=== PATIENT | male | born 1945 | race Hispanic/Latino ===

== ENCOUNTER 2019-12-13 17:24 | Emergency (ER) | payer OTHER ==
--- NOTE | 2019-12-13 18:34 | ER ---
Nurse's Notes [facility] Name: Arturo Saldana Sr Age: 74 yrs Sex: Male : 1945 Arrival Date: 12/13/2019 Time: 17:28 Bed 13 Private MD: Diagnosis: Sprain of other specified parts of right knee;Effusion, right knee Presentation: 12/12 17:41 Chief complaint: Patient states: R knee pain after hearing a pop 2 hours ago. ss Coronavirus screen: The patient has NOT traveled to a country currently being monitored by the [facility] within the last 14 days. Proceed with normal triage procedures. Ebola Screen: Patient denies exposure to infectious person. Patient denies travel to an Ebola-affected area in the 21 days before illness onset. Initial Sepsis Screen: Does the patient meet any 2 criteria? No. Patient's initial sepsis screen is negative. Does the patient have a suspected source of infection? No. Patient's initial sepsis screen is negative. Risk Assessment: Do you want to hurt yourself or someone else? Patient reports no desire to harm self or others. 17:41 Method Of Arrival: Wheelchair ss 17:41 Acuity: MADELYN 4 ss Historical: - Allergies: 17:43 No Known Allergies; ss - PMHx: 17:43 CVA; Diabetes - IDDM; ss - Immunization history:: Adult Immunizations up to date. - Social history:: Smoking status: Patient denies any tobacco usage or history of. - Family history:: not pertinent. - Hospitalizations: : No recent hospitalization is reported. Screenin:56 Abuse screen: Denies threats or abuse. Denies injuries from another. Nutritional ph screening: No deficits noted. Tuberculosis screening: No symptoms or risk factors identified. Fall Risk None identified. Assessment: 18:00 General: Appears in no apparent distress. comfortable, well groomed, Behavior is calm, ph cooperative, appropriate for age. Pain: Complains of pain in right knee. Neuro: No deficits noted. Cardiovascular: Capillary refill < 3 seconds in bilateral fingers Patient's skin is warm and dry. Pulses are palpable in right dorsalis pedis artery and left dorsalis pedis artery. Respiratory: No deficits noted. Derm: Skin is intact, is healthy with good turgor. Vital Signs: 17:41 BP 149 / 65; Pulse 85; Resp 17; Temp 98.9(TE); Pulse Ox 97% on R/A; Weight 80.74 kg; Height 5 ft. 4 in. (162.56 cm); Pain 9/10; 19:21 BP 137 / 86; Pulse 78; Resp 18; Temp 98.0; Pulse Ox 99% on R/A; ph 17:41 Body Mass Index 30.55 (80.74 kg, 162.56 cm) ED Course: 17:28 Patient arrived in ED. mr 17:42 Triage completed. ss 17:43 Arm band placed on right wrist. ss 17:55 Aj Hu MD is Attending Physician. rn 18:00 Doreen Gardiner RN is Primary Nurse. ph 18:13 XRAY Knee RIGHT 3 view In Process Unspecified. EDMS 18:30 Richard Barber MD is Referral Physician. rn 18:57 Patient has correct armband on for positive identification. Placed in gown. Bed in low ph position. Call light in reach. Side rails up X 1. Pulse ox on. NIBP on. Door closed. 18:57 No provider procedures requiring assistance completed. Patient did not have IV access ph during this emergency room visit. 18:58 Knee immobilizer applied on right knee. ph Administered Medications: 18:57 Drug: Mineral 5 mg-325 mg 1 tabs Route: PO; ph 19:22 Follow up: Response: No adverse reaction ph 18:57 Drug: Motrin 600 mg Route: PO; ph 19:22 Follow up: Response: No adverse reaction ph Outcome: 18:31 Discharge ordered by MD. rn 19:20 Discharged to home via wheelchair, with significant other. ph 19:20 Condition: good 19:20 Discharge instructions given to patient, Instructed on discharge instructions, follow up and referral plans. medication usage, Demonstrated understanding of instructions, follow-up care, medications, Prescriptions given X 2. 19:23 Patient left the ED. ph Signatures: Dispatcher [employer] [facility] LeeSaray mr Aj Hu MD MD rn Smirch, Shelby, RN RN Doreen Gardiner RN RN ph
--- NOTE | 2019-12-13 18:34 | EDPHYS ---
Physician Documentation [facility] Name: Arturo Saldana Sr Age: 74 yrs Sex: Male : 1945 Arrival Date: 12/13/2019 Time: 17:28 Bed 13 Private MD: ED Physician Aj Hu HPI: 12/12 18:26 This 74 yrs old Male presents to ER via Wheelchair with complaints of Knee rn Pain. 18:26 The patient presents with decreased range of motion, pain. The complaints affect the rn right knee. Onset: The symptoms/episode began/occurred just prior to arrival. Modifying factors: The symptoms are alleviated by remaining still, the symptoms are aggravated by movement, weight bearing, bending knee. Severity of symptoms: At their worst the symptoms were moderate, in the emergency department the symptoms are unchanged. The patient has not experienced similar symptoms in the past. Reports stepping off deck/porch, heard a pop, knee gave out, no direct trauma or hit, and now hurts to walk or bend knee. No bony pain. + mild swelling.. Historical: - Allergies: 17:43 No Known Allergies; ss - PMHx: 17:43 CVA; Diabetes - IDDM; ss - Immunization history:: Adult Immunizations up to date. - Social history:: Smoking status: Patient denies any tobacco usage or history of. - Family history:: not pertinent. - Hospitalizations: : No recent hospitalization is reported. ROS: 18:26 Constitutional: Negative for fever, chills, and weight loss, MS/Extremity: + right knee rn pain and swelling Skin: Negative for injury, rash, and discoloration, Neuro: Negative for headache, weakness, numbness, tingling, and seizure. Exam: 18:26 Constitutional: This is a well developed, well nourished patient who is awake, alert, rn and in no acute distress. MS/ Extremity: Pulses equal, no cyanosis. Able to actively flex knee approx 60 degrees, mild suprapatellar effusion, no bony tenderness or crepitus. No patellar tenderness or dislocation. Vital Signs: 17:41 BP 149 / 65; Pulse 85; Resp 17; Temp 98.9(TE); Pulse Ox 97% on R/A; Weight 80.74 kg; ss Height 5 ft. 4 in. (162.56 cm); Pain 9/10; 19:21 BP 137 / 86; Pulse 78; Resp 18; Temp 98.0; Pulse Ox 99% on R/A; ph 17:41 Body Mass Index 30.55 (80.74 kg, 162.56 cm) ss MDM: 17:55 Patient medically screened. rn 18:26 Differential diagnosis: closed fracture, contusion, meniscus injury, ligamentous rn injury, internal derangement of knee. Data reviewed: vital signs, nurses notes, radiologic studies, plain films, and as a result, I will discharge patient. Counseling: I had a detailed discussion with the patient and/or guardian regarding: the historical points, exam findings, and any diagnostic results supporting the discharge/admit diagnosis, radiology results, the need for outpatient follow up, to return to the emergency department if symptoms worsen or persist or if there are any questions or concerns that arise at home. Special discussion: I discussed with the patient/guardian in detail that at this point there is no indication for admission to the hospital. It is understood, however, that if the symptoms persist or worsen the patient needs to return immediately for re-evaluation. Further emergent ED testing is not indicated at this point in time. I discussed with the patient/guardian in detail the need to arrange with the PCP or specialist further outpatient testing, MRI, Based on the history and exam findings, there is no indication for further emergent testing or inpatient evaluation. I discussed with the patient/guardian the need to see the orthopedic surgeon for further evaluation of the symptoms. 03 17:55 Order name: XRAY Knee RIGHT 3 view rn 12/12 18:09 Order name: Knee Immobilizer; Complete Time: 18:58 rn Administered Medications: 18:57 Drug: [employer] 5 mg-325 mg 1 tabs Route: PO; ph 19:22 Follow up: Response: No adverse reaction ph 18:57 Drug: Motrin 600 mg Route: PO; ph 19:22 Follow up: Response: No adverse reaction ph Disposition: 12/13/19 18:31 Discharged to Home. Impression: Sprain of other specified parts of right knee, Effusion, right knee. - Condition is Stable. - Discharge Instructions: Knee Effusion, Knee Immobilizer, Knee Sprain. - Prescriptions for Cyclobenzaprine 10 mg Oral Tablet - take 1 tablet by ORAL route every 8 hours As needed; 20 tablet. Tramadol 50 mg Oral Tablet - take 1 tablet by ORAL route every 8 hours as needed; 20 tablet. - Medication Reconciliation Form, Thank You Letter, Antibiotic Education, Prescription Opioid Use form. - Follow up: Richard Barber MD; When: 2 - 3 days; Reason: Recheck today's complaints, Re-evaluation by your physician. - Problem is new. - Symptoms have improved. Signatures: Dispatcher [employer] EDMS Aj Hu MD MD rn Smirch, Shelby, RN RN Doreen Gardiner RN RN ph Corrections: (The following items were deleted from the chart) 19:23 18:31 12/13/2019 18:31 Discharged to Home. Impression: Sprain of other specified parts ph of right knee; Effusion, right knee. Condition is Stable. Forms are Medication Reconciliation Form, Thank You Letter, Antibiotic Education, Prescription Opioid Use. Follow up: Dr. Richard Barber; When: 2 - 3 days; Reason: Recheck today's complaints, Re-evaluation by your physician. Problem is new. Symptoms have improved. rn
[2019-12-13] MEDS ORDERED: HYDROCODONE/APAP 5/325 MG TAB ONE (18:38)
[2019-12-13] MEDS ORDERED: IBUPROFEN 400 MG TAB ONE (18:39)
[2019-12-13] MEDS ORDERED: IBUPROFEN 200 MG TAB PO ONE (18:39)
[2019-12-13 19:52] VITALS: BP 137/86; TEMP 98; O2SAT 99
--- NOTE | 2019-12-14 09:46 | RAD REPORT ---
EXAM DESCRIPTION: RAD Right Knee 3-View 12/13/2019 CLINICAL HISTORY: Knee Pain. COMPARISON: None. TECHNIQUE: X-ray 3 view knee FINDINGS: No fracture or dislocation. Mild osteoarthritis involves the medial compartment consisting of mild joint space narrowing and small osteophytes. :
== END 2019-12-13 19:23 | disposition home or self-care (01) ==
LOC: ER 17:24
DX: S83.8X1A Sprain of other specified parts of right knee, initial encounter (principal); M25.461 Effusion, right knee; W10.8XXA Fall (on) (from) other stairs and steps, initial encounter; Y93.9 Activity, unspecified; Y92.9 Unspecified place or not applicable
CPT/HCPCS: 99284

== ENCOUNTER 2021-07-18 16:57 | Emergency (ER) | payer OTHER ==
[2021-07-18 17:51] LABS: Protime INR 0.91
--- NOTE | 2021-07-18 17:53 | RAD REPORT ---
EXAM DESCRIPTION: RAD - Chest Single View - 07/18/2021 5:48 pm CLINICAL HISTORY: numbness Chest pain. COMPARISON: Chest Single View dated 12/25/2017; Chest Pa And Lat (2 Views) dated 11/09/2017; Chest Sing le View dated 08/01/2017; CHEST SINGLE VIEW dated 05/28/2014 FINDINGS: Portable technique limits examination quality. Mild interstitial pulmonary edema is present. The heart is mildly enlarged in size. No displaced frac tures. IMPRESSION: Mild CHF.
[2021-07-18 18:01] LABS: Absolute Lymphocytes (CBC) 1.8 K/uL (0.7-4.9); Basophils % 0.7 % (0-1.3); Hematocrit 34.1 % (39.6-49.0); Lymphocytes % 21.1 % (15.3-44.8); MPV 8.1 fL (7.6-11.3); RBC Red Blood Cell Count 3.63 M/uL (4.33-5.43)
[2021-07-18 18:09] LABS: Magnesium 1.8 mg/dL (1.8-2.4); Potassium 3.9 mmol/L (3.5-5.1)
--- NOTE | 2021-07-18 18:25 | RAD REPORT ---
EXAM DESCRIPTION: CT - Head Brain Wo Cont - 07/18/2021 6:12 pm CLINICAL HISTORY: NUMBNESS Headache, drowsiness COMPARISON: HEAD BRAIN W CONTRAST dated 07/22/2013; HEAD BRAIN W O CONTRAST dated 03/16/2012 TECHNIQUE: All CT scans are performed using dose optimization technique as appropriate and may inclu de automated exposure control or mA/KV adjustment according to patient size. FINDINGS: No intracranial hemorrhage, hydrocephalus or extra-axial fluid collection.Moderate brain a trophy is seen with [id number] chronic microvascular ischemic changes.No areas of brain edema o r evidence of midline shift. Bilateral vertebral atherosclerosis is present. The paranasal sinuses and mastoids are clear. The calvarium is intact. IMPRESSION: No acute intracranial abnormality.
--- NOTE | 2021-07-18 18:30 | ER ---
Nurse's Notes [facility] Name: Arturo Saldana Sr Age: 76 yrs Sex: Male : 1945 Arrival Date: 07/18/2021 Time: 17:11 Bed 28 Private MD: Diagnosis: Paresthesia of skin Presentation: 07/18 17:12 Chief complaint: EMS states: right side numbness since noon, hx of CVA. low blood oh sugar, 1/2 tube oral glucose given by EMS. FS now 72, ask pt to finish oral glucose. Coronavirus screen: Vaccine status: Patient reports receiving the 2nd dose of the covid vaccine. Ebola Screen: No symptoms or risks identified at this time. Initial Sepsis Screen: Does the patient meet any 2 criteria? No. Patient's initial sepsis screen is negative. Does the patient have a suspected source of infection? No. Patient's initial sepsis screen is negative. Risk Assessment: Do you want to hurt yourself or someone else? Patient reports no desire to harm self or others. Onset of symptoms was July 18, 2021 at 12:00. 17:12 Method Of Arrival: EMS: [facility] oh 17:12 Acuity: MADELYN 2 oh Triage Assessment: 17:22 Neuro: Level of Consciousness is awake, alert, obeys commands, Oriented to person, oh place, time, Agronomy Research Manager are equal bilaterally Moves all extremities. Gait is steady, Speech is normal, Facial symmetry appears normal, Pupils are PERRLA. 19:13 General: Appears in no apparent distress. Behavior is calm, cooperative, appropriate oh for age. 19:14 Pain: Denies pain. oh Historical: - PMHx: 17:22 CVA; Diabetes - IDDM; oh - Immunization history:: Adult Immunizations up to date, . - Social history:: Smoking status: Patient denies any tobacco usage or history of. Screenin:24 Abuse screen: Denies threats or abuse. Nutritional screening: No deficits noted. oh Tuberculosis screening: No symptoms or risk factors identified. Fall Risk None identified. Assessment: 17:24 Neuro: Level of Consciousness is awake, alert, obeys commands, Oriented to person, oh place, time, Agronomy Research Manager are equal bilaterally Moves all extremities. Speech is normal, Facial symmetry appears normal. Vital Signs: 17:12 BP 175 / 72; Pulse 72; Resp 20; Temp 98.2(O); Pulse Ox 97% on R/A; Weight 81.19 kg; oh Height 5 ft. 3 in. (160.02 cm); 17:23 BP 156 / 77; Pulse 68; oh 19:12 BP 146 / 82; Pulse 66; Resp 19; Pulse Ox 98% on R/A; oh 17:12 Body Mass Index 31.71 (81.19 kg, 160.02 cm) oh NIH Stroke Scale Scores: 17:59 NIHSS Score: 0 [facility] ED Course: 17:11 Patient arrived in ED. oh 17:11 Da Hicks, MICHAEL is Primary Nurse. oh 17:18 Anderson Austin PA is PHCP. jr8 17:18 Elton Monsivais MD is Attending Physician. jr8 17:19 Placed in gown. Bed in low position. Call light in reach. Side rails up X2. oh 17:22 Triage completed. oh 17:24 Arm band placed on left wrist. oh 17:25 Maintain EMS IV. Dressing intact. Good blood return noted. Site clean \T\ dry. oh 17:49 Stroke CXR 1 View In Process Unspecified. EDMS 18:12 CT Head Brain wo Cont In Process Unspecified. EDMS 19:12 IV discontinued, bleeding controlled, Pressure dressing applied. oh 19:14 No provider procedures requiring assistance completed. oh Administered Medications: No medications were administered Outcome: 18:29 Discharge ordered by . jr8 19:12 Discharged to home ambulatory, with family. oh 19:12 Condition: stable 19:12 Discharge instructions given to patient. 19:14 Patient left the ED. oh NIH Stroke Scale - NIH Stroke Score Date: 07/18/2021 Time: 17:59 Total Score = 0 1a. Level of Consciousness (LOC) - 0(Alert) 1b. Level of Consciousness (LOC) (Month \T\ Age) - 0(Both) 1c. LOC Commands (Open \T\ Closes Eyes/Can Line Operator) - 0(Both) 2. Best Gaze (Lateral Gaze Paresis) - 0(Normal) 3. Visual Field Loss - 0(No visual loss) 4. Facial Palsy - 0(Normal) 5a. Left Arm: Motor (10-second hold) - 0(No drift) 5b. Right Arm: Motor (10-second hold) - 0(No drift) 6a. Left Leg: Motor (5-second hold - always test supine) - 0(No drift) 6b. Right Leg: Motor (5-second hold - always test supine) - 0(No drift) 7. Limb Ataxia (finger/nose \T\ heel/blount - test with eyes open) - 0(Absent) 8. Sensory Loss (pinprick arms/legs/face) - 0(Normal) 9. Best Language: Aphasia (description/naming/reading) - 0(No aphasia) 10. Dysarthria (speech clarity - read or repeat words) - 0(Normal) 11. Extinction and Inattention (visual/tactile/auditory/spatial/personal) - 0(No abnormality) Initials: hannah Signatures: Dispatcher [employer] Anderson Goins PA PA jr8 Da Hicks, RN RN oh
--- NOTE | 2021-07-18 18:30 | EDPHYS ---
Physician Documentation [facility] Name: Arturo Saldana Sr Age: 76 yrs Sex: Male : 1945 Arrival Date: 07/18/2021 Time: 17:11 Bed 28 Private MD: ED Physician Elton Monsivais HPI: 07/18 17:59 This 76 yrs old Male presents to ER via EMS with complaints of Numbness, Low jr8 Blood Sugar. 17:59 Onset: The symptoms/episode began/occurred acutely, today. The patient has not jr8 experienced similar symptoms in the past. The patient has not recently seen a physician. This is a 76-year-old male patient that was brought in for numbness and low blood sugar. Patient stated that his blood sugar normally runs in the 100s. Today he had gotten as low as 72. Patient was given oral glucose in route to hospital with improvement. Patient finished the glucose here and overall all symptoms have subsided at this time.. Historical: - PMHx: 17:22 CVA; Diabetes - IDDM; oh - Immunization history:: Adult Immunizations up to date, . - Social history:: Smoking status: Patient denies any tobacco usage or history of. ROS: 17:59 Eyes: Negative for injury, pain, redness, and discharge, ENT: Negative for injury, jr8 pain, and discharge, Neck: Negative for injury, pain, and swelling, Cardiovascular: Negative for chest pain, palpitations, and edema, Respiratory: Negative for shortness of breath, cough, wheezing, and pleuritic chest pain, Abdomen/GI: Negative for abdominal pain, nausea, vomiting, diarrhea, and constipation, Back: Negative for injury and pain, MS/Extremity: Negative for injury and deformity, Skin: Negative for injury, rash, and discoloration. 17:59 Neuro: Positive for numbness. Exam: 17:59 Constitutional: This is a well developed, well nourished patient who is awake, alert, jr8 and in no acute distress. Head/Face: Normocephalic, atraumatic. Eyes: Pupils equal round and reactive to light, extra-ocular motions intact. Lids and lashes normal. Conjunctiva and sclera are non-icteric and not injected. Cornea within normal limits. Periorbital areas with no swelling, redness, or edema. ENT: Nares patent. No nasal discharge, no septal abnormalities noted. Tympanic membranes are normal and external auditory canals are clear. Oropharynx with no redness, swelling, or masses, exudates, or evidence of obstruction, uvula midline. Mucous membranes moist. Neck: Trachea midline, no thyromegaly or masses palpated, and no cervical lymphadenopathy. Supple, full range of motion without nuchal rigidity, or vertebral point tenderness. No Meningismus. Cardiovascular: Regular rate and rhythm with a normal S1 and S2. No gallops, murmurs, or rubs. Normal PMI, no JVD. No pulse deficits. Respiratory: Lungs have equal breath sounds bilaterally, clear to auscultation and percussion. No rales, rhonchi or wheezes noted. No increased work of breathing, no retractions or nasal flaring. Abdomen/GI: Soft, non-tender, with normal bowel sounds. No distension or tympany. No guarding or rebound. No evidence of tenderness throughout. Back: No spinal tenderness. No costovertebral tenderness. Full range of motion. Skin: Warm, dry with normal turgor. Normal color with no rashes, no lesions, and no evidence of cellulitis. MS/ Extremity: Pulses equal, no cyanosis. Neurovascular intact. Full, normal range of motion. Neuro: Awake and alert, GCS 15, oriented to person, place, time, and situation. Cranial nerves II-XII grossly intact. Motor strength 5/5 in all extremities. Sensory grossly intact. Cerebellar exam normal. Normal gait. Vital Signs: 17:12 BP 175 / 72; Pulse 72; Resp 20; Temp 98.2(O); Pulse Ox 97% on R/A; Weight 81.19 kg; oh Height 5 ft. 3 in. (160.02 cm); 17:23 BP 156 / 77; Pulse 68; oh 19:12 BP 146 / 82; Pulse 66; Resp 19; Pulse Ox 98% on R/A; oh 17:12 Body Mass Index 31.71 (81.19 kg, 160.02 cm) oh NIH Stroke Scale Scores: 17:59 NIHSS Score: 0 jr8 MDM: 17:20 Patient medically screened. jr8 18:28 Data reviewed: vital signs, nurses notes, lab test result(s), EKG, radiologic studies, jr8 CT scan, plain films. Data interpreted: Pulse oximetry: on room air is 97 %. Interpretation: normal. Counseling: I had a detailed discussion with the patient and/or guardian regarding: the historical points, exam findings, and any diagnostic results supporting the discharge/admit diagnosis, lab results, radiology results, the need for outpatient follow up, a family practitioner, to return to the emergency department if symptoms worsen or persist or if there are any questions or concerns that arise at home. Response to treatment: the patient's symptoms have resolved after treatment. ED course: Patient remains hemodynamically stable and afebrile. Patient currently without focal deficits and feels complete resolution of all symptoms. Labs unremarkable at this time. No other acute findings noted on imaging or EKG. Will discharge home with close follow-up and return precautions. Patient good with plan at this time.. 07/18 17:19 Order name: Glucose, Ancillary Testing; Complete Time: 17:20 EDMS 07/18 17:26 Order name: Basic Metabolic Panel; Complete Time: 18:23 8 07/18 17:26 Order name: CBC with Diff; Complete Time: 18:23 8 07/18 17:26 Order name: Magnesium; Complete Time: 18:23 8 07/18 17:26 Order name: Protime (+inr); Complete Time: 17:58 8 07/18 17:26 Order name: Ptt, Activated; Complete Time: 17:58 07/18 17:26 Order name: Stroke CXR 1 View; Complete Time: 17:58 07/18 17:26 Order name: EKG; Complete Time: 17:27 07/18 17:26 Order name: Accucheck; Complete Time: 17:28 8 07/18 17:26 Order name: Cardiac monitoring; Complete Time: 17:29 8 07/18 17:26 Order name: EKG - Nurse/Tech; Complete Time: 17:54 8 07/18 17:26 Order name: IV Saline Lock; Complete Time: 17:54 07/18 17:26 Order name: Labs collected and sent; Complete Time: 17:54 07/18 17:26 Order name: CT Head Brain wo Cont; Complete Time: 18:28 07/18 17:26 Order name: NPO; Complete Time: 17:27 jr8 07/18 17:26 Order name: O2 Per Protocol; Complete Time: 17: jr8 07/18 17:26 Order name: O2 Sat Monitoring; Complete Time: jr8 07/18 17: Order name: Stroke Swallow Screen; Complete Time: 17: jr8 Administered Medications: No medications were administered Disposition: 23:47 Co-signature as Attending Physician, Elton Monsivais MD I agree with the assessment and kdr plan of care. Disposition Summary: 07/18/21 18:29 Discharge Ordered Location: Home jr8 Problem: new jr8 Symptoms: are resolved jr8 Condition: Stable jr8 Diagnosis - Paresthesia of skin jr8 Followup: jr8 - With: Private Physician - When: 1 - 2 days - Reason: Recheck today's complaints, Continuance of care, Re-evaluation by your physician Discharge Instructions: - Discharge Summary Sheet jr8 - Hypoglycemia jr8 - Paresthesia jr8 Forms: - Medication Reconciliation Form jr8 - Thank You Letter jr8 - Antibiotic Education jr8 - Prescription Opioid Use jr8 NIH Stroke Scale - NIH Stroke Score Date: 07/18/2021 Time: 17:59 Total Score = 0 1a. Level of Consciousness (LOC) - 0(Alert) 1b. Level of Consciousness (LOC) (Month \T\ Age) - 0(Both) 1c. LOC Commands (Open \T\ Closes Eyes/Paver Installer) - 0(Both) 2. Best Gaze (Lateral Gaze Paresis) - 0(Normal) 3. Visual Field Loss - 0(No visual loss) 4. Facial Palsy - 0(Normal) 5a. Left Arm: Motor (10-second hold) - 0(No drift) 5b. Right Arm: Motor (10-second hold) - 0(No drift) 6a. Left Leg: Motor (5-second hold - always test supine) - 0(No drift) 6b. Right Leg: Motor (5-second hold - always test supine) - 0(No drift) 7. Limb Ataxia (finger/nose \T\ heel/blount - test with eyes open) - 0(Absent) 8. Sensory Loss (pinprick arms/legs/face) - 0(Normal) 9. Best Language: Aphasia (description/naming/reading) - 0(No aphasia) 10. Dysarthria (speech clarity - read or repeat words) - 0(Normal) 11. Extinction and Inattention (visual/tactile/auditory/spatial/personal) - 0(No abnormality) Initials: jr8 Signatures: Dispatcher [employer] Elton Guevara MD MD kdr Roszak, Josh, PA PA jr8 Da Hicks, RN RN oh
[2021-07-18 19:19] VITALS: TEMP 98.2
[2021-07-18 19:22] VITALS: BP 146/82; O2SAT 98
== END 2021-07-18 19:14 | disposition home or self-care (01) ==
LOC: ER 16:57
DX: R20.2 Paresthesia of skin (principal); E11.9 Type 2 diabetes mellitus without complications; Z86.73 Personal history of transient ischemic attack (TIA), and cerebral infarction without residual deficits
CPT/HCPCS: 36415; 70450; 71045; 80048; 82947; 83735; 85025; 85610; 85730; 93005; 99283

== ENCOUNTER 2022-04-19 16:21 | Emergency (ER) | payer OTHER ==
--- NOTE | 2022-04-19 17:21 | RAD REPORT ---
EXAM DESCRIPTION: Rima Morgan And Yeni (2 Views)04/19/2022 5:11 pm CLINICAL HISTORY: Cough COMPARISON: 2020 FINDINGS: The lungs appear clear of acute infiltrate. The heart is mildly enlarged IMPRESSION: No acute abnormalities displayed
--- NOTE | 2022-04-19 18:58 | ER ---
Nurse's Notes [facility] Name: Arturo Saldana Sr Age: 77 yrs Sex: Male : 1945 Arrival Date: 04/19/2022 Time: 16:24 Bed 14 Private MD: Diagnosis: Coronavirus infection, unspecified Presentation: 04/19 16:30 Chief complaint: EMS states: Toned out for pulse ox of 93% on room air, covid + x 4 jl7 days, diarrhea yesterday, pt reports his and daughter made him come because he was 93% oxygen and someone said he shouldn't go below 90%. Coronavirus screen: Vaccine status: Patient reports receiving the 2nd dose of the covid vaccine. cough unrelated to allergies, diarrhea, Client presents with at least one sign or symptom that may indicate coronavirus-19. Standard/surgical mask placed on the client. Provider contacted for isolation considerations. Client reports previous positive COVID test result. Ebola Screen: No symptoms or risks identified at this time. Initial Sepsis Screen: Does the patient meet any 2 criteria? No. Patient's initial sepsis screen is negative. Does the patient have a suspected source of infection? No. Patient's initial sepsis screen is negative. Risk Assessment: Do you want to hurt yourself or someone else? Patient reports no desire to harm self or others. Onset of symptoms was April 15, 2022. Care prior to arrival: Glucose check: 291. 16:30 Method Of Arrival: EMS: [facility] jl7 16:30 Acuity: MADELYN 3 jl7 Triage Assessment: 16:35 General: Appears in no apparent distress. uncomfortable, Behavior is calm, cooperative, jl7 appropriate for age. Pain: Denies pain. Neuro: Boyce Agitation-Sedation Scale (RASS): 0 - Alert and Calm Level of Consciousness is awake, alert, obeys commands, Oriented to person, place, time, situation. Cardiovascular: Patient's skin is warm and dry. Respiratory: Airway is patent Respiratory effort is even, unlabored, Respiratory pattern is regular, symmetrical. Derm: Skin is pink, warm \T\ dry. Historical: - Allergies: 16:35 No Known Allergies; jl7 - Home Meds: 16:35 Toujeo Max U-300 SoloStar 300 unit/mL (3 mL) subcutaneous inpn 60 unit daily [Active]; jl7 metformin 500 mg Oral TG24 1 tab TID [Active]; potassium chloride 10 mEq Oral cpER 1 cap once daily [Active]; losartan 100 mg oral tab 1 tab once daily [Active]; tamsulosin 0.4 mg oral cap 1 cap once daily [Active]; atorvastatin 40 mg oral tab [Active]; carvedilol 6.25 mg oral tab 1 tab every 12 hours [Active]; citalopram 20 mg tab 1 tab once daily [Active]; clonidine HCl 0.1 mg Oral tab 1 tab once daily [Active]; furosemide 20 mg Oral tab 2 tabs 2 times per day [Active]; aspirin 81 mg Oral TbEC 1 tab once daily [Active]; - PMHx: 16:35 CVA; Diabetes - IDDM; Hypertensive disorder; Hypercholesterolemia; Congestive heart jl7 failure; Depressive disorder; - Immunization history:: Client reports receiving the 2nd dose of the Covid vaccine. - Social history:: Smoking status: Patient denies any tobacco usage or history of. Screenin:11 Abuse screen: Denies threats or abuse. Denies injuries from another. Nutritional jl7 screening: No deficits noted. Tuberculosis screening: No symptoms or risk factors identified. Fall Risk IV access (20 points). Assessment: 17:11 General: See triage assessment. jl7 18:00 Reassessment: Patient appears in no apparent distress at this time. No changes from jl7 previously documented assessment. Patient and/or family updated on plan of care and expected duration. Pain level reassessed. Patient is alert, oriented x 3, equal unlabored respirations, skin warm/dry/pink. Vital Signs: 16:30 BP 149 / 68; Pulse 67; Resp 17; Temp 98.1; Pulse Ox 97% ; Weight 81.65 kg; Height 5 ft. jl7 4 in. (162.56 cm); Pain 0/10; 16:45 BP 154 / 88; Pulse 68; Resp 15; Pulse Ox 94% ; jl7 18:55 BP 177 / 77; Pulse 65; Resp 15; Pulse Ox 95% ; jl7 16:30 Body Mass Index 30.90 (81.65 kg, 162.56 cm) jl7 ED Course: 16:24 Patient arrived in ED. eb 16:29 Debby Wooten RN is Primary Nurse. jl7 16:35 Triage completed. jl7 16:35 Tyrese Huizar NP is PHCP. pm1 16:35 Calderon South MD is Attending Physician. pm1 16:35 Arm band placed on right wrist. jl7 17:11 Patient has correct armband on for positive identification. Bed in low position. Call jl7 light in reach. Side rails up X2. Client placed on continuous cardiac and pulse oximetry monitoring. NIBP monitoring applied. 17:11 COVID swab sent to lab. Flu and/or RSV swab sent to lab. Strep swab sent to lab. jl7 17:12 Chest Pa And Lat (2 Views) XRAY In Process Unspecified. EDMS 18:53 No provider procedures requiring assistance completed. jl7 18:53 Patient did not have IV access during this emergency room visit. jl7 Administered Medications: No medications were administered Medication: 17:11 VIS not applicable for this client. jl7 Outcome: 18:57 Discharge ordered by . pm1 19:27 Patient left the ED. kd3 Signatures: Dispatcher [employer] EDNJ Tyrese Huizar NP [employer]OEMAKER pm1 Debby Wooten, RN RN jl7 Nuha Rojas Kyli RN RN kd3
--- NOTE | 2022-04-19 18:58 | EDPHYS ---
Physician Documentation [facility] Name: Arturo Saldana Sr Age: 77 yrs Sex: Male : 1945 Arrival Date: 04/19/2022 Time: 16:24 Bed 14 Private MD: ED Physician Calderon South HPI: 04/19 16:53 This 77 yrs old Male presents to ER via EMS with complaints of COVID+. pm1 16:53 Low O2 saturation at home. Onset: The symptoms/episode began/occurred today, Patient pm1 with onset of cough 6 days ago and tested positive for COVID 6 days ago. Patient does not believe he has COVID. Severity of symptoms: in the emergency department the symptoms are unchanged. The patient has not experienced similar symptoms in the past. The patient has not recently seen a physician. 77-year-old male presents to the ER with complaints of low O2 saturation per family members home O2 pulse ox. They had a reading of 93% at home and were concerned, therefore sent the patient to the ER for evaluation. Patient without any complaints shortness of breath. Patient with cough and diarrhea. Diarrhea started today. Patient reports 3 episodes. Historical: - Allergies: 16:35 No Known Allergies; jl7 - Home Meds: 16:35 Toujeo Max U-300 SoloStar 300 unit/mL (3 mL) subcutaneous inpn 60 unit daily [Active]; jl7 metformin 500 mg Oral TG24 1 tab TID [Active]; potassium chloride 10 mEq Oral cpER 1 cap once daily [Active]; losartan 100 mg oral tab 1 tab once daily [Active]; tamsulosin 0.4 mg oral cap 1 cap once daily [Active]; atorvastatin 40 mg oral tab [Active]; carvedilol 6.25 mg oral tab 1 tab every 12 hours [Active]; citalopram 20 mg tab 1 tab once daily [Active]; clonidine HCl 0.1 mg Oral tab 1 tab once daily [Active]; furosemide 20 mg Oral tab 2 tabs 2 times per day [Active]; aspirin 81 mg Oral TbEC 1 tab once daily [Active]; - PMHx: 16:35 CVA; Diabetes - IDDM; Hypertensive disorder; Hypercholesterolemia; Congestive heart jl7 failure; Depressive disorder; - Immunization history:: Client reports receiving the 2nd dose of the Covid vaccine. - Social history:: Smoking status: Patient denies any tobacco usage or history of. ROS: 16:53 Constitutional: Negative for fever, chills, and weight loss. pm1 16:53 Cardiovascular: Negative for chest pain, palpitations, and edema. 16:53 Back: Negative for injury and pain, MS/Extremity: Negative for injury and deformity, Skin: Negative for injury, rash, and discoloration, Neuro: Negative for headache, weakness, numbness, tingling, and seizure. 16:53 ENT: Positive for sore throat, Negative for ear pain. 16:53 Respiratory: Positive for cough, Negative for shortness of breath. 16:53 Abdomen/GI: Positive for diarrhea, Negative for abdominal pain, nausea and vomiting. 16:53 All other systems are negative. Exam: 16:53 Constitutional: This is a well developed, well nourished patient who is awake, alert, pm1 and in no acute distress. Head/Face: Normocephalic, atraumatic. 16:53 Back: No spinal tenderness. No costovertebral tenderness. Full range of motion. Skin: Warm, dry with normal turgor. Normal color with no rashes, no lesions, and no evidence of cellulitis. MS/ Extremity: Pulses equal, no cyanosis. Neurovascular intact. Full, normal range of motion. 16:53 Eyes: Exam is negative for acute changes, Periorbital structures: appear normal, Pupils: no acute changes, Extraocular movements: no acute changes, Conjunctiva: no acute changes, no injection. 16:53 ENT: Exam is negative for acute changes, Mouth: no acute changes, Lips: normal, moist, Oral mucosa: normal, pink and intact, moist. 16:53 Cardiovascular: Exam negative for acute changes, Rate: normal, Rhythm: regular, Pulses: no pulse deficits are appreciated, Heart sounds: normal, normal S1and S2. 16:53 Respiratory: Exam negative for acute changes, respiratory distress, shortness of breath, Breath sounds: are clear throughout. 16:53 Abdomen/GI: Exam negative for acute changes, Inspection: abdomen appears normal, Palpation: abdomen is soft and non-tender, in all quadrants. 16:53 Neuro: Exam negative for acute changes, Orientation: is normal, Mentation: is normal, Motor: is normal, moves all fours. Vital Signs: 16:30 BP 149 / 68; Pulse 67; Resp 17; Temp 98.1; Pulse Ox 97% ; Weight 81.65 kg; Height 5 ft. jl7 4 in. (162.56 cm); Pain 0/10; 16:45 BP 154 / 88; Pulse 68; Resp 15; Pulse Ox 94% ; jl7 18:55 BP 177 / 77; Pulse 65; Resp 15; Pulse Ox 95% ; jl7 16:30 Body Mass Index 30.90 (81.65 kg, 162.56 cm) jl7 MDM: 16:36 Patient medically screened. pm1 16:41 Data reviewed: vital signs. Data interpreted: Pulse oximetry: on room air is 97 %. pm1 Interpretation: normal. 16:42 ED course: 77-year-old patient presents to the ER with complaints of cough and pm1 diarrhea. Cough for 4 days and diarrhea today. Patient without any complaints of shortness of breath, chest pain, abdominal pain, nausea, or vomiting, or fever. Positive for sore throat. Family recorded a home O2 saturation of 93% and called the EMS for evaluation. 18:57 Counseling: I had a detailed discussion with the patient and/or guardian regarding: the pm1 historical points, exam findings, and any diagnostic results supporting the discharge/admit diagnosis, lab results, radiology results, the need for outpatient follow up, to return to the emergency department if symptoms worsen or persist or if there are any questions or concerns that arise at home. 04/19 16:53 Order name: COVID-19 SARS RT PCR (Document "Date of Onset" if Symptomatic); Complete pm1 Time: 18:56 04/19 16:53 Order name: Flu; Complete Time: 17:29 pm1 04/19 16:53 Order name: Chest Pa And Lat (2 Views) XRAY; Complete Time: 17:29 pm1 04/19 16:53 Order name: Strep; Complete Time: 17:29 pm1 04/19 17:26 Order name: Throat Culture EDMS Administered Medications: No medications were administered Disposition Summary: 04/19/22 18:57 Discharge Ordered Location: Home pm1 Problem: new pm1 Symptoms: have improved pm1 Condition: Stable pm1 Diagnosis - Coronavirus infection, unspecified pm1 Followup: pm1 - With: Emergency Department - When: As needed - Reason: Worsening of condition Followup: pm1 - With: Private Physician - When: 2 - 3 days - Reason: Recheck today's complaints, Continuance of care, Re-evaluation by your physician Discharge Instructions: - Discharge Summary Sheet pm1 - COVID-19 pm1 - COVID-19 Frequently Asked Questions pm1 - 10 Things You Can Do to Manage Your COVID-19 Symptoms at Home - [facility] pm1 - COVID-19: Quarantine vs. Isolation - [facility] pm1 Forms: - Medication Reconciliation Form pm1 - Thank You Letter pm1 - Antibiotic Education pm1 - Prescription Opioid Use pm1 Addendum: 04/21/2022 13:52 Co-signature as Attending Physician, Calderon South MD I agree with the assessment and c acevedo plan of care. Signatures: Dispatcher [employer] EDCalderon Collazo MD MD cha Marinas, Patrick, TELEGRAPH AND TELETYPE OPERATOR TELEGRAPH AND TELETYPE OPERATOR pm1 Debby Wooten, RN RN jl7
[2022-04-19 19:49] VITALS: TEMP 98.1
[2022-04-19 19:52] VITALS: BP 177/77; O2SAT 95
== END 2022-04-19 19:27 | disposition home or self-care (01) ==
LOC: ER 16:21
DX: U07.1 COVID-19 (principal); I10 Essential (primary) hypertension; E11.9 Type 2 diabetes mellitus without complications; Z79.4 Long term (current) use of insulin; I50.9 Heart failure, unspecified
CPT/HCPCS: 87070; 87081; 87804 ×2; 71046; 99283; U0003

== ENCOUNTER 2023-05-30 19:16 | Emergency (ER) | payer OTHER ==
--- OUTSIDE RECORDS SUMMARY | 2023-05-30 19:23 | XMS REPORT | Continuity of Care Document ---
:1945 Author Organization [facility] t Address [address] [place] [address] [place] [id number] Care Team Providers Name Role Phone PRIMO HORTON Primary Care Physician Unavailable KATELIN FOUNTAIN Attending Clinician Unavailable Brandon Spears Attending Clinician TAYLOR GOMEZ Attending Clinician Unavailable TAYLOR GOMEZ Attending Clinician Unavailable Katelin Fountain MD Attending Clinician Lab, [facility] Attending Clinician Unavailable Doctor Unassigned, [place] Attending Clinician Unavailable [facility] Attending Clinician Unavailable KATELIN FOUNTAIN Admitting Clinician Unavailable Payers Payer Name Policy Type Policy Number Effective Date Expiration Date Claudia parker BOB/DAWN [id number] 2020 MEDICARE ADVANTAGE 00:00:00 Problems Condition Condition Condition Status Onset Resolution Last Treating Co mments Source Name Details Category Date Date Treatment Clinician Date Type 2 Type 2 Disease Active [facility]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 diabetes 06-09 ity of mellitus mellitus 00:00: [place] without without 00 Medical complicati complicati Br anch on, on, without without long-term long-term current current use of use of insulin insulin MORGAN MORGAN Diagnosis Active 2012-102013-07-21 Mem oria CAROTID CAROTID 0-04 06:27:00 l STENOSIS STENOSIS 00:00: Kane zuniga ICD-9# ICD-9# 00 733.11 733.11 Active 07/09/2013 [facility] PATHOLOGIC PATHOLOGI Diagnosis Active 2013-07-21 Memoria AL FX BLANCA FX 06:27:00 l HUMEROUS HUMEROUS Kane zuniga Active [facility] Hyperchole Hyperchol Problem Resolve 2013-07-27 Memoria sterolemia esterolemi d 23:19:47 l (disorder) lee Kane n (disorder) Resolved Problem 07/27/2013 [facility] Diabetes Diabetes Problem Resolve 2013-07-27 Memoria mellitus mellitus d 23:19:47 l type 1 type 1 Ferris (disorder) (disorder) Resolved Problem 07/27/2013 [facility] 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 23:19:47 l (disorder) (disorder) He rmann Resolved Problem 07/27/2013 <sup>1</s up>carotid [facility] Amnesia Amnesia Problem Active 2023-05-19 M emoria (finding) (finding) 11:56:05 l Active Isael Problem 05/19/2023 [facility] [place] Diabetes Diabetes Problem Active 2023-05-19 Memoria mellitus mellitus 11:56:05 l (disorder) (disorder) He rmann Active Problem 05/19/2023 [facility] [place] Hyperlipid Hyperlipi Problem Active 2023-05-19 Memoria emia demia 11:56:05 l (disorder) (disorder) He rmann Active Problem 05/19/2023 [facility] [place] Hypertensi Hypertens Problem Active 2023-05-19 Memoria ve david 11:56:05 l disorder, disorder, Herm keri systemic systemic arterial arterial (disorder) (disorder) Active Problem 05/19/2023 [facility] [place] Impaired Impaired Problem Active 2023-05-19 Memoria cognition cognition 11:56:05 l (finding) (finding) Herm keri Active Problem 05/19/2023 [facility] [place] Renal Renal Problem Active 2023-05-19 Memor ia impairment impairment 11:56:05 l (disorder) (disorder) He rmann Active Problem 05/19/2023 [facility] [place] Dementia Dementia Problem Active 2023-05-19 Memoria (disorder) (disorder) 11:56:05 l Active Isael Problem 05/19/2023 [facility] [place] 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 13:50:18 13:50:18 Sex [birth year] [facility] 00:00:00 00:00:00 Medical Branch Smoking Status Start Date Stop Date Source Tobacco smoking consumption [facility] Tobacco smoking status [facility] Medications Ordered Filled Start Stop Current Ordering Indication Dosage Frequency Signature Comments Components Source Medication Medication Date Date Medication? Clinician (SIG) Name Name Aricept 10 Yes 10 mg = 1 Me moria mg oral 8-11 tab, PO, l tablet 21:09: Bedtime, # Aura nn 00 30 tab, 3 Refill(s), Pharmacy: [facility] [id number], 157.48, cm, 05/16/23 15:43:00 CDT, Height, 86.364, kg, 05/16/23 15:43:00 CDT, Weight citalopram Yes 10 mg = 1 Me moria 10 mg oral 8-11 tab, PO, l tablet 21:08: Daily, # Ferris 00 30 tab, 3 Refill(s), Pharmacy: [facility] [id number], 157.48, cm, 05/16/23 15:43:00 CDT, Height, 86.364, kg, 05/16/23 15:43:00 CDT, Weight divalproex Yes = 1 tab, Mem oria sodium 250 8-11 PO, BID, # l mg oral 21:07: 60 tab, 3 Aura nn tablet, 00 Refill(s), extended Pharmacy: release [facility] ([facility]) [id number], 157.48, cm, 05/16/23 15:43:00 CDT, Height, 86.364, kg, 05/16/23 15:43:00 CDT, Weight Aricept 10 Yes 10 mg = 1 Me moria mg oral 4-06 tab, PO, l tablet 20:49: Bedtime, # Aura nn 00 30 tab, 3 Refill(s), Pharmacy: [facility] [id number], 154.94, cm, 01/09/23 15:23:00 CDT, Height, 85.909, kg, 01/09/23 15:23:00 CDT, Weight divalproex Yes = 1 tab, Mem oria sodium 250 4-03 PO, Daily, l mg oral 16:17: # 30 tab, Aura nn tablet, 00 3 extended Refill(s), release Pharmacy: ([facility] [id number], 154.94, cm, 09/11/22 11:47:00 [employer], Height, 86.364, kg, 09/11/22 11:47:00 [employer], Weight Depakote ER 2021-10 Yes 250 mg = 1 Memoria 250 mg oral 2-07 tab, PO, l tablet, 18:03: Daily, # Kane n extended 00 30 tab, 3 release Refill(s), Pharmacy: [facility] [id number], 154.94, cm, 09/11/22 11:47:00 [employer], Height, 86.364, kg, 09/11/22 11:47:00 [employer], Weight semaglutide 2021-10 Yes [id number] 6mg Take 6 mg Univers (RYBELSUS) 1-01 by mouth ity o f 3 mg Tab 00:00: daily. [address] semaglutide 2021-10 Yes [id number] 6mg Take 6 mg Univers (RYBELSUS) 1-01 by mouth ity o f 3 mg Tab 00:00: daily. [address] semaglutide 2021-10 Yes [id number] 3mg Take 3 mg Univers (RYBELSUS) 1-01 by mouth ity o f 3 mg Tab 00:00: daily. [address] semaglutide 2021-10 Yes [id number] 6mg Take 6 mg Univers (RYBELSUS) 1-01 by mouth ity o f 3 mg Tab 00:00: daily. Medical Branch semaglutide 2021-10 Yes [id number] 3mg Take 3 mg Univers (RYBELSUS) 1- by mouth ity o f 3 mg Tab 00:00: daily. Medical Branch semaglutide 2021-10 Yes [id number] 6mg Take 6 mg Univers (RYBELSUS) 10-06 by mouth ity o f 3 mg Tab 00:00: daily. Medical Branch semaglutide 2021-10 Yes [id number] 3mg Take 3 mg Univers (RYBELSUS) 10-06 by mouth ity o f 3 mg Tab 00:00: daily. Medical Branch magnesium 2021-0 Yes 400mg Take 400 Uni vers oxide 400 9-12 mg by ity of mg 00:00: mouth [place] magnesium 00 daily. Medical Tab Branch magnesium 2021-0 Yes 400mg Take 400 Uni vers oxide 400 9-12 mg by ity of mg 00:00: mouth [place] magnesium 00 daily. Medical Tab Branch magnesium 2021-0 Yes 400mg Take 400 Uni vers oxide 400 9-12 mg by ity of mg 00:00: mouth [place] magnesium 00 daily. Medical Tab Branch magnesium 2021-0 Yes 400mg Take 400 Uni vers oxide 400 9-12 mg by ity of mg 00:00: mouth [place] magnesium 00 daily. Medical Tab Branch magnesium 2021-0 Yes 400mg Take 400 Uni vers oxide 400 9-12 mg by ity of mg 00:00: mouth [place] magnesium 00 daily. Medical Tab Branch magnesium 2021-0 Yes 400mg Take 400 Uni vers oxide 400 9-12 mg by ity of mg 00:00: mouth [place] magnesium 00 daily. Medical Tab Branch magnesium 2021-0 Yes 400mg Take 400 Uni vers oxide 400 9-12 mg by ity of mg 00:00: mouth [place] magnesium 00 daily. Medical Tab Branch magnesium 2021-0 Yes 400mg Take 400 Uni vers oxide 400 9-12 mg by ity of mg 00:00: mouth [place] magnesium 00 daily. Medical Tab Branch magnesium 2021-0 Yes 400mg Take 400 Uni vers oxide 400 9-12 mg by ity of mg 00:00: mouth [place] magnesium 00 daily. Medical Tab Branch magnesium 2021-0 Yes 400mg Take 400 Uni vers oxide 400 9-12 mg by ity of mg 00:00: mouth [place] magnesium 00 daily. Medical Tab Branch magnesium 2021-0 Yes 400mg Take 400 Uni vers oxide 400 9-12 mg by ity of mg 00:00: mouth [place] magnesium 00 daily. Medical Tab Branch magnesium 2021-0 Yes 400mg Take 400 Uni vers oxide 400 9-12 mg by ity of mg 00:00: mouth [place] magnesium 00 daily. Medical Tab Branch magnesium 2021-0 Yes 400mg Take 400 Uni vers oxide 400 9-12 mg by ity of mg 00:00: mouth [place] magnesium 00 daily. Medical Tab Branch magnesium 2021-0 Yes 400mg Take 400 Uni vers oxide 400 9-12 mg by ity of mg 00:00: mouth [place] magnesium 00 daily. Medical Tab Branch magnesium 2021-0 Yes 400mg Take 400 Uni vers oxide 400 9-12 mg by ity of mg 00:00: mouth [place] magnesium 00 daily. Medical Tab Branch magnesium 2021-0 Yes 400mg Take 400 Uni vers oxide 400 9-12 mg by ity of mg 00:00: mouth [place] magnesium 00 daily. Medical Tab Branch Aricept 10 0 Yes 10 mg = 1 Me moria mg oral 9-07 tab, PO, l tablet 16:52: Bedtime, # Aura nn 00 30 tab, 3 Refill(s), Pharmacy: [facility] [id number], 157.48, cm, 06/12/22 11:44:00 CDT, Height, 88.239, kg, 06/12/22 11:44:00 CDT, Weight Aricept 10 0 Yes 10 mg = 1 Me moria mg oral 9-07 tab, PO, l tablet 16:52: Bedtime, # Aura nn 00 30 tab, 3 Refill(s), Pharmacy: [facility] [id number], 157.48, cm, 06/12/22 11:44:00 CDT, Height, 88.239, kg, 06/12/22 11:44:00 CDT, Weight Rybelsus 3 2021-0 Yes 3 mg, PO, Me moria mg oral 9-07 Daily, l tablet 16:46: Take on an Aura nn 00 empty stomach with up to 4oz plain water. Wait at least 30 minutes before the first food, beverage, or other oral medication s of the day. Swallow whole. Do not cut, crush, or chew., 0 Refill(s) Rybelsus 3 2021-0 Yes 3 mg, PO, Me moria mg oral 9-07 Daily, l tablet 16:46: Take on an Aura 00 empty stomach with up to 4oz plain water. Wait at least 30 minutes before the first food, beverage, or other oral medication s of the day. Swallow whole. Do not cut, crush, or chew., 0 Refill(s) metFORMIN 2021-0 2022- No 500mg Take 500 Un rashida 500 mg 8-29 08-29 mg by ity of tablet 15:29: 00:00 mouth 3 [place] 04 :00 (three) Medical times [place] daily. semaglutide 2021-0 Yes [id number] 3mg Take 3 mg Univers (RYBELSUS) 8-29 by mouth ity o f 3 mg Tab 00:00: daily. [address] glipiZIDE 2021-0 Yes [id number] 10mg Take 1 U nivers 10 mg 8-29 tablet by ity of tablet 00:00: mouth 2 [place] [address] [facility] and dinner. metFORMIN 2021-0 Yes [id number] 1000mg Take 1 Univers 1,000 mg 8-29 tablet by ity of tablet 00:00: mouth in [address] and 1 tablet in the evening. Take with meals. semaglutide 2021-0 Yes [id number] 3mg Take 3 mg Univers (RYBELSUS) 8-29 by mouth ity o f 3 mg Tab 00:00: daily. [address] glipiZIDE 2021-0 Yes [id number] 10mg Take 1 U nivers 10 mg 8-29 tablet by ity of tablet 00:00: mouth 2 [place] [address] [facility] before breakfast and dinner. metFORMIN 2021-0 Yes [id number] 1000mg Take 1 Univers 1,000 mg 8-29 tablet by ity of tablet 00:00: mouth in [address] morning [place] and 1 tablet in the evening. Take with meals. semaglutide 2021-0 Yes [id number] 3mg Take 3 mg Univers (RYBELSUS) 8-29 by mouth ity o f 3 mg Tab 00:00: daily. [address] glipiZIDE 2022-0 Yes [id number] 10mg Take 1 U nivers 10 mg 8-29 tablet by ity of tablet 00:00: mouth [address] daily before breakfast and dinner. metFORMIN 2022-0 Yes [id number] 1000mg Take 1 Univers 1,000 mg 8-29 tablet by ity of tablet 00:00: mouth in [address] morning [place] and 1 tablet in the evening. Take with meals. semaglutide 2022-0 Yes [id number] 3mg Take 3 mg Univers (RYBELSUS) 8-29 by mouth ity o f 3 mg Tab 00:00: daily. [address] glipiZIDE 2022-0 Yes [id number] 10mg Take 1 U nivers 10 mg 8-29 tablet by ity of tablet 00:00: mouth [address] daily before breakfast and dinner. metFORMIN 2022-0 Yes [id number] 1000mg Take 1 Univers 1,000 mg 8-29 tablet by ity of tablet 00:00: mouth in [address] morning [place] and 1 tablet in the evening. Take with meals. semaglutide 2022-0 Yes [id number] 3mg Take 3 mg Univers (RYBELSUS) 8-29 by mouth ity o f 3 mg Tab 00:00: daily. [address] glipiZIDE 2022-0 Yes [id number] 10mg Take 1 U nivers 10 mg 8-29 tablet by ity of tablet 00:00: mouth [address] daily before breakfast and dinner. metFORMIN 2022-0 Yes [id number] 1000mg Take 1 Univers 1,000 mg 8-29 tablet by ity of tablet 00:00: mouth in [address] morning [place] and 1 tablet in the evening. Take with meals. semaglutide 2022-0 Yes [id number] 3mg Take 3 mg Univers (RYBELSUS) 8-29 by mouth ity o f 3 mg Tab 00:00: daily. [address] glipiZIDE 2022-0 Yes [id number] 10mg Take 1 U nivers 10 mg 8-29 tablet by ity of tablet 00:00: mouth [address] daily before breakfast and dinner. metFORMIN 2022-0 Yes [id number] 1000mg Take 1 Univers 1,000 mg 8-29 tablet by ity of tablet 00:00: mouth in [place] [address] the [facility] morning [place] and 1 tablet in the evening. Take with meals. semaglutide 2022-0 Yes [id number] 3mg Take 3 mg Univers (RYBELSUS) 8-29 by mouth ity o f 3 mg Tab 00:00: daily. [address] glipiZIDE 2022-0 Yes [id number] 10mg Take 1 U nivers 10 mg 8-29 tablet by ity of tablet 00:00: mouth 2 [place] [address] ([facility] daily before breakfast and dinner. metFORMIN 2022-0 Yes [id number] 1000mg Take 1 Univers 1,000 mg 8-29 tablet by ity of tablet 00:00: mouth in [address] morning [place] and 1 tablet in the evening. Take with meals. semaglutide 2-0 Yes [id number] 3mg Take 3 mg Univers (RYBELSUS) 8-29 by mouth ity o f 3 mg Tab 00:00: daily. [address] glipiZIDE 2022-0 Yes [id number] 10mg Take 1 U nivers 10 mg 8-29 tablet by ity of tablet 00:00: mouth 2 [place] [address] ([facility] daily before breakfast and dinner. metFORMIN 2-0 Yes [id number] 1000mg Take 1 Univers 1,000 mg 8-29 tablet by ity of tablet 00:00: mouth in [address] morning [place] and 1 tablet in the evening. Take with meals. semaglutide 2022-0 Yes [id number] 3mg Take 3 mg Univers (RYBELSUS) 8-29 by mouth ity o f 3 mg Tab 00:00: daily. [address] glipiZIDE 2022-0 Yes [id number] 10mg Take 1 U nivers 10 mg 8-29 tablet by ity of tablet 00:00: mouth 2 [place] [address] ([facility] daily before breakfast and dinner. metFORMIN 2022-0 Yes [id number] 1000mg Take 1 Univers 1,000 mg 8-29 tablet by ity of tablet 00:00: mouth in [address] morning [place] and 1 tablet in the evening. Take with meals. semaglutide 2021-0 Yes [id number] 3mg Take 3 mg Univers (RYBELSUS) 8-29 by mouth ity o f 3 mg Tab 00:00: daily. [address] glipiZIDE 2021-0 Yes [id number] 10mg Take 1 U nivers 10 mg 8-29 tablet by ity of tablet 00:00: mouth 2 [place] [address] ([facility] daily before breakfast and dinner. metFORMIN 2021-0 Yes [id number] 1000mg Take 1 Univers 1,000 mg 8-29 tablet by ity of tablet 00:00: mouth in [address] morning [place] and 1 tablet in the evening. Take with meals. semaglutide 2021-0 Yes [id number] 3mg Take 3 mg Univers (RYBELSUS) 8-29 by mouth ity o f 3 mg Tab 00:00: daily. [address] glipiZIDE 2021-0 Yes [id number] 10mg Take 1 U nivers 10 mg 8-29 tablet by ity of tablet 00:00: mouth [address] daily before breakfast and dinner. metFORMIN 2021-0 Yes [id number] 1000mg Take 1 Univers 1,000 mg 8-29 tablet by ity of tablet 00:00: mouth in [address] morning [place] and 1 tablet in the evening. Take with meals. semaglutide 2021-0 Yes [id number] 3mg Take 3 mg Univers (RYBELSUS) 8-29 by mouth ity o f 3 mg Tab 00:00: daily. [address] glipiZIDE 2022-0 Yes [id number] 10mg Take 1 U nivers 10 mg 8-29 tablet by ity of tablet 00:00: mouth [address] daily before breakfast and dinner. metFORMIN 2-0 Yes [id number] 1000mg Take 1 Univers 1,000 mg 8-29 tablet by ity of tablet 00:00: mouth in [address] morning [place] and 1 tablet in the evening. Take with meals. glipiZIDE 2022-0 Yes [id number] 10mg Take 1 U nivers 10 mg 8-29 tablet by ity of tablet 00:00: mouth [address] daily before breakfast and dinner. metFORMIN 2022-0 Yes [id number] 1000mg Take 1 Univers 1,000 mg 8-29 tablet by ity of tablet 00:00: mouth in [place] the [facility] morning [place] and 1 tablet in the evening. Take with meals. glipiZIDE 2022-0 Yes [id number] 10mg Take 1 U nivers 10 mg 8-29 tablet by ity of tablet 00:00: mouth [place] [address] ([facility] daily before breakfast and dinner. metFORMIN 2022-0 Yes [id number] 1000mg Take 1 Univers 1,000 mg 8-29 tablet by ity of tablet 00:00: mouth in [place] [address] the [facility] morning [place] and 1 tablet in the evening. Take with meals. glipiZIDE 2022-0 Yes [id number] 10mg Take 1 U nivers 10 mg 8-29 tablet by ity of tablet 00:00: mouth [place] [address] ([facility] daily before breakfast and dinner. metFORMIN 2022-0 Yes [id number] 1000mg Take 1 Univers 1,000 mg 8-29 tablet by ity of tablet 00:00: mouth in [address] morning [place] and 1 tablet in the evening. Take with meals. glipiZIDE 2022-0 Yes [id number] 10mg Take 1 U nivers 10 mg 8-29 tablet by ity of tablet 00:00: mouth [place] [address] ([facility] daily before breakfast and dinner. metFORMIN 2022-0 Yes [id number] 1000mg Take 1 Univers 1,000 mg 8-29 tablet by ity of tablet 00:00: mouth in [place] [address] the [facility] morning [place] and 1 tablet in the evening. Take with meals. glipiZIDE 2022-0 Yes [id number] 10mg Take 1 U nivers 10 mg 8-29 tablet by ity of tablet 00:00: mouth [place] [address] ([facility] daily before breakfast and dinner. metFORMIN 2022-0 Yes [id number] 1000mg Take 1 Univers 1,000 mg 8-29 tablet by ity of tablet 00:00: mouth in [address] morning [place] and 1 tablet in the evening. Take with meals. glipiZIDE 2022-0 Yes [id number] 10mg Take 1 U nivers 10 mg 8-29 tablet by ity of tablet 00:00: mouth [place] [address] ([facility] daily before breakfast and dinner. metFORMIN 2022-0 Yes [id number] 1000mg Take 1 Univers 1,000 mg 8-29 tablet by ity of tablet 00:00: mouth in [place] [address] the [facility] morning [place] and 1 tablet in the evening. Take with meals. glipiZIDE 2022-0 Yes [id number] 10mg Take 1 U nivers 10 mg 8-29 tablet by ity of tablet 00:00: mouth 2 [place] [address] ([facility] daily before breakfast and dinner. metFORMIN 2022-0 Yes [id number] 1000mg Take 1 Univers 1,000 mg 8-29 tablet by ity of tablet 00:00: mouth in [address] morning [place] and 1 tablet in the evening. Take with meals. glipiZIDE 2022-0 Yes [id number] 10mg Take 1 U nivers 10 mg 8-29 tablet by ity of tablet 00:00: mouth [address] daily before breakfast and dinner. metFORMIN 2022-0 Yes [id number] 1000mg Take 1 Univers 1,000 mg 8-29 tablet by ity of tablet 00:00: mouth in [address] morning [place] and 1 tablet in the evening. Take with meals. glipiZIDE 2022-0 Yes [id number] 10mg Take 1 U nivers 10 mg 8-29 tablet by ity of tablet 00:00: mouth [address] daily before breakfast and dinner. metFORMIN 2022-0 Yes [id number] 1000mg Take 1 Univers 1,000 mg 8-29 tablet by ity of tablet 00:00: mouth in [address] morning [place] and 1 tablet in the evening. Take with meals. semaglutide 202-0 2- No [id number] 3mg Take 3 mg Univers (RYBELSUS) -08-06 by mouth ity of 3 mg Tab 00:00: 00:00 daily. [place] 00 :00 [facility] semaglutide 2021-0 2022- No [id number] 3mg Take 3 mg Univers (RYBELSUS) -08-06 by mouth ity of 3 mg Tab 00:00: 00:00 daily. [place] 00 :00 [facility] Branch semaglutide 202-0 2021- No [id number] 3mg Take 3 mg Univers (RYBELSUS) 06-03 by mouth ity of 3 mg Tab 00:00: 00:00 daily. [place] 00 :00 Medical Branch semaglutide 2021- No [id number] 3mg Take 3 mg Univers (RYBELSUS) 06-03 by mouth ity of 3 mg Tab 00:00: 00:00 daily. [place] 00 :00 [facility] semaglutide 2021- No [id number] 3mg Take 3 mg Univers (RYBELSUS) 06-03 by mouth ity of 3 mg Tab 00:00: 00:00 daily. [place] 00 :00 [facility] semaglutide 2021- No [id number] 3mg Take 3 mg Univers (RYBELSUS) 06-03 by mouth ity of 3 mg Tab 00:00: 00:00 daily. [place] 00 :00 [facility] semaglutide 2021- No [id number] 3mg Take 3 mg Univers (RYBELSUS) 06-03 by mouth ity of 3 mg Tab 00:00: 00:00 daily. [place] 00 :00 [facility] Aricept 5 Yes 5 mg = 1 Karan katy mg oral 7-26 tab, PO, l tablet 16:57: Bedtime, # Aura nn 00 30 tab, 3 Refill(s), Pharmacy: [facility] [id number], 154.94, cm, 04/30/22 11:41:00 CDT, Height, 86.42, kg, 04/30/22 11:41:00 CDT, Weight Aricept 5 Yes 5 mg = 1 Karan katy mg oral 7-26 tab, PO, l tablet 16:57: Bedtime, # Aura nn 00 30 tab, 3 Refill(s), Pharmacy: [facility] [id number], 154.94, cm, 04/30/22 11:41:00 CDT, Height, 86.42, kg, 04/30/22 11:41:00 CDT, Weight Toujeo Max Yes SUB-Q, Memor ia SoloStar 6-21 Daily, 0 l 300 14:10: Refill(s) Ferris units/mL 00 subcutaneou s solution Toujeo Max 0 Yes SUB-Q, Memor ia SoloStar 6-21 Daily, 0 l 300 14:10: Refill(s) Ferris units/mL 00 subcutaneou s solution Tylenol 2021-0 Yes PO, 0 Memoria 6-21 Refill(s) l 14:08: Ferris 00 Benadryl 2021-0 Yes 0 Memoria 6-21 Refill(s) l 14:08: [place] 00 Benadryl 2021-0 Yes 0 Memoria 6-21 Refill(s) l 14:08: Isael 00 Tylenol 2021-0 Yes PO, 0 Memoria 6-21 Refill(s) l 14:08: Isael 00 cloNIDine 0 Yes 0.1 mg = 1 Me moria 0.1 mg oral 6-21 tab, PO, l tablet 14:07: BID, # 180 Aura nn 00 tab, 1 Refill(s) furosemide 2021-0 Yes 20 mg = 1 Me moria 20 mg oral 6-21 tab, PO, l tablet 14:07: Daily, # Isael 00 30 tab, 0 Refill(s) aspirin 81 2021-0 Yes 81 mg = 1 Me moria mg oral 6-21 cap, PO, l capsule 14:07: Daily, 0 Kane n 00 Refill(s) cloNIDine 2021-0 Yes 0.1 mg = 1 Me moria 0.1 mg oral 6-21 tab, PO, l tablet 14:07: BID, # 180 Aura nn 00 tab, 1 Refill(s) furosemide 2021-0 Yes 20 mg = 1 Me moria 20 mg oral 6-21 tab, PO, l tablet 14:07: Daily, # Isael 00 30 tab, 0 Refill(s) aspirin 81 2021-0 Yes 81 mg = 1 Me moria mg oral 6-21 cap, PO, l capsule 14:07: Daily, 0 Kane n 00 Refill(s) carvedilol 0 Yes 6.25 mg = Me moria 6.25 mg 6-21 1 tab, PO, l oral tablet 14:06: BID, # 180 Isael 00 tab, 3 Refill(s) citalopram 2022-0 Yes 20 mg = 1 Me moria 20 mg oral 6-21 tab, PO, l tablet 14:06: Daily, # Ferris 00 90 tab, 0 Refill(s) carvedilol 0 Yes 6.25 mg = Me moria 6.25 mg 6-21 1 tab, PO, l oral tablet 14:06: BID, # 180 Isael 00 tab, 3 Refill(s) citalopram Yes 20 mg = 1 Me moria 20 mg oral 6-21 tab, PO, l tablet 14:06: Daily, # Isael 00 90 tab, 0 Refill(s) losartan 0 Yes 100 mg = 1 Mem oria 100 mg oral 6-21 tab, PO, l tablet 14:04: Daily, 0 Ferris 00 Refill(s) tamsulosin Yes 0.4 mg = 1 M emoria 0.4 mg oral 6-21 cap, PO, l capsule 14:04: Daily, # Kane n 00 30 cap, 0 Refill(s) atorvastati 0 Yes 40 mg = 1 M emoria n 40 mg 6-21 tab, PO, l oral tablet 14:04: Bedtime, # Isael 00 90 tab, 3 Refill(s) losartan 0 Yes 100 mg = 1 Mem oria 100 mg oral 6-21 tab, PO, l tablet 14:04: Daily, 0 [place] 00 Refill(s) tamsulosin 0 Yes 0.4 mg = 1 M emoria 0.4 mg oral 6-21 cap, PO, l capsule 14:04: Daily, # [place] n 00 30 cap, 0 Refill(s) atorvastati 0 Yes 40 mg = 1 M [place] n 40 mg 6-21 tab, PO, l oral tablet 14:04: Bedtime, # [place] 00 90 tab, 3 Refill(s) potassium 0 Yes 10 mEq = 1 Me moria chloride 10 6-21 tab, PO, l mEq oral 14:02: Daily, # [place] nn tablet, 00 90 tab, 3 extended Refill(s) release (KCL) potassium 0 Yes 10 mEq = 1 Me [place] chloride 10 6-21 tab, PO, l mEq oral 14:02: Daily, # [place] nn tablet, 00 90 tab, 3 extended Refill(s) release (KCL) metFORMIN Yes 500 mg = 1 Me [place] 500 mg oral 6-21 tab, PO, l tablet 14:01: TID, 0 [place] 00 Refill(s) metFORMIN 0 Yes 500 mg = 1 Me [place] 500 mg oral 6-21 tab, PO, l tablet 14:01: TID, 0 [place] 00 Refill(s) cloNIDine Yes Take by Unive rs HCL 0.1 mg 5-19 mouth at ity o f XR tablet 15:08: bedtime. [facility] s 29 Medical Branch acetaminoph Yes Take by Uni vers en (TYLENOL 5-19 mouth 2 ity o f EXTRA 15:08: (two) [place] STRENGTH) 29 times Medical 500 mg PwPk daily. Branch triamcinolo Yes Apply to Un [place] ne 5-19 area(s) 2 ity of acetonide 15:08: (two) [place] 0.1 % cream 29 times Medical daily. Branch insulin Yes 60U/mL inject 60 Uni vers glargine 5-19 Units/mL ity of U-300 conc 15:08: under the [place] (TOUJEO MAX 29 skin. Medical U-300 Branch SOLOSTAR) 300 unit/mL (3 mL) InPn cloNIDine Yes Take by Unive rs HCL 0.1 mg 5-19 mouth at ity o f XR tablet 15:08: bedtime. [facility] s 29 [facility] Branch acetaminoph Yes Take by Uni vers en (TYLENOL 5-19 mouth 2 ity o f EXTRA 15:08: (two) [place] STRENGTH) 29 times Medical 500 mg PwPk daily. Branch triamcinolo Yes Apply to Un [place] ne 5-19 area(s) 2 ity of acetonide 15:08: (two) [place] 0.1 % cream 29 times Medical daily. Branch insulin Yes 60U/mL inject 60 Uni vers glargine 5-19 Units/mL ity of U-300 conc 15:08: under the [place] (TOUJEO MAX 29 skin. Medical U-300 Branch SOLOSTAR) 300 unit/mL (3 mL) InPn cloNIDine Yes Take by Unive rs HCL 0.1 mg 5-19 mouth at ity o f XR tablet 15:08: bedtime. [facility] s 29 Medical Branch acetaminoph Yes Take by Uni vers en (TYLENOL 5-19 mouth 2 ity o f EXTRA 15:08: (two) [place] STRENGTH) 29 times Medical 500 mg PwPk daily. Branch triamcinolo Yes Apply to Un [place] ne 5-19 area(s) 2 ity of acetonide 15:08: (two) [place] 0.1 % cream 29 times Medical daily. Branch insulin Yes 60U/mL inject 60 Uni vers glargine 5-19 Units/mL ity of U-300 conc 15:08: under the [place] (TOUJEO MAX 29 skin. Medical U-300 Branch SOLOSTAR) 300 unit/mL (3 mL) InPn cloNIDine Yes Take by Unive rs HCL 0.1 mg 5-19 mouth at ity o f XR tablet 15:08: bedtime. [facility] s 29 Medical Branch acetaminoph Yes Take by Uni vers en (TYLENOL 5-19 mouth 2 ity o f EXTRA 15:08: (two) [place] STRENGTH) 29 times Medical 500 mg PwPk daily. Branch triamcinolo Yes Apply to Un [place] ne 5-19 area(s) 2 ity of acetonide 15:08: (two) [place] 0.1 % cream 29 times Medical daily. Branch insulin Yes 60U/mL inject 60 Uni vers glargine 5-19 Units/mL ity of U-300 conc 15:08: under the [place] (TOUJEO MAX 29 skin. Medical U-300 Branch SOLOSTAR) 300 unit/mL (3 mL) InPn cloNIDine Yes Take by Unive rs HCL 0.1 mg 5-19 mouth at ity o f XR tablet 15:08: bedtime. [facility] [place] [facility] s 29 Medical Branch acetaminoph Yes Take by Uni vers en (TYLENOL 5-19 mouth 2 ity o f EXTRA 15:08: (two) [place] STRENGTH) 29 times Medical 500 mg PwPk daily. Branch triamcinolo Yes Apply to Un [place] ne 5-19 area(s) 2 ity of acetonide 15:08: (two) [place] 0.1 % cream 29 times Medical daily. Branch insulin Yes 60U/mL inject 60 Uni vers glargine 5-19 Units/mL ity of U-300 conc 15:08: under the [place] (TOUJEO MAX 29 skin. Medical U-300 Branch SOLOSTAR) 300 unit/mL (3 mL) InPn cloNIDine 0 Yes Take by Unive rs HCL 0.1 mg 5-19 mouth at ity o f XR tablet 15:08: bedtime. [facility] [place] [facility] s 29 Medical Branch acetaminoph Yes Take by Uni vers en (TYLENOL 5-19 mouth 2 ity o f EXTRA 15:08: (two) [place] STRENGTH) 29 times Medical 500 mg PwPk daily. Branch triamcinolo Yes Apply to Un [place] ne 5-19 area(s) 2 ity of acetonide 15:08: (two) [place] 0.1 % cream 29 times Medical daily. Branch insulin Yes 60U/mL inject 60 Uni vers glargine 5-19 Units/mL ity of U-300 conc 15:08: under the [place] (TOUJEO MAX 29 skin. Medical U-300 Branch SOLOSTAR) 300 unit/mL (3 mL) InPn cloNIDine 0 Yes Take by Unive rs HCL 0.1 mg 5-19 mouth at ity o f XR tablet 15:08: bedtime. [place] [facility] acetaminoph Yes Take by Uni vers en (TYLENOL 5-19 mouth 2 ity o f EXTRA 15:08: (two) [place] STRENGTH) 29 times Medical 500 mg PwPk daily. Branch triamcinolo Yes Apply to Un [place] ne 5-19 area(s) 2 ity of acetonide 15:08: (two) [place] 0.1 % cream 29 times Medical daily. Branch insulin Yes 60U/mL inject 60 Uni vers glargine 5-19 Units/mL ity of U-300 conc 15:08: under the [place] (TOUJEO MAX 29 skin. Medical U-300 Branch SOLOSTAR) 300 unit/mL (3 mL) InPn cloNIDine Yes Take by Unive rs HCL 0.1 mg 5-19 mouth at ity o f XR tablet 15:08: bedtime. [place] s 29 Medical Branch acetaminoph Yes Take by Uni vers en (TYLENOL 5-19 mouth 2 ity o f EXTRA 15:08: (two) [place] STRENGTH) 29 times Medical 500 mg PwPk daily. Branch triamcinolo Yes Apply to Un [place] ne 5-19 area(s) 2 ity of acetonide 15:08: (two) [place] 0.1 % cream 29 times Medical daily. Branch insulin Yes 60U/mL inject 60 Uni vers glargine 5-19 Units/mL ity of U-300 conc 15:08: under the [place] (TOUJEO MAX 29 skin. Medical U-300 Branch SOLOSTAR) 300 unit/mL (3 mL) InPn cloNIDine Yes Take by Unive rs HCL 0.1 mg 5-19 mouth at ity o f XR tablet 15:08: bedtime. [place] s 29 Medical Branch acetaminoph Yes Take by Uni vers en (TYLENOL 5-19 mouth 2 ity o f EXTRA 15:08: (two) [place] STRENGTH) 29 times Medical 500 mg PwPk daily. Branch triamcinolo Yes Apply to Un [place] ne 5-19 area(s) 2 ity of acetonide 15:08: (two) [place] 0.1 % cream 29 times Medical daily. Branch insulin Yes 60U/mL inject 60 Uni vers glargine 5-19 Units/mL ity of U-300 conc 15:08: under the [place] (TOUJEO MAX 29 skin. Medical U-300 Branch SOLOSTAR) 300 unit/mL (3 mL) InPn cloNIDine 0 Yes Take by Unive rs HCL 0.1 mg 5-19 mouth at ity o f XR tablet 15:08: bedtime. [place] s 29 Medical Branch acetaminoph Yes Take by Uni vers en (TYLENOL 5-19 mouth 2 ity o f EXTRA 15:08: (two) [place] STRENGTH) 29 times Medical 500 mg PwPk daily. Branch triamcinolo Yes Apply to Un [place] ne 5-19 area(s) 2 ity of acetonide 15:08: (two) [place] 0.1 % cream 29 times Medical daily. Branch insulin Yes 60U/mL inject 60 Uni vers glargine 5-19 Units/mL ity of U-300 conc 15:08: under the [place] (TOUJEO MAX 29 skin. Medical U-300 Branch SOLOSTAR) 300 unit/mL (3 mL) InPn cloNIDine 0 Yes Take by Unive rs HCL 0.1 mg 5-19 mouth at ity o f XR tablet 15:08: bedtime. [place] 29 [facility] Branch acetaminoph Yes Take by Uni vers en (TYLENOL 5-19 mouth 2 ity o f EXTRA 15:08: (two) [place] STRENGTH) 29 times Medical 500 mg PwPk daily. Branch triamcinolo Yes Apply to Un [place] ne 5-19 area(s) 2 ity of acetonide 15:08: (two) [place] 0.1 % cream 29 times Medical daily. Branch insulin Yes 60U/mL inject 60 Uni vers glargine 5-19 Units/mL ity of U-300 conc 15:08: under the [place] (TOUJEO MAX 29 skin. Medical U-300 Branch SOLOSTAR) 300 unit/mL (3 mL) InPn cloNIDine 0 Yes Take by Unive rs HCL 0.1 mg 5-19 mouth at ity o f XR tablet 15:08: bedtime. [place] 29 [facility] Branch acetaminoph Yes Take by Uni vers en (TYLENOL 5-19 mouth 2 ity o f EXTRA 15:08: (two) [place] STRENGTH) 29 times Medical 500 mg PwPk daily. Branch triamcinolo Yes Apply to Un [place] ne 5-19 area(s) 2 ity of acetonide 15:08: (two) [place] 0.1 % cream 29 times Medical daily. Branch insulin Yes 60U/mL inject 60 Uni vers glargine 5-19 Units/mL ity of U-300 conc 15:08: under the [place] (TOUJEO MAX 29 skin. Medical U-300 Branch SOLOSTAR) 300 unit/mL (3 mL) InPn cloNIDine Yes Take by Unive rs HCL 0.1 mg 5-19 mouth at ity o f XR tablet 15:08: bedtime. [place] s 29 Medical Branch acetaminoph Yes Take by Uni vers en (TYLENOL 5-19 mouth 2 ity o f EXTRA 15:08: (two) [place] STRENGTH) 29 times Medical 500 mg PwPk daily. Branch triamcinolo Yes Apply to Un [place] ne 5-19 area(s) 2 ity of acetonide 15:08: (two) [place] 0.1 % cream 29 times Medical daily. Branch insulin Yes 60U/mL inject 60 Uni vers glargine 5-19 Units/mL ity of U-300 conc 15:08: under the [place] (TOUJEO MAX 29 skin. Medical U-300 Branch SOLOSTAR) 300 unit/mL (3 mL) InPn cloNIDine Yes Take by Unive rs HCL 0.1 mg 5-19 mouth at ity o f XR tablet 15:08: bedtime. [place] s 29 Medical Branch acetaminoph Yes Take by Uni vers en (TYLENOL 5-19 mouth 2 ity o f EXTRA 15:08: (two) [place] STRENGTH) 29 times Medical 500 mg PwPk daily. Branch triamcinolo Yes Apply to Un [place] ne 5-19 area(s) 2 ity of acetonide 15:08: (two) [place] 0.1 % cream 29 times Medical daily. Branch insulin Yes 60U/mL inject 60 Uni vers glargine 5-19 Units/mL ity of U-300 conc 15:08: under the [place] (TOUJEO MAX 29 skin. Medical U-300 Branch SOLOSTAR) 300 unit/mL (3 mL) InPn cloNIDine Yes Take by Unive rs HCL 0.1 mg 5-19 mouth at ity o f XR tablet 15:08: bedtime. [place] s 29 Medical Branch acetaminoph Yes Take by Uni vers en (TYLENOL 5-19 mouth 2 ity o f EXTRA 15:08: (two) [place] STRENGTH) 29 times Medical 500 mg PwPk daily. Branch triamcinolo Yes Apply to Un [place] ne 5-19 area(s) 2 ity of acetonide 15:08: (two) [place] 0.1 % cream 29 times Medical daily. Branch insulin Yes 60U/mL inject 60 Uni vers glargine 5-19 Units/mL ity of U-300 conc 15:08: under the [place] (TOUJEO MAX 29 skin. Medical U-300 Branch SOLOSTAR) 300 unit/mL (3 mL) InPn cloNIDine Yes Take by Unive rs HCL 0.1 mg 5-19 mouth at ity o f XR tablet 15:08: bedtime. [facility] s 29 Medical Branch acetaminoph Yes Take by Uni vers en (TYLENOL 5-19 mouth 2 ity o f EXTRA 15:08: (two) [place] STRENGTH) 29 times Medical 500 mg PwPk daily. Branch triamcinolo Yes Apply to Un [place] ne 5-19 area(s) 2 ity of acetonide 15:08: (two) [place] 0.1 % cream 29 times Medical daily. Branch insulin Yes 60U/mL inject 60 Uni vers glargine 5-19 Units/mL ity of U-300 conc 15:08: under the [place] (TOUJEO MAX 29 skin. Medical U-300 Branch SOLOSTAR) 300 unit/mL (3 mL) InPn cloNIDine 0 Yes Take by Unive rs HCL 0.1 mg 5-19 mouth at ity o f XR tablet 15:08: bedtime. [facility] s 29 Medical Branch acetaminoph Yes Take by Uni vers en (TYLENOL 5-19 mouth 2 ity o f EXTRA 15:08: (two) [place] STRENGTH) 29 times Medical 500 mg PwPk daily. Branch triamcinolo Yes Apply to Un [place] ne 5-19 area(s) 2 ity of acetonide 15:08: (two) [place] 0.1 % cream 29 times Medical daily. Branch insulin Yes 60U/mL inject 60 Uni vers glargine 5-19 Units/mL ity of U-300 conc 15:08: under the [place] (TOUJEO MAX 29 skin. Medical U-300 Branch SOLOSTAR) 300 unit/mL (3 mL) InPn cloNIDine Yes Take by Unive rs HCL 0.1 mg 5-19 mouth at ity o f XR tablet 15:08: bedtime. [place] s 29 Medical Branch acetaminoph Yes Take by Uni vers en (TYLENOL 5-19 mouth 2 ity o f EXTRA 15:08: (two) [place] STRENGTH) 29 times Medical 500 mg PwPk daily. Branch triamcinolo Yes Apply to Un [place] ne 5-19 area(s) 2 ity of acetonide 15:08: (two) [place] 0.1 % cream 29 times Medical daily. Branch insulin Yes 60U/mL inject 60 Uni vers glargine 5-19 Units/mL ity of U-300 conc 15:08: under the [place] (TOUJEO MAX 29 skin. Medical U-300 Branch SOLOSTAR) 300 unit/mL (3 mL) InPn cloNIDine 0 Yes Take by Unive rs HCL 0.1 mg 5-19 mouth at ity o f XR tablet 15:08: bedtime. [place] s 29 Medical Branch acetaminoph Yes Take by Uni vers en (TYLENOL 5-19 mouth 2 ity o f EXTRA 15:08: (two) [place] STRENGTH) 29 times Medical 500 mg PwPk daily. Branch triamcinolo Yes Apply to Un [place] ne 5-19 area(s) 2 ity of acetonide 15:08: (two) [place] 0.1 % cream 29 times Medical daily. Branch insulin Yes 60U/mL inject 60 Uni vers glargine 5-19 Units/mL ity of U-300 conc 15:08: under the [place] (TOUJEO MAX 29 skin. Medical U-300 Branch SOLOSTAR) 300 unit/mL (3 mL) InPn cloNIDine Yes Take by Unive rs HCL 0.1 mg 5-19 mouth at ity o f XR tablet 15:08: bedtime. [place] s 29 Medical Branch acetaminoph Yes Take by Uni vers en (TYLENOL 5-19 mouth 2 ity o f EXTRA 15:08: (two) [place] STRENGTH) 29 times Medical 500 mg PwPk daily. Branch triamcinolo Yes Apply to Un [place] ne 5-19 area(s) 2 ity of acetonide 15:08: (two) [place] 0.1 % cream 29 times Medical daily. Branch insulin Yes 60U/mL inject 60 Uni vers glargine 5-19 Units/mL ity of U-300 conc 15:08: under the [place] (TOUJEO MAX 29 skin. Medical U-300 Branch SOLOSTAR) 300 unit/mL (3 mL) InPn cloNIDine Yes Take by Unive rs HCL 0.1 mg 5-19 mouth at ity o f XR tablet 15:08: bedtime. [place] 29 [facility] Branch acetaminoph Yes Take by Uni vers en (TYLENOL 5-19 mouth 2 ity o f EXTRA 15:08: (two) [place] STRENGTH) 29 times Medical 500 mg PwPk daily. Branch triamcinolo Yes Apply to Un [place] ne 5-19 area(s) 2 ity of acetonide 15:08: (two) [place] 0.1 % cream 29 times Medical daily. Branch insulin Yes 60U/mL inject 60 Uni vers glargine 5-19 Units/mL ity of U-300 conc 15:08: under the [place] (TOUJEO MAX 29 skin. Medical U-300 Branch SOLOSTAR) 300 unit/mL (3 mL) InPn losartan 50 Yes 50mg Take 50 mg Univers mg tablet 5-19 by mouth ity of 15:04: daily. [address] losartan 50 Yes 50mg Take 50 mg Univers mg tablet 5-19 by mouth ity of 15:04: daily. [address] losartan 50 Yes 50mg Take 50 mg Univers mg tablet 5-19 by mouth ity of 15:04: daily. [address] losartan 50 Yes 50mg Take 50 mg Univers mg tablet 5-19 by mouth ity of 15:04: daily. [address] losartan 50 Yes 50mg Take 50 mg Univers mg tablet 5-19 by mouth ity of 15:04: daily. [address] losartan 50 Yes 50mg Take 50 mg Univers mg tablet 5-19 by mouth ity of 15:04: daily. [address] losartan 50 0 Yes 50mg Take 50 mg Univers mg tablet 5-19 by mouth ity of 15:04: daily. [address] losartan 50 0 Yes 50mg Take 50 mg Univers mg tablet 5-19 by mouth ity of 15:04: daily. [address] losartan 50 0 Yes 50mg Take 50 mg Univers mg tablet 5-19 by mouth ity of 15:04: daily. [address] losartan 50 0 Yes 50mg Take 50 mg Univers mg tablet 5-19 by mouth ity of 15:04: daily. [address] losartan 50 0 Yes 50mg Take 50 mg Univers mg tablet 5-19 by mouth ity of 15:04: daily. [address] losartan 50 Yes 50mg Take 50 mg Univers mg tablet 5-19 by mouth ity of 15:04: daily. [address] losartan 50 0 Yes 50mg Take 50 mg Univers mg tablet 5-19 by mouth ity of 15:04: daily. [address] losartan 50 0 Yes 50mg Take 50 mg Univers mg tablet 5-19 by mouth ity of 15:04: daily. [address] losartan 50 0 Yes 50mg Take 50 mg Univers mg tablet 5-19 by mouth ity of 15:04: daily. [address] losartan 50 0 Yes 50mg Take 50 mg Univers mg tablet 5-19 by mouth ity of 15:04: daily. [address] losartan 50 0 Yes 50mg Take 50 mg Univers mg tablet 5-19 by mouth ity of 15:04: daily. [address] losartan 50 0 Yes 50mg Take 50 mg Univers mg tablet 5-19 by mouth ity of 15:04: daily. [address] losartan 50 0 Yes 50mg Take 50 mg Univers mg tablet 5-19 by mouth ity of 15:04: daily. [address] losartan 50 0 Yes 50mg Take 50 mg Univers mg tablet 5-19 by mouth ity of 15:04: daily. [place] 10 Medical Branch losartan 50 2021-0 Yes 50mg Take 50 mg Univers mg tablet 5-19 by mouth ity of 15:04: daily. [place] 10 Medical Branch KCL 10 mEq 2021-0 Yes 10meq Take 10 Uni vers tablet 5-19 mEq by ity of 15:01: mouth [place] 21 daily. Medical Branch KCL 10 mEq 2021-0 Yes 10meq Take 10 Uni vers tablet 5-19 mEq by ity of 15:01: mouth [place] 21 daily. Medical Branch KCL 10 mEq 2021-0 Yes 10meq Take 10 Uni vers tablet 5-19 mEq by ity of 15:01: mouth [place] 21 daily. Medical Branch KCL 10 mEq 2021-0 Yes 10meq Take 10 Uni vers tablet 5-19 mEq by ity of 15:01: mouth [place] 21 daily. Medical Branch KCL 10 mEq 2021-0 Yes 10meq Take 10 Uni vers tablet 5-19 mEq by ity of 15:01: mouth [place] 21 daily. Medical Branch KCL 10 mEq 2021-0 Yes 10meq Take 10 Uni vers tablet 5-19 mEq by ity of 15:01: mouth [place] 21 daily. Medical Branch KCL 10 mEq 2021-0 Yes 10meq Take 10 Uni vers tablet 5-19 mEq by ity of 15:01: mouth [place] 21 daily. Medical Branch KCL 10 mEq 2021-0 Yes 10meq Take 10 Uni vers tablet 5-19 mEq by ity of 15:01: mouth [place] 21 daily. Medical Branch KCL 10 mEq 2021-0 Yes 10meq Take 10 Uni vers tablet 5-19 mEq by ity of 15:01: mouth [place] 21 daily. Medical Branch KCL 10 mEq 2021-0 Yes 10meq Take 10 Uni vers tablet 5-19 mEq by ity of 15:01: mouth [place] 21 daily. Medical Branch KCL 10 mEq 2021-0 Yes 10meq Take 10 Uni vers tablet 5-19 mEq by ity of 15:01: mouth [place] 21 daily. Medical Branch KCL 10 mEq 2021-0 Yes 10meq Take 10 Uni vers tablet 5-19 mEq by ity of 15:01: mouth [place] 21 daily. Medical Branch KCL 10 mEq 2021-0 Yes 10meq Take 10 Uni vers tablet 5-19 mEq by ity of 15:01: mouth [place] 21 daily. Medical Branch KCL 10 mEq 0 Yes 10meq Take 10 Uni vers tablet 5-19 mEq by ity of 15:01: mouth [place] 21 daily. Medical Branch KCL 10 mEq 0 Yes 10meq Take 10 Uni vers tablet 5-19 mEq by ity of 15:01: mouth [place] 21 daily. Medical Branch KCL 10 mEq 0 Yes 10meq Take 10 Uni vers tablet 5-19 mEq by ity of 15:01: mouth [place] 21 daily. Medical Branch KCL 10 mEq 0 Yes 10meq Take 10 Uni vers tablet 5-19 mEq by ity of 15:01: mouth [place] 21 daily. Medical Branch KCL 10 mEq 0 Yes 10meq Take 10 Uni vers tablet 5-19 mEq by ity of 15:01: mouth [place] 21 daily. Medical Branch KCL 10 mEq Yes 10meq Take 10 Uni vers tablet 5-19 mEq by ity of 15:01: mouth [place] 21 daily. Medical Branch KCL 10 mEq 0 Yes 10meq Take 10 Uni vers tablet 5-19 mEq by ity of 15:01: mouth [place] 21 daily. Medical Branch KCL 10 mEq 0 Yes 10meq Take 10 Uni vers tablet 5-19 mEq by ity of 15:01: mouth [place] 21 daily. Medical Branch carvediloL Yes 6.25mg Take 6.25 Univers 6.25 mg 5-19 mg by ity of tablet 11:06: mouth 2 [place] [address] (two) Medical times Branch daily with meals. citalopram Yes 20mg Take 20 mg U nivers 20 mg 5-19 by mouth ity of tablet 11:06: daily. [place] [address] Medical Branch atorvastati Yes 40mg Take 40 mg Univers n 40 mg 5-19 by mouth ity of tablet 11:06: at [place] [address] bedtime. Medical Branch tamsulosin Yes Take by Univ ers 0.4 mg 24 5-19 mouth ity of hr capsule 11:06: daily. [place] [address] Medical Branch aspirin 325 0 Yes 325mg Take 325 U nivers mg Cap 5-19 mg by ity of 11:06: mouth [place] 28 daily. Medical Branch carvediloL Yes 6.25mg Take 6.25 Univers 6.25 mg 5-19 mg by ity of tablet 11:06: mouth 2 [place] [address] (two) Medical times Branch daily with meals. citalopram 2021-0 Yes 20mg Take 20 mg U nivers 20 mg 5-19 by mouth ity of tablet 11:06: daily. [place] [address] Medical Branch atorvastati 2021-0 Yes 40mg Take 40 mg Univers n 40 mg 5-19 by mouth ity of tablet 11:06: at [place] [address] bedtime. Medical Branch tamsulosin 0 Yes Take by Univ ers 0.4 mg 24 5-19 mouth ity of hr capsule 11:06: daily. [place] [address] Medical Branch aspirin 325 2021-0 Yes 325mg Take 325 U nivers mg Cap 5-19 mg by ity of 11:06: mouth [place] [address] daily. Medical Branch carvediloL 2021-0 Yes 6.25mg Take 6.25 Univers 6.25 mg 5-19 mg by ity of tablet 11:06: mouth 2 [place] [address] (two) Medical times [place] daily with meals. citalopram 2021-0 Yes 20mg Take 20 mg U nivers 20 mg 5-19 by mouth ity of tablet 11:06: daily. [place] [address] Medical Branch atorvastati 2021-0 Yes 40mg Take 40 mg Univers n 40 mg 5-19 by mouth ity of tablet 11:06: at [place] [address] bedtime. Medical Branch tamsulosin 0 Yes Take by Univ ers 0.4 mg 24 5-19 mouth ity of hr capsule 11:06: daily. [place] [address] Medical Branch aspirin 325 2021-0 Yes 325mg Take 325 U nivers mg Cap 5-19 mg by ity of 11:06: mouth [place] [address] daily. Medical Branch carvediloL 2021-0 Yes 6.25mg Take 6.25 Univers 6.25 mg 5-19 mg by ity of tablet 11:06: mouth 2 [place] [address] (two) Medical times Branch daily with meals. citalopram 2021-0 Yes 20mg Take 20 mg U nivers 20 mg 5-19 by mouth ity of tablet 11:06: daily. [place] [address] Medical Branch atorvastati 2021-0 Yes 40mg Take 40 mg Univers n 40 mg 5-19 by mouth ity of tablet 11:06: at [place] [address] bedtime. Medical Branch tamsulosin 2022-0 Yes Take by Univ ers 0.4 mg 24 5-19 mouth ity of hr capsule 11:06: daily. [place] [address] Medical Branch aspirin 325 0 Yes 325mg Take 325 U nivers mg Cap 5-19 mg by ity of 11:06: mouth [place] [address] daily. Medical Branch carvediloL 0 Yes 6.25mg Take 6.25 Univers 6.25 mg 5-19 mg by ity of tablet 11:06: mouth 2 [place] [address] (two) Medical times Branch daily with meals. citalopram 0 Yes 20mg Take 20 mg U nivers 20 mg 5-19 by mouth ity of tablet 11:06: daily. [place] [address] Medical Branch atorvastati 0 Yes 40mg Take 40 mg Univers n 40 mg 5-19 by mouth ity of tablet 11:06: at [place] [address] bedtime. Medical Branch tamsulosin 0 Yes Take by Univ ers 0.4 mg 24 5-19 mouth ity of hr capsule 11:06: daily. [place] [address] Medical Branch aspirin 325 0 Yes 325mg Take 325 U nivers mg Cap 5-19 mg by ity of 11:06: mouth [place] [address] daily. Medical Branch carvediloL 0 Yes 6.25mg Take 6.25 Univers 6.25 mg 5-19 mg by ity of tablet 11:06: mouth 2 [place] [address] (two) Medical times Branch daily with meals. citalopram 0 Yes 20mg Take 20 mg U nivers 20 mg 5-19 by mouth ity of tablet 11:06: daily. [place] [address] Medical Branch atorvastati 0 Yes 40mg Take 40 mg Univers n 40 mg 5-19 by mouth ity of tablet 11:06: at [place] [address] bedtime. Medical Branch tamsulosin 0 Yes Take by Univ ers 0.4 mg 24 5-19 mouth ity of hr capsule 11:06: daily. [place] [address] Medical Branch aspirin 325 2021-0 Yes 325mg Take 325 U nivers mg Cap 5-19 mg by ity of 11:06: mouth [place] [address] daily. Medical Branch carvediloL 0 Yes 6.25mg Take 6.25 Univers 6.25 mg 5-19 mg by ity of tablet 11:06: mouth 2 [place] [address] (two) Medical times Branch daily with meals. citalopram 2021-0 Yes 20mg Take 20 mg U nivers 20 mg 5-19 by mouth ity of tablet 11:06: daily. [place] [address] Medical Branch atorvastati 2021-0 Yes 40mg Take 40 mg Univers n 40 mg 5-19 by mouth ity of tablet 11:06: at [place] [address] bedtime. Medical Branch tamsulosin 0 Yes Take by Univ ers 0.4 mg 24 5-19 mouth ity of hr capsule 11:06: daily. [place] [address] Medical Branch aspirin 325 2021-0 Yes 325mg Take 325 U nivers mg Cap 5-19 mg by ity of 11:06: mouth [place] [address] daily. Medical Branch carvediloL 2021-0 Yes 6.25mg Take 6.25 Univers 6.25 mg 5-19 mg by ity of tablet 11:06: mouth 2 [place] [address] (two) Medical times [place] daily with meals. citalopram 2021-0 Yes 20mg Take 20 mg U nivers 20 mg 5-19 by mouth ity of tablet 11:06: daily. [place] [address] Medical Branch atorvastati 2021-0 Yes 40mg Take 40 mg Univers n 40 mg 5-19 by mouth ity of tablet 11:06: at [place] [address] bedtime. Medical Branch tamsulosin 2021-0 Yes Take by Univ ers 0.4 mg 24 5-19 mouth ity of hr capsule 11:06: daily. [place] [address] Medical Branch aspirin 325 2021-0 Yes 325mg Take 325 U nivers mg Cap 5-19 mg by ity of 11:06: mouth [place] [address] daily. Medical Branch carvediloL 2021-0 Yes 6.25mg Take 6.25 Univers 6.25 mg 5-19 mg by ity of tablet 11:06: mouth 2 [place] [address] (two) Medical times [place] daily with meals. citalopram 2021-0 Yes 20mg Take 20 mg U nivers 20 mg 5-19 by mouth ity of tablet 11:06: daily. [place] [address] Medical Branch atorvastati 2021-0 Yes 40mg Take 40 mg Univers n 40 mg 5-19 by mouth ity of tablet 11:06: at [place] [address] bedtime. Medical Branch tamsulosin 2021-0 Yes Take by Univ ers 0.4 mg 24 5-19 mouth ity of hr capsule 11:06: daily. [place] [address] Medical Branch aspirin 325 2021-0 Yes 325mg Take 325 U nivers mg Cap 5-19 mg by ity of 11:06: mouth [place] [address] daily. Medical Branch carvediloL 2021-0 Yes 6.25mg Take 6.25 Univers 6.25 mg 5-19 mg by ity of tablet 11:06: mouth 2 [place] [address] (two) Medical times [place] daily with meals. citalopram 2021-0 Yes 20mg Take 20 mg U nivers 20 mg 5-19 by mouth ity of tablet 11:06: daily. [place] [address] Medical Branch atorvastati 0 Yes 40mg Take 40 mg [facility] n 40 mg 5-19 by mouth ity of tablet 11:06: at [place] [address] bedtime. Medical Branch tamsulosin 0 Yes Take by Univ ers 0.4 mg 24 5-19 mouth ity of hr capsule 11:06: daily. [place] [address] Medical Branch aspirin 325 2021-0 Yes 325mg Take 325 U nivers mg Cap 5-19 mg by ity of 11:06: mouth [place] [address] daily. Medical Branch carvediloL 0 Yes 6.25mg Take 6.25 Univers 6.25 mg 5-19 mg by ity of tablet 11:06: mouth 2 [place] [address] (two) Medical times [place] daily with meals. citalopram 2021-0 Yes 20mg Take 20 mg U nivers 20 mg 5-19 by mouth ity of tablet 11:06: daily. [place] [address] [facility] Branch atorvastati 2021-0 Yes 40mg Take 40 mg [facility] n 40 mg 5-19 by mouth ity of tablet 11:06: at [place] [address] bedtime. [facility] Branch tamsulosin 0 Yes Take by Univ ers 0.4 mg 24 5-19 mouth ity of hr capsule 11:06: daily. [place] [address] Medical Branch aspirin 325 2021-0 Yes 325mg Take 325 U nivers mg Cap 5-19 mg by ity of 11:06: mouth [place] [address] daily. Medical Branch carvediloL 0 Yes 6.25mg Take 6.25 Univers 6.25 mg 5-19 mg by ity of tablet 11:06: mouth 2 [place] [address] (two) Medical times Branch daily with meals. citalopram 2022-0 Yes 20mg Take 20 mg U nivers 20 mg 5-19 by mouth ity of tablet 11:06: daily. [place] [address] Medical Branch atorvastati 0 Yes 40mg Take 40 mg [facility] n 40 mg 5-19 by mouth ity of tablet 11:06: at [place] [address] bedtime. Medical Branch tamsulosin 0 Yes Take by [facility] ers 0.4 mg 24 5-19 mouth ity of hr capsule 11:06: daily. [place] [address] Medical Branch aspirin 325 0 Yes 325mg Take 325 U nivers mg Cap 5-19 mg by ity of 11:06: mouth [place] [address] daily. Medical Branch carvediloL 0 Yes 6.25mg Take 6.25 [facility] 6.25 mg 5-19 mg by ity of tablet 11:06: mouth 2 [place] [address] (two) Medical times Branch daily with meals. citalopram 0 Yes 20mg Take 20 mg U nivers 20 mg 5-19 by mouth ity of tablet 11:06: daily. [place] [address] [facility] Branch atorvastati 0 Yes 40mg Take 40 mg [facility] n 40 mg 5-19 by mouth ity of tablet 11:06: at [place] [address] bedtime. [facility] Branch tamsulosin 0 Yes Take by [facility] ers 0.4 mg 24 5-19 mouth ity of hr capsule 11:06: daily. [place] [address] Medical Branch aspirin 325 0 Yes 325mg Take 325 U nivers mg Cap 5-19 mg by ity of 11:06: mouth [place] [address] daily. Medical Branch carvediloL 0 Yes 6.25mg Take 6.25 [facility] 6.25 mg 5-19 mg by ity of tablet 11:06: mouth 2 [place] [address] (two) Medical times Branch daily with meals. citalopram 0 Yes 20mg Take 20 mg U nivers 20 mg 5-19 by mouth ity of tablet 11:06: daily. [place] [address] [facility] Branch atorvastati 0 Yes 40mg Take 40 mg [facility] n 40 mg 5-19 by mouth ity of tablet 11:06: at [place] [address] bedtime. [facility] tamsulosin 0 Yes Take by [facility] ers 0.4 mg 24 5-19 mouth ity of hr capsule 11:06: daily. [place] [address] Medical Branch aspirin 325 2021-0 Yes 325mg Take 325 U nivers mg Cap 5-19 mg by ity of 11:06: mouth [place] [address] daily. Medical Branch carvediloL 0 Yes 6.25mg Take 6.25 [facility] 6.25 mg 5-19 mg by ity of tablet 11:06: mouth 2 [place] [address] (two) Medical times Branch daily with meals. citalopram 2021-0 Yes 20mg Take 20 mg U nivers 20 mg 5-19 by mouth ity of tablet 11:06: daily. [place] [address] [facility] Branch atorvastati 0 Yes 40mg Take 40 mg [facility] n 40 mg 5-19 by mouth ity of tablet 11:06: at [place] [address] bedtime. [facility] Branch tamsulosin 0 Yes Take by [facility] ers 0.4 mg 24 5-19 mouth ity of hr capsule 11:06: daily. [place] [address] Medical Branch aspirin 325 2021-0 Yes 325mg Take 325 U nivers mg Cap 5-19 mg by ity of 11:06: mouth [place] [address] daily. Medical Branch carvediloL 0 Yes 6.25mg Take 6.25 [facility] 6.25 mg 5-19 mg by ity of tablet 11:06: mouth 2 [place] [address] (two) Medical times [place] daily with meals. citalopram 2021-0 Yes 20mg Take 20 mg U nivers 20 mg 5-19 by mouth ity of tablet 11:06: daily. [place] [address] [facility] Branch atorvastati 2021-0 Yes 40mg Take 40 mg [facility] n 40 mg 5-19 by mouth ity of tablet 11:06: at [place] [address] bedtime. Medical Branch tamsulosin 2021-0 Yes Take by [facility] ers 0.4 mg 24 5-19 mouth ity of hr capsule 11:06: daily. [place] [address] Medical Branch aspirin 325 2021-0 Yes 325mg Take 325 U nivers mg Cap 5-19 mg by ity of 11:06: mouth [place] [address] daily. Medical Branch carvediloL 2021-0 Yes 6.25mg Take 6.25 [facility] 6.25 mg 5-19 mg by ity of tablet 11:06: mouth 2 [place] [address] (two) Medical times Branch daily with meals. citalopram 2021-0 Yes 20mg Take 20 mg U nivers 20 mg 5-19 by mouth ity of tablet 11:06: daily. [place] [address] [facility] Branch atorvastati 0 Yes 40mg Take 40 mg [facility] n 40 mg 5-19 by mouth ity of tablet 11:06: at [place] [address] bedtime. [facility] Branch tamsulosin 0 Yes Take by [facility] ers 0.4 mg 24 5-19 mouth ity of hr capsule 11:06: daily. [place] [address] Medical Branch aspirin 325 0 Yes 325mg Take 325 U nivers mg Cap 5-19 mg by ity of 11:06: mouth [place] [address] daily. Medical Branch carvediloL 0 Yes 6.25mg Take 6.25 [facility] 6.25 mg 5-19 mg by ity of tablet 11:06: mouth 2 [place] [address] (two) Medical times [place] daily with meals. citalopram 0 Yes 20mg Take 20 mg U nivers 20 mg 5-19 by mouth ity of tablet 11:06: daily. [place] [address] Medical Branch atorvastati Yes 40mg Take 40 mg [facility] n 40 mg 5-19 by mouth ity of tablet 11:06: at [place] [address] bedtime. Medical Branch tamsulosin Yes Take by [facility] ers 0.4 mg 24 5-19 mouth ity of hr capsule 11:06: daily. [place] [address] Medical Branch aspirin 325 0 Yes 325mg Take 325 U nivers mg Cap 5-19 mg by ity of 11:06: mouth [place] [address] daily. Medical Branch carvediloL Yes 6.25mg Take 6.25 [facility] 6.25 mg 5-19 mg by ity of tablet 11:06: mouth 2 [place] [address] (two) Medical times [place] daily with meals. citalopram 0 Yes 20mg Take 20 mg U nivers 20 mg 5-19 by mouth ity of tablet 11:06: daily. [place] [address] [facility] Branch atorvastati 0 Yes 40mg Take 40 mg [facility] n 40 mg 5-19 by mouth ity of tablet 11:06: at [place] [address] bedtime. [facility] Branch tamsulosin 0 Yes Take by [facility] ers 0.4 mg 24 5-19 mouth ity of hr capsule 11:06: daily. [place] [address] Medical Branch aspirin 325 0 Yes 325mg Take 325 U nivers mg Cap 5-19 mg by ity of 11:06: mouth [place] [address] daily. Medical Branch carvediloL 0 Yes 6.25mg Take 6.25 [facility] 6.25 mg 5-19 mg by ity of tablet 11:06: mouth 2 [place] [address] (two) Medical times Branch daily with meals. citalopram 2021-0 Yes 20mg Take 20 mg [facility] nivers 20 mg 5-19 by mouth ity of tablet 11:06: daily. [place] [address] [facility] Branch atorvastati 2021-0 Yes 40mg Take 40 mg [facility] n 40 mg 5-19 by mouth ity of tablet 11:06: at [place] [address] bedtime. [facility] Branch tamsulosin 0 Yes Take by [facility] ers 0.4 mg 24 5-19 mouth ity of hr capsule 11:06: daily. [place] [address] Medical Branch aspirin 325 2021-0 Yes 325mg Take 325 U nivers mg Cap 5-19 mg by ity of 11:06: mouth [place] [address] daily. Medical Branch carvediloL 0 Yes 6.25mg Take 6.25 [facility] 6.25 mg 5-19 mg by ity of tablet 11:06: mouth 2 [place] [address] (two) Medical times Branch daily with meals. citalopram 0 Yes 20mg Take 20 mg [facility] nivers 20 mg 5-19 by mouth ity of tablet 11:06: daily. [place] [address] [facility] Branch atorvastati 0 Yes 40mg Take 40 mg [facility] n 40 mg 5-19 by mouth ity of tablet 11:06: at [place] [address] bedtime. Medical Branch tamsulosin 2021-0 Yes Take by [facility] ers 0.4 mg 24 5-19 mouth ity of hr capsule 11:06: daily. [place] [address] Medical Branch aspirin 325 2021-0 Yes 325mg Take 325 U nivers mg Cap 5-19 mg by ity of 11:06: mouth [place] [address] daily. Medical Branch chlorthalid 2021-0 Yes [id number] 15mg Take 1 [facility] one 15 mg 5-19 tablet by ity o f tablet 00:00: mouth [place] 00 daily. [facility] furosemide 2021-0 Yes [id number] 40mg Take 2 U nivers 20 mg 5-19 tablets by ity of tablet 00:00: mouth [place] 00 daily. [facility] chlorthalid 2022-0 Yes [id number] 15mg Take 1 [facility] one 15 mg 5-19 tablet by ity o f tablet 00:00: mouth [place] 00 daily. [facility] furosemide 2-0 Yes [id number] 40mg Take 2 U nivers 20 mg 5-19 tablets by ity of tablet 00:00: mouth [place] 00 daily. [facility] chlorthalid 2-0 Yes [id number] 15mg Take 1 [facility] one 15 mg 5-19 tablet by ity o f tablet 00:00: mouth [place] 00 daily. [facility] furosemide 2-0 Yes [id number] 40mg Take 2 U nivers 20 mg 5-19 tablets by ity of tablet 00:00: mouth [place] 00 daily. [facility] chlorthalid 2021-0 Yes [id number] 15mg Take 1 [facility] one 15 mg 5-19 tablet by ity o f tablet 00:00: mouth [place] 00 daily. [facility] furosemide 2-0 Yes [id number] 40mg Take 2 U nivers 20 mg 5-19 tablets by ity of tablet 00:00: mouth [place] 00 daily. [facility] chlorthalid 2021-0 Yes [id number] 15mg Take 1 [facility] one 15 mg 5-19 tablet by ity o f tablet 00:00: mouth [place] 00 daily. [facility] furosemide 2-0 Yes [id number] 40mg Take 2 [facility] nivers 20 mg 5-19 tablets by ity of tablet 00:00: mouth [place] 00 daily. [facility] chlorthalid 2-0 Yes [id number] 15mg Take 1 [facility] one 15 mg 5-19 tablet by ity o f tablet 00:00: mouth [place] 00 daily. [facility] furosemide 2-0 Yes [id number] 40mg Take 2 [facility] nivers 20 mg 5-19 tablets by ity of tablet 00:00: mouth [place] 00 daily. [facility] chlorthalid 2-0 Yes [id number] 15mg Take 1 [facility] one 15 mg 5-19 tablet by ity o f tablet 00:00: mouth [place] 00 daily. [facility] furosemide 2022-0 Yes [id number] 40mg Take 2 [facility] nivers 20 mg 5-19 tablets by ity of tablet 00:00: mouth [place] 00 daily. [facility] chlorthalid 2-0 Yes [id number] 15mg Take 1 [facility] one 15 mg 5-19 tablet by ity o f tablet 00:00: mouth [place] 00 daily. [facility] furosemide 2022-0 Yes [id number] 40mg Take 2 [facility] nivers 20 mg 5-19 tablets by ity of tablet 00:00: mouth [place] 00 daily. [facility] chlorthalid 2022-0 Yes [id number] 15mg Take 1 [facility] one 15 mg 5-19 tablet by ity o f tablet 00:00: mouth [place] 00 daily. [facility] furosemide 2022-0 Yes [id number] 40mg Take 2 [facility] nivers 20 mg 5-19 tablets by ity of tablet 00:00: mouth [place] 00 daily. [facility] chlorthalid 2022-0 Yes [id number] 15mg Take 1 [facility] one 15 mg 5-19 tablet by ity o f tablet 00:00: mouth [place] 00 daily. [facility] furosemide 2-0 Yes [id number] 40mg Take 2 U nivers 20 mg 5-19 tablets by ity of tablet 00:00: mouth [place] 00 daily. [facility] chlorthalid 2-0 Yes [id number] 15mg Take 1 [facility] one 15 mg 5-19 tablet by ity o f tablet 00:00: mouth [place] 00 daily. [facility] furosemide 2-0 Yes [id number] 40mg Take 2 U nivers 20 mg 5-19 tablets by ity of tablet 00:00: mouth [place] 00 daily. [facility] chlorthalid 2-0 Yes [id number] 15mg Take 1 [facility] one 15 mg 5-19 tablet by ity o f tablet 00:00: mouth [place] 00 daily. [facility] furosemide 2-0 Yes [id number] 40mg Take 2 U nivers 20 mg 5-19 tablets by ity of tablet 00:00: mouth [place] 00 daily. [facility] chlorthalid 2022-0 Yes [id number] 15mg Take 1 [facility] one 15 mg 5-19 tablet by ity o f tablet 00:00: mouth [place] 00 daily. [facility] furosemide 2022-0 Yes [id number] 40mg Take 2 U nivers 20 mg 5-19 tablets by ity of tablet 00:00: mouth [place] 00 daily. [facility] chlorthalid 2022-0 Yes [id number] 15mg Take 1 [facility] one 15 mg 5-19 tablet by ity o f tablet 00:00: mouth [place] 00 daily. [facility] furosemide 2022-0 Yes [id number] 40mg Take 2 U nivers 20 mg 5-19 tablets by ity of tablet 00:00: mouth [place] 00 daily. [facility] chlorthalid 2-0 Yes [id number] 15mg Take 1 [facility] one 15 mg 5-19 tablet by ity o f tablet 00:00: mouth [place] 00 daily. [facility] furosemide 2-0 Yes [id number] 40mg Take 2 U nivers 20 mg 5-19 tablets by ity of tablet 00:00: mouth [place] 00 daily. [facility] chlorthalid 2021-0 Yes [id number] 15mg Take 1 [facility] one 15 mg 5-19 tablet by ity o f tablet 00:00: mouth [place] 00 daily. [facility] furosemide 2-0 Yes [id number] 40mg Take 2 U nivers 20 mg 5-19 tablets by ity of tablet 00:00: mouth [place] 00 daily. [facility] chlorthalid 2021-0 Yes [id number] 15mg Take 1 [facility] one 15 mg 5-19 tablet by ity o f tablet 00:00: mouth [place] 00 daily. [facility] furosemide 2-0 Yes [id number] 40mg Take 2 U nivers 20 mg 5-19 tablets by ity of tablet 00:00: mouth [place] 00 daily. [facility] chlorthalid 2021-0 Yes [id number] 15mg Take 1 [facility] one 15 mg 5-19 tablet by ity o f tablet 00:00: mouth [place] 00 daily. [facility] furosemide 2-0 Yes [id number] 40mg Take 2 U nivers 20 mg 5-19 tablets by ity of tablet 00:00: mouth [place] 00 daily. [facility] chlorthalid 2-0 Yes [id number] 15mg Take 1 [facility] one 15 mg 5-19 tablet by ity o f tablet 00:00: mouth [place] 00 daily. [facility] furosemide 2-0 Yes [id number] 40mg Take 2 U nivers 20 mg 5-19 tablets by ity of tablet 00:00: mouth [place] 00 daily. [facility] chlorthalid 2-0 Yes [id number] 15mg Take 1 [facility] one 15 mg 5-19 tablet by ity o f tablet 00:00: mouth [place] 00 daily. [facility] furosemide 2-0 Yes [id number] 40mg Take 2 U nivers 20 mg 5-19 tablets by ity of tablet 00:00: mouth [place] 00 daily. [facility] chlorthalid 2-0 Yes [id number] 15mg Take 1 [facility] one 15 mg 5-19 tablet by ity o f tablet 00:00: mouth [place] 00 daily. [facility] furosemide 2021-0 Yes [id number] 40mg Take 2 U nivers 20 mg 5-19 tablets by ity of tablet 00:00: mouth [place] 00 daily. Medical Branch midazolam 2012-[address] 1 mg, 1 M [place]oria 0-16 [place] mL, Route: l 13:59: IV, Drug [place] 00 form: INJ, ONCE, Dosing Weight 83.636, kg, Start date: 07/21/13 8:59:00, Stop date: 07/21/13 8:59:00([facility] as: Versed) midazolam 2012-[address] 1 mg, 1 M emoria 0-16 [place] mL, Route: l 13:59: IV, Drug [place] 00 form: INJ, ONCE, Dosing Weight 83.636, kg, Start date: 07/21/13 8:59:00, Stop date: 07/21/13 8:59:00([facility] as: Versed) lidocaine 2012-[address] 10 mL, Me moria 1% 0-16 [place] Route: IV, l 13:58: Drug Form: [place] 00 INJ, Dosing Weight 83.636, kg, ONCE, Start date: 07/21/13 8:58:00, Stop date: 07/21/13 8:58:00([facility] as: Xylocaine) fentanyl 2012-[address] 100 Memor ia 0-16 [place] microgram, l 13:58: 2 mL, [place] 00 Route: IV, Drug form: INJ, ONCE, Dosing Weight 83.636, kg, Start date: 07/21/13 8:58:00, Stop date: 07/21/13 8:58:00([facility] as: Sublimaze) Preservati ve free. Omnipaque 2012-[address] 140 mL, M emoria 300 0-16 [place] Route: l 13:58: INTRAARTER [place] 00 IAL, Drug Form: SOLN, Dosing Weight 83.636, kg, ONCE, Start date: 07/21/13 8:58:00, Stop date: 07/21/13 8:58:00(Sa tx as:Omnipaq ue 350). lidocaine 2012-[address] 10 mL, Me moria 1% 0-16 Jessi Route: IV, l 13:58: Drug Form: [place] 00 INJ, Dosing Weight 83.636, kg, ONCE, Start date: 07/21/13 8:58:00, Stop date: 07/21/13 8:58:00([facility] as: Xylocaine) fentanyl 2012-[address] 100 Memor ia 0-16 [place] microgram, l 13:58: 2 mL, [place] 00 Route: IV, Drug form: INJ, ONCE, Dosing Weight 83.636, kg, Start date: 07/21/13 8:58:00, Stop date: 07/21/13 8:58:00([facility] as: Sublimaze) Preservati ve free. Omnipaque 2012-[address] 140 mL, M emoria 300 0-16 [place] Route: l 13:58: INTRAARTER [place] 00 IAL, Drug Form: SOLN, Dosing Weight 83.636, kg, ONCE, Start date: 07/21/13 8:58:00, Stop date: 07/21/13 8:58:00([facility] as:Omnipaq ue 350). normal 2012-[address] 1,000 mL, Me moria saline 0.9% 0-16 Jessi Rate: 125 l IV 1,000 mL 11:54: ml/hr, Herm keri 00 Infuse over: 8 hr, Route: IV, Dosing Weight 83.636 kg, Total Volume: 1,000, Priority: STAT, Start date: 07/21/13 6:54:00, Duration: 30 day, Stop date: 08/20/13 6:53:00 normal 2012-[address] 1,000 mL, Me moria saline 0.9% 0-16 Jessi Rate: 125 l IV 1,000 mL 11:54: ml/hr, Herm keri 00 Infuse over: 8 hr, Route: IV, Dosing Weight 83.636 kg, Total Volume: 1,000, Priority: STAT, Start date: 07/21/13 6:54:00, Duration: 30 day, Stop date: 08/20/13 6:53:00 Zofran 2012-[address] 4 mg, 2 Karan katy 0-16 [place] mL, Route: l 11:53: IVP, Drug [place] 00 form: INJ, ONCE, Dosing Weight 83.636, kg, Priority: Routine, Start date: 07/21/13 6:53:00, Stop date: 07/21/13 6:53:00([facility] as: Zofran) Tylenol 2012-[address] 975 mg, 3 M emoria 0-16 [place] tab, l 11:53: Route: PO, Drug form: TAB, Q6H, Dosing Weight 83.636, kg, PRN Fever, Priority: Routine, Start date: 07/21/13 6:53:00, Duration: 30 day, Stop date: 08/20/13 6:52:00Do not exceed 4 gm/day. (Same as: Tylenol) Zofran 2012-[address] 4 mg, 2 Karan katy 0-16 [place] mL, Route: l 11:53: IVP, Drug form: INJ, ONCE, Dosing Weight 83.636, kg, Priority: Routine, Start date: 07/21/13 6:53:00, Stop date: 07/21/13 6:53:00([facility] as: Zofran) Tylenol 2012-[address] 975 mg, 3 M emoria 0-16 [place] tab, l 11:53: Route: PO, Drug form: TAB, Q6H, Dosing Weight 83.636, kg, PRN Fever, Priority: Routine, Start date: 07/21/13 6:53:00, Duration: 30 day, Stop date: 08/20/13 6:52:00Do not exceed 4 gm/day. (Same as: Tylenol) Aspirin Low 2012-10 Yes 81 mg, 1 Me moria Dose 81 mg 0-16 tab, l oral tablet 11:49: Substituti on Allowed Aspirin Low 2012-10 Yes 81 mg, 1 Me moria Dose 81 mg 0-16 tab, l oral tablet 11:49: Substituti on Allowed pneumococca No SYSTEM 0.5 ml, M emoria l 23-valent 6-12 SYSTEM Route: IM, l vaccine 14:00: Drug Form: Herm INJ, Start date: 03/17/12 9:00:00, Stop date: 03/17/12 9:00:00 pneumococca 2012-0 No SYSTEM 0.5 ml, M emoria l 23-valent 6-12 SYSTEM Route: IM, l vaccine 14:00: Drug Form: Herm keri 00 INJ, Start date: 03/17/12 9:00:00, Stop date: 03/17/12 9:00:00 Immunizations Ordered Filled Immunization Date Status Comments [facility] e Immunization Name Name SARS-COV-2 COVID-19 2021-01-11 Completed Unive rsity of PFIZER VACCINE 00:00:00 [facility] SARS-COV-2 COVID-19 2021-01-11 Completed Unive rsity of PFIZER VACCINE 00:00:00 [facility] SARS-COV-2 COVID-19 2021-01-11 Completed Unive rsity of PFIZER VACCINE 00:00:00 [facility] SARS-COV-2 COVID-19 2021-01-11 Completed Unive rsity of PFIZER VACCINE 00:00:00 [facility] SARS-COV-2 COVID-19 2021-01-11 Completed Unive rsity of PFIZER VACCINE 00:00:00 [facility] SARS-COV-2 COVID-19 2021-01-11 Completed Unive rsity of PFIZER VACCINE 00:00:00 [facility] SARS-COV-2 COVID-19 2021-01-11 Completed Unive rsity of PFIZER VACCINE 00:00:00 [facility] SARS-COV-2 COVID-19 2021-01-11 Completed Unive rsity of PFIZER VACCINE 00:00:00 [facility] SARS-COV-2 COVID-19 2021-01-11 Completed Unive rsity of PFIZER VACCINE 00:00:00 [facility] SARS-COV-2 COVID-19 2021-01-11 Completed Unive rsity of PFIZER VACCINE 00:00:00 [facility] SARS-COV-2 COVID-19 2021-01-11 Completed Unive rsity of PFIZER VACCINE 00:00:00 [facility] SARS-COV-2 COVID-19 2021-01-11 Completed Unive rsity of PFIZER VACCINE 00:00:00 [facility] SARS-COV-2 COVID-19 2021-01-11 Completed Unive rsity of PFIZER VACCINE 00:00:00 [facility] SARS-COV-2 COVID-19 2021-01-11 Completed Unive rsity of PFIZER VACCINE 00:00:00 [facility] SARS-COV-2 COVID-19 2021-01-11 Completed Unive rsity of PFIZER VACCINE 00:00:00 [facility] SARS-COV-2 COVID-19 2021-01-11 Completed Unive rsity of PFIZER VACCINE 00:00:00 [facility] SARS-COV-2 COVID-19 2021-01-11 Completed Unive rsity of PFIZER VACCINE 00:00:00 [facility] SARS-COV-2 COVID-19 2021-01-11 Completed Unive rsity of PFIZER VACCINE 00:00:00 [facility] SARS-COV-2 COVID-19 2021-01-11 Completed Unive rsity of PFIZER VACCINE 00:00:00 [facility] SARS-COV-2 COVID-19 2021-01-11 Completed Unive rsity of PFIZER VACCINE 00:00:00 [facility] SARS-COV-2 COVID-19 2021-01-11 Completed Unive rsity of PFIZER VACCINE 00:00:00 [facility] SARS-COV-2 COVID-19 2020-12-20 Completed Unive rsity of PFIZER VACCINE 00:00:00 [facility] SARS-COV-2 COVID-19 2020-12-20 Completed Unive rsity of PFIZER VACCINE 00:00:00 [facility] SARS-COV-2 COVID-19 2020-12-20 Completed Unive rsity of PFIZER VACCINE 00:00:00 [facility] SARS-COV-2 COVID-19 2020-12-20 Completed Unive rsity of PFIZER VACCINE 00:00:00 [facility] SARS-COV-2 COVID-19 2020-12-20 Completed Unive rsity of PFIZER VACCINE 00:00:00 [facility] SARS-COV-2 COVID-19 2020-12-20 Completed Unive rsity of PFIZER VACCINE 00:00:00 [facility] SARS-COV-2 COVID-19 2020-12-20 Completed Unive rsity of PFIZER VACCINE 00:00:00 [facility] SARS-COV-2 COVID-19 2020-12-20 Completed Unive rsity of PFIZER VACCINE 00:00:00 [facility] SARS-COV-2 COVID-19 2020-12-20 Completed Unive rsity of PFIZER VACCINE 00:00:00 [facility] SARS-COV-2 COVID-19 2020-12-20 Completed Unive rsity of PFIZER VACCINE 00:00:00 [facility] SARS-COV-2 COVID-19 2020-12-20 Completed [facility]ive rsity of PFIZER VACCINE 00:00:00 [facility] SARS-COV-2 COVID-19 2020-12-20 Completed Unive rsity of PFIZER VACCINE 00:00:00 [facility] SARS-COV-2 COVID-19 2020-12-20 Completed Unive rsity of PFIZER VACCINE 00:00:00 [facility] SARS-COV-2 COVID-19 2020-12-20 Completed Unive rsity of PFIZER VACCINE 00:00:00 [facility] SARS-COV-2 COVID-19 2020-12-20 Completed Unive rsity of PFIZER VACCINE 00:00:00 [facility] SARS-COV-2 COVID-19 2020-12-20 Completed Unive rsity of PFIZER VACCINE 00:00:00 [facility] SARS-COV-2 COVID-19 2020-12-20 Completed Unive rsity of PFIZER VACCINE 00:00:00 [facility] SARS-COV-2 COVID-19 2020-12-20 Completed Unive rsity of PFIZER VACCINE 00:00:00 [facility] SARS-COV-2 COVID-19 2020-12-20 Completed Unive rsity of PFIZER VACCINE 00:00:00 [facility] SARS-COV-2 COVID-19 2020-12-20 Completed [facility]ive rsity of PFIZER VACCINE 00:00:00 [facility] SARS-COV-2 COVID-19 2020-12-20 Completed Unive rs[facility] of PFIZER VACCINE 00:00:00 [facility] pneumococcal 2012-03-18 Completed [facility] davila 23-valent vaccine 16:04:00 pneumococcal 2012-03-18 Completed [facility] davila 23-valent vaccine 16:04:00 Vital Signs Vital Name Observation Time Observation Value Comments Source Systolic blood 2022-07-15 21:00:00 164 mm[Hg] [facility] Diastolic blood 2022-07-15 21:00:00 65 mm[Hg] [facility] Heart rate 2022-07-15 21:00:00 68 /min [facility] [place] [facility] Body height 2022-07-15 21:00:00 161.3 cm [facility] [place] [facility] Body weight 2022-07-15 21:00:00 83.915 kg [facility] [place] [facility] BMI 2022-07-15 21:00:00 32.26 kg/m2 [facility] Oxygen saturation in 2022-07-15 21:00:00 95 /min [facility] Arterial blood by [place] [facility] [employer] Pulse oximetry Branch Systolic blood 2022-06-17 18:06:00 160 mm[Hg] [facility] Diastolic blood 2022-06-17 18:06:00 72 mm[Hg] [facility] Heart rate 2022-06-17 18:06:00 58 /min [facility] [place] [facility] Body temperature 2022-06-17 18:04:00 36.44 [facility] [facility] [place] [facility] Body height 2022-06-17 18:04:00 161.3 cm [facility] Body weight 2022-06-17 18:04:00 85.458 kg [facility] [facility] BMI 2022-06-17 18:04:00 32.85 kg/m2 [facility] Oxygen saturation in 2022-06-17 18:04:00 96 /min [facility] of Arterial blood by [place] [employer] blanca Pulse oximetry Branch Systolic blood 2022-06-03 19:24:00 160 mm[Hg] Univer sity of pressure [facility] Diastolic blood 2022-06-03 19:24:00 63 mm[Hg] Unive rsity of pressure [facility] Heart rate 2022-06-03 19:24:00 78 /min [facility] Body height 2022-06-03 19:24:00 161.3 cm [facility] Body weight 2022-06-03 19:24:00 86.183 kg [facility] BMI 2022-06-03 19:24:00 33.13 kg/m2 [facility] Oxygen saturation in 2022-06-03 19:24:00 94 /min University Arterial blood by [facility] Pulse oximetry Branch Systolic (mm Hg) 2023-05-16 20:33:00 Karan rial [facility] Diastolic (mm Hg) 2023-05-16 20:33:00 Mem orial [facility]ael Heart Rate 2023-05-16 20:33:00 [facility] Height 2023-05-16 20:33:00 5 [ft_i] [facility] Weight 2023-05-16 20:33:00 [facility] BMI Calculated 2023-05-16 20:33:00 Memori al [facility] Systolic (mm Hg) 2023-01-09 19:59:00 Karan rial Isael Diastolic (mm Hg) 2023-01-09 19:59:00 Mem orial [place] Heart Rate 2023-01-09 19:59:00 [facility] Height 2023-01-09 19:59:00 5 [ft_i] [facility] Weight 2023-01-09 19:59:00 [facility] BMI Calculated 2023-01-09 19:59:00 Memori al [facility] Systolic (mm Hg) 2022-09-11 17:29:00 Karan rial Isael Diastolic (mm Hg) 2022-09-11 17:29:00 Mem orial [place] Heart Rate 2022-09-11 17:29:00 [facility] Height 2022-09-11 17:29:00 5 [ft_i] [facility] Weight 2022-09-11 17:29:00 [facility] BMI Calculated 2022-09-11 17:29:00 Memori al [place] Systolic (mm Hg) 2022-06-12 16:38:00 Karan rial Isael Diastolic (mm Hg) 2022-06-12 16:38:00 Mem orial [facility] Heart Rate 2022-06-12 16:38:00 [facility] Respitory Rate 2022-06-12 16:38:00 Memori al [facility] Height 2022-06-12 16:38:00 157.48 cm [facility] Weight 2022-06-12 16:38:00 [facility] BMI Calculated 2022-06-12 16:38:00 Memori al [facility] BMI Calculated 2022-04-30 16:30:00 Memori al [place] Systolic (mm Hg) 2022-04-30 16:30:00 Karan rial Isael Diastolic (mm Hg) 2022-04-30 16:30:00 Mem orial [facility] Heart Rate 2022-04-30 16:30:00 [facility] Respitory Rate 2022-04-30 16:30:00 Memori al [facility] Height 2022-04-30 16:30:00 154.94 cm [facility] Weight 2022-04-30 16:30:00 [facility] Systolic (mm Hg) 2022-03-26 13:48:00 Karan rial Isael Diastolic (mm Hg) 2022-03-26 13:48:00 Mem o[facility] Heart Rate 2022-03-26 13:48:00 [facility] Respitory Rate 2022-03-26 13:48:00 Memori al [place] Height 2022-03-26 13:48:00 157.48 cm [facility] Weight 2022-03-26 13:48:00 [facility] BMI Calculated 2022-03-26 13:48:00 Memori al [place] Heart Rate 2013-07-21 13:50:00 [facility] Respitory Rate 2013-07-21 13:50:00 Memori al [place] Diastolic (mm Hg) 2013-07-21 13:50:00 Mem orial Isael Systolic (mm Hg) 2013-07-21 13:50:00 Karan rial [place] Diastolic (mm Hg) 2013-07-21 13:45:00 Mem orial Isael Heart Rate 2013-07-21 13:45:00 [facility] Respitory Rate 2013-07-21 13:45:00 Memori al [facility]ael Systolic (mm Hg) 2013-07-21 13:45:00 Karan rial Isael Systolic (mm Hg) 2013-07-21 13:40:00 Karan rial [place] Respitory Rate 2013-07-21 13:40:00 Memori al Isael Diastolic (mm Hg) 2013-07-21 13:40:00 Mem orial Isael Heart Rate 2013-07-21 13:40:00 [facility] Height 2013-07-21 11:28:00 162.56 cm Jimi Kirkland Weight 2013-07-21 11:28:00 Jimi Kirkland Procedures Procedure Date / Time Performing Clinician Source Performed FREE T4 2022-07-15 21:38:00 Taylor Gomez [facility] TRIIODOTHYRONINE 2022-07-15 21:38:00 Taylor Gomez [facility] THYROID STIMULATING 2022-07-15 21:38:[address] [facility] HORMONE Medical Branch GLYCOSYLATED HEMOGLOBIN 2022-07-15 21:38:00 Taylor Gomez [facility] (A1C) Medical Branch AUTHORIZATION FOR RELEASE 2022-07-15 05:01:00 Doctor Unassigned, [facility] [place] [facility] PATIENT CORRESPONDENCE 2022-06-19 05:01:00 Doctor Unassigned, [facility] (LETTERS, USPS [place] [facility] DOCUMENTATION) POCT HEMOGLOBIN A1C TEST 2022-06-03 19:29:00 Taylor Gomez [facility] Encounters Start End Encounter Admission Attending Care Care Encounter Source Date/Time Date/Time Type Type Clinicians Facility Department ID 2023-07-17 2023-07-17 Outpatient MHIE MHIE [id number] Memoria 15:30:00 15:30:00 06 cody Kirkland 2023-07-14 2023-07-14 Outpatient Luis FOUNTAIN [facility] [id number] Univers 08:00:00 08:00:00 , KATELIN de la cruz [facility] 2023-05-16 2023-05-17 Outpatient MHIE MNA [id number] Memoria 20:45:00 04:59:59 Neurology 05 cody Kirkland 2023-05-16 2023-05-16 Outpatient JANETT SpearsMISCHER MHMISCHER [id number] 15:45:00 23:59:59 Brandon Spencer 2023-05-16 2023-05-16 Outpatient MHIE MHIE [id number] Memoria 15:45:00 15:45:00 05 cody Kirkland 2023-05-02 2023-05-02 Outpatient SFA SHAHEEN [id number] Jb 08:18:30 08:18:30 [id number] Wm 2023-04-18 2023-04-18 Outpatient SFA [facility] [id number] Jb 10:05:41 10:05:41 [id number] Wm 2023-02-24 2023-02-24 Outpatient R АЛЕКСАНДР [facility] [id number] Univers 16:30:00 16:30:00 , KATELIN [facility] 2023-01-09 2023-01-10 Outpatient MHIE MNA [id number] Memoria 20:15:00 04:59:59 Neurology 04 l Jerad Kirkland 2023-01-09 2023-01-09 Outpatient ALCIDES SpearsMISCHJUAN [id number] 15:15:00 23:59:59 Brandon 04 Tj 2023-01-09 2023-01-09 Outpatient MHIE MHIE [id number] Memoria 15:15:00 15:15:00 04 cody Kirkland 2022-10-14 2022-10-14 Outpatient R АЛЕКСАНДР [facility] [id number] Univers 15:00:00 15:00:00 , [facility] 2022-10-11 2022-10-11 [facility] 1.2.840.114 [id number] Univers 00:00:00 00:00:00 , Katelin [facility]13.10 [facility] 4.2.7.2.686 [facility] [phone] [address] DIABETES CLINIC 2022-10-09 2022-10-09 Outpatient R TAYLOR GOMEZ [facility] [id number] Univers 16:30:00 16:30:00 TAYLOR GOMEZ [facility] 2022-10-08 2022-10-08 Outpatient R АЛЕКСАНДР [facility] [id number] Univers 13:30:00 13:30:00 , KATELIN [facility] 2022-09-11 2022-09-12 Outpatient MHIE MNA [id number] Memoria 17:30:00 05:59:59 Neurology 03 l Jerad Kirkland 2022-09-11 2022-09-11 Outpatient ETHEL SpearsSCHJUAN MHMISCHER [id number] 11:30:00 23:59:59 Brandon Kia Spencer 2022-09-11 2022-09-11 Outpatient MHIE MHIE [id number] Memoria 11:30:00 11:30:00 03 cody Kirkland 2022-09-11 2022-09-11 Outpatient MHIE MHIE [id number] Memoria 11:30:00 11:30:00 03 cody Kirkland 2022-08-07 2022-08-07 Telephone Taylor Gomez [facility] [id number] [id number] Univers 00:00:00 00:00:00 HEALTH 350.1.13.10 it y of [place] 4.2.7.2.686 Pierre as JUNE?BLEA [id number] Ma kalin EATON [address] [facility] OFFICE [facility] 2022-08-06 2022-08-06 Refill Taylor Gomez [facility] 1.2.840.114 [id number] Univers 00:00:00 00:00:00 HEALTH 350.1.13.10 it y of [place] 4.2.7.2.686 Pierre as JUNE?BLEA [id number] Ma kalin HERNANDEZ [address] [place] MEDICAL OFFICE [facility] 2022-07-21 2022-07-21 Patient Rachel Vazquez [facility] 1.2.840.114 [id number] Univers 00:00:00 00:00:00 Secure [facility] HEALTH 350.1.13.10 ity of [place] 4.2.7.2.686 Pierre as JUNE?BLEA [id number] Ma kalin HERNANDEZ [address] [facility] OFFICE [facility] 2022-07-15 2022-07-15 Corporate Financial Analyst Lab, [facility] 1.2.840.1 [id number] Univers 16:30:00 16:45:00 Visit Rachel Vazquez [facility] 350.1.13.10 it y of [place] 4.2.7.2.686 Pierre as JUNE?BLEA [id number] Ma kalin HERNANDEZ [address] [facility] OFFICE [facility] 2022-07-15 2022-07-15 Outpatient R TAYLOR GOMEZ [facility] [id number] Univers 16:00:00 16:27:53 TAYLOR GOMEZ ity [facility] 2022-07-15 2022-07-15 Office Rachel, Vazquez [facility] 1.2.840.114 [id number] Univers 16:00:00 16:27:53 Visit HEALTH 350.1.13.10 it y of [place] 4.2.7.2.686 Pierre as JUNE?BLEA [id number] [address] MEDICAL OFFICE [facility] 2022-07-15 2022-07-15 Orders Doctor KATELIN 1.2.840.114 [id number] Univers 00:00:00 00:00:00 Only Unassigned, LILLY 350.1.13.10 ity of [place] [facility] 4.2.7.2.686 Pierre as [id number] [facility] [address] [place] 2022-07-12 2022-07-12 Telephone Taylor Gomez [facility] 1.2.951.353 [id number] Univers 00:00:00 00:00:00 HEALTH 350.1.13.10 it y of [place] 4.2.7.2.686 Pierre as JUNE?BLEA [id number] [address] MEDICAL OFFICE [facility] 2022-06-24 2022-06-24 Outpatient R АЛЕКСАНДР [facility] [id number] Univers 08:00:00 08:00:00 , KATELIN de la cruz [facility] 2022-06-24 2022-06-24 Outpatient R АЛЕКСАНДР [facility] [id number] Univers 08:00:00 08:00:00 , KATELIN de la cruz [facility] 2022-06-19 2022-06-19 Orders Doctor KATELIN 1.2.840.114 [id number] Univers 00:00:00 00:00:00 Only Unassigned, LILLY 350.1.13.10 ity of [place] [facility] 4.2.7.2.686 Pierre as [id number] [facility] [address] [place] 2022-06-17 2022-06-17 Corporate Financial Analyst Vtc-Lab [facility] 1.2.840.114 [id number] Univers 14:15:00 14:30:00 Visit Katelin Fountain MULTISPEC 350.1.13.1 0 [place] [id number] [facility] AND [address] DIABETES CLINIC 2022-06-17 2022-06-17 Out[facility] [id number] Univers 13:00:00 13:49:14 , KATELIN de la cruz of [facility] 2022-06-17 2022-06-17 Office [facility] 1.2.840.114 [id number] Univers 13:00:00 13:49:14 Visit , Katelin MARIO 350.1.13.10 ity of [place] 4.2.7.2.686 [facility] [place] [id number] [facility] AND [address] DI[facility]ETES [facility]IC 2022-06-17 2022-06-17 Patient [facility] 1.2.840.114 [id number] Univers 00:00:00 00:00:00 Secure Katelin Neumann 350.1.13.10 [place]y of [place] 4.2.7.2.686 [facility] [place] [phone] [facility] AND [address] DIABETES [facility]INIC 2022-06-12 2022-06-13 Outpatient nullFlavo MNA [id number] Memoria 16:45:00 04:59:59 r Neurology 02 l [place] 2022-06-12 2022-06-13 Outpatient nullFlavo MNA [id number] Memoria 16:45:00 04:59:59 r Neurology 02 l [place] Ferris 2022-06-13 2022-06-13 Telephone [facility] 1.2.840.114 [id number] Univers 00:00:00 00:00:00 , Katelin MARIO 350.1.13.10 ity of [place] 4.2.7.2.686 [facility] [place] [id number] [facility] AND [address] DIABETES [facility]INIC 2022-06-12 2022-06-12 Outpatient ALCIDES Spears [id number] 11:45:00 23:59:59 Brandon 02 Tj 2022-06-12 2022-06-12 Outpatient RAYRAY SEO [id number] Memoria 11:45:00 11:45:00 02 cody Kirkland 2022-06-03 2022-06-03 Outpatient R TAYLOR GOMEZ [facility] [id number] Univers 14:30:00 15:41:29 TAYLOR GOMEZ ity of [facility] 2022-06-03 2022-06-03 Office Taylor Gomez [facility] 1.2.840.114 [id number] Univers 14:30:00 15:41:29 Visit HEALTH 350.1.13.10 it [facility] 4.2.7.2.686 Pierre as JUNE?BLEA [id number] Ma diccolleen [address] MEDICAL OFFICE BUILDING 2022-05-13 2022-05-13 Outpatient R АЛЕКСАНДР [facility] [id number] Univers 11:30:00 11:30:00 , KATELIN de la cruz [facility] 2022-05-13 2022-05-13 Orders Doctor KATELIN 1.2.840.114 [id number] Univers 00:00:00 00:00:00 Only Unassigned, LILLY 350.1.13.10 ity of [place] [facility] 4.2.7.2.686 Pierre as [phone] [place] [address] Branch 2022-05-10 2022-05-10 Telephone Александр [facility] 1.2.840.114 [id number] Univers 00:00:00 00:00:00 , Katelin HASKINSPEC 350.1.13.10 ity of [facility] 4.2.7.2.686 [place] [facility] [id number] [facility] AND [place] [address] Branch DI[facility]ETES [facility]INIC 2022-04-30 2022-05-01 Outpatient nullFlavo MNA [id number] Memoria 16:45:00 04:59:59 r Neurology 01 cody Kirkland 2022-04-30 2022-05-01 Outpatient nullFlavo MNA [id number] Memoria 16:45:00 04:59:59 r Neurology 01 l Jerad Kirkland 2022-04-30 2022-04-30 Outpatient ALCIDES SpearsSCHJUAN [id number] 11:45:00 23:59:59 Brandon Shahab Spencer 2022-04-30 2022-04-30 Outpatient MHCATRACHO SEO [id number] Memoria 11:45:00 11:45:00 01 cody Kirkland 2022-04-25 2022-04-25 Orders Doctor KATELIN 1.2.840.114 [id number] Univers 00:00:00 00:00:00 Only Unassigned, LILLY 350.1.13.10 ity of [place] [facility] 4.2.7.2.686 Pierre as [id number] [address] 2022-03-26 2022-03-27 Outpatient nullFlavo MNA [id number] Memoria 14:00:00 04:59:59 r Neurology 00 l Jerad Kirkland 2022-03-26 2022-03-27 Outpatient nullFlavo MNA [id number] Memoria 14:00:00 04:59:59 r Neurology 00 l Jerad Kirkland 2022-03-26 2022-03-26 Outpatient ALCIDES SpearsMISCHJUAN [id number] 09:00:00 23:59:59 Brandon 00 Tj 2022-03-26 2022-03-26 Outpatient RAYRAY SEO [id number] Memoria 09:00:00 09:00:00 00 cody Kirkland 2022-03-13 2022-03-13 Telephone [facility] 1.2.840.114 [id number] Univers 00:00:00 00:00:00 , Katelin MARIO 350.1.13.10 [place]2.[place] [id number] [address] DIABETES CLINIC 2022-03-01 2022-03-01 [facility]phone [facility] 1.2.840.114 [id number] Univers 00:00:00 00:00:00 , Katelin MARIO 350.1.13.10 [place]2.[place] [id number] [address] DIABETES CLINIC 2022-03-01 2022-03-01 Orders Doctor KATELIN 1.2.840.114 [id number] Univers 00:00:00 00:00:00 Only Unassigned, LILLY 350.1.13.10 ity of [place] [facility] 4.2.7.2.686 Pierre as [id number] [address] 2022-02-28 2022-02-28 Outpatient R [facility] [id number] Univers 09:56:32 23:59:00 , KATELIN de la cruz [facility] 2022-02-28 2022-02-28 [facility] 1.2.840.114 [id number] Univers 09:45:00 23:59:00 Encounter , Katelin MILLER 350.1.13.10 ity of [place] 4.2.7.2.686 [facility] [id number] [facility] [address] 2022-02-28 2022-02-28 Emergency X [facility] ERT [id number] Univers 09:29:00 10:13:00 , KATELIN de la cruz [facility] 2022-02-28 2022-02-28 Emergency [facility] 1.2.652.757 [id number] Univers 09:29:00 10:13:00 PAUL 350.1.13.10 i ty of [place] 4.2.7.2.686 [facility] [id number] [facility] [address] 2022-02-21 2022-02-21 Corporate Financial Analyst Vtc-Lab [facility] 1.2.840.114 [id number] Univers 13:15:00 13:30:00 Visit Katelin Fountain 350.1.13.1 0 ity of [place] 4.2.7.2.686 [facility] [phone] [facility] [address] [place] DIAB[facility]ES [facility]INIC 2022-02-21 2022-02-21 Outpatient R [facility] [id number] Univers 13:15:00 13:15:00 , KATELIN de la cruz [facility] 2022-02-21 2022-02-21 Office [facility] 1.2.840.114 [id number] Univers 11:00:00 12:22:13 Visit , Katelin MARIO 350.1.13.10 ity of [place] 4.2.7.2.686 [facility] [id number] [facility] [address] [place] DIAB[facility]ES CLINIC 2022-02-21 2022-02-21 Outpatient R [facility] [id number] Univers 11:00:00 12:22:13 , KATELIN de la cruz [facility] 2022-02-18 2022-02-18 Outpatient R АЛЕКСАНДР [facility] [id number] Univers 08:00:00 08:00:00 , KATELIN de la cruz [facility] 2022-01-31 2022-01-31 Orders Doctor KATELIN 1.2.840.114 [id number] Univers 00:00:00 00:00:00 Only Unassigned, LILLY 350.1.13.10 ity of [place] [facility] 4.2.7.2.686 Pierre as [phone] [address] 2013-07-21 2013-07-21 Outpatient 2.16.840. 2.16.840.1. 3 [id number] Memoria 06:17:00 12:30:00 1.260243. [id number] 01 l 3.615.0.1 5.0.101 [facility] n 01 [facility] 2013-07-21 2013-07-21 Outpatient 2.16.840. 2.16.840.1. 3 [id number] Memoria 06:17:00 12:30:00 1.584169. [id number] 01 l 3.615.0.1 5.0.101 Kane n 01 Hospita 2013-07-21 2013-07-21 Outpatient 2.16.840. 2.16.840.1. 3 [id number] Memoria 06:17:00 12:30:00 1.913998. [id number] 01 l 3.615.0.1 5.0.101 Kane n 01 Hospita 2013-07-21 2013-07-21 Outpatient 2.16.840. 2.16.840.1. 3 [id number] Memoria 06:17:00 12:30:00 1.301082. [id number] 01 l 3.615.0.1 5.0.101 [facility] n 01 Hospita 2013-07-21 2013-07-21 Outpatient 2.16.840. 2.16.840.1. 3 [id number] Memoria 06:17:00 12:30:00 1.683239. [id number] 01 3.615.0.1 5.0.101 Kane n 01 Hospita l 2013-07-21 2013-07-21 MARCIAL nullFlavo [facility] [id number] Memoria 06:17:00 12:30:[address] 2013-07-21 2013-07-21 MARCIAL nullFlavo [facility] [id number] Memoria 06:17:00 12:30:[address] Results Test Description Test Time Test Comments Results Result Comments Source TRIIODOTHYRONINE 2022-07-16 07:02:50 Test Item Value Reference Range Interpretation Comme nts T3 (test code = 9506391735) 112.0 ng/dL 97-170 Lab Interpretation (test code = 97156-3) [facility] [id number] 05:11:00 Test Item Value Reference Range Interpretation Comments TSH (test code = See_Comment [Automated message] [id number]) The system [facility] generated this result transmitted ref erence range: 0.45 - 4 .70 mIU/L. The refe rence range was not u sed to interpret this result as normal/abnor mal. Lab Interpretation (test Normal code = 49571-1) [facility] [id number] 04:57:19 Test Item Value Reference Range Interpretation Comments FREE T4 (test code = See_Comment [Autom ated message] [id number]) The system [facility] generated this result transmitted ref erence range: 0.78 - 2 .20 ng/dL:. The ref erence range was not u sed to interpret this result as normal/abnor mal. Lab Interpretation (test Normal code = 84571-4) [facility] (A1C)2022-07-16 03:33:21 Test Item Value Reference Range Interpretation Comments HGB A1C (test code = 9.2 % 4-5.7 H 4548-4) TRAV (test code = TRAV) Reference RangesNormal: <5.7%Prediabetes: 5.7 - 6.4%Diabetes: > 6.5% Lab Interpretation (test Abnormal code = 12608-7) [facility] [id number] 19:29:00 Test Item Value Reference Range Interpretation Comments POCT HBA1C (test code = 4548-4) 9.0 % 4-6 A Lab Interpretation (test code = Abnormal 43119-3) [facility]2022-06-22 12:54:00 Test Item Value Reference Range Interpretation Comments Glucose Lvl (test code = Glucose Lvl) 70 65-99 [place] 756212-06-22 12:54:00 Test Item Value Reference Range Interpretation Comments BUN (test code = BUN) 34 7-25 [place] 756212-06-22 12:54:00 Test Item Value Reference Range Interpretation Comments Creatinine Lvl (test code = Creatinine 1.50 0.70-1.18 Lvl) [place] 756212-06-22 12:54:00 Test Item Value Reference Range Interpretation Comments eGFR NON-AFR. MALTESE (test code = 44 eGFR NON-AFR. MALTESE) [place] 756212-06-22 12:54:00 Test Item Value Reference Range Interpretation Comments eGFR (test code = eGFR 51 ) [place] 756212-06-22 12:54:00 Test Item Value Reference Range Interpretation Comments B/C Ratio (test code = B/C Ratio) 23 6-22 [place] 756212-06-22 12:54:00 Test Item Value Reference Range Interpretation Comments Sodium Lvl (test code = Sodium Lvl) 140 135-146 [place] 756212-06-22 12:54:00 Test Item Value Reference Range Interpretation Comments Potassium Lvl (test code = Potassium 4.4 3.5-5.3 Lvl) [place] 756212-06-22 12:54:00 Test Item Value Reference Range Interpretation Comments Chloride Lvl (test code = Chloride Lvl) 104 98-110 [place] 756212-06-22 12:54:00 Test Item Value Reference Range Interpretation Comments CO2 (test code = CO2) 29 20-32 [place] 756212-06-22 12:54:00 Test Item Value Reference Range Interpretation Comments Calcium Lvl (test code = Calcium Lvl) 8.8 8.6-10.3 [place] 756212-06-22 12:54:00 Test Item Value Reference Range Interpretation Comments Total Protein (test code = Total 6.4 6.1-8.1 Protein) [place] 756212-06-22 12:54:00 Test Item Value Reference Range Interpretation Comments Albumin Lvl (test code = Albumin Lvl) 4.0 3.6-5.1 [place] 756212-06-22 12:54:00 Test Item Value Reference Range Interpretation Comments Globulin (test code = Globulin) 2.4 1.9-3.7 [place] 756212-06-22 12:54:00 Test Item Value Reference Range Interpretation Comments A/G Ratio (test code = A/G Ratio) 1.7 1.0-2.5 [place] 756212-06-22 12:54:00 Test Item Value Reference Range Interpretation Comments Bili Total (test code = Bili Total) 0.4 0.2-1.2 [place] 756212-06-22 12:54:00 Test Item Value Reference Range Interpretation Comments Alk Phos (test code = Alk Phos) 63 35-144 [place] 756212-06-22 12:54:00 Test Item Value Reference Range Interpretation Comments ASPARTATE TRANSAMINASE (test code = 10 10-35 ASPARTATE TRANSAMINASE) [place] 756212-06-22 12:54:00 Test Item Value Reference Range Interpretation Comments ALANINE AMINOTRANSFERASE (test code = 12 9-46 ALANINE AMINOTRANSFERASE) [place] 305512-06-22 12:54:00 Test Item Value Reference Range Interpretation Comments WBC X 10x3 (test code = WBC X 10x3) 7.2 3.8-10.8 [place] [address]-06-22 12:54:00 Test Item Value Reference Range Interpretation Comments RBC X 10x6 (test code = RBC X 10x6) 3.68 4.20-5.80 [place] 44890-06-22 12:54:00 Test Item Value Reference Range Interpretation Comments Hgb (test code = Hgb) 11.3 13.2-17.1 [place] 44890-06-22 12:54:00 Test Item Value Reference Range Interpretation Comments Hct (test code = Hct) 34.9 38.5-50.0 [place] 305512-06-22 12:54:00 Test Item Value Reference Range Interpretation Comments MCV (test code = MCV) 94.8 80.0-100.0 [place] 305512-06-22 12:54:00 Test Item Value Reference Range Interpretation Comments MCH (test code = MCH) 30.7 pg 27.0-33.0 [id number] 12:54:00 Test Item Value Reference Range Interpretation Comments MCHC (test code = MCHC) 32.4 32.0-36.0 [place] 305512-06-22 12:54:00 Test Item Value Reference Range Interpretation Comments RDW (test code = RDW) 12.5 11.0-15.0 [place] 305512-06-22 12:54:00 Test Item Value Reference Range Interpretation Comments Platelet (test code = Platelet) 242 140-400 [place] 305512-06-22 12:54:00 Test Item Value Reference Range Interpretation Comments MPV (test code = MPV) 10.5 7.5-12.5 [place] 305512-06-22 12:54:00 Test Item Value Reference Range Interpretation Comments Neutrophils # (test code = Neutrophils 4615 0506-2008 #) [facility]X1607-[facility]-15 12:54:00 Test Item Value Reference Range Interpretation Comments Lymphocytes # (test code = Lymphocytes 2650 697-1511 #) [place] 305512-06-22 12:54:00 Test Item Value Reference Range Interpretation Comments Monocytes # (test code = Monocytes #) 799 200-950 [place] 305512-06-22 12:54:00 Test Item Value Reference Range Interpretation Comments Eosinophils # (test code = Eosinophils 180 15-500 #) [place] 305512-06-22 12:54:00 Test Item Value Reference Range Interpretation Comments Basophils # (test code 50 See_Comment [Aut omated message] The = Basophils #) system which generated this result tra nsmitted reference range : <=200. The reference r lakshmi was not used to int erpret this result as normal/abnormal . [place] 305512-06-22 12:54:00 Test Item Value Reference Range Interpretation Comments Segs (test code = Segs) 64.1 [place] 305512-06-22 12:54:00 Test Item Value Reference Range Interpretation Comments Lymphocytes (test code = Lymphocytes) 21.6 [facility]EkzfuksWZAYKELONI4814-48-56 12:54:00 Test Item Value Reference Range Interpretation Comments Monocytes (test code = Monocytes) 11.1 [facility]AqlkmbvYOHNXQMRHS8984-15-62 12:54:00 Test Item Value Reference Range Interpretation Comments Eosinophils (test code = Eosinophils) 2.5 [facility] ArlingtonTetmbnxWLTDRLXVCG5217-94-75 12:54:00 Test Item Value Reference Range Interpretation Comments Basophils (test code = Basophils) 0.7 [place] 305512-06-22 12:54:00 Test Item Value Reference Range Interpretation Comments Sed Rate (test code = Sed Rate) 9 [facility]XuwyzjqRLADOMYKPW6296-77-20 12:54:00 Test Item Value Reference Range Interpretation Comments Eosinophils (test code = Eosinophils) 2.5 [facility] ArlingtonKyxfzbaGARIEHQIQK3881-14-66 12:54:00 Test Item Value Reference Range Interpretation Comments Basophils (test code = Basophils) 0.7 [place] 305512-06-22 12:54:00 Test Item Value Reference Range Interpretation Comments Sed Rate (test code = Sed Rate) 9 [facility]2022-06-22 12:54:00 Test Item Value Reference Range Interpretation Comments Vitamin B12 Lvl (test code = Vitamin 733 942-4061 B12 Lvl) [facility]2022-06-22 12:54:00 Test Item Value Reference Range Interpretation Comments Glucose Lvl (test code = Glucose Lvl) 70 65-[address] [facility]2022-06-22 12:54:00 Test Item Value Reference Range Interpretation Comments BUN (test code = BUN) 34 7-[address] [facility]2022-06-22 12:54:00 Test Item Value Reference Range Interpretation Comments Creatinine Lvl (test code = Creatinine 1.50 0.70-1.18 Lvl) [facility]2022-06-22 12:54:00 Test Item Value Reference Range Interpretation Comments eGFR NON-AFR. MALTESE (test code = 44 eGFR NON-AFR. MALTESE) [facility]2022-06-22 12:54:00 Test Item Value Reference Range Interpretation Comments eGFR (test code = eGFR 51 ) [facility]2022-06-22 12:54:00 Test Item Value Reference Range Interpretation Comments B/C Ratio (test code = B/C Ratio) 23 6-[address] [facility]2022-06-22 12:54:00 Test Item Value Reference Range Interpretation Comments Sodium Lvl (test code = Sodium Lvl) 140 135-[address] [facility]2022-06-22 12:54:00 Test Item Value Reference Range Interpretation Comments Potassium Lvl (test code = Potassium 4.4 3.5-5.3 Lvl) [facility]2022-06-22 12:54:00 Test Item Value Reference Range Interpretation Comments Chloride Lvl (test code = Chloride Lvl) 104 98-[address] [facility]2022-06-22 12:54:00 Test Item Value Reference Range Interpretation Comments CO2 (test code = CO2) 29 20-[address] [facility]2022-06-22 12:54:00 Test Item Value Reference Range Interpretation Comments Calcium Lvl (test code = Calcium Lvl) 8.8 8.6-10.[address] [facility]2022-06-22 12:54:00 Test Item Value Reference Range Interpretation Comments Total Protein (test code = Total 6.4 6.1-8.1 Protein) [facility]2022-06-22 12:54:00 Test Item Value Reference Range Interpretation Comments Albumin Lvl (test code = Albumin Lvl) 4.0 3.6-5.[address] [facility]2022-06-22 12:54:00 Test Item Value Reference Range Interpretation Comments Globulin (test code = Globulin) 2.4 1.9-3.7 [place] 756212-06-22 12:54:00 Test Item Value Reference Range Interpretation Comments A/G Ratio (test code = A/G Ratio) 1.7 1.0-2.5 [place] 756212-06-22 12:54:00 Test Item Value Reference Range Interpretation Comments Bili Total (test code = Bili Total) 0.4 0.2-1.2 [place] 756212-06-22 12:54:00 Test Item Value Reference Range Interpretation Comments Alk Phos (test code = Alk Phos) 63 35-144 [place] 756212-06-22 12:54:00 Test Item Value Reference Range Interpretation Comments ASPARTATE TRANSAMINASE (test code = 10 10-35 ASPARTATE TRANSAMINASE) [facility]2022-06-22 12:54:00 Test Item Value Reference Range Interpretation Comments ALANINE AMINOTRANSFERASE (test code = 12 9-46 ALANINE AMINOTRANSFERASE) [facility] ArlingtonNdjxtgnZCECGGJWAN8572-85-03 12:54:00 Test Item Value Reference Range Interpretation Comments WBC X 10x3 (test code = WBC X 10x3) 7.2 3.8-10.8 [place] 305512-06-22 12:54:00 Test Item Value Reference Range Interpretation Comments RBC X 10x6 (test code = RBC X 10x6) 3.68 4.20-5.80 [place] 305512-06-22 12:54:00 Test Item Value Reference Range Interpretation Comments Hgb (test code = Hgb) 11.3 13.2-17.1 [facility] ArlingtonTippeacLDJTJIOMOO8446-98-58 12:54:00 Test Item Value Reference Range Interpretation Comments Hct (test code = Hct) 34.9 38.5-50.0 [place] 305512-06-22 12:54:00 Test Item Value Reference Range Interpretation Comments MCV (test code = MCV) 94.8 80.0-100.0 [facility] ArlingtonTmgzjniVLNIACDLIR6577-26-59 12:54:00 Test Item Value Reference Range Interpretation Comments MCH (test code = MCH) 30.7 pg 27.0-33.0 [facility] ArlingtonRoooeekLDPUYYEGKA0290-41-14 12:54:00 Test Item Value Reference Range Interpretation Comments MCHC (test code = MCHC) 32.4 32.0-36.0 [facility] ArlingtonKsypqfiBHPOOZFFMU0053-79-25 12:54:00 Test Item Value Reference Range Interpretation Comments RDW (test code = RDW) 12.5 11.0-15.0 [place] 305512-06-22 12:54:00 Test Item Value Reference Range Interpretation Comments Platelet (test code = Platelet) 242 140-400 [facility] ArlingtonZpfpenzWTTHQBZIME6483-19-63 12:54:00 Test Item Value Reference Range Interpretation Comments MPV (test code = MPV) 10.5 7.5-12.5 [place] 305512-06-22 12:54:00 Test Item Value Reference Range Interpretation Comments Neutrophils # (test code = Neutrophils 4615 9388-3380 #) [facility] ArlingtonXpxhlzuNRYKTCPOFN6734-49-09 12:54:00 Test Item Value Reference Range Interpretation Comments Lymphocytes # (test code = Lymphocytes 4269 007-7835 #) [facility] ArlingtonZknsbhwIPALZJCBDW3303-24-33 12:54:00 Test Item Value Reference Range Interpretation Comments Monocytes # (test code = Monocytes #) 799 200-950 [facility] ArlingtonTnrrheoANSHALZTRR8323-48-53 12:54:00 Test Item Value Reference Range Interpretation Comments Eosinophils # (test code = Eosinophils 180 15-500 #) [facility] ArlingtonKdkapgvBEVXAAUOMM3779-43-21 12:54:00 Test Item Value Reference Range Interpretation Comments Basophils # (test code 50 See_Comment [Aut omated message] The = Basophils #) system which generated this result tra nsmitted reference range : <=200. The reference r lakshmi was not used to int erpret this result as normal/abnormal . [facility] ArlingtonWfrfiqqHOFTSKWWTD9876-27-82 12:54:00 Test Item Value Reference Range Interpretation Comments Segs (test code = Segs) 64.1 [facility] ArlingtonKeowtyrISMKERTBGL1558-30-30 12:54:00 Test Item Value Reference Range Interpretation Comments Lymphocytes (test code = Lymphocytes) 21.6 [facility] ArlingtonAucwqlcHWZUWUNDTF5417-12-30 12:54:00 Test Item Value Reference Range Interpretation Comments Monocytes (test code = Monocytes) 11.1 [facility]2022-06-22 12:54:00 Test Item Value Reference Range Interpretation Comments Vitamin B12 Lvl (test code = Vitamin 100 703-9333 B12 Lvl) [facility] GLUCOSE [id number] 11:43:00 Test Item Value Reference Range Interpretation Comments Gluc POC Comment 1 (test code = Notify RN/MD Gluc POC Comment 1) [facility] GLUCOSE [id number] 11:43:00 Test Item Value Reference Range Interpretation Comments Glucose POC (test code = Glucose POC) 139 70-99 H [facility] GLUCOSE [id number] 11:43:00 Test Item Value Reference Range Interpretation Comments Gluc POC Comment 1 (test code = Notify RN/MD Gluc POC Comment 1) [facility] GLUCOSE [id number] 11:43:00 Test Item Value Reference Range Interpretation Comments Glucose POC (test code = Glucose POC) 139 70-[address] [facility] Notes Date/Time Note Provider Source 2013-07-21 DIAGNOSTIC CEREBRAL ANGIOGRAM [facility] 07:49:00-00:00 Center DOCUMENT IMPROVEMENT SPECIALIST: Seng Bowen MD BULB PLANTER: Adolfo Lynch MD HISTORY: The patient is a 60 -year-old gentleman who presents for evaluation of carotid stenosis CLINICAL INDICATION: Carotid stenosis PROCEDURE: 4 vessel cerebral angiogram. CONSENT: The indication, ris ks and benefits of the procedure were discussed with the patient and their family. Risks include but are not limited to bleeding, infection, femoral artery injury, femoral ar yojana occlusion, vessel injury, kidney damage, st roke, coma, . ANESTHESIA: Local in the rig ht groin with bupivacaine. Conscious sedation with Versed and Fentanyl was given by the nurse under the supervision of the attending interventional neuroradiologist. Pre-, in tra-, and post-conscious sed ation monitoring records are available in the chart. MEDICATIONS: 0.5% Bupivacaine SQ 10 cc Versed 1 mg IV Fentanyl 100 mcg IV Procedure in detail: The pat ient was brought to the neuro-interventional suite and placed on the angio table in the supine position. Conscious sedation medications were administered by the nurse. The [facility] femoral artery was acces sed using a single wall micropuncture technique and a 5 Namibian sheath was placed and secured. A 5 [place]ian Vert catheter was advanced with a 0.035 Terumo Glidewire into the aor tic arch to select the follo wing arteries by roadmap technique: Right internal carotid artery, right external carotid artery, right vertebral artery, left internal carotid artery, left external carotid artery, left vertebral arter y. 2D cerebral angiogram runs were performed respectively. After review of the angiographic images, the catheter was withdrawn. A right femoral artery angiogram was performed . The sheath was removed and hemostasis was obtained with an Angio-Seal 6 Namibian closure device. The patient was transferred to the recovery room in stable condition. Contrast: Omnipaque 300, total 130cc. Radiation Dose: 583 mGy AP 390 mg Lat Fluoro time: 7.8 min Tasks: 1. Right femoral artery catheterization. 2. Right internal carotid ar yojana selective catheterization with cervical and cerebral 2D angiogram runs. 3D ROTATIONAL ANGIOGRAPHY OF THE RIGHT INTERNAL CAROTID ARTERY: Rotational angiography was performed from the guiding catheter. Images were processed on an independent workstation, and volume-rendered three-dimensional images were produced. 3. Right vertebral artery se lective catheterization with cervical and cerebral 2D angiogram runs. 3D ROTATIONAL ANGIOGRAPHY OF THE LEFT INTERNAL CAROTID ARTERY: Rotational angiography was performed from the guiding catheter. Images were processed on an independent workstation, and volume-rendered three-dimensional images were produced. 4. Left internal carotid art alfredo selective catheterization with cervical and cerebral 2D angiogram runs. 5. Left vertebral artery suzi ective catheterization with cervical and cerebral 2D angiogram runs. FINDINGS: RIGHT COMMON CAROTID ARTERY: The injection demonstrates stenosis at the carotid bifurcation at the proximal internal carotid artery takeoff. The stenosis measures 35% by NASCET criteria. The flow stenosis is nonflow limiting. RIGHT INTERNAL CAROTID ARTER Y, CEREBRAL: The injection demonstrates brisk opacification of the right internal carotid artery, right MCA. There is hypoplastic right A1 segment There is no evidence of ane urysm, focal stenosis, AVM, fistula, dissection, or other abnormality. RIGHT VERTEBRAL ARTERY: The injection demonstrates brisk opacification of the right vertebral artery, PICA, basilar artery, and bilateral SCA and SORT WORKER branches. There is no evidence of aneurysm, focal st enosis, AVM, fistula, dissection, or other abnor mality. LEFT COMMON CAROTID ARTERY, CEREBRAL: The injection demonstrates no evidence of carotid artery bifurcation stenosis or dissection. LEFT INTERNAL CAROTID ARTERY , CEREBRAL: The injection demonstrates brisk opacification of the left internal carotid artery, left MCA, and left EITAN with strong cross-filling of the contralateral EITAN. The re is no evidence of aneurys m, focal stenosis, AVM, fistula, dissection, or other abnormality. LEFT VERTEBRAL ARTERY: The i njection demonstrates brisk opacification of the left vertebral artery, PICA basilar artery, and bilateral SCA and SORT WORKER branches. There is no evidence of aneurysm, focal steno sis, AVM, fistula, dissection, or other abnormal ity. COMPLICATIONS: None. IMPRESSION: 1. There is nonflow limiting stenosis of the right internal carotid artery and the cervical bifurcation. Stenosis measures 35% by NASCET criteria. 2. There is hypoplastic righ t A1 segment. Bilateral ACAs fill from the left internal carotid injection.
[2023-05-30] MEDS ORDERED: KETOROLAC 30 MG/ML INJ ONE (20:46)
[2023-05-30] MEDS ORDERED: HYDROCODONE/APAP 10/325 TAB ONE (20:46)
--- NOTE | 2023-05-30 21:18 | EDPHYS ---
Physician Documentation [facility] Name: Arturo Saldana Sr Age: 78 yrs Sex: Male : 1945 Arrival Date: 05/30/2023 Time: 19:16 Bed 16 Private MD: ED Physician Aj Hu HPI: 05/30 23:08 This 78 yrs old Male presents to ER via Wheelchair with complaints of Hip kb Pain, Leg Pain, General Weakness, High Blood Pressure, High Blood Sugar. 23:08 The patient has not experienced similar symptoms in the past. The patient has not kb recently seen a physician. 23:08 The patient presents with pain that is acute, and tenderness. The symptoms are located kb in the left lower back and left gluteus riya. The pain radiates to the left leg. The problem was sustained when lifting. Onset: The symptoms/episode began/occurred today. Modifying factors: The patient symptoms are alleviated by nothing, the patient symptoms are aggravated by any movement. Associated signs and symptoms: The patient has no apparent associated signs or symptoms. Severity of symptoms: At their worst the symptoms were moderate, in the emergency department the symptoms are unchanged. Pt reports pain to left lower back/upper buttock that started today. states he was lifting and moving some tree branches a couple of days ago. Denies injury or trauma. . Historical: - Allergies: 19:26 No Known Allergies; kl - PMHx: 19:26 Congestive heart failure; CVA; depressive disorder; Diabetes - IDDM; kl Hypercholesterolemia; Hypertensive disorder; - PSHx: 19:26 None; kl - Immunization history:: Adult Immunizations not up to date. - Social history:: Smoking status: Patient denies any tobacco usage or history of. ROS: 23:06 Constitutional: Negative for fever, chills, and weight loss. kb 23:06 MS/extremity: Positive for pain, of the left lower back and left gluteus riya. 23:06 All other systems are negative. Exam: 23:06 Constitutional: This is a well developed, well nourished patient who is awake, alert, kb and in no acute distress. Head/Face: Normocephalic, atraumatic. ENT: Moist Mucous membranes Cardiovascular: Regular rate and rhythm with a normal S1 and S2. No gallops, murmurs, or rubs. No pulse deficits. Respiratory: Respirations even and unlabored. No increased work of breathing. Talking in full sentences Back: No spinal tenderness. No costovertebral tenderness. Full range of motion. Skin: Warm, dry with normal turgor. Normal color. Neuro: Awake and alert, GCS 15, oriented to person, place, time, and situation. Moves all extremities. Normal gait. 23:06 Musculoskeletal/extremity: Extremities: grossly normal except: noted in the left lower back and left gluteus riya: pain, tenderness, ROM: limited active range of motion due to pain, Circulation is intact in all extremities. Sensation intact. Weight bearing: can bear weight with assistance only. Vital Signs: 19:22 BP 134 / 60; Pulse 84; Resp 20; Temp 98.4(TE); Pulse Ox 98% on R/A; Weight 80.29 kg kl (R); Height 5 ft. 3 in. ; Pain 0/10; 21:37 BP 135 / 89; Pulse 83; Resp 18 S; Pulse Ox 98% on R/A; ha1 19:22 Body Mass Index 31.35 (80.29 kg, 160.02 cm) kl 19:22 Pain Scale: Adult kl MDM: 19:29 Patient medically screened. kb 23:06 Data reviewed: vital signs, nurses notes. kb 23:07 Differential diagnosis: arthritis, strain, fracture, sciatica, contusion, Herniated kb disc. Test considered but Not performed: X-ray: x-ray considered, but pt has no known injury and tenderness is to center of upper buttock. Historians other than the Patient: Family Member: children. Counseling: I had a detailed discussion with the patient and/or guardian regarding the historical points, exam findings, and any diagnostic results supporting the discharge/admit diagnosis, the need for outpatient follow up, a family practitioner, to return to the emergency department if symptoms worsen or persist or if there are any questions or concerns that arise at home. 05/30 20: Order name: EKG; Complete Time: 20:25 kb 05/30 20:25 Order name: EKG - Nurse/Tech; Complete Time: 20:49 kb Administered Medications: 20:49 Drug: Ketorolac IM 30 mg Route: IM; Site: left deltoid; kl 21:41 Follow up: Response: No adverse reaction; Pain is decreased ha1 20:49 Drug: [place] PO 10 mg-325 mg 1 tabs Route: PO; kl 21:41 Follow up: Response: No adverse reaction; Pain is decreased; RASS: Alert and Calm (0) ha1 Disposition Summary: 05/30/23 21:18 Discharge Ordered Location: Home Condition: Stable kb Diagnosis - Sciatica, left side kb Followup: kb - With: Emergency Department - When: As needed - Reason: Worsening of condition Followup: kb - With: Private Physician - When: 2 - 3 days - Reason: Recheck today's complaints, Continuance of care, Re-evaluation by your physician Discharge Instructions: - Discharge Summary Sheet kb - Sciatica, Oguv-ye-Eagi kb Forms: - Medication Reconciliation Form kb - Thank You Letter kb - Antibiotic Education kb - Prescription Opioid Use kb - Patient Portal Instructions kb - Leadership Thank You Letter kb Prescriptions: - Tramadol 50 mg Oral Tablet - take 1 tablet by ORAL route every 8 hours as needed; 12 tablet; Refills: 0, kb Product Selection Permitted - orphenadrine citrate 100 mg Oral Tablet Sustained Release - take 1 tablet by ORAL route 2 times per day As needed; 20 tablet; Refills: 0, kb Product Selection Permitted Signatures: Latonya Lucas FNP-C FNP-Alicia Frazier RN RN Iram Dominguez RN ha1
--- NOTE | 2023-05-30 21:18 | ER ---
Nurse's Notes [facility] Name: Arturo Saldana Sr Age: 78 yrs Sex: Male : 1945 Arrival Date: 05/30/2023 Time: 19:16 Bed 16 Private MD: Diagnosis: Sciatica, left side Presentation: 05/30 19:22 Chief complaint: Patient states: left hip pain radiating to back of left leg reports kl diff lifting leg. Coronavirus screen: Vaccine status: Patient reports receiving the 2nd dose of the covid vaccine. Ebola Screen: Patient negative for fever greater than or equal to 101.5 degrees Fahrenheit, and additional compatible Ebola Virus Disease symptoms. Initial Sepsis Screen: Does the patient meet any 2 criteria? No. Patient's initial sepsis screen is negative. Does the patient have a suspected source of infection? No. Patient's initial sepsis screen is negative. Risk Assessment: Do you want to hurt yourself or someone else? Patient reports no desire to harm self or others. 19:22 Method Of Arrival: Wheelchair kl 19:22 Acuity: MADELYN 3 kl 21:40 Onset of symptoms was May 30, 2023. ha1 Triage Assessment: 19:26 General: Appears in no apparent distress. comfortable, Behavior is calm, cooperative. kl Pain: Complains of pain in left lower back Pain radiates to back of left leg Pain currently is 0 out of 10 on a pain scale. at worst was 6 out of 10 on a pain scale. Historical: - Allergies: 19:26 No Known Allergies; kl - PMHx: 19:26 Congestive heart failure; CVA; depressive disorder; Diabetes - IDDM; kl Hypercholesterolemia; Hypertensive disorder; - PSHx: 19:26 None; kl - Immunization history:: Adult Immunizations not up to date. - Social history:: Smoking status: Patient denies any tobacco usage or history of. Screenin:38 [facility] ED Fall Risk Assessment (Adult) History of falling in the last 3 months, ha1 including since admission No falls in past 3 months (0 pts) Confusion or Disorientation No (0 pts) Intoxicated or Sedated No (0 pts) Impaired Gait No (0 pts) Mobility Assist Device Used No (0 pt) Altered Elimination No (0 pt). Abuse screen: Denies threats or abuse. Denies injuries from another. Abuse screen: Denies threats or abuse. Nutritional screening: No deficits noted. Tuberculosis screening: No symptoms or risk factors identified. Assessment: 20:30 General: Appears comfortable, Behavior is calm, cooperative. Pain: Complains of pain in ha1 back of left leg and left lower back Pain currently is 8 out of 10 on a pain scale. Quality of pain is described as heavy, pressure, throbbing, Aggravated by increased activity. Neuro: Level of Consciousness is awake, alert, obeys commands, Oriented to person, place, time, situation. Cardiovascular: Patient's skin is warm and dry. Respiratory: Airway is patent Respiratory effort is even, unlabored, Respiratory pattern is regular, symmetrical. Musculoskeletal: Circulation, motion, and sensation intact. 21:37 Reassessment: Patient and/or family updated on plan of care and expected duration. Pain ha1 level reassessed. Patient is alert, oriented x 3, equal unlabored respirations, skin warm/dry/pink. Patient states symptoms have improved. Vital Signs: 19:22 BP 134 / 60; Pulse 84; Resp 20; Temp 98.4(TE); Pulse Ox 98% on R/A; Weight 80.29 kg kl (R); Height 5 ft. 3 in. ; Pain 0/10; 21:37 BP 135 / 89; Pulse 83; Resp 18 S; Pulse Ox 98% on R/A; ha1 19:22 Body Mass Index 31.35 (80.29 kg, 160.02 cm) kl 19:22 Pain Scale: Adult kl ED Course: 19:19 Patient arrived in ED. [email or web address] 19:25 Triage completed. kl 19:27 Arm band placed on right wrist. ha1 19:27 Patient has correct armband on for positive identification. Bed in low position. Call ha1 light in reach. Side rails up X 1. 19:29 [facility]ony[facility]-C [facility]. kb 19:29 Aj Hu MD is Attending Physician. kb 20:45 Iram Padron, MICHAEL is Primary Nurse. ha1 21:39 Provided Education on: follow ups. ha1 21:39 No provider procedures requiring assistance completed. Patient did not have IV access ha1 during this emergency room visit. Administered Medications: 20:49 Drug: Ketorolac IM 30 mg Route: IM; Site: left deltoid; kl 21:41 Follow up: Response: No adverse reaction; Pain is decreased ha1 20:49 Drug: Rocky PO 10 mg-325 mg 1 tabs Route: PO; 21:41 Follow up: Response: No adverse reaction; Pain is decreased; RASS: Alert and Calm (0) ha1 Medication: 21:39 VIS not applicable for this client. ha1 Outcome: 21:18 Discharge ordered by . mynor 21:39 Discharged to home via wheelchair. ha1 21:39 Condition: stable 21:39 Discharge instructions given to patient, Instructed on discharge instructions, follow up and referral plans. medication usage, Demonstrated understanding of instructions, follow-up care, medications, Prescriptions given X 2. 21:42 Patient left the ED. ha1 Signatures: Latonya Lucas, INFECTION CONTROL SPECIALIST-C ALEX-Alicia Frazier, RN Alexa Cabrera [email or web address] Iram Padron RN RN ha1
[2023-05-30 23:14] VITALS: TEMP 98.4; O2SAT 98
[2023-05-30 23:15] VITALS: BP 135/89
--- NOTE | 2023-06-02 12:17 | EKG ---
Test Date: 2023-05-30 Test Time: 20:46:22 Assignment Manager: MATEO MEASUREMENT RESULTS: Intervals: Rate: 80 ID: [id number] QRSD: 94 QT: 372 QTc: 429 Culver: P: 59 ID: [id number] QRS: 8 T: 48 INTERPRETIVE STATEMENTS: Normal sinus rhythm Normal ECG Compared to ECG 07/18/2021 17:47:30 Atrial premature complex(es) no longer present Electronically Signed On 06-02-23 12:13:38 CDT by Rashid Jane
== END 2023-05-30 21:42 | disposition home or self-care (01) ==
LOC: ER 19:16
DX: M54.32 Sciatica, left side (principal)
CPT/HCPCS: 93005; 96372; 99284

== ENCOUNTER 2023-08-04 08:29 | Emergency (ER) | payer OTHER ==
--- OUTSIDE RECORDS SUMMARY | 2023-08-04 08:36 | XMS REPORT | Continuity of Care Document ---
:1945 [facility] t Address [address] [place] [id number] Care Team Providers Name Role Phone PRIMO HORTON Primary Care Physician Unavailable KATELIN FOUNTAIN Attending Clinician Unavailable Brandon Spears Attending Clinician Katelin Fountain MD Attending Clinician TAYLOR GOMEZ Attending Clinician Unavailable TAYLOR GOMEZ Attending Clinician Unavailable Lab, Ang - Db Attending Clinician Unavailable Doctor Unassigned, [place] Attending Clinician Unavailable Vtc-Lab Attending Clinician Unavailable KATELIN FOUNTAIN Admitting Clinician Unavailable Payers Payer Name Policy Type Policy Number Effective Date Expiration Date Claudia parker BOB/DAWN [id number] 2020 MEDICARE ADVANTAGE 00:00:00 Problems Condition Condition Condition Status Onset Resolution Last Treating Co mments Source Name Details Category Date Date Treatment Clinician Date Type 2 Type 2 Disease Active [facility] diabetes diabetes 06-09 ity of mellitus mellitus 00:00: [place] without without 00 Medical complicati complicati Br anch on, on, without without long-term long-term current current use of use of insulin insulin MORGAN MORGAN Diagnosis Active 2012-102013-07-21 Mem oria CAROTID CAROTID 0-04 06:27:00 l STENOSIS STENOSIS 00:00: Kane zuniga ICD-9# ICD-9# 00 733.11 733.11 Active 07/09/2013 [facility] [place] Hyperchole Hyperchol Problem Resolve 2013-07-27 Memoria sterolemia esterolemi d 23:19:47 l (disorder) a Kane zuniga (disorder) Resolved Problem 07/27/2013 [facility] [place] Diabetes Diabetes Problem Resolve 2013-07-27 Memoria mellitus mellitus d 23:19:47 l type 1 type 1 Isael (disorder) (disorder) Resolved Problem 07/27/2013 [facility] [place] 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 23:19:47 l (disorder) (disorder) He rmann Resolved Problem 07/27/2013 <sup>1</rivera p>carotid [facility] [place] Amnesia Amnesia Problem Active 2023-07-20 Me moria (finding) (finding) 02:43:37 l Active Isael Problem 07/20/2023 [facility] Neuro,[facility] Neurology [place] Diabetes Diabetes Problem Active 2023-07-20 Memoria mellitus mellitus 02:43:37 l (disorder) (disorder) He rmann Active Problem 07/20/2023 [facility] Neuro,[facility] [place],[facility] [place] Hyperlipid Problem Active 2023-07-20 M trayrilee emia Hyperlipid 02:43:37 l (disorder) ted Kane n (disorder) Active Problem 07/20/2023 [facility] Neuro,[facility] [place] Hypertensi Hypertens Problem Active 2023-07-20 Memoria ve david 02:43:37 l disorder, disorder, Herm keri systemic systemic arterial arterial (disorder) (disorder) Active Problem 07/20/2023 [facility] Neurology [place] Impaired Impaired Problem Active 2023-07-20 Memoria cognition cognition 02:43:37 l (finding) (finding) Herm keri Active Problem 07/20/2023 [facility] [place] Renal Renal Problem Active 2023-07-20 Memor ia impairment impairment 02:43:37 l (disorder) (disorder) He rmann Active Problem 07/20/2023 [facility] Neuro,[facility] Neu[facility] [place] Dementia Dementia Problem Active 2023-07-20 Memoria (disorder) (disorder) 02:43:37 [address] [place] Problem 07/20/2023 [facility]rology [place] 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-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 02:43:37 l (disorder) (disorder) He rmann Active Problem 07/20/2023 [facility] [place] PATHOLOGIC PATHOLOGI Diagnosis Active 2013-07-21 Memoria AL FX BLANCA FX 06:27:00 l HUMEROUS HUMEROUS Kane n Active [facility] [place] Allergies, Adverse Reactions, Alerts Allergy Allergy Status Severity Reaction(s) Onset Inactive Treating Comm ents Source Name Type Date Date Clinician NO KNOWN Drug Active [facility] Social [facility] Social Habit Start Date Stop Date Quantity Comments Source Sexual orientation [facility] Exposure to 2022-07-05 2022-07-15 Not sure [facility] SARS-CoV-2 (event) 00:00:00 15:49:00 Medica l Branch History of Social 2022-02-21 2022-02-21 [facility] function 00:00:00 00:00:00 Medical Branch Sex [birth year] [facility] 00:00:00 00:00:00 Medical Branch Smoking Status Start Date Stop Date Source Tobacco smoking consumption [facility] Tobacco smoking status [facility] Medications Ordered Filled Start Stop Current Ordering Indication Dosage Frequency Signature Comments Components Source Medication Medication Date Date Medication? Clinician (SIG) Name Name Aricept 10 Yes 10 mg = 1 Me moria mg oral 8-11 tab, PO, l tablet 21:09: Bedtime, # Aura nn 00 30 tab, 3 Refill(s), Pharmacy: [facility] [id number], 157.48, cm, 05/16/23 15:43:00 CDT, Height, 86.364, kg, 05/16/23 15:43:00 CDT, Weight citalopram Yes 10 mg = 1 Me moria 10 mg oral 8-11 tab, PO, l tablet 21:08: Daily, # [place] 00 30 tab, 3 Refill(s), Pharmacy: [facility] [id number], 157.48, cm, 05/16/23 15:43:00 CDT, Height, 86.364, kg, 05/16/23 15:43:00 CDT, Weight divalproex Yes = 1 tab, Mem oria sodium 250 8-11 PO, BID, # l mg oral 21:07: 60 tab, 3 Aura nn tablet, 00 Refill(s), extended Pharmacy: release HUGO ([facility]) [id number], 157.48, cm, 05/16/23 15:43:00 CDT, Height, 86.364, kg, 05/16/23 15:43:00 CDT, Weight Aricept 10 Yes 10 mg = 1 Me moria mg oral 4-06 tab, PO, l tablet 20:49: Bedtime, # Aura nn 00 30 tab, 3 Refill(s), Pharmacy: [facility] [id number], 154.94, cm, 01/09/23 15:23:00 CDT, Height, 85.909, kg, 01/09/23 15:23:00 CDT, Weight divalproex Yes = 1 tab, Mem oria sodium 250 4-03 PO, Daily, l mg oral 16:17: # 30 tab, Aura nn tablet, 00 3 extended Refill(s), release Pharmacy: ([facility] [id number], 154.94, cm, 09/11/22 11:47:00 [employer], Height, 86.364, kg, 09/11/22 11:47:00 [employer], Weight Depakote ER 2021-10 Yes 250 mg = 1 Memoria 250 mg oral 2-07 tab, PO, l tablet, 18:03: Daily, # Kane n extended 00 30 tab, 3 release Refill(s), Pharmacy: [facility] [id number], 154.94, cm, 09/11/22 11:47:00 [employer], Height, 86.364, kg, 09/11/22 11:47:00 [employer], Weight semaglutide 2021-10 Yes [id number] 6mg Take 6 mg Univers (RYBELSUS) -01 by mouth ity o f 3 mg Tab 00:00: daily. [address] Branch semaglutide 2021-10 Yes [id number] 6mg Take 6 mg Univers (RYBELSUS) 1-01 by mouth ity o f 3 mg Tab 00:00: daily. [address] semaglutide 2021-10 Yes [id number] 3mg Take 3 mg Univers (RYBEL[facility]US) 1-01 by mouth ity o f 3 mg Tab 00:00: daily. [address] semaglutide 2021-10 Yes [id number] 6mg Take 6 mg Univers (RYBELSUS) 1-01 by mouth ity o f 3 mg Tab 00:00: daily. Medical Branch semaglutide 2021-10 Yes [id number] 3mg Take 3 mg Univers (RYBELSUS) 1-01 by mouth ity o f 3 mg Tab 00:00: daily. Medical Branch semaglutide 2021-10 Yes [id number] 6mg Take 6 mg Univers (RYBELSUS) - by mouth ity o f 3 mg Tab 00:00: daily. Medical Branch semaglutide 2021-10 Yes [id number] 3mg Take 3 mg Univers (RYBELSUS) -01 by mouth ity o f 3 mg Tab 00:00: daily. Medical Branch semaglutide 2021-10 Yes [id number] 6mg Take 6 mg Univers (RYBELSUS) - by mouth ity o f 3 mg Tab 00:00: daily. Medical Branch semaglutide 2021-10 Yes [id number] 3mg Take 3 mg Univers (RYBELSUS) 10-06 by mouth ity o f 3 mg Tab 00:00: daily. Medical Branch magnesium 0 Yes 400mg Take 400 Uni vers oxide 400 9-12 mg by ity of mg 00:00: mouth [place] magnesium 00 daily. Medical Tab Branch magnesium 0 Yes 400mg Take 400 Uni vers oxide 400 9-12 mg by ity of mg 00:00: mouth [place] magnesium 00 daily. Medical Tab Branch magnesium 2021-0 Yes 400mg Take 400 Uni vers oxide 400 9-12 mg by ity of mg 00:00: mouth [place] magnesium 00 daily. Medical Tab Branch magnesium 0 Yes 400mg Take 400 Uni vers oxide [...] 00 daily. Medical Tab Branch Aricept 10 2021-0 Yes 10 mg = 1 Me moria mg oral 06-12 tab, PO, l tablet 16:52: Bedtime, # Aura nn 00 30 tab, 3 Refill(s), Pharmacy: [facility] [id number], 157.48, cm, 06/12/22 11:44:00 CDT, Height, 88.239, kg, 06/12/22 11:44:00 CDT, Weight Rybelsus 3 2021-0 Yes 3 mg, PO, Me moria mg oral 9-07 Daily, l tablet 16:46: Take on an Aura empty stomach with up to 4oz plain water. Wait at least 30 minutes before the first food, beverage, or other oral medication s of the day. Swallow whole. Do not cut, crush, or chew., 0 Refill(s) metFORMIN 2021-0 2022- No 500mg Take 500 Un [place]ida 500 mg 8-29 08-29 mg by ity of tablet 15:29: 00:00 mouth 3 [place] 04 :00 (three) Medical times Jet daily. semaglutide 2021-0 Yes [id number] 3mg Take 3 mg Univers (RYBELSUS) 8-29 by mouth ity o f 3 mg Tab 00:00: daily. [address] glipiZIDE 2021-0 Yes [id number] 10mg Take 1 U nivers 10 mg 8-29 tablet by ity of tablet 00:00: mouth 2 [place] [address] (two) Medical times Jet daily before breakfast and dinner. metFORMIN 2021-0 Yes [id number] 1000mg Take 1 Univers 1,000 mg 8-29 tablet by ity of tablet 00:00: mouth in [address] morning Jet and 1 tablet in the evening. Take with meals. semaglutide 2021-0 Yes [id number] 3mg Take 3 mg Univers (RYBELSUS) 8-29 by mouth ity o f 3 mg Tab 00:00: daily. [address] glipiZIDE 2021-0 Yes [id number] 10mg Take 1 U nivers 10 mg 8-29 tablet by ity of tablet 00:00: mouth 2 [place] [address] (two) [facility] times Jet daily before breakfast and dinner. metFORMIN 2021-0 Yes [id number] 1000mg Take 1 Univers 1,000 mg 8-29 tablet by ity of tablet 00:00: mouth in [place] [address] the [facility] morning Jet and 1 tablet in the evening. Take with meals. semaglutide 2021-0 Yes [id number] 3mg Take 3 mg Univers (RYBELSUS) 8-29 by mouth ity o f 3 mg Tab 00:00: daily. [address] glipiZIDE 2022-0 Yes [id number] 10mg Take 1 U nivers 10 mg 8-29 tablet by ity of tablet 00:00: mouth [address] daily before breakfast and dinner. metFORMIN 2-0 Yes [id number] 1000mg Take 1 Univers 1,000 mg 8-29 tablet by ity of tablet 00:00: mouth in [address] morning Jet and 1 tablet in the evening. Take with meals. semaglutide 2021-0 Yes [id number] 3mg Take 3 mg Univers (RYBELSUS) 8-29 by mouth ity o f 3 mg Tab 00:00: daily. [address] glipiZIDE 2021-0 Yes [id number] 10mg Take 1 U nivers 10 mg 8-29 tablet by ity of tablet 00:00: mouth [address] daily before breakfast and dinner. metFORMIN 2021-0 Yes [id number] 1000mg Take 1 Univers 1,000 mg 8-29 tablet by ity of tablet 00:00: mouth in [address] and 1 tablet in the evening. Take with meals. semaglutide 2021-0 Yes [id number] 3mg Take 3 mg Univers (RYBELSUS) 8-29 by mouth ity o f 3 mg Tab 00:00: daily. [address] glipiZIDE 2021-0 Yes [id number] 10mg Take 1 U nivers 10 mg 8-29 tablet by ity of tablet 00:00: mouth [address] daily before breakfast and dinner. metFORMIN 2-0 Yes [id number] 1000mg Take 1 Univers 1,000 mg 8-29 tablet by ity of tablet 00:00: mouth in [address] morning Jet and 1 tablet in the evening. Take with meals. semaglutide 2-0 Yes [id number] 3mg Take 3 mg Univers (RYBELSUS) 8-29 by mouth ity o f 3 mg Tab 00:00: daily. [address] glipiZIDE 2-0 Yes [id number] 10mg Take 1 U nivers 10 mg 8-29 tablet by ity of tablet 00:00: mouth [address] daily before breakfast and dinner. metFORMIN 2022-0 Yes [id number] 1000mg Take 1 Univers 1,000 mg 8-29 tablet by ity of tablet 00:00: mouth in [address] morning Jet and 1 tablet in the evening. Take with meals. semaglutide 2022-0 Yes [id number] 3mg Take 3 mg Univers (RYBELSUS) 8-29 by mouth ity o f 3 mg Tab 00:00: daily. [address] glipiZIDE 2022-0 Yes [id number] 10mg Take 1 U nivers 10 mg 8-29 tablet by ity of tablet 00:00: mouth [address] daily before breakfast and dinner. metFORMIN 2022-0 Yes [id number] 1000mg Take 1 Univers 1,000 mg 8-29 tablet by ity of tablet 00:00: mouth in [address] morning Jet and 1 tablet in the evening. Take with meals. semaglutide 2021-0 Yes [id number] 3mg Take 3 mg Univers (RYBELSUS) 8-29 by mouth ity o f 3 mg Tab 00:00: daily. [address] glipiZIDE 2022-0 Yes [id number] 10mg Take 1 U nivers 10 mg 8-29 tablet by ity of tablet 00:00: mouth [address] daily before breakfast and dinner. metFORMIN 2-0 Yes [id number] 1000mg Take 1 Univers 1,000 mg 8-29 tablet by ity of tablet 00:00: mouth in [address] morning Jet and 1 tablet in the evening. Take with meals. semaglutide 2-0 Yes [id number] 3mg Take 3 mg Univers (RYBELSUS) 8-29 by mouth ity o f 3 mg Tab 00:00: daily. [address] glipiZIDE 2022-0 Yes [id number] 10mg Take 1 U nivers 10 mg 8-29 tablet by ity of tablet 00:00: mouth [address] daily before breakfast and dinner. metFORMIN 2022-0 Yes [id number] 1000mg Take 1 Univers 1,000 mg 8-29 tablet by ity of tablet 00:00: mouth in [address] morning Jet and 1 tablet in the evening. Take with meals. semaglutide 2022-0 Yes [id number] 3mg Take 3 mg Univers (RYBELSUS) 8-29 by mouth ity o f 3 mg Tab 00:00: daily. [place] [facility] Branch glipiZIDE 2021-0 Yes [id number] 10mg Take 1 U nivers 10 mg 8-29 tablet by ity of tablet 00:00: mouth 2 [place] [address] ([facility] daily before breakfast and dinner. metFORMIN 2021-0 Yes [id number] 1000mg Take 1 Univers 1,000 mg 8-29 tablet by ity of tablet 00:00: mouth in [address] morning Jet and 1 tablet in the evening. Take with meals. semaglutide 2021-0 Yes [id number] 3mg Take 3 mg Univers (RYBELSUS) 8-29 by mouth ity o f 3 mg Tab 00:00: daily. [address] glipiZIDE 2021-0 Yes [id number] 10mg Take 1 U nivers 10 mg 8-29 tablet by ity of tablet 00:00: mouth [address] daily before breakfast and dinner. metFORMIN 2021-0 Yes [id number] 1000mg Take 1 Univers 1,000 mg 8-29 tablet by ity of tablet 00:00: mouth in [address] morning Jet and 1 tablet in the evening. Take with meals. semaglutide 2021-0 Yes [id number] 3mg Take 3 mg Univers (RYBELSUS) 8-29 by mouth ity o f 3 mg Tab 00:00: daily. [address] glipiZIDE 2021-0 Yes [id number] 10mg Take 1 U nivers 10 mg 8-29 tablet by ity of tablet 00:00: mouth 2 [place] [address] ([facility] daily before breakfast and dinner. metFORMIN 2-0 Yes [id number] 1000mg Take 1 Univers 1,000 mg 8-29 tablet by ity of tablet 00:00: mouth in [address] morning Jet and 1 tablet in the evening. Take with meals. glipiZIDE 2-0 Yes [id number] 10mg Take 1 U nivers 10 mg 8-29 tablet by ity of tablet 00:00: mouth 2 [place] [address] ([facility] daily before breakfast and dinner. metFORMIN 2-0 Yes [id number] 1000mg Take 1 Univers 1,000 mg 8-29 tablet by ity of tablet 00:00: mouth in [place] [address] the [facility] morning Branch and 1 tablet in the evening. Take with meals. glipiZIDE 2022-0 Yes [id number] 10mg Take 1 U nivers 10 mg 8-29 tablet by ity of tablet 00:00: mouth 2 [place] [address] ([facility] daily before breakfast and dinner. metFORMIN 2022-0 Yes [id number] 1000mg Take 1 Univers 1,000 mg 8-29 tablet by ity of tablet 00:00: mouth in [place] [address] the [facility] morning Jet and 1 tablet in the evening. Take with meals. glipiZIDE 2022-0 Yes [id number] 10mg Take 1 U nivers 10 mg 8-29 tablet by ity of tablet 00:00: mouth [place] [address] ([facility] daily before breakfast and dinner. metFORMIN 2022-0 Yes [id number] 1000mg Take 1 Univers 1,000 mg 8-29 tablet by ity of tablet 00:00: mouth in [address] morning Jet and 1 tablet in the evening. Take with meals. glipiZIDE 2022-0 Yes [id number] 10mg Take 1 U nivers 10 mg 8-29 tablet by ity of tablet 00:00: mouth [address] daily before breakfast and dinner. metFORMIN 2022-0 Yes [id number] 1000mg Take 1 Univers 1,000 mg 8-29 tablet by ity of tablet 00:00: mouth in [place] [address] the [facility] morning Jet and 1 tablet in the evening. Take with meals. glipiZIDE 2022-0 Yes [id number] 10mg Take 1 U nivers 10 mg 8-29 tablet by ity of tablet 00:00: mouth [place] [address] ([facility] daily before breakfast and dinner. metFORMIN 2022-0 Yes [id number] 1000mg Take 1 Univers 1,000 mg 8-29 tablet by ity of tablet 00:00: mouth in [place] [address] the [facility] morning Jet and 1 tablet in the evening. Take with meals. glipiZIDE 2022-0 Yes [id number] 10mg Take 1 U nivers 10 mg 8-29 tablet by ity of tablet 00:00: mouth 2 [place] [address] ([facility] daily before breakfast and dinner. metFORMIN 2022-0 Yes [id number] 1000mg Take 1 Univers 1,000 mg 8-29 tablet by ity of tablet 00:00: mouth in [place] [address] the [facility] morning Jet and 1 tablet in the evening. Take with meals. glipiZIDE 2022-0 Yes [id number] 10mg Take 1 U nivers 10 mg 8-29 tablet by ity of tablet 00:00: mouth 2 [place] [address] ([facility] daily before breakfast and dinner. metFORMIN 2022-0 Yes [id number] 1000mg Take 1 Univers 1,000 mg 8-29 tablet by ity of tablet 00:00: mouth in [place] [address] the [facility] morning Jet and 1 tablet in the evening. Take with meals. glipiZIDE 2022-0 Yes [id number] 10mg Take 1 U nivers 10 mg 8-29 tablet by ity of tablet 00:00: mouth 2 [place] [address] ([facility] daily before breakfast and dinner. metFORMIN 2022-0 Yes [id number] 1000mg Take 1 Univers 1,000 mg 8-29 tablet by ity of tablet 00:00: mouth in [address] morning Jet and 1 tablet in the evening. Take with meals. glipiZIDE 2022-0 Yes [id number] 10mg Take 1 U nivers 10 mg 8-29 tablet by ity of tablet 00:00: mouth 2 [place] [address] ([facility] daily before breakfast and dinner. metFORMIN 2022-0 Yes [id number] 1000mg Take 1 Univers 1,000 mg 8-29 tablet by ity of tablet 00:00: mouth in [place] [address] the [facility] morning Jet and 1 tablet in the evening. Take with meals. glipiZIDE 2022-0 Yes [id number] 10mg Take 1 U nivers 10 mg 8-29 tablet by ity of tablet 00:00: mouth [place] [address] ([facility] daily before breakfast and dinner. metFORMIN 2022-0 Yes [id number] 1000mg Take 1 Univers 1,000 mg 8-29 tablet by ity of tablet 00:00: mouth in [place] [address] the [facility] morning Jet and 1 tablet in the evening. Take with meals. glipiZIDE 2022-0 Yes [id number] 10mg Take 1 U nivers 10 mg 8-29 tablet by ity of tablet 00:00: mouth 2 [place] [address] (two) Medical times Branch daily before breakfast and dinner. metFORMIN Yes [id number] 1000mg Take 1 Univers 1,000 mg 06-03 tablet by ity of tablet 00:00: mouth in [place] [address] the Medical morning Branch and 1 tablet in the evening. Take with meals. semaglutide 2- No [id number] 3mg Take 3 mg Univers (RYBELSUS) 06-03 by mouth ity of 3 mg Tab 00:00: 00:00 daily. [place] 00 :00 [facility] Branch semaglutide 2021- No [id number] 3mg Take 3 mg Univers (RYBELSUS) 06-03 by mouth ity of 3 mg Tab 00:00: 00:00 daily. [place] 00 :00 [facility] semaglutide 2021- No [id number] 3mg Take 3 mg Univers (RYBELSUS) 06-03 by mouth ity of 3 mg Tab 00:00: 00:00 daily. [place] 00 :00 [facility] semaglutide 2021- No [id number] 3mg Take 3 mg Univers (RYBELSUS) 06-03 by mouth ity of 3 mg Tab 00:00: 00:00 daily. [place] 00 :00 [facility] semaglutide 2- No [id number] 3mg Take 3 mg Univers (RYBELSUS) 06-03 by mouth ity of 3 mg Tab 00:00: 00:00 daily. [place] 00 :00 [facility] semaglutide 2021- No [id number] 3mg Take 3 mg Univers (RYBELSUS) 06-03 by mouth ity of 3 mg Tab 00:00: 00:00 daily. [place] 00 :00 [facility] semaglutide 2021- No [id number] 3mg Take 3 mg Univers (RYBELSUS) 06-03 by mouth ity of 3 mg Tab 00:00: 00:00 daily. [place] 00 :00 [facility] Aricept 5 Yes 5 mg = 1 Karan katy mg oral 7-26 tab, PO, l tablet 16:57: Bedtime, # Aura nn 00 30 tab, 3 Refill(s), Pharmacy: [facility] [id number], 154.94, cm, 04/30/22 11:41:00 CDT, Height, 86.42, kg, 04/30/22 11:41:00 CDT, Weight Mitchuwolf Max Yes SUB-Q, Memor ia SoloStar 6-21 Daily, 0 l 300 14:10: Refill(s) [place] units/mL 00 subcutaneou s solution Benadryl Yes 0 Memoria 6-21 Refill(s) l 14:08: [place] 00 Tylenol Yes PO, 0 Memoria 6-21 Refill(s) l 14:08: Isael 00 cloNIDine Yes 0.1 mg = 1 Me moria 0.1 mg oral 6-21 tab, PO, l tablet 14:07: BID, # 180 Aura nn 00 tab, 1 Refill(s) furosemide Yes 20 mg = 1 Me moria 20 mg oral 6-21 tab, PO, l tablet 14:07: Daily, # [place] 00 30 tab, 0 Refill(s) aspirin 81 0 Yes 81 mg = 1 Me moria mg oral 6-21 cap, PO, l capsule 14:07: Daily, 0 Kane n 00 Refill(s) carvedilol Yes 6.25 mg = Me moria 6.25 mg 6-21 1 tab, PO, l oral tablet 14:06: BID, # 180 Isael 00 tab, 3 Refill(s) citalopram Yes 20 mg = 1 Me moria 20 mg oral 6-21 tab, PO, l tablet 14:06: Daily, # [place] 00 90 tab, 0 Refill(s) losartan Yes 100 mg = 1 Mem oria 100 mg oral 6-21 tab, PO, l tablet 14:04: Daily, 0 Isael 00 Refill(s) tamsulosin Yes 0.4 mg = 1 M emoria 0.4 mg oral 6-21 cap, PO, l capsule 14:04: Daily, # [place] n 00 30 cap, 0 Refill(s) atorvastati Yes 40 mg = 1 M emoria n 40 mg 6-21 tab, PO, l oral tablet 14:04: Bedtime, # [place] 00 90 tab, 3 Refill(s) potassium Yes 10 mEq = 1 Me moria [...] ity o f XR tablet 15:08: bedtime. [facility] 29 Medical Branch acetaminoph Yes Take by [...] ity o f XR tablet 15:08: bedtime. [facility] 29 Medical Branch acetaminoph Yes Take by [...] ity o f XR tablet 15:08: bedtime. [facility] Medical Branch acetaminoph Yes Take [...] ity o f XR tablet 15:08: bedtime. [facility] 29 Medical Branch acetaminoph Yes Take [...] ity o f XR tablet 15:08: bedtime. [facility] 29 Medical Branch acetaminoph Yes Take [...] ity o f XR tablet 15:08: bedtime. [facility] 29 Medical Branch acetaminoph Yes Take [...] ity o f XR tablet 15:08: bedtime. [facility] 29 Medical Branch acetaminoph Yes Take [...] ity o f XR tablet 15:08: bedtime. [facility] 29 Medical Branch acetaminoph Yes Take by Uni vers en (TYLENOL 5-19 mouth 2 ity o f EXTRA 15:08: (two) [place] STRENGTH) 29 times Medical 500 mg PwPk daily. Branch triamcinolo Yes Apply to Un rashida ne 5-19 area(s) 2 ity of acetonide 15:08: (two) [place] 0.1 % cream 29 times Medical daily. Branch insulin 2022-0 Yes 60U/mL inject 60 Uni vers glargine 5-19 Units/mL ity of U-300 conc 15:08: under the [place] (TOUJEO MAX 29 skin. Medical U-300 Branch SOLOSTAR) 300 unit/mL (3 mL) InPn cloNIDine Yes Take by Unive rs HCL 0.1 mg 5-19 mouth at ity o f XR tablet 15:08: bedtime. [facility] 29 Medical Branch acetaminoph Yes Take [...] ity o f XR tablet 15:08: bedtime. [facility] 29 Medical Branch acetaminoph Yes Take [...] ity o f XR tablet 15:08: bedtime. [facility] [place] [facility] acetaminoph Yes Take [...] ity o f XR tablet 15:08: bedtime. [facility] [place] [facility] acetaminoph Yes Take [...] ity o f XR tablet 15:08: bedtime. [facility] [place] [facility] acetaminoph Yes Take [...] ity o f XR tablet 15:08: bedtime. [facility] [place] [facility] acetaminoph Yes Take [...] ity o f XR tablet 15:08: bedtime. [facility] [place] [facility] acetaminoph Yes Take [...] XR tablet 15:08: bedtime. [place] [facility] acetaminoph Yes Take by [facility] vers [...] 5-19 by mouth ity of 15:04: daily. [address] losartan 50 Yes 50mg Take 50 mg [facility] mg tablet 5-19 by mouth ity of 15:04: daily. [address] losartan 50 Yes 50mg Take 50 mg [facility] mg tablet 5-19 by mouth ity of 15:04: daily. [address] losartan 50 0 Yes 50mg Take 50 mg [facility] mg tablet 5-19 by mouth ity of 15:04: daily. [address] losartan 50 0 Yes 50mg Take 50 mg [facility] mg tablet 5-19 by mouth ity of 15:04: daily. [address] losartan 50 0 Yes 50mg Take 50 mg [facility] mg tablet 5-19 by mouth ity of 15:04: daily. [address] losartan 50 0 Yes 50mg Take 50 mg [facility] mg tablet 5-19 by mouth ity of 15:04: daily. [address] losartan 50 0 Yes 50mg Take 50 mg [facility] mg tablet 5-19 by mouth ity of 15:04: daily. [address] losartan 50 0 Yes 50mg Take 50 mg [facility] mg tablet 5-19 by mouth ity of 15:04: daily. [address] losartan 50 0 Yes 50mg Take 50 mg [facility] mg tablet 5-19 by mouth ity of 15:04: daily. [address] losartan 50 0 Yes 50mg Take 50 mg [facility] mg tablet 5-19 by mouth ity of 15:04: daily. [address] losartan 50 0 Yes 50mg Take 50 mg [facility] mg tablet 5-19 by mouth ity of 15:04: daily. [address] losartan 50 0 Yes 50mg Take 50 mg [facility] mg tablet 5-19 by mouth ity of 15:04: daily. [address] losartan 50 0 Yes 50mg Take 50 mg [facility] mg tablet 5-19 by mouth ity of 15:04: daily. [address] losartan 50 0 Yes 50mg Take 50 mg [facility] mg tablet 5-19 by mouth ity of 15:04: daily. [address] losartan 50 0 Yes 50mg Take 50 mg [facility] mg tablet 5-19 by mouth ity of 15:04: daily. [address] losartan 50 0 Yes 50mg Take 50 mg [facility] mg tablet 5-19 by mouth ity of 15:04: daily. [address] losartan 50 0 Yes 50mg Take 50 mg [facility] mg tablet 5-19 by mouth ity of 15:04: daily. [address] losartan 50 0 Yes 50mg Take 50 mg [facility] mg tablet 5-19 by mouth ity of 15:04: daily. [address] losartan 50 0 Yes 50mg Take 50 mg [facility] mg tablet 5-19 by mouth ity of 15:04: daily. [address] losartan 50 0 Yes 50mg Take 50 mg [facility] mg tablet 5-19 by mouth ity of 15:04: daily. [address] losartan 50 0 Yes 50mg Take 50 mg [facility] mg tablet 5-19 by mouth ity of 15:04: daily. [place] [address] Medical Branch losartan 50 2-0 Yes 50mg Take 50 mg [facility] mg [...] 21 daily. Medical Branch KCL 10 mEq 2022-0 Yes 10meq Take 10 Uni vers tablet [...] by ity of tablet 11:06: mouth 2 [place] [address] (two) Medical times Branch daily with meals. citalopram 0 Yes 20mg Take 20 mg U nivers 20 mg 5-19 by mouth ity of tablet 11:06: daily. Medical Branch atorvastati 0 Yes 40mg Take 40 mg [facility] n 40 mg 5-19 by mouth ity of tablet 11:06: at [place] [address] bedtime. Medical Branch tamsulosin 0 Yes Take by Univ ers 0.4 mg 24 5-19 mouth ity of hr capsule 11:06: daily. [place] [address] Medical Branch aspirin 325 2021-0 Yes 325mg Take 325 U nivers mg Cap 5-19 mg by ity of 11:06: mouth [place] [address] daily. Medical Branch carvediloL 0 Yes 6.25mg Take 6.25 [facility] 6.25 mg 5-19 mg by ity of tablet 11:06: mouth 2 [place] [address] (two) Medical times Branch daily with meals. citalopram 0 Yes 20mg Take 20 mg U nivers 20 mg 5-19 by mouth ity of tablet 11:06: daily. [place] [address] Medical Branch atorvastati 0 Yes 40mg Take 40 mg [facility] n 40 mg 5-19 by mouth ity of tablet 11:06: at [place] [address] bedtime. Medical Branch tamsulosin Yes Take by [facility] ers 0.4 mg 24 5-19 mouth ity of hr capsule 11:06: daily. [place] [address] Medical Branch aspirin 325 0 Yes 325mg Take 325 U nivers mg Cap 5-19 mg by ity of 11:06: mouth [place] [address] daily. Medical Branch carvediloL 0 Yes 6.25mg Take 6.25 [facility] 6.25 mg 5-19 mg by ity of tablet 11:06: mouth 2 [place] [address] (two) Medical times [facility] daily with meals. citalopram 0 Yes 20mg Take 20 mg U nivers 20 mg 5-19 by mouth ity of tablet 11:06: daily. [place] [address] Medical Branch atorvastati 0 Yes 40mg Take 40 mg [facility] n 40 mg 5-19 by mouth ity of tablet 11:06: at [place] [address] bedtime. Medical Branch tamsulosin 0 Yes Take by Univ ers 0.4 mg 24 5-19 mouth ity of hr capsule 11:06: daily. [place] [address] Medical Branch aspirin 325 2021-0 Yes 325mg Take 325 U nivers mg Cap 5-19 mg by ity of 11:06: mouth [place] [address] daily. Medical Branch carvediloL 0 Yes 6.25mg Take 6.25 [facility] 6.25 mg 5-19 mg by ity of tablet 11:06: mouth 2 [place] [address] (two) Medical times Branch daily with meals. citalopram 2021-0 Yes 20mg Take 20 mg U nivers 20 mg 5-19 by mouth ity of tablet 11:06: daily. [place] [address] Medical Branch atorvastati 0 Yes 40mg Take 40 mg [facility] n 40 mg 5-19 by mouth ity of tablet 11:06: at [place] [address] bedtime. Medical Branch tamsulosin 0 Yes Take by Uni vers 0.4 mg 24 5-19 mouth ity of hr capsule 11:06: daily. [place] [address] Medical Branch aspirin 325 0 Yes 325mg Take 325 U nivers mg Cap 5-19 mg by ity of 11:06: mouth [place] [address] daily. Medical Branch carvediloL 0 Yes 6.25mg Take 6.25 [facility] 6.25 mg 5-19 mg by ity of tablet 11:06: mouth 2 [place] [address] (two) Medical times [place] daily with meals. citalopram 0 Yes 20mg Take 20 mg U nivers 20 mg 5-19 by mouth ity of tablet 11:06: daily. [place] [address] Medical Branch atorvastati Yes 40mg Take 40 mg [facility] n 40 mg 5-19 by mouth ity of tablet 11:06: at [place] [address] bedtime. Medical Branch tamsulosin Yes Take by [facility] ers 0.4 mg 24 5-19 mouth ity of hr capsule 11:06: daily. [place] [address] Medical Branch aspirin 325 0 Yes 325mg Take 325 U nivers mg Cap 5-19 mg by ity of 11:06: mouth [place] [address] daily. Medical Branch carvediloL 0 Yes 6.25mg Take 6.25 [facility] 6.25 mg 5-19 mg by ity of tablet 11:06: mouth 2 [place] [address] (two) Medical times Branch daily with meals. citalopram 0 Yes 20mg Take 20 mg U nivers 20 mg 5-19 by mouth ity of tablet 11:06: daily. [place] [address] Medical Branch atorvastati 0 Yes 40mg Take 40 mg [facility] n 40 mg 5-19 by mouth ity of tablet 11:06: at [place] [address] bedtime. Medical Branch tamsulosin Yes Take by Univ ers 0.4 mg 24 5-19 mouth ity of hr capsule 11:06: daily. [place] [address] Medical Branch aspirin 325 2022-0 Yes 325mg Take 325 U nivers mg Cap 5-19 mg by ity of 11:06: mouth [place] [address] daily. Medical Branch carvediloL 2021-0 Yes 6.25mg Take 6.25 [facility] 6.25 mg 5-19 mg by ity of tablet 11:06: mouth 2 [place] [address] (two) Medical times Branch daily with meals. citalopram 2021-0 Yes 20mg Take 20 mg U nivers 20 mg 5-19 by mouth ity of tablet 11:06: daily. [place] [address] Medical Branch atorvastati 2021-0 Yes 40mg Take 40 mg [facility] n 40 mg 5-19 by mouth ity of tablet 11:06: at [place] [address] bedtime. Medical Branch tamsulosin 0 Yes Take by Univ ers 0.4 mg 24 5-19 mouth ity of hr capsule 11:06: daily. [place] [address] Medical Branch aspirin 325 2021-0 Yes 325mg Take 325 U nivers mg Cap 5-19 mg by ity of 11:06: mouth [place] [address] daily. Medical Branch carvediloL 2021-0 Yes 6.25mg Take 6.25 [facility] 6.25 mg 5-19 mg by ity of tablet 11:06: mouth 2 [place] [address] (two) Medical times [facility] daily with meals. citalopram 2021-0 Yes 20mg Take 20 mg U nivers 20 mg 5-19 by mouth ity of tablet 11:06: daily. [place] [address] Medical Branch atorvastati 0 Yes 40mg Take 40 mg [facility] n 40 mg 5-19 by mouth ity of tablet 11:06: at [place] [address] bedtime. Medical Branch tamsulosin 2021-0 Yes Take by Univ ers 0.4 mg 24 5-19 mouth ity of hr capsule 11:06: daily. [place] [address] Medical Branch aspirin 325 2021-0 Yes 325mg Take 325 U nivers mg Cap 5-19 mg by ity of 11:06: mouth [place] [address] daily. Medical Branch carvediloL 2021-0 Yes 6.25mg Take 6.25 [facility] 6.25 mg 5-19 mg by ity of tablet 11:06: mouth 2 [place] [address] (two) Medical times [place] daily with meals. citalopram 2021-0 Yes 20mg Take 20 mg U nivers 20 mg 5-19 by mouth ity of tablet 11:06: daily. [place] [address] Medical Branch atorvastati 2021-0 Yes 40mg Take 40 mg [facility] n 40 mg 5-19 by mouth ity of tablet 11:06: at [place] [address] bedtime. Medical Branch tamsulosin 0 Yes Take by Univ ers 0.4 mg 24 5-19 mouth ity of hr capsule 11:06: daily. [place] [address] Medical Branch aspirin 325 2021-0 Yes 325mg Take 325 U nivers mg Cap 5-19 mg by ity of 11:06: mouth [place] [address] daily. Medical Branch carvediloL 0 Yes 6.25mg Take 6.25 [facility] 6.25 mg 5-19 mg by ity of tablet 11:06: mouth 2 [place] [address] (two) Medical times [place] daily with meals. citalopram 2021-0 Yes 20mg Take 20 mg U nivers 20 mg 5-19 by mouth ity of tablet 11:06: daily. [place] [address] Medical Branch atorvastati 0 Yes 40mg Take 40 mg [facility] n 40 mg 5-19 by mouth ity of tablet 11:06: at [place] [address] bedtime. Medical Branch tamsulosin 0 Yes Take by Univ ers 0.4 mg 24 5-19 mouth ity of hr capsule 11:06: daily. [place] [address] Medical Branch aspirin 325 2021-0 Yes 325mg Take 325 U nivers mg Cap 5-19 mg by ity of 11:06: mouth [place] [address] daily. Medical Branch carvediloL 2021-0 Yes 6.25mg Take 6.25 [facility] 6.25 mg 5-19 mg by ity of tablet 11:06: mouth 2 [place] [address] (two) Medical times [place] daily with meals. citalopram 2021-0 Yes 20mg Take 20 mg U nivers 20 mg 5-19 by mouth ity of tablet 11:06: daily. [place] [address] Medical Branch atorvastati 2021-0 Yes 40mg Take 40 mg [facility] n 40 mg 5-19 by mouth ity of tablet 11:06: at [place] [address] bedtime. Medical Branch tamsulosin 2021-0 Yes Take by Univ ers 0.4 mg 24 5-19 mouth ity of hr capsule 11:06: daily. [place] [address] Medical Branch aspirin 325 2021-0 Yes 325mg Take 325 U nivers mg Cap 5-19 mg by ity of 11:06: mouth [place] [address] daily. Medical Branch carvediloL 2021-0 Yes 6.25mg Take 6.25 [facility] 6.25 mg 5-19 mg by ity of tablet 11:06: mouth 2 [place] [address] (two) Medical times [place] daily with meals. citalopram 2021-0 Yes 20mg Take 20 mg U nivers 20 mg 5-19 by mouth ity of tablet 11:06: daily. [place] [address] Medical Branch atorvastati 2021-0 Yes 40mg Take 40 mg [facility] n 40 mg 5-19 by mouth ity of tablet 11:06: at [place] [address] bedtime. Medical Branch tamsulosin 0 Yes Take by Univ ers 0.4 mg 24 5-19 mouth ity of hr capsule 11:06: daily. [place] [address] Medical Branch aspirin 325 2021-0 Yes 325mg Take 325 U nivers mg Cap 5-19 mg by ity of 11:06: mouth [place] [address] daily. Medical Branch carvediloL 2021-0 Yes 6.25mg Take 6.25 [facility] 6.25 mg 5-19 mg by ity of tablet 11:06: mouth 2 [place] [address] (two) Medical times [facility] daily with meals. citalopram 2021-0 Yes 20mg Take 20 mg U nivers 20 mg 5-19 by mouth ity of tablet 11:06: daily. [place] [address] Medical Branch atorvastati 2021-0 Yes 40mg Take 40 mg [facility] n 40 mg 5-19 by mouth ity of tablet 11:06: at [place] [address] bedtime. Medical Branch tamsulosin 2021-0 Yes Take by Univ ers 0.4 mg 24 5-19 mouth ity of hr capsule 11:06: daily. [place] [address] Medical Branch aspirin 325 2021-0 Yes 325mg Take 325 U nivers mg Cap 5-19 mg by ity of 11:06: mouth [place] [address] daily. Medical Branch carvediloL 2021-0 Yes 6.25mg Take 6.25 Univers 6.25 mg 5-19 mg by ity of tablet 11:06: mouth 2 [place] [address] (two) Medical times Branch daily with meals. citalopram 2021-0 Yes 20mg Take 20 mg U nivers 20 mg 5-19 by mouth ity of tablet 11:06: daily. [place] [address] Medical Branch atorvastati 2022-0 Yes 40mg Take 40 mg [facility] n 40 mg 5-19 by mouth ity of tablet 11:06: at [place] [address] bedtime. Medical Branch tamsulosin 0 Yes Take by Uni vers 0.4 mg 24 5-19 mouth ity of hr capsule 11:06: daily. [place] [address] Medical Branch aspirin 325 0 Yes 325mg Take 325 U nivers mg Cap 5-19 mg by ity of 11:06: mouth [place] [address] daily. Medical Branch carvediloL Yes 6.25mg Take 6.25 Univers 6.25 mg 5-19 mg by ity of tablet 11:06: mouth 2 [place] [address] (two) Medical times Branch daily with meals. citalopram 0 Yes 20mg Take 20 mg U nivers 20 mg 5-19 by mouth ity of tablet 11:06: daily. [place] [address] Medical Branch atorvastati Yes 40mg Take 40 mg [facility] n 40 mg 5-19 by mouth ity of tablet 11:06: at [place] [address] bedtime. Medical Branch tamsulosin Yes Take by Univ ers 0.4 mg 24 5-19 mouth ity of hr capsule 11:06: daily. [place] [address] Medical Branch aspirin 325 0 Yes 325mg Take 325 U nivers mg Cap 5-19 mg by ity of 11:06: mouth [place] [address] daily. Medical Branch carvediloL Yes 6.25mg Take 6.25 [facility] 6.25 mg 5-19 mg by ity of tablet 11:06: mouth 2 [place] [address] (two) Medical times [facility] daily with meals. citalopram 0 Yes 20mg Take 20 mg U nivers 20 mg 5-19 by mouth ity of tablet 11:06: daily. [place] [address] Medical Branch atorvastati 0 Yes 40mg Take 40 mg [facility] n 40 mg 5-19 by mouth ity of tablet 11:06: at [place] [address] bedtime. Medical Branch tamsulosin 0 Yes Take by Univ ers 0.4 mg 24 5-19 mouth ity of hr capsule 11:06: daily. [place] [address] Medical Branch aspirin 325 0 Yes 325mg Take 325 U nivers mg Cap 5-19 mg by ity of 11:06: mouth [place] [address] daily. Medical Branch carvediloL 2022-0 Yes 6.25mg Take 6.25 [facility] 6.25 mg 5-19 mg by ity of tablet 11:06: mouth 2 [place] [address] (two) Medical times Branch daily with meals. citalopram 0 Yes 20mg Take 20 mg U nivers 20 mg 5-19 by mouth ity of tablet 11:06: daily. [place] [address] Medical Branch atorvastati 0 Yes 40mg Take 40 mg [facility] n 40 mg 5-19 by mouth ity of tablet 11:06: at [place] [address] bedtime. Medical Branch tamsulosin 0 Yes Take by [facility] ers 0.4 mg 24 5-19 mouth ity of hr capsule 11:06: daily. [place] [address] Medical Branch aspirin 325 0 Yes 325mg Take 325 U nivers mg Cap 5-19 mg by ity of 11:06: mouth [place] [address] daily. Medical Branch carvediloL Yes 6.25mg Take 6.25 [facility] 6.25 mg 5-19 mg by ity of tablet 11:06: mouth 2 [place] [address] (two) Medical times [facility] daily with meals. citalopram 0 Yes 20mg Take 20 mg U nivers 20 mg 5-19 by mouth ity of tablet 11:06: daily. [place] [address] Medical Branch atorvastati 0 Yes 40mg Take 40 mg [facility] n 40 mg 5-19 by mouth ity of tablet 11:06: at [place] [address] bedtime. Medical Branch tamsulosin 0 Yes Take by [facility] ers 0.4 mg 24 5-19 mouth ity of hr capsule 11:06: daily. [place] [address] Medical Branch aspirin 325 2021-0 Yes 325mg Take 325 U nivers mg Cap 5-19 mg by ity of 11:06: mouth [place] [address] daily. Medical Branch carvediloL 0 Yes 6.25mg Take 6.25 [facility] 6.25 mg 5-19 mg by ity of tablet 11:06: mouth 2 [place] [address] (two) Medical times Branch daily with meals. citalopram 0 Yes 20mg Take 20 mg U nivers 20 mg 5-19 by mouth ity of tablet 11:06: daily. [place] [address] [facility] Branch atorvastati 2021-0 Yes 40mg Take 40 mg [facility] n 40 mg 5-19 by mouth ity of tablet 11:06: at [place] [address] bedtime. Medical Branch tamsulosin 0 Yes Take by [facility] ers 0.4 mg 24 5-19 mouth ity of hr capsule 11:06: daily. [place] [address] Medical Branch aspirin 325 2021-0 Yes 325mg Take 325 U nivers mg Cap 5-19 mg by ity of 11:06: mouth [place] [address] daily. Medical Branch carvediloL 0 Yes 6.25mg Take 6.25 [facility] 6.25 mg 5-19 mg by ity of tablet 11:06: mouth 2 [place] [address] (two) Medical times Branch daily with meals. citalopram 0 Yes 20mg Take 20 mg U nivers 20 mg 5-19 by mouth ity of tablet 11:06: daily. [place] [address] [facility] Branch atorvastati 0 Yes 40mg Take 40 mg [facility] n 40 mg 5-19 by mouth ity of tablet 11:06: at [place] [address] bedtime. Medical Branch tamsulosin Yes Take by [facility] ers 0.4 mg 24 5-19 mouth ity of hr capsule 11:06: daily. [place] [address] Medical Branch aspirin 325 2021-0 Yes 325mg Take 325 U nivers mg Cap 5-19 mg by ity of 11:06: mouth [place] [address] daily. Medical Branch carvediloL 0 Yes 6.25mg Take 6.25 [facility] 6.25 mg 5-19 mg by ity of tablet 11:06: mouth 2 [place] [address] (two) Medical times Jet daily with meals. citalopram 0 Yes 20mg Take 20 mg U nivers 20 mg 5-19 by mouth ity of tablet 11:06: daily. [place] [address] [facility] Branch atorvastati 0 Yes 40mg Take 40 mg [facility] n 40 mg 5-19 by mouth ity of tablet 11:06: at [place] [address] bedtime. Medical Branch tamsulosin 0 Yes Take by [facility] ers 0.4 mg 24 5-19 mouth ity of hr capsule 11:06: daily. [place] [address] Medical Branch aspirin 325 2021-0 Yes 325mg Take 325 U nivers mg Cap 5-19 mg by ity of 11:06: mouth [place] [address] daily. Medical Branch carvediloL 2021-0 Yes 6.25mg Take 6.25 [facility] 6.25 mg 5-19 mg by ity of tablet 11:06: mouth 2 [place] [address] (two) Medical times Branch daily with meals. citalopram 0 Yes 20mg Take 20 mg U nivers 20 mg 5-19 by mouth ity of tablet 11:06: daily. [place] [address] [facility] Branch atorvastati 0 Yes 40mg Take 40 mg [facility] n 40 mg 5-19 by mouth ity of tablet 11:06: at [place] [address] bedtime. Medical Branch tamsulosin Yes Take by [facility] ers 0.4 mg 24 5-19 mouth ity of hr capsule 11:06: daily. [place] [address] Medical Branch aspirin 325 0 Yes 325mg Take 325 U nivers mg Cap 5-19 mg by ity of 11:06: mouth [place] [address] daily. Medical Branch carvediloL Yes 6.25mg Take 6.25 [facility] 6.25 mg 5-19 mg by ity of tablet 11:06: mouth 2 [place] [address] (two) Medical times Branch daily with meals. citalopram Yes 20mg Take 20 mg U nivers 20 mg 5-19 by mouth ity of tablet 11:06: daily. [place] [address] [facility] Branch atorvastati 0 Yes 40mg Take 40 mg [facility] n 40 mg 5-19 by mouth ity of tablet 11:06: at [place] [address] bedtime. Medical Branch tamsulosin Yes Take by [facility] ers 0.4 mg 24 5-19 mouth ity of hr capsule 11:06: daily. [place] [address] [facility] Branch aspirin 325 2021-0 Yes 325mg Take 325 U nivers mg Cap 5-19 mg by ity of 11:06: mouth [place] daily. Medical Branch chlorthalid 2021-0 Yes [id number] 15mg Take 1 [facility] one 15 mg 5-19 tablet by ity o f tablet 00:00: mouth [place] 00 daily. [facility] Branch furosemide 2021-0 Yes [id number] 40mg Take 2 U nivers 20 mg 5-19 tablets by ity of tablet 00:00: mouth [place] 00 daily. [facility] Branch chlorthalid 2021-0 Yes [id number] 15mg Take 1 [facility] one 15 mg 5-19 tablet by ity o f tablet 00:00: mouth [place] 00 daily. [facility] Branch furosemide 2021-0 Yes [id number] 40mg Take 2 U nivers 20 mg 5-19 tablets by ity of tablet 00:00: mouth [place] 00 daily. [facility] Branch chlorthalid 2021-0 Yes [id number] 15mg Take 1 [facility] one 15 mg 5-19 tablet by ity o f tablet 00:00: mouth [place] 00 daily. [facility] Branch furosemide 2021-0 Yes [id number] 40mg Take 2 U nivers 20 mg 5-19 tablets by ity of tablet 00:00: mouth [place] 00 daily. [facility] Branch chlorthalid 2021-0 Yes [id number] 15mg Take 1 [facility] one 15 mg 5-19 tablet by ity o f tablet 00:00: mouth [place] 00 daily. [facility] Branch furosemide 2021-0 Yes [id number] 40mg Take 2 U nivers 20 mg 5-19 tablets by ity of tablet 00:00: mouth [place] 00 daily. [facility] Branch chlorthalid 2021-0 Yes [id number] 15mg Take 1 [facility] one 15 mg 5-19 tablet by ity o f tablet 00:00: mouth [place] 00 daily. [facility] Branch furosemide 2021-0 Yes [id number] 40mg Take 2 U nivers 20 mg 5-19 tablets by ity of tablet 00:00: mouth [place] 00 daily. [facility] Branch chlorthalid 2021-0 Yes [id number] 15mg Take 1 [facility] one 15 mg 5-19 tablet by ity o f tablet 00:00: mouth [place] 00 daily. [facility] Branch furosemide 2021-0 Yes [id number] 40mg Take 2 U nivers 20 mg 5-19 tablets by ity of tablet 00:00: mouth [place] 00 daily. [facility] Branch chlorthalid 2021-0 Yes [id number] 15mg Take 1 [facility] one 15 mg 5-19 tablet by ity o f tablet 00:00: mouth [place] 00 daily. [facility] Branch furosemide 2021-0 Yes [id number] 40mg Take 2 U nivers 20 mg 5-19 tablets by ity of tablet 00:00: mouth [place] 00 daily. [facility] Branch chlorthalid 2021-0 Yes [id number] 15mg Take 1 [facility] one 15 mg 5-19 tablet by ity o f tablet 00:00: mouth [place] 00 daily. [facility] Branch furosemide 2-0 Yes [id number] 40mg Take 2 U nivers 20 mg 5-19 tablets by ity of tablet 00:00: mouth [place] 00 daily. [facility] Branch chlorthalid 2022-0 Yes [id number] 15mg Take 1 [facility] one 15 mg 5-19 tablet by ity o f tablet 00:00: mouth [place] 00 daily. [facility] Branch furosemide 2021-0 Yes [id number] 40mg Take 2 U nivers 20 mg 5-19 tablets by ity of tablet 00:00: mouth [place] 00 daily. [facility] Branch chlorthalid 2021-0 Yes [id number] 15mg Take 1 [facility] one 15 mg 5-19 tablet by ity o f tablet 00:00: mouth [place] 00 daily. [facility] Branch furosemide 2021-0 Yes [id number] 40mg Take 2 U nivers 20 mg 5-19 tablets by ity of tablet 00:00: mouth [place] 00 daily. [facility] Branch chlorthalid 2021-0 Yes [id number] 15mg Take 1 [facility] one 15 mg 5-19 tablet by ity o f tablet 00:00: mouth [place] 00 daily. [facility] furosemide 2021-0 Yes [id number] 40mg Take 2 U nivers 20 mg 5-19 tablets by ity of tablet 00:00: mouth [place] 00 daily. [facility] chlorthalid 2021-0 Yes [id number] 15mg Take 1 [facility] one 15 mg 5-19 tablet by ity o f tablet 00:00: mouth [place] 00 daily. [facility] Branch furosemide 2021-0 Yes [id number] 40mg Take 2 U nivers 20 mg 5-19 tablets by ity of tablet 00:00: mouth [place] 00 daily. [facility] Branch chlorthalid 2021-0 Yes [id number] 15mg Take 1 [facility] one 15 mg 5-19 tablet by ity o f tablet 00:00: mouth [place] 00 daily. [facility] Branch furosemide 2-0 Yes [id number] 40mg Take 2 [facility] nivers 20 mg 5-19 tablets by ity of tablet 00:00: mouth [place] 00 daily. [facility] chlorthalid 2-0 Yes [id number] 15mg Take 1 [facility] one 15 mg 5-19 tablet by ity o f tablet 00:00: mouth [place] 00 daily. [facility] Branch furosemide 2-0 Yes [id number] 40mg Take 2 [facility] nivers 20 mg 5-19 tablets by ity of tablet 00:00: mouth [place] 00 daily. [facility] chlorthalid 2021-0 Yes [id number] 15mg Take 1 [facility] one 15 mg 5-19 tablet by ity o f tablet 00:00: mouth [place] 00 daily. [facility] Branch furosemide 2-0 Yes [id number] 40mg Take 2 U nivers 20 mg 5-19 tablets by ity of tablet 00:00: mouth [place] 00 daily. [facility] Branch chlorthalid 2-0 Yes [id number] 15mg Take 1 [facility] one 15 mg 5-19 tablet by ity o f tablet 00:00: mouth [place] 00 daily. [facility] Branch furosemide 2-0 Yes [id number] 40mg Take 2 U nivers 20 mg 5-19 tablets by ity of tablet 00:00: mouth [place] 00 daily. [facility] chlorthalid 2-0 Yes [id number] 15mg Take 1 [facility] one 15 mg 5-19 tablet by ity o f tablet 00:00: mouth [place] 00 daily. [facility] Branch furosemide 2-0 Yes [id number] 40mg Take 2 [facility] nivers 20 mg 5-19 tablets by ity of tablet 00:00: mouth [place] 00 daily. [facility] Branch chlorthalid 2-0 Yes [id number] 15mg Take 1 [facility] one 15 mg 5-19 tablet by ity o f tablet 00:00: mouth [place] 00 daily. [facility] Branch furosemide 2-0 Yes [id number] 40mg Take 2 [facility] nivers 20 mg 5-19 tablets by ity of tablet 00:00: mouth [place] 00 daily. [facility] chlorthalid 2-0 Yes [id number] 15mg Take 1 [facility] one 15 mg 5-19 tablet by ity o f tablet 00:00: mouth [place] 00 daily. [facility] Branch furosemide 2-0 Yes [id number] 40mg Take 2 [facility] nivers 20 mg 5-19 tablets by ity of tablet 00:00: mouth [place] 00 daily. [facility] Branch chlorthalid 2-0 Yes [id number] 15mg Take 1 [facility] one 15 mg 5-19 tablet by ity o f tablet 00:00: mouth [place] 00 daily. [facility] Branch furosemide 2022-0 Yes [id number] 40mg Take 2 [facility] nivers 20 mg 5-19 tablets by ity of tablet 00:00: mouth [place] 00 daily. [facility] Branch chlorthalid 2-0 Yes [id number] 15mg Take 1 [facility] one 15 mg 5-19 tablet by ity o f tablet 00:00: mouth [place] 00 daily. [facility] Branch furosemide 2-0 Yes [id number] 40mg Take 2 [facility] nivers 20 mg 5-19 tablets by ity of tablet 00:00: mouth [place] 00 daily. [facility] Branch chlorthalid 0 Yes [id number] 15mg Take 1 [facility] one 15 mg 5-19 tablet by ity o f tablet 00:00: mouth [place] 00 daily. [facility] furosemide 0 Yes [id number] 40mg Take 2 U nivers 20 mg 5-19 tablets by ity of tablet 00:00: mouth [place] 00 daily. [facility] chlorthalid 0 Yes [id number] 15mg Take 1 Univers one 15 mg 5-19 tablet by ity o f tablet 00:00: mouth [place] 00 daily. [facility] furosemide 0 Yes [id number] 40mg Take 2 U nivers 20 mg 5-19 tablets by ity of tablet 00:00: mouth [place] 00 daily. Medical Branch midazolam 2012-[address] 1 mg, 1 M emoria 0-16 Jessi mL, Route: l 13:59: IV, Drug form: INJ, ONCE, Dosing Weight 83.636, kg, Start date: 07/21/13 8:59:00, Stop date: 07/21/13 8:59:00([facility] as: Versed) lidocaine 2012-[address] 10 mL, Me moria 1% 0-16 Jessi Route: IV, l 13:58: Drug Form: Isael 00 INJ, Dosing Weight 83.636, kg, ONCE, Start date: 07/21/13 8:58:00, Stop date: 07/21/13 8:58:00([facility] as: Xylocaine) fentanyl 2012-[address] 100 Memor ia 0-16 Jessi microgram, l 13:58: 2 mL, Isael 00 Route: IV, Drug form: INJ, ONCE, Dosing Weight 83.636, kg, Start date: 07/21/13 8:58:00, Stop date: 07/21/13 8:58:00([facility] as: Sublimaze) Preservati ve free. Omnipaque 2012-[address] 140 mL, M emoria 300 0-16 Jessi Route: l 13:58: INTRAARTER Isael 00 IAL, Drug Form: SOLN, Dosing Weight 83.636, kg, ONCE, Start date: 07/21/13 8:58:00, Stop date: 07/21/13 8:58:00([facility] as:Omnipaq ue 350). normal 2012-[address] 1,000 mL, Me moria saline 0.9% 0-16 Bowen Rate: 125 l IV 1,000 mL 11:54: ml/hr, Infuse over: 8 hr, Route: IV, Dosing Weight 83.636 kg, Total Volume: 1,000, Priority: STAT, Start date: 07/21/13 6:54:00, Duration: 30 day, Stop date: 08/20/13 6:53:00 Zofran 2012-[address] 4 mg, 2 Karan katy 0-16 Bowen mL, Route: l 11:53: IVP, Drug form: INJ, ONCE, Dosing Weight 83.636, kg, Priority: Routine, Start date: 07/21/13 6:53:00, Stop date: 07/21/13 6:53:00([facility] as: Zofran) Tylenol 2012-[address] [...] Route: IM, l vaccine 14:00: Drug Form: INJ, Start date: 03/17/12 9:00:00, Stop date: 03/17/12 9:00:00 Immunizations Ordered Filled Date Status Comments Source Immunization Name Immunization Name SARS-COV-2 COVID-19 2021-01-11 Completed Unive rsity of PFIZER VACCINE 00:00:00 [facility] SARS-COV-2 COVID-19 2021-01-11 Completed Unive rsity of PFIZER VACCINE 00:00:00 [facility] SARS-COV-2 COVID-19 2021-01-11 Completed Unive rsity of PFIZER VACCINE 00:00:00 [facility] [place] [facility] SARS-COV-2 COVID-19 2021-01-11 Completed Unive rsity of PFIZER VACCINE 00:00:00 [facility] SARS-COV-2 COVID-19 2021-01-11 Completed Unive rsity of PFIZER VACCINE 00:00:00 [facility] [place] [facility] SARS-COV-2 COVID-19 2021-01-11 Completed Unive rsity of PFIZER VACCINE 00:00:00 [facility] SARS-COV-2 COVID-19 2021-01-11 Completed Unive rsity of PFIZER VACCINE 00:00:00 [facility] [place] [facility] SARS-COV-2 COVID-19 2021-01-11 Completed Unive rsity of PFIZER VACCINE 00:00:00 [facility] SARS-COV-2 COVID-19 2021-01-11 Completed Unive rsity of PFIZER VACCINE 00:00:00 [facility] SARS-COV-2 COVID-19 2021-01-11 Completed Unive rsity of PFIZER VACCINE 00:00:00 [facility] SARS-COV-2 COVID-19 2021-01-11 Completed Unive rsity of PFIZER VACCINE 00:00:00 [facility] SARS-COV-2 COVID-19 2021-01-11 Completed Unive rsity of PFIZER VACCINE 00:00:00 [facility] SARS-COV-2 COVID-19 2021-01-11 Completed Unive rsity of PFIZER VACCINE 00:00:00 [facility] [place] [facility] SARS-COV-2 COVID-19 2021-01-11 Completed Unive rsity of PFIZER VACCINE 00:00:00 [facility] [place] [facility] SARS-COV-2 COVID-19 2021-01-11 Completed Unive rsity of PFIZER VACCINE 00:00:00 [facility] SARS-COV-2 COVID-19 2021-01-11 Completed Unive rsity of PFIZER VACCINE 00:00:00 [facility] SARS-COV-2 COVID-19 2021-01-11 Completed Unive rsity of PFIZER VACCINE 00:00:00 [facility] SARS-COV-2 COVID-19 2021-01-11 Completed Unive rsity of PFIZER VACCINE 00:00:00 [facility] [place] [facility] SARS-COV-2 COVID-19 2021-01-11 Completed Unive rsity of PFIZER VACCINE 00:00:00 [facility] [place] [facility] SARS-COV-2 COVID-19 2021-01-11 Completed Unive rsity of PFIZER VACCINE 00:00:00 [facility] [place] [facility] SARS-COV-2 COVID-19 2021-01-11 Completed Unive rsity of PFIZER VACCINE 00:00:00 [facility] [place] [facility] SARS-COV-2 COVID-19 2020-12-20 Completed Unive rsity of PFIZER VACCINE 00:00:00 [facility] [place] [facility] SARS-COV-2 COVID-19 2020-12-20 Completed Unive rsity of PFIZER VACCINE 00:00:00 [facility] [place] [facility] SARS-COV-2 COVID-19 2020-12-20 Completed Unive rsity of PFIZER VACCINE 00:00:00 [facility] [place] [facility] SARS-COV-2 COVID-19 2020-12-20 Completed Unive rsity of PFIZER VACCINE 00:00:00 [facility] [place] [facility] SARS-COV-2 COVID-19 2020-12-20 Completed Unive rsity of PFIZER VACCINE 00:00:00 [facility] [place] [facility] SARS-COV-2 COVID-19 2020-12-20 Completed Unive rsity of PFIZER VACCINE 00:00:00 [facility] [place] [facility] SARS-COV-2 COVID-19 2020-12-20 Completed Unive rsity of PFIZER VACCINE 00:00:00 [facility] [place] [facility] SARS-COV-2 COVID-19 2020-12-20 Completed Unive rsity of PFIZER VACCINE 00:00:00 [facility] [place] [facility] SARS-COV-2 COVID-19 2020-12-20 Completed Unive rsity of PFIZER VACCINE 00:00:00 [facility] [place] [facility] SARS-COV-2 COVID-19 2020-12-20 Completed Unive rsity of PFIZER VACCINE 00:00:00 [facility] [place] [facility] SARS-COV-2 COVID-19 2020-12-20 Completed Unive rsity of PFIZER VACCINE 00:00:00 [facility] [place] [facility] SARS-COV-2 COVID-19 2020-12-20 Completed Unive rsity of PFIZER VACCINE 00:00:00 [place] [facility] SARS-COV-2 COVID-19 2020-12-20 Completed Unive rsity of PFIZER VACCINE 00:00:00 [facility] SARS-COV-2 COVID-19 2020-12-20 Completed Unive rsity of PFIZER VACCINE 00:00:00 [facility] SARS-COV-2 COVID-19 2020-12-20 Completed Unive rsity of PFIZER VACCINE 00:00:00 [facility] SARS-COV-2 COVID-19 2020-12-20 Completed Unive rsity of PFIZER VACCINE 00:00:00 [facility] SARS-COV-2 COVID-19 2020-12-20 Completed Unive rsity of PFIZER VACCINE 00:00:00 [facility] SARS-COV-2 COVID-19 2020-12-20 Completed Unive rsity of PFIZER VACCINE 00:00:00 [facility] SARS-COV-2 COVID-19 2020-12-20 Completed Unive rsity of PFIZER VACCINE 00:00:00 [facility] SARS-COV-2 COVID-19 2020-12-20 Completed Unive rsity of PFIZER VACCINE 00:00:00 [facility] SARS-COV-2 COVID-19 2020-12-20 Completed Unive rsity of PFIZER VACCINE 00:00:00 [facility] SARS-COV-2 COVID-19 Unknown Completed Unive rsity of PFIZER VACCINE [facility] SARS-COV-2 COVID-19 Unknown Completed Unive rsity of PFIZER VACCINE [facility] SARS-COV-2 COVID-19 Unknown Completed Unive rsity of PFIZER VACCINE [facility] SARS-COV-2 COVID-19 Unknown Completed Unive rsity of PFIZER VACCINE [facility] pneumococcal Unknown Completed [facility] 23-valent vaccine Vital Signs Vital Name Observation Time Observation Value Comments Source Systolic blood 2022-07-15 21:00:00 164 mm[Hg] Univer sity of pressure [facility] Diastolic blood 2022-07-15 21:00:00 65 mm[Hg] Unive rsity of pressure [facility] Heart rate 2022-07-15 21:00:00 68 /min [facility] Body height 2022-07-15 21:00:00 161.3 cm [facility] Body weight 2022-07-15 21:00:00 83.915 kg [facility] [place] [facility] BMI 2022-07-15 21:00:00 32.26 kg/m2 [facility] [place] [facility] Oxygen saturation in 2022-07-15 21:00:00 95 /min [facility] of Arterial blood by [facility] [place] blanca Pulse oximetry Branch Systolic blood 2022-06-17 18:06:00 160 mm[Hg] Univer sity of pressure [place] [facility] Diastolic blood 2022-06-17 18:06:00 72 mm[Hg] Unive rsity of pressure [place] [facility] Heart rate 2022-06-17 18:06:00 58 /min [facility] [place] [facility] Body temperature 2022-06-17 18:04:00 36.44 Mariah Univ ers[facility] [place] [facility] Body height 2022-06-17 18:04:00 161.3 cm [facility] [place] [facility] Body weight 2022-06-17 18:04:00 85.458 kg [facility] [place] [facility] BMI 2022-06-17 18:04:00 32.85 kg/m2 [facility] [place] [facility] Oxygen saturation in 2022-06-17 18:04:00 96 /min University of Arterial blood by [facility] [place] Pulse oximetry Branch Systolic blood 2022-06-03 19:24:00 160 mm[Hg] Univer sity of pressure [place] [facility] Diastolic blood 2022-06-03 19:24:00 63 mm[Hg] Unive rsity of pressure [place] [facility] Heart rate 2022-06-03 19:24:00 78 /min [facility] [place] [facility] Body height 2022-06-03 19:24:00 161.3 cm [facility] [place] [facility] Body weight 2022-06-03 19:24:00 86.183 kg [facility] [place] [facility] BMI 2022-06-03 19:24:00 33.13 kg/m2 [facility] [place] [facility] Oxygen saturation in 2022-06-03 19:24:00 94 /min [facility] of Arterial blood by [facility] [place] Pulse oximetry Branch Systolic (mm Hg) 2023-05-16 20:33:00 Karan rial Isael Diastolic (mm Hg) 2023-05-16 20:33:00 Mem orial Isael Heart Rate 2023-05-16 20:33:[address] [facility] Height 2023-05-16 20:33:00 5 [ft_i] [facility] Weight 2023-05-16 20:33:00 [facility] BMI Calculated 2023-05-16 20:33:[address] [place] Systolic (mm Hg) 2023-01-09 19:59:[address] Diastolic (mm Hg) 2023-01-09 19:59:00 Mem orial Isael Heart Rate 2023-01-09 19:59:[address] [facility] Height 2023-01-09 19:59:00 5 [ft_i] [facility] Weight 2023-01-09 19:59:[address] [facility] BMI Calculated 2023-01-09 19:59:00 Memori al Isael Systolic (mm Hg) 2022-09-11 17:29:[address] Diastolic (mm Hg) 2022-09-11 17:29:[address] [place] Heart Rate 2022-09-11 17:29:00 [facility] Height 2022-09-11 17:29:00 5 [ft_i] [facility] Weight 2022-09-11 17:29:00 [facility] BMI Calculated 2022-09-11 17:29:00 Memori al Isael Systolic (mm Hg) 2022-06-12 16:38:00 Karan rial Isael Diastolic (mm Hg) 2022-06-12 16:38:00 Mem orial Isael Heart Rate 2022-06-12 16:38:00 [facility] Respitory Rate 2022-06-12 16:38:[address] [place] Height 2022-06-12 16:38:[address] [facility] Weight 2022-06-12 16:38:[address] [facility] BMI Calculated 2022-06-12 16:38:[address] [place] Systolic (mm Hg) 2022-04-30 16:30:00 Karan rial Isael Diastolic (mm Hg) 2022-04-30 16:30:[address] [place] Heart Rate 2022-04-30 16:30:[address] [facility] Respitory Rate 2022-04-30 16:30:00 Memori al Isael Height 2022-04-30 16:30:00 154.94 cm [facility] Weight 2022-04-30 16:30:[address] [facility] BMI Calculated 2022-04-30 16:30:00 Memori al Isael Systolic (mm Hg) 2022-03-26 13:48:[address] Diastolic (mm Hg) 2022-03-26 13:48:[address] [place] Heart Rate 2022-03-26 13:48:00 [facility] Respitory Rate 2022-03-26 13:48:00 Memori al Isael Height 2022-03-26 13:48:[address] [facility] Weight 2022-03-26 13:48:00 [facility] BMI Calculated 2022-03-26 13:48:00 Memori al Isael Diastolic (mm Hg) 2013-07-21 13:50:[address] [place] Systolic (mm Hg) 2013-07-21 13:50:[address] Heart Rate 2013-07-21 13:50:[address] [facility] Respitory Rate 2013-07-21 13:50:00 Memori al Isael Diastolic (mm Hg) 2013-07-21 13:45:[address] [place] Heart Rate 2013-07-21 13:45:[address] [facility] Respitory Rate 2013-07-21 13:45:[address] [place] Systolic (mm Hg) 2013-07-21 13:45:00 Karan rial Isael Systolic (mm Hg) 2013-07-21 13:40:00 Karan rial Iseal Respitory Rate 2013-07-21 13:40:00 Memori al Isael Diastolic (mm Hg) 2013-07-21 13:40:00 Mem orial Isael Heart Rate 2013-07-21 13:40:[address] [facility] Height 2013-07-21 11:28:00 162.56 cm [facility] Weight 2013-07-21 11:28:[address] [facility] Procedures Procedure Date / Time Performing Clinician Source Performed FREE T4 2022-07-15 21:38:00 Taylor Gomez [facility] TRIIODOTHYRONINE 2022-07-15 21:38:00 Taylor Gomez [facility] THYROID STIMULATING 2022-07-15 21:38:[address] [facility] HORMONE Medical Branch GLYCOSYLATED HEMOGLOBIN 2022-07-15 21:38:00 Taylor Gomez [facility] (A1C) Medical Branch AUTHORIZATION FOR RELEASE 2022-07-15 05:01:00 Doctor Unassigned, [facility] [place] [facility] PATIENT CORRESPONDENCE 2022-06-19 05:01:00 Doctor Unassigned, [facility] (LETTERS, USPS [place] [facility] DOCUMENTATION) POCT HEMOGLOBIN A1C TEST 2022-06-03 19:29:00 Taylor Gomez [facility] Encounters Start End Encounter Admission Attending Care Care Encounter Source Date/Time Date/Time Type Type Clinicians Facility Department ID 2023-08-08 2023-08-08 Outpatient MHIE MHIE [id number] Memoria 15:00:00 15:00:00 08 cody Kirkland 2023-08-05 2023-08-05 Outpatient MHIE MHIE [id number] Memoria 15:15:00 15:15:00 07 cody Kirkland 2023-07-29 2023-07-29 [facility] [id number] Univers 13:30:00 13:30:00 , KATELIN de la cruz [facility] [place] [facility] 2023-07-17 2023-07-17 Ambulatory MHIE MNA [id number] Memoria 20:30:00 20:30:00 Pre-Reg Neurology 06 cody Kirkland 2023-07-17 2023-07-17 Outpatient MHIE MHIE [id number] Memoria 15:30:00 15:30:00 06 cody Kirkland 2023-07-17 2023-07-17 Outpatient ALCIDES Spears MHMISCHER [id number] 15:30:00 15:30:00 Brandon 06 Tj 2023-07-14 2023-07-14 [facility] [id number] Univers 08:00:00 08:00:00 , KATELIN de la cruz [facility] [place] [facility] 2023-06-25 2023-06-25 [facility] 1.2.840.114 [id number] Univers 00:00:00 00:00:00 , Katelin MARIO [id number] Jamari 4.2.7.2.686 [facility] [id number] [address] DI[facility] 2023-06-03 2023-06-03 Outpatient SFA SFA [id number] Jb 16:08:48 16:08:48 [id number] Wm 2023-05-16 2023-05-17 Outpatient MHIE MNA [id number] Memoria 20:45:00 04:59:59 Neurology 05 cody CalderonArroyo Isael 2023-05-16 2023-05-16 Outpatient Regan MHMISCHER M[facility]ISCH[facility] [id number] 15:45:00 23:59:59 Brandon 05 Tj 2023-05-16 2023-05-16 Outpatient MHIE MHIE [id number] Memoria 15:45:00 15:45:00 05 cody Kirkland 2023-05-02 2023-05-02 Outpatient SFA SFA [id number] Jb 08:18:30 08:18:30 [id number] Wm 2023-04-18 2023-04-18 Outpatient SFA SFA [id number] Jb 10:05:41 10:05:41 [id number] F Wm 2023-02-24 2023-02-24 Outpatient Luis [facility] [id number] [facility] 16:30:00 16:30:00 , KATELIN [facility] [place] [facility] 2023-01-09 2023-01-10 Outpatient MHIE MNA [id number] Memoria 20:15:00 04:59:59 Neurology 04 cody Kirkland 2023-01-09 2023-01-09 Outpatient Regan MHMISCHER M[facility]ISCHER [id number] 15:15:00 23:59:59 Brandon 04 Tj 2023-01-09 2023-01-09 Outpatient MHIE MHIE [id number] Memoria 15:15:00 15:15:00 Tarah Kirkland 2022-10-14 2022-10-14 Outpatient Luis [facility] [id number] Univers 15:00:00 15:00:00 , KATELIN [facility] [place] [facility] 2022-10-11 2022-10-11 Refsingh Navasenti [facility] 1.2.840.114 [id number] Univers 00:00:00 00:00:00 , Katelin SHELBI 350.1.13.10 [place]2.686 [place] [id number] [address] [facility] 2022-10-09 2022-10-09 Outpatient R JASONTAYLOR [facility] [id number] Univers 16:30:00 16:30:00 TAYLOR GOMEZ [facility] [place] [facility] 2022-10-08 2022-10-08 Outpatient R АЛЕКСАНДР [facility] [id number] Univers 13:30:00 13:30:00 , KATELIN dorothy [facility] [place] [facility] 2022-09-11 2022-09-12 Outpatient MHIE MNA [id number] Memoria 17:30:00 05:59:59 Neurology 03 cody Kirkland 2022-09-11 2022-09-11 Outpatient JANETT SpearsUTMICA MISCHER [id number] 11:30:00 23:59:59 Brandon 03 Tj 2022-09-11 2022-09-11 Outpatient MHIE RAYRAY [id number] Memoria 11:30:00 11:30:00 03 cody Kirkland 2022-08-07 2022-08-07 Telephone Taylor Gomez [facility] [id number] Univers 00:00:00 00:00:00 HEALTH 350.1.13.10 it y of [place] 4.2.7.2.686 Pierre as JUNE?BLEA [id number] [address] MEDICAL OFFICE [facility] 2022-08-06 2022-08-06 Refill Jason [facility] 1.2.840.114 [id number] Univers 00:00:00 00:00:00 HEALTH 350.1.13.10 it y of [place] 4.2.7.2.686 Pierre as JUNE?BLEA [id number] [address] OFFICE [facility] 2022-07-21 2022-07-21 Patient Taylor Gomez [facility] 1.2.840.114 [id number] Univers 00:00:00 00:00:00 Secure Msg HEALTH 350.1.13.10 ity of [place] 4.2.7.2.686 Pierre as JUNE?BLEA [id number] [facility] [address] MEDICAL OFFICE [facility] 2022-07-15 2022-07-15 Traffic Control Supervisor Lab, Ang - Db [facility] 1.2.840.1 [id number] Univers 16:30:00 16:45:00 Visit JasonTaylor zuniga [facility] [id number] it y of [place] 4.2.7.2.686 Pierre as JUNE?BLEA [id number] Md kalin [facility] [address] [facility] OFFICE [facility] 2022-07-15 2022-07-15 Outpatient R TAYLOR GOMEZ [facility] [id number] Univers 16:00:00 16:27:53 JASON ROBLES [facility] [place] [facility] 2022-07-15 2022-07-15 Office Jason [facility] 1.2.840.114 [id number] Univers 16:00:00 16:27:53 Visit HEALTH 350.1.13.10 it y of [place] 4.2.7.2.686 Pierre as JUNE?BLEA [id number] [address] OFFICE [facility] 2022-07-15 2022-07-15 Orders Doctor KATELIN 1.2.840.114 [id number] Univers 00:00:00 00:00:00 Only Unassigned, LILLY 350.1.13.10 ity of [place] [facility] 4.2.7.2.686 Pierre as [id number] [address] 2022-07-12 2022-07-12 Telephone JasonTaylor [facility] [id number] Univers 00:00:00 00:00:00 HEALTH 350.1.13.10 it y of [place] 4.2.7.2.686 Pierre as JUNE?BLEA [id number] [address] MEDICAL OFFICE [facility] 2022-06-24 2022-06-24 Outpatient R АЛЕКСАНДР [facility] [id number] Univers 08:00:00 08:00:00 KATELIN [facility] 2022-06-24 2022-06-24 Outpatient R АЛЕКСАНДР [facility] [id number] Univers 08:00:00 08:00:00 , KATELIN dorothy [facility] 2022-06-19 2022-06-19 Orders Doctor KATELIN 1.2.840.114 [id number] Univers 00:00:00 00:00:00 Only Unassigned, LILLY 350.1.13.10 ity of [place] [facility] 4.2.7.2.686 Pierre as [id number] [address] 2022-06-17 2022-06-17 Traffic Control Supervisor Vtc-Lab [facility] 1.2.840.114 [id number] Univers 14:15:00 14:30:00 Visit Katelin Fountain 350.1.13.1 0 [place].2.686 [place] [id number] [address] [facility] 2022-06-17 2022-06-17 Outpatient R АЛЕКСАНДР [facility] [id number] Univers 13:00:00 13:49:14 , KATELIN dilansamia [facility] 2022-06-17 2022-06-17 Office [facility] 1.2.840.114 [id number] Univers 13:00:00 13:49:14 Visit , Katelin MARIO 350.1.13.10 [place].2.686 [place] [id number] [address] [facility] 2022-06-17 2022-06-17 Patient Александр [facility] 1.2.840.114 [id number] Univers 00:00:00 00:00:00 Secure Msg KatelinPEC 350.1.13.10 [place].2.686 [place] [id number] [address] [facility] 2022-06-17 2022-06-17 [facility] 1.2.840.114 [id number] Univers 00:00:00 00:00:00 Secure g KatelinPEC 350.1.13.10 [place].2.686 [place] [id number] [address] [facility] 2022-06-12 2022-06-13 Outpatient nullFlavo MNA [id number] Memoria 16:45:00 04:59:59 r Neurology 02 cody Kirkland 2022-06-13 2022-06-13 Telephone [facility] 1.2.840.114 [id number] Univers 00:00:00 00:00:00 , Katelin MARIO 350.1.13.10 ity of [facility] 4.2.7.2.686 [place] [id number] [address] [facility] 2022-06-12 2022-06-12 Outpatient ALCIDES Spears MISCHER [id number] 11:45:00 23:59:59 Brandon 02 Tj 2022-06-12 2022-06-12 Outpatient MHIE RAYRAY [id number] Memoria 11:45:00 11:45:00 02 cody Kirkland 2022-06-03 2022-06-03 Outpatient R TAYLOR GOMEZ [facility] [id number] Univers 14:30:00 15:41:29 TAYLOR GOMEZ of [facility] 2022-06-03 2022-06-03 Office Jason [facility] 1.2.840.114 [id number] Univers 14:30:00 15:41:29 Visit HEALTH 350.1.13.10 it y of [place] 4.2.7.2.686 Pierre as JUNE?BLEA [id number] Md kalin [address] MEDICAL OFFICE BUILDING 2022-05-13 2022-05-13 [facility] [id number] Univers 11:30:00 11:30:00 , KATELIN de la cruz of [facility] 2022-05-13 2022-05-13 Orders Doctor KATELIN 1.2.840.114 [id number] Univers 00:00:00 00:00:00 Only Unassigned, LILLY 350.1.13.10 ity of [place] [facility] 4.2.7.2.686 Pierre as [id number] [address] 2022-05-10 2022-05-10 Telephone [facility] 1.2.840.114 [id number] Univers 00:00:00 00:00:00 , Katelin MARIO 350.1.13.10 ity of [place] 4.2.7.2.686 [facility] [place] [id number] [address] DIABETES [facility] 2022-04-30 2022-05-01 Outpatient nullFlavo MNA [id number] Memoria 16:45:00 04:59:59 r Neurology [address] [place] 2022-04-30 2022-04-30 Outpatient Regan MHMISCHER MHMISCHER [id number] 11:45:00 23:59:59 Brandon 01 [facility] 2022-04-30 2022-04-30 Outpatient MHIE MHIE [id number] Memoria 11:45:00 11:45:00 01 cody [place] 2022-04-25 2022-04-25 Orders Doctor KATELIN 1.2.840.114 [id number] Univers 00:00:00 00:00:00 Only Unassigned, LILLY 350.1.13.10 [facility] 4.2.7.2.686 Pierre [id number] [address] 2022-03-26 2022-03-27 Outpatient nullFlavo MNA [id number] Memoria 14:00:00 04:59:59 r Neurology 00 l Jerad [place] 2022-03-26 2022-03-26 Outpatient ETHEL SpearsSCHER MHMISCHER [id number] 09:00:00 23:59:59 Brandon 00 [place] 2022-03-26 2022-03-26 Outpatient MHIE MHIE [id number] Memoria 09:00:00 09:00:[address] [place] 2022-03-13 2022-03-13 Telephone [facility] 1.2.840.114 [id number] Univers 00:00:00 00:00:00 , Katelin MARIO 350.1.13.10 ity of [place] 4.2.7.2.686 [facility] [place] [id number] [address] [facility] 2022-03-01 2022-03-01 Telephone [facility] 1.2.840.114 [id number] Univers 00:00:00 00:00:00 , Katelin MARIO 350.1.13.10 [place] [id number] [facility] [place] [address] [facility] 2022-03-01 2022-03-01 Orders Doctor KATELIN 1.2.840.114 [id number] Univers 00:00:00 00:00:00 Only Unassigned, LILLY 350.1.13.10 ity of [place] [facility] 4.2.7.2.686 Pierre as [id number] [facility] [address] 2022-02-28 2022-02-28 Outpatient R [facility] [id number] Univers 09:56:32 23:59:00 , KATELIN de la cruz of [facility] 2022-02-28 2022-02-28 [facility] 1.2.840.114 [id number] Univers 09:45:00 23:59:00 Encounter Katelin 350.1.13.10 ity of [place] 4.2.7.2.686 [facility] [place] [id number] [facility] [address] 2022-02-28 2022-02-28 Emergency X [facility] ERT [id number] Univers 09:29:00 10:13:00 , KATELIN de la cruz of [facility] 2022-02-28 2022-02-28 Emergency [facility] [id number] Univers 09:29:00 10:13:00 PAUL 350.1.13.10 i ty of [place] [id number] [facility] [address] 2022-02-21 2022-02-21 Traffic Control Supervisor Vtc-Lab [facility] 1.2.840.114 [id number] Univers 13:15:00 13:30:00 Visit Katelin Fountain 350.1.13.1 0 [place] [id number] [facility] [address] [facility] 2022-02-21 2022-02-21 Outpatient R [facility] [id number] Univers 13:15:00 13:15:00 , KATELIN de la cruz [facility] 2022-02-21 2022-02-21 Office [facility] 1.2.840.114 [id number] Univers 11:00:00 12:22:13 Visit , Katelin MARIO 350.1.13.10 [facility] 4.2.7.2.686 [facility] [id number] [address] [facility] 2022-02-21 2022-02-21 Outpatient R [facility] [id number] Univers 11:00:00 12:22:13 , KATELIN de la cruz [facility] 2022-02-18 2022-02-18 Outpatient R [facility] [id number] Univers 08:00:00 08:00:00 , KATELIN kongsamia [facility] 2022-01-31 2022-01-31 Orders Doctor KATELIN [id number] [id number] Univers 00:00:00 00:00:00 Only Unassigned, LILLY 350.1.13.10 ity of [place] [facility] 4.2.7.2.686 [facility] [id number] [place] [address] Branch 2013-07-21 2013-07-21 Outpatient 2.16.840. 2.16.840.1. 3 [id number] [facility] 06:17:00 12:30:00 [id number]. [id number] 01 l 3.615.0.1 5.0.101 [place] [facility] 2013-07-21 2013-07-21 Outpatient 2.16.840. 2.16.840.1. 3 [id number] [facility] 06:17:00 12:30:00 1.323498. [id number] 01 l 3.615.0.1 5.0.101 [place] 01 [facility] l 2013-07-21 2013-07-21 Outpatient 2.16.840. 2.16.840.1. 3 [id number] [facility] 06:17:00 12:30:00 [id number]. [id number] 01 l 3.615.0.1 5.0.101 [place] 01 [facility] 2013-07-21 2013-07-21 Outpatient 2.16.840. 2.16.840.1. 3 [id number] [facility] 06:17:00 12:30:00 1.192080. [id number] 01 l 3.615.0.1 5.0.101 [place] [facility] 2013-07-21 2013-07-21 Outpatient 2.16.840. 2.16.840.1. 3 [id number] [facility] 06:17:00 12:30:00 1.374969. [id number] 01 l 3.615.0.1 5.0.101 [place] [facility] 2013-07-21 2013-07-21 [facility] [id number] Memoria 06:17:00 12:30:[address] Results Test Description Test Time Test Comments Results Result Comments Source TRIIODOTHYRONINE 2022-07-16 07:02:50 Test Item Value Reference Range Interpretation Comme nts T3 (test code = 1683029030) 112.0 ng/dL 97-170 Lab Interpretation (test code = 01896-1) [facility] [id number] 05:11:00 Test Item Value Reference Range Interpretation Comments TSH (test code = See_Comment [Automated message] [id number]) The system Neuravi generated this result transmitted ref erence range: 0.45 - 4 .70 mIU/L. The refe rence range was not u sed to interpret this result as normal/abnor mal. Lab Interpretation (test Normal code = 64297-7) [facility] [id number] 04:57:19 Test Item Value Reference Range Interpretation Comments FREE T4 (test code = See_Comment [Autom ated message] [id number]) The system Neuravi generated this result transmitted ref erence range: 0.78 - 2 .20 ng/dL:. The ref erence range was not u sed to interpret this result as normal/abnor mal. Lab Interpretation (test Normal code = 74988-7) [facility] (A1C)2022-07-16 03:33:21 Test Item Value Reference Range Interpretation Comments HGB A1C (test code = 9.2 % 4-5.7 H 4548-4) TRAV (test code = TRAV) Reference RangesNormal: <5.7%Prediabetes: 5.7 - 6.4%Diabetes: > 6.5% Lab Interpretation (test Abnormal code = 88098-9) [facility]C [id number] 19:29:00 Test Item Value Reference Range Interpretation Comments POCT HBA1C (test code = 4548-4) 9.0 % 4-6 A Lab Interpretation (test code = Abnormal 06675-5) [facility] 12:54:00 Test Item Value Reference Range Interpretation Comments Segs (test code = Segs) 64.1 [facility]villeSyquyllSQQQYNIZYT7678-05-42 12:54:00 Test Item Value Reference Range Interpretation Comments Lymphocytes (test code = Lymphocytes) 21.6 [facility]villeGlcdqhlFMDZIZRUHZ6506-31-95 12:54:00 Test Item Value Reference Range Interpretation Comments Monocytes (test code = Monocytes) 11.1 [facility]villeIrvpwboCKNWNAKCYI6948-12-23 12:54:00 Test Item Value Reference Range Interpretation Comments Eosinophils (test code = Eosinophils) 2.5 [facility] GreenvilleGubdegqULHBLKVOJQ0855-28-13 12:54:00 Test Item Value Reference Range Interpretation Comments Basophils (test code = Basophils) 0.7 [facility] GreenvilleYxwiaqvRZJVLLINJQ1240-91-72 12:54:00 Test Item Value Reference Range Interpretation Comments Sed Rate (test code = Sed Rate) 9 [facility]2022-06-22 12:54:00 Test Item Value Reference Range Interpretation Comments Vitamin B12 Lvl (test code = Vitamin 408 904-2018 B12 Lvl) [facility]2022-06-22 12:54:00 Test Item Value Reference Range Interpretation Comments Glucose Lvl (test code = Glucose Lvl) 70 65-99 [facility]2022-06-22 12:54:00 Test Item Value Reference Range Interpretation Comments BUN (test code = BUN) 34 7-25 [facility]2022-06-22 12:54:00 Test Item Value Reference Range Interpretation Comments Creatinine Lvl (test code = Creatinine 1.50 0.70-1.18 Lvl) [place] 646922-06-22 12:54:00 Test Item Value Reference Range Interpretation Comments eGFR NON-AFR. SAUDI ARABIAN (test code = 44 eGFR NON-AFR. SAUDI ARABIAN) [place] 646922-06-22 12:54:00 Test Item Value Reference Range Interpretation Comments eGFR (test code = eGFR 51 ) [place] 646922-06-22 12:54:00 Test Item Value Reference Range Interpretation Comments B/C Ratio (test code = B/C Ratio) 23 6-22 [place] 646922-06-22 12:54:00 Test Item Value Reference Range Interpretation Comments Sodium Lvl (test code = Sodium Lvl) 140 135-146 [place] 646922-06-22 12:54:00 Test Item Value Reference Range Interpretation Comments Potassium Lvl (test code = Potassium 4.4 3.5-5.3 Lvl) [place] 646922-06-22 12:54:00 Test Item Value Reference Range Interpretation Comments Chloride Lvl (test code = Chloride Lvl) 104 98-110 [place] 646922-06-22 12:54:00 Test Item Value Reference Range Interpretation Comments CO2 (test code = CO2) 29 20-32 [place] 646922-06-22 12:54:00 Test Item Value Reference Range Interpretation Comments Calcium Lvl (test code = Calcium Lvl) 8.8 8.6-10.3 [place] 646922-06-22 12:54:00 Test Item Value Reference Range Interpretation Comments Total Protein (test code = Total 6.4 6.1-8.1 Protein) [place] 646922-06-22 12:54:00 Test Item Value Reference Range Interpretation Comments Albumin Lvl (test code = Albumin Lvl) 4.0 3.6-5.1 [place] 646922-06-22 12:54:00 Test Item Value Reference Range Interpretation Comments Globulin (test code = Globulin) 2.4 1.9-3.7 [place] 646922-06-22 12:54:00 Test Item Value Reference Range Interpretation Comments A/G Ratio (test code = A/G Ratio) 1.7 1.0-2.5 [facility]2022-06-22 12:54:00 Test Item Value Reference Range Interpretation Comments Bili Total (test code = Bili Total) 0.4 0.2-1.2 [facility]2022-06-22 12:54:00 Test Item Value Reference Range Interpretation Comments Alk Phos (test code = Alk Phos) 63 35-144 [facility]2022-06-22 12:54:00 Test Item Value Reference Range Interpretation Comments ASPARTATE TRANSAMINASE (test code = 10 10-35 ASPARTATE TRANSAMINASE) [facility]2022-06-22 12:54:00 Test Item Value Reference Range Interpretation Comments ALANINE AMINOTRANSFERASE (test code = 12 9-46 ALANINE AMINOTRANSFERASE) [place] 460942-06-22 12:54:00 Test Item Value Reference Range Interpretation Comments WBC X 10x3 (test code = WBC X 10x3) 7.2 3.8-10.8 [place] 460942-06-22 12:54:00 Test Item Value Reference Range Interpretation Comments RBC X 10x6 (test code = RBC X 10x6) 3.68 4.20-5.80 [facility] GreenvilleQpmyfafIDECMARUBZ6459-16-82 12:54:00 Test Item Value Reference Range Interpretation Comments Hgb (test code = Hgb) 11.3 13.2-17.1 [facility] GreenvillePyyedivFZKBTTAYWB5516-13-69 12:54:00 Test Item Value Reference Range Interpretation Comments Hct (test code = Hct) 34.9 38.5-50.0 [place] 460942-06-22 12:54:00 Test Item Value Reference Range Interpretation Comments MCV (test code = MCV) 94.8 80.0-100.0 [place] 460942-06-22 12:54:00 Test Item Value Reference Range Interpretation Comments MCH (test code = MCH) 30.7 pg 27.0-33.0 [place] 460942-06-22 12:54:00 Test Item Value Reference Range Interpretation Comments MCHC (test code = MCHC) 32.4 32.0-36.0 [place] 460942-06-22 12:54:00 Test Item Value Reference Range Interpretation Comments RDW (test code = RDW) 12.5 11.0-15.0 [facility] GreenvilleXeokpfuCMXIQVBDLY2674-94-65 12:54:00 Test Item Value Reference Range Interpretation Comments Platelet (test code = Platelet) 242 140-400 [facility] GreenvilleJhdrdekKDTEVOXOLI8263-67-04 12:54:00 Test Item Value Reference Range Interpretation Comments MPV (test code = MPV) 10.5 7.5-12.5 [facility] GreenvilleQormwhkKCPWJDKPXL2784-35-13 12:54:00 Test Item Value Reference Range Interpretation Comments Neutrophils # (test code = Neutrophils 4615 0604-4128 #) [facility] GreenvilleZstdejbCYLLSJJQTI6393-89-43 12:54:00 Test Item Value Reference Range Interpretation Comments Lymphocytes # (test code = Lymphocytes 0527 229-1473 #) [facility] GreenvilleIafzyaeVITCNILTQD7044-65-19 12:54:00 Test Item Value Reference Range Interpretation Comments Monocytes # (test code = Monocytes #) 799 200-950 [facility] GreenvilleWgayxtgQSUPBEJOZC9535-95-98 12:54:00 Test Item Value Reference Range Interpretation Comments Eosinophils # (test code = Eosinophils 180 15-500 #) [facility] GreenvilleWepwyxpPWTUHHLOLM5063-92-96 12:54:00 Test Item Value Reference Range Interpretation Comments Basophils # (test code = Basophils #) 50 <=[address] [facility] GLUCOSE MYYGUKJ7297-83-03 11:43:00 Test Item Value Reference Range Interpretation Comments Gluc POC Comment 1 (test code = Notify RN/MD Gluc POC Comment 1) [facility] GLUCOSE SKURICW9845-42-10 11:43:00 Test Item Value Reference Range Interpretation Comments Glucose POC (test code = Glucose POC) 139 70-99 H [facility]
[2023-08-04 09:17] LABS: Absolute Lymphocytes (CBC) 1.6 K/uL (0.7-4.9); Hematocrit 31.4 % (39.6-49.0); Lymphocytes % 21.6 % (15.3-44.8); MCV 88.8 fL (80-100); MPV 8.1 fL (7.6-11.3); Platelets 247 thou/uL (152-406); RBC Red Blood Cell Count 3.54 M/uL (4.33-5.43)
[2023-08-04 09:20] LABS: Protime INR 1.02
[2023-08-04 09:35] LABS: ALT/SGPT 15 U/L (16-61); AST/SGOT 7 U/L (15-37); Albumin 2.9 g/dL (3.4-5.0); Alkaline Phosphatase 77 U/L (45-117); BUN Blood Urea Nitrogen 17 mg/dL (7-18); Bicarbonate 34 mEq/L (21-32); Bilirubin Direct < 0.1 mg/dL (0-0.2); Bilirubin Indirect, Calculated ND mg/dL (0.2-0.8); Bilirubin Total 0.2 mg/dL (0.2-1.0); Glomerular Filtration Rate 63 ml/min (=/>90); Glucose Level 151 mg/dL (74-106); Magnesium 1.8 mg/dL (1.6-2.4); NT PRO-BNP 755 pg/mL (<450); Potassium 3.9 mEq/L (3.5-5.1); Protein, Total 6.4 g/dL (6.4-8.2); Sodium Level 143 mEq/L (136-145); Troponin High Sensitivity 8.7 pg/mL (<58.9)
--- NOTE | 2023-08-04 09:51 | RAD REPORT ---
EXAM DESCRIPTION: Rima Single View08/04/2023 9:26 am CLINICAL HISTORY: Shortness of breath COMPARISON: 2021 FINDINGS: The lungs appear clear of acute infiltrate. The heart is mildly to moderately enlarged IMPRESSION: No acute abnormalities displayed
[2023-08-04] MEDS ORDERED: FUROSEMIDE 40 MG/4 ML VIAL ONE (09:52)
--- NOTE | 2023-08-04 10:24 | EDPHYS ---
Physician Documentation [facility] Name: Arturo Saldana Sr Age: 78 yrs Sex: Male : 1945 Arrival Date: 08/04/2023 Time: 08:29 Bed 19 Private MD: ED Physician Aj Hu HPI: 08/04 09:06 This 78 yrs old Male presents to ER via Ambulatory with complaints of Swelling rn of Arm/Hands/Feet. 09:06 Patient and family report 4 days of increased swelling, all over. Has a history of rn congestive heart failure, diabetes, kidney problems in the past. PCP sent him here for evaluation. States takes Lasix once daily and reports compliance. Does sleep in recliner. No fever. No history of DVT or PE. Denies shortness of breath but family states does not really get around and walk. Onset: The symptoms/episode began/occurred 4 day(s) ago. Severity of symptoms: At their worst the symptoms were moderate in the emergency department the symptoms are unchanged. The patient has experienced similar episodes in the past. The patient has been recently seen by a physician:. Historical: - Allergies: 08:39 No Known Allergies; iw - PMHx: 08:39 Congestive heart failure; CVA; depressive disorder; Diabetes - IDDM; iw Hypercholesterolemia; Hypertensive disorder; - PSHx: 08:39 None; iw - Social history:: Smoking status: Patient denies any tobacco usage or history of. - Family history:: not pertinent. - Hospitalizations: : No recent hospitalization is reported. ROS: 09:06 Constitutional: Negative for fever, chills, and weight loss, Cardiovascular: Positive rn for diffuse edema Respiratory: Negative for shortness of breath, cough, wheezing, and pleuritic chest pain, Abdomen/GI: Negative for abdominal pain, nausea, vomiting, diarrhea, and constipation, MS/Extremity: Positive for swelling Skin: Negative for injury, rash, and discoloration, Neuro: Negative for headache, weakness, numbness, tingling, and seizure, Exam: 09:02 ECG was reviewed by the Attending Physician. rn 09:06 Constitutional: This is a well developed, well nourished patient who is awake, alert, rn and in no acute distress. Cardiovascular: Bradycardic, regular. No pulse deficits. Respiratory: Mild tachypnea Abdomen/GI: Soft, non-tender Skin: Warm, dry MS/ Extremity: Pulses equal, no cyanosis. Neurovascular intact. Full, normal range of motion. Equal circumference. 2+ pitting edema bilateral lower extremities Neuro: Awake and alert, GCS 15 Vital Signs: 08:38 BP 127 / 64; Pulse 53; Resp 18; Pulse Ox 97% on R/A; Weight 79.83 kg; Height 5 ft. 3 iw in. ; 09:11 BP 142 / 63; Pulse 57; Resp 16; Temp 97.7(O); Pulse Ox 98% on R/A; Pain 0/10; kc6 09:58 BP 133 / 76; Pulse 69; Resp 18 S; Pulse Ox 97% on R/A; kc6 08:38 Body Mass Index 31.18 (79.83 kg, 160.02 cm) iw 09:11 Pain Scale: Adult kc6 MDM: 08:37 Patient medically screened. rn 09:39 Differential Diagnosis Edema, congestive heart failure, renal failure. Data reviewed: rn vital signs, nurses notes, lab test result(s), EKG, radiologic studies. Independent interpretation of the following test(s) in the Emergency Department EKG: See my EKG interpretation above X-Ray: My interpretation is Chest x-ray with mild pulmonary edema, no pleural effusions per my interpretation. Historians other than the Patient: Daughter/Son: Majority of HPI is obtained from daughter. Care significantly affected by the following chronic conditions: Hypertension, Congestive Heart Failure. Counseling: I had a detailed discussion with the patient and/or guardian regarding the historical points, exam findings, and any diagnostic results supporting the discharge/admit diagnosis, lab results, radiology results, the need for outpatient follow up, to return to the emergency department if symptoms worsen or persist or if there are any questions or concerns that arise at home. 10:22 Response to treatment: the patient's symptoms have mildly improved after treatment, and rn as a result, I will discharge patient. Special discussion: I discussed with the patient/guardian in detail that at this point there is no indication for admission to the hospital. It is understood, however, that if the symptoms persist or worsen the patient needs to return immediately for re-evaluation. ED course: I have personally reviewed all of the results, including but not limited to blood tests and imaging deemed necessary to safely discharge this patient at this time. All results given to and printed out for patient. I personally went over all the results with the patient and answered all questions. Patient will follow-up with PCP and or specialist as discussed. Return precautions given and understood. Recommend doubling his Lasix for the next 3 days and PCP follow-up.. 08/04 08:54 Order name: BMP; Complete Time: 09:35 rn 08/04 08:54 Order name: CBC with Diff; Complete Time: : rn 08/04 08:54 Order name: Hepatic Function; Complete Time: : rn 08/04 08:54 Order name: Magnesium; Complete Time: : rn 08/04 08:54 Order name: NT PRO-BNP; Complete Time: :08/04 08:54 Order name: PT-INR; Complete Time: :08/04 08:54 Order name: Ptt, Activated; Complete Time: :08/04 08:54 Order name: Troponin HS; Complete Time: :08/04 08:54 Order name: XRAY CXR (1 view); Complete Time: 09:08/04 08:54 Order name: EKG; Complete Time: 08:55 rn 08/04 08:54 Order name: Cardiac monitoring; Complete Time: :08/04 08:54 Order name: EKG - Nurse/Tech; Complete Time: :08/04 08:54 Order name: IV Saline Lock; Complete Time: :08/04 08:54 Order name: Labs collected and sent; Complete Time: :08/04 08:54 Order name: O2 Per Protocol; Complete Time: :08/04 08:54 Order name: O2 Sat Monitoring; Complete Time: : rn EC:02 Rate is 52 beats/min. Rhythm is regular. QRS Ethel is Normal. AK interval is normal. QRS rn interval is normal. QT interval is normal. No Q waves. T waves are Normal. No ST changes noted. Clinical impression: Normal ECG. Interpreted by me. Reviewed by me. Administered Medications: 09:43 Drug: Furosemide IVP 40 mg IVP once; give over 2 minutes Route: IVP; Site: right kc6 antecubital; 09:58 Follow up: Response: No adverse reaction [facility] Disposition Summary: 08/04/23 10:23 Discharge Ordered Notes: Location: Home rn Problem: chronic rn Symptoms: have improved rn Condition: Stable rn Diagnosis - Unspecified combined systolic (congestive) and diastolic (congestive) heart failure rn - Edema, unspecified rn Followup: rn - With: Private Physician - When: 2 - 3 days - Reason: Recheck today's complaints, Re-evaluation by your physician Discharge Instructions: - Discharge Summary Sheet rn - Peripheral Edema rn - Heart Failure, Self-Care, Qfkj-jv-Pvly rn Forms: - Medication Reconciliation Form rn - Thank You Letter rn - Antibiotic spring internship - Prescription Opioid Use rn - Patient Portal Instructions rn - Leadership Thank You Letter rn Signatures: Dispatcher [employer] Magda Arauz RN Aj Medrano MD MD rn Campbell, Kaitlyn, RN RN [id number]
--- NOTE | 2023-08-04 10:24 | ER ---
Nurse's Notes [facility] Name: Arturo Saldana Sr Age: 78 yrs Sex: Male : 1945 Arrival Date: 08/04/2023 Time: 08:29 Bed 19 Private MD: Diagnosis: Unspecified combined systolic (congestive) and diastolic (congestive) heart failure;Edema, unspecified Presentation: 08/04 08:38 Chief complaint: Patient's son or daughter states: swelling arm and hand, worse on iw right, started Friday , also has leg swelling. Coronavirus screen: At this time, the client does not indicate any symptoms associated with coronavirus-19. Ebola Screen: Patient negative for fever greater than or equal to 101.5 degrees Fahrenheit, and additional compatible Ebola Virus Disease symptoms Patient denies exposure to infectious person. Patient denies travel to an Ebola-affected area in the 21 days before illness onset. No symptoms or risks identified at this time. Initial Sepsis Screen: Does the patient meet any 2 criteria? No. Patient's initial sepsis screen is negative. Does the patient have a suspected source of infection? No. Patient's initial sepsis screen is negative. Risk Assessment: Do you want to hurt yourself or someone else? Patient reports no desire to harm self or others. Onset of symptoms was August 01, 2023. 08:38 Method Of Arrival: Ambulatory iw 08:38 Acuity: MADELYN 3 iw Historical: - Allergies: 08:39 No Known Allergies; iw - PMHx: 08:39 Congestive heart failure; CVA; depressive disorder; Diabetes - IDDM; iw Hypercholesterolemia; Hypertensive disorder; - PSHx: 08:39 None; iw - Social history:: Smoking status: Patient denies any tobacco usage or history of. - Family history:: not pertinent. - Hospitalizations: : No recent hospitalization is reported. Screenin:44 [facility] ED Fall Risk Assessment (Adult) History of falling in the last 3 months, kc6 including since admission No falls in past 3 months (0 pts) Confusion or Disorientation No (0 pts) Intoxicated or Sedated No (0 pts) Impaired Gait No (0 pts) Mobility Assist Device Used No (0 pt) Altered Elimination No (0 pt) Score/Fall Risk Level 0 - 2 = Low Risk. Abuse screen: Denies threats or abuse. Denies injuries from another. Nutritional screening: No deficits noted. Tuberculosis screening: No symptoms or risk factors identified. Assessment: 09:09 General: Appears in no apparent distress. comfortable, Behavior is calm, cooperative, kc6 appropriate for age. Pain: Denies pain. Neuro: Level of Consciousness is awake, alert, obeys commands, Oriented to person, place, time, situation, Appropriate for age. Cardiovascular: Denies chest pain, Heart tones S1 S2 present Capillary refill < 3 seconds Edema is 3+ to right arm, MORGAN lower extremities pitting to right arm, MORGAN lower extremities Rhythm is sinus bradycardia. Respiratory: Airway is patent Trachea midline Respiratory effort is even, unlabored, Respiratory pattern is regular, symmetrical, Denies shortness of breath. GI: No signs and/or symptoms were reported involving the gastrointestinal system. : No signs and/or symptoms were reported regarding the genitourinary system. EENT: No signs and/or symptoms were reported regarding the EENT system. Derm: No signs and/or symptoms reported regarding the dermatologic system. Skin is intact, is healthy with good turgor, Skin is pink, warm \T\ dry. Musculoskeletal: No signs and/or symptoms reported regarding the musculoskeletal system. Circulation, motion, and sensation intact. Capillary refill < 3 seconds, Range of motion: intact in all extremities. 09:58 Reassessment: Patient appears in no apparent distress at this time. No changes from kc6 previously documented assessment. Patient and/or family updated on plan of care and expected duration. Pain level reassessed. Patient is alert, oriented x 3, equal unlabored respirations, skin warm/dry/pink. Vital Signs: 08:38 BP 127 / 64; Pulse 53; Resp 18; Pulse Ox 97% on R/A; Weight 79.83 kg; Height 5 ft. 3 iw in. ; 09:11 BP 142 / 63; Pulse 57; Resp 16; Temp 97.7(O); Pulse Ox 98% on R/A; Pain 0/10; kc6 09:58 BP 133 / 76; Pulse 69; Resp 18 S; Pulse Ox 97% on R/A; kc6 08:38 Body Mass Index 31.18 (79.83 kg, 160.02 cm) iw 09:11 Pain Scale: Adult kc6 ED Course: 08:31 Patient arrived in ED. rg4 08:37 Aj Hu MD is Attending Physician. rn 08:39 Triage completed. iw 08:40 Arm band placed on. iw 08:44 Rachel Rehman, RN is Primary Nurse. kc6 08:45 Patient has correct armband on for positive identification. Bed in low position. Call kc6 light in reach. Side rails up X 1. Adult w/ patient. Client placed on continuous cardiac and pulse oximetry monitoring. NIBP monitoring applied. cardiac monitor on. 09:09 Inserted saline lock: 20 gauge in right antecubital area, using aseptic technique. kc6 Blood collected. Patient maintains SpO2 saturation greater than 95% on room air. 09:28 XRAY CXR (1 view) In Process Unspecified. EDMS 10:29 No provider procedures requiring assistance completed. IV discontinued, intact, kc6 bleeding controlled, No redness/swelling at site. Pressure dressing applied. Administered Medications: 09:43 Drug: Furosemide IVP 40 mg IVP once; give over 2 minutes Route: IVP; Site: right kc6 antecubital; 09:58 Follow up: Response: No adverse reaction kc6 Medication: 10:30 VIS not applicable for this client. kc6 Outcome: 10:23 Discharge ordered by . rn 10:29 Discharged to home ambulatory, with family, with significant other, kc6 10:29 Condition: stable 10:29 Discharge instructions given to patient, Instructed on discharge instructions, follow up and referral plans. Demonstrated understanding of instructions, follow-up care, 10:30 Patient left the ED. kc6 Signatures: Dispatcher [employer] EDMS Magda Aguayo RN RN Aj Hu MD MD rn Garcia, Rubi rg4 Rachel Rehman RN RN kc6 Corrections: (The following items were deleted from the chart) 08:41 08:38 Resp 18bpm; Pulse Ox 97% RA; 79.83 kg; Height 5 ft. 3 in.; BMI: 31.1; [facility]
[2023-08-04 10:37] VITALS: TEMP 97.7
[2023-08-04 10:38] VITALS: BP 133/76; O2SAT 97
--- NOTE | 2023-08-05 07:52 | EKG ---
Test Date: 2023-08-04 Test Time: 08:57:39 Public Health: [facility] MEASUREMENT RESULTS: Intervals: Rate: 52 HI: 182 QRSD: 94 QT: 460 QTc: 427 [place]: P: -23 HI: 182 QRS: 59 T: 90 INTERPRETIVE STATEMENTS: Sinus bradycardia Otherwise normal ECG Compared to ECG 05/30/2023 20:46:22 Sinus rhythm no longer present Electronically Signed On 08-05-23 07:49:57 CDT by Rashid Jane
== END 2023-08-04 10:30 | disposition home or self-care (01) ==
LOC: ER 08:29
DX: I50.40 Unspecified combined systolic (congestive) and diastolic (congestive) heart failure (principal); I10 Essential (primary) hypertension; E11.9 Type 2 diabetes mellitus without complications; Z86.73 Personal history of transient ischemic attack (TIA), and cerebral infarction without residual deficits
CPT/HCPCS: 93005; 85025; 80048; 36415; 83735; 85610; 80076; 85730; 84484; 83880; 71045; 96374; 99285; J1940

== ENCOUNTER 2023-08-11 18:48 | Emergency (ER) | payer OTHER ==
--- OUTSIDE RECORDS SUMMARY | 2023-08-11 18:55 | XMS REPORT | Continuity of Care Document ---
:1945 Author Organization [facility] t Address [address] [place] [address] [place] [id number] Care Team Providers Name Role Phone PRIMO HORTON Primary Care Physician Unavailable Brandon Spears Attending Clinician KATELIN FOUNTAIN Attending Clinician Unavailable Katelin Fountain MD Attending Clinician TAYLOR GOMEZ Attending Clinician Unavailable TAYLOR GOMEZ Attending Clinician Unavailable Lab, Ang - Db Attending Clinician Unavailable Doctor Unassigned, Mott Attending Clinician Unavailable Vtc-Lab Attending Clinician Unavailable KATELIN FOUNTAIN Admitting Clinician Unavailable Payers Payer Name Policy Type Policy Number Effective Date Expiration Date Claudia parker BOB/DAWN [id number] 2020 MEDICARE ADVANTAGE 00:00:00 Problems Condition Condition Condition Status Onset Resolution Last Treating Co mments Source Name Details Category Date Date Treatment Clinician Date Type 2 Type 2 Disease Active [facility] diabetes diabetes 06-09 ity of mellitus mellitus 00:00: [place] without without 00 Medical complicati complicati Br anch on, on, without without long-term long-term current current use of use of insulin insulin MORGAN MORGAN Diagnosis Active 2012-102013-07-21 Mem oria CAROTID CAROTID 0-04 06:27:00 l STENOSIS STENOSIS 00:00: Kane zuniga ICD-9# ICD-9# 00 733.11 733.11 Active 07/09/2013 [facility] Hyperchole Hyperchol Problem Resolve 2013-07-27 Memoria sterolemia esterolemi d 23:19:47 l (disorder) a Kane zuniga (disorder) Resolved Problem 07/27/2013 [facility] Diabetes Diabetes Problem Resolve 2013-07-27 Memoria mellitus mellitus d 23:19:47 l type 1 type 1 Isael (disorder) (disorder) Resolved Problem 07/27/2013 [facility] 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 23:19:47 l (disorder) (disorder) He rmann Resolved Problem 07/27/2013 <sup>1</rivera p>carotid [facility] Amnesia Amnesia Problem Active 2023-08-08 Me moria (finding) (finding) 02:52:36 l Active Isael Problem 08/08/2023 [facility] [place] Diabetes Diabetes Problem Active 2023-08-08 Memoria mellitus mellitus 02:52:36 l (disorder) (disorder) He rmann Active Problem 08/08/2023 [facility] [place] Hyperlipid Problem Active 2023-08-08 M mirtha emia Hyperlipid 02:52:36 l (disorder) ted Kane n (disorder) Active Problem 08/08/2023 [facility] [place] Hypertensi Hypertens Problem Active 2023-08-08 Memoria ve david 02:52:36 l disorder, disorder, Herm keri systemic systemic arterial arterial (disorder) (disorder) Active Problem 08/08/2023 [facility] [place] Impaired Impaired Problem Active 2023-08-08 Memoria cognition cognition 02:52:36 l (finding) (finding) Herm keri Active Problem 08/08/2023 [facility] [place] Renal Renal Problem Active 2023-08-08 Memor ia impairment impairment 02:52:36 l (disorder) (disorder) He rmann Active Problem 08/08/2023 [facility] [place] Dementia Dementia Problem Active 2023-08-08 Memoria (disorder) (disorder) 02:52:36 l Active [place] Problem 08/08/2023 [facility] [place] Depressive Depressiv Problem Active 2023-08-08 Memoria disorder e disorder 02:52:36 l (disorder) (disorder) He rmann Active Problem 08/08/2023 [facility] [place] PATHOLOGIC PATHOLOGI Diagnosis Active 2013-07-21 Memoria AL FX BLANCA FX 06:27:00 l HUMEROUS HUMEROUS Kane n Active [facility] Allergies, Adverse Reactions, Alerts Allergy Allergy Status Severity Reaction(s) Onset Inactive Treating Comm ents Source Name Type Date Date Clinician NO KNOWN Drug Active [facility] Social History Social Habit Start Date Stop Date Quantity Comments Source Sexual orientation [facility] Exposure to 2022-07-05 2022-07-15 Not sure [facility] SARS-CoV-2 (event) 00:00:00 15:49:00 Medica l Branch History of Social 2022-02-21 2022-02-21 [facility] function 00:00:00 00:00:00 Medical Branch Sex [birth year] [facility] 00:00:00 00:00:00 Medical Branch Smoking Status Start Date Stop Date Source Tobacco smoking consumption [facility] Tobacco smoking status [facility] Medications Ordered Filled Start Stop Current Ordering Indication Dosage Frequency Signature Comments Components Source Medication Medication Date Date Medication? Clinician (SIG) Name Name Aricept 10 Yes 10 mg = 1 Me moria mg oral 8-11 tab, PO, l tablet 21:09: Bedtime, # Aura nn 00 30 tab, 3 Refill(s), [facility] [id number], 157.48, cm, 05/16/23 15:43:00 CDT, Height, 86.364, kg, 05/16/23 15:43:00 CDT, Weight citalopram Yes 10 mg = 1 Me moria 10 mg oral 8-11 tab, PO, l tablet 21:08: Daily, # Isael 00 30 tab, 3 Refill(s), [facility] [id number], 157.48, cm, 05/16/23 15:43:00 CDT, Height, 86.364, kg, 05/16/23 15:43:00 CDT, Weight divalproex Yes = 1 tab, Mem oria sodium 250 8-11 PO, BID, # l mg oral 21:07: 60 tab, 3 Aura nn tablet, 00 Refill(s), extended Pharmacy: release [facility] ([facility]) [id number], 157.48, cm, 05/16/23 15:43:00 CDT, Height, 86.364, kg, 05/16/23 15:43:00 CDT, Weight Aricept 10 Yes 10 mg = 1 Me moria mg oral 4-06 tab, PO, l tablet 20:49: Bedtime, # Aura nn 00 30 tab, 3 Refill(s), Pharmacy: [facility] [id number], 154.94, cm, 01/09/23 15:23:00 CDT, Height, 85.909, kg, 01/09/23 15:23:00 CDT, Weight divalproex Yes = 1 tab, Mem oria sodium 250 4-03 PO, Daily, l mg oral 16:17: # 30 tab, Aura nn tablet, 00 3 extended Refill(s), release Pharmacy: ([facility] [id number], 154.94, cm, 09/11/22 11:47:00 PULP TESTER, Height, 86.364, kg, 09/11/22 11:47:00 PULP TESTER, Weight Depakote ER 2021-10 Yes 250 mg = 1 Memoria 250 mg oral 2-07 tab, PO, l tablet, 18:03: Daily, # Kane n extended 00 30 tab, 3 release Refill(s), Pharmacy: [facility] [id number], 154.94, cm, 09/11/22 11:47:00 PULP TESTER, Height, 86.364, kg, 09/11/22 11:47:00 PULP TESTER, Weight semaglutide 2021-10 Yes [id number] 6mg Take 6 mg Univers ([facility]) -01 by mouth ity o f 3 mg Tab 00:00: daily. [address] Branch semaglutide 2021-10 Yes [id number] 6mg Take 6 mg Univers ([facility]) 1-01 by mouth ity o f 3 mg Tab 00:00: daily. [address] semaglutide 2021-10 Yes [id number] 3mg Take 3 mg Univers ([facility]) 1-01 by mouth ity o f 3 mg Tab 00:00: daily. [address] semaglutide 2021-10 Yes [id number] 6mg Take 6 mg Univers ([facility]) 1-01 by mouth ity o f 3 mg Tab 00:00: daily. Medical Branch semaglutide 2021-10 Yes [id number] 3mg Take 3 mg Univers ([facility]) 1-01 by mouth ity o f 3 mg Tab 00:00: daily. Medical Branch semaglutide 2021-10 Yes [id number] 6mg Take 6 mg Univers ([facility]) - by mouth ity o f 3 mg Tab 00:00: daily. Medical Branch semaglutide 2021-10 Yes [id number] 3mg Take 3 mg Univers ([facility]) -01 by mouth ity o f 3 mg Tab 00:00: daily. Medical Branch semaglutide 2021-10 Yes [id number] 6mg Take 6 mg [facility] ([facility]) - by mouth ity o f 3 mg Tab 00:00: daily. Medical Branch semaglutide 2021-10 Yes [id number] 3mg Take 3 mg Univers ([facility]) 10-06 [...] nn 00 30 tab, 3 Refill(s), Pharmacy: [facility] [id number], 157.48, cm, 06/12/22 11:44:00 CDT, Height, 88.239, [...] ity of tablet 15:29: 00:00 mouth 3 [place] 04 :00 (three) Medical times [place] daily. semaglutide 2021-0 Yes [id number] 3mg Take 3 mg Univers ([facility]) 8-29 by mouth ity o f 3 mg Tab 00:00: daily. [address] glipiZIDE 2021-0 Yes [id number] 10mg Take 1 U nivers 10 mg 8-29 tablet by ity of tablet 00:00: mouth 2 [place] [address] (two) Medical times [place] daily before breakfast and dinner. metFORMIN 2021-0 Yes [id number] 1000mg Take 1 Univers 1,000 mg 8-29 tablet by ity of tablet 00:00: mouth in [address] morning [place] and 1 tablet in the evening. Take with meals. semaglutide 2021-0 Yes [id number] 3mg Take 3 mg Univers ([facility]) 8-29 by mouth ity o f 3 mg Tab 00:00: daily. [address] glipiZIDE 2021-0 Yes [id number] 10mg Take 1 U nivers 10 mg 8-29 tablet by ity of tablet 00:00: mouth 2 [place] [address] (two) [facility] times [place] daily before breakfast and dinner. metFORMIN 2021-0 Yes [id number] 1000mg Take 1 Univers 1,000 mg 8-29 tablet by ity of tablet 00:00: mouth in [place] [address] the [facility] morning [place] and 1 tablet in the evening. Take with meals. semaglutide 2021-0 Yes [id number] 3mg Take 3 mg Univers ([facility]) 8-29 by mouth ity o f 3 mg Tab 00:00: daily. [address] glipiZIDE 2022-0 Yes [id number] 10mg Take 1 U nivers 10 mg 8-29 tablet by ity of tablet 00:00: mouth [address] daily before breakfast and dinner. metFORMIN 2-0 Yes [id number] 1000mg Take 1 Univers 1,000 mg 8-29 tablet by ity of tablet 00:00: mouth in [address] morning [place] and 1 tablet in the evening. Take with meals. semaglutide 2021-0 Yes [id number] 3mg Take 3 mg Univers ([facility]) 8-29 by mouth ity o f 3 mg Tab 00:00: daily. [address] glipiZIDE 2021-0 Yes [id number] 10mg Take 1 U nivers 10 mg 8-29 tablet by ity of tablet 00:00: mouth [address] daily before breakfast and dinner. metFORMIN 2021-0 Yes [id number] 1000mg Take 1 Univers 1,000 mg 8-29 tablet by ity of tablet 00:00: mouth in [address] and 1 tablet in the evening. Take with meals. semaglutide 2021-0 Yes [id number] 3mg Take 3 mg Univers ([facility]) 8-29 by mouth ity o f 3 mg Tab 00:00: daily. [address] glipiZIDE 2021-0 Yes [id number] 10mg Take 1 U nivers 10 mg 8-29 tablet by ity of tablet 00:00: mouth [address] daily before breakfast and dinner. metFORMIN 2-0 Yes [id number] 1000mg Take 1 Univers 1,000 mg 8-29 tablet by ity of tablet 00:00: mouth in [address] morning [place] and 1 tablet in the evening. Take with meals. semaglutide 2-0 Yes [id number] 3mg Take 3 mg Univers ([facility]) 8-29 by mouth ity o f 3 mg Tab 00:00: daily. [address] glipiZIDE 2-0 Yes [id number] 10mg Take 1 U nivers 10 mg 8-29 tablet by ity of tablet 00:00: mouth [address] daily before breakfast and dinner. metFORMIN 2022-0 Yes [id number] 1000mg Take 1 Univers 1,000 mg 8-29 tablet by ity of tablet 00:00: mouth in [address] morning [place] and 1 tablet in the evening. Take with meals. semaglutide 2022-0 Yes [id number] 3mg Take 3 mg Univers ([facility]) 8-29 by mouth ity o f 3 mg Tab 00:00: daily. [address] glipiZIDE 2022-0 Yes [id number] 10mg Take 1 U nivers 10 mg 8-29 tablet by ity of tablet 00:00: mouth [address] daily before breakfast and dinner. metFORMIN 2022-0 Yes [id number] 1000mg Take 1 Univers 1,000 mg 8-29 tablet by ity of tablet 00:00: mouth in [address] morning [place] and 1 tablet in the evening. Take with meals. semaglutide 2021-0 Yes [id number] 3mg Take 3 mg Univers ([facility]) 8-29 by mouth ity o f 3 mg Tab 00:00: daily. [address] glipiZIDE 2022-0 Yes [id number] 10mg Take 1 U nivers 10 mg 8-29 tablet by ity of tablet 00:00: mouth [address] daily before breakfast and dinner. metFORMIN 2-0 Yes [id number] 1000mg Take 1 Univers 1,000 mg 8-29 tablet by ity of tablet 00:00: mouth in [address] morning [place] and 1 tablet in the evening. Take with meals. semaglutide 2-0 Yes [id number] 3mg Take 3 mg Univers ([facility]) 8-29 by mouth ity o f 3 mg Tab 00:00: daily. [address] glipiZIDE 2022-0 Yes [id number] 10mg Take 1 U nivers 10 mg 8-29 tablet by ity of tablet 00:00: mouth [address] daily before breakfast and dinner. metFORMIN 2022-0 Yes [id number] 1000mg Take 1 Univers 1,000 mg 8-29 tablet by ity of tablet 00:00: mouth in [address] morning [place] and 1 tablet in the evening. Take with meals. semaglutide 2022-0 Yes [id number] 3mg Take 3 mg Univers ([facility]) 8-29 by mouth ity o f 3 mg Tab 00:00: daily. [place] [facility] Branch glipiZIDE 2021-0 Yes [id number] 10mg Take 1 U nivers 10 mg 8-29 tablet by ity of tablet 00:00: mouth 2 [place] [address] ([facility] daily before breakfast and dinner. metFORMIN 2021-0 Yes [id number] 1000mg Take 1 Univers 1,000 mg 8-29 tablet by ity of tablet 00:00: mouth in [address] morning [place] and 1 tablet in the evening. Take with meals. semaglutide 2021-0 Yes [id number] 3mg Take 3 mg Univers ([facility]) 8-29 by mouth ity o f 3 mg Tab 00:00: daily. [address] glipiZIDE 2021-0 Yes [id number] 10mg Take 1 U nivers 10 mg 8-29 tablet by ity of tablet 00:00: mouth [address] daily before breakfast and dinner. metFORMIN 2021-0 Yes [id number] 1000mg Take 1 Univers 1,000 mg 8-29 tablet by ity of tablet 00:00: mouth in [address] morning [place] and 1 tablet in the evening. Take with meals. semaglutide 2021-0 Yes [id number] 3mg Take 3 mg Univers ([facility]) 8-29 by mouth ity o f 3 mg Tab 00:00: daily. [address] glipiZIDE 2021-0 Yes [id number] 10mg Take 1 U nivers 10 mg 8-29 tablet by ity of tablet 00:00: mouth 2 [place] [address] ([facility] daily before breakfast and dinner. metFORMIN 2-0 Yes [id number] 1000mg Take 1 Univers 1,000 mg 8-29 tablet by ity of tablet 00:00: mouth in [address] morning [place] and 1 tablet in the evening. Take with meals. glipiZIDE 2-0 Yes [id number] 10mg Take 1 U nivers 10 mg 8-29 tablet by ity of tablet 00:00: mouth 2 [place] [address] ([facility] daily before breakfast and dinner. metFORMIN 2-0 Yes [id number] 1000mg Take 1 Univers 1,000 mg 8-29 tablet by ity of tablet 00:00: mouth in [place] [address] the [facility] morning Branch and 1 tablet in the evening. Take with meals. glipiZIDE 2022-0 Yes [id number] 10mg Take 1 U nivers 10 mg 8-29 tablet by ity of tablet 00:00: mouth 2 [place] [address] ([facility] daily before breakfast and dinner. metFORMIN 2022-0 Yes [id number] 1000mg Take 1 Univers 1,000 mg 8-29 tablet by ity of tablet 00:00: mouth in [place] [address] the [facility] morning [place] and 1 tablet in the evening. Take with meals. glipiZIDE 2022-0 Yes [id number] 10mg Take 1 U nivers 10 mg 8-29 tablet by ity of tablet 00:00: mouth [place] [address] ([facility] daily before breakfast and dinner. metFORMIN 2022-0 Yes [id number] 1000mg Take 1 Univers 1,000 mg 8-29 tablet by ity of tablet 00:00: mouth in [address] morning [place] and 1 tablet in the evening. Take with meals. glipiZIDE 2022-0 Yes [id number] 10mg Take 1 U nivers 10 mg 8-29 tablet by ity of tablet 00:00: mouth [address] daily before breakfast and dinner. metFORMIN 2022-0 Yes [id number] 1000mg Take 1 Univers 1,000 mg 8-29 tablet by ity of tablet 00:00: mouth in [place] [address] the [facility] morning [place] and 1 tablet in the evening. Take with meals. glipiZIDE 2022-0 Yes [id number] 10mg Take 1 U nivers 10 mg 8-29 tablet by ity of tablet 00:00: mouth [place] [address] ([facility] daily before breakfast and dinner. metFORMIN 2022-0 Yes [id number] 1000mg Take 1 Univers 1,000 mg 8-29 tablet by ity of tablet 00:00: mouth in [place] [address] the [facility] morning [place] and 1 tablet in the evening. Take with meals. glipiZIDE 2022-0 Yes [id number] 10mg Take 1 U nivers 10 mg 8-29 tablet by ity of tablet 00:00: mouth 2 [place] [address] ([facility] daily before breakfast and dinner. metFORMIN 2022-0 Yes [id number] 1000mg Take 1 Univers 1,000 mg 8-29 tablet by ity of tablet 00:00: mouth in [place] [address] the [facility] morning [place] and 1 tablet in the evening. Take with meals. glipiZIDE 2022-0 Yes [id number] 10mg Take 1 U nivers 10 mg 8-29 tablet by ity of tablet 00:00: mouth 2 [place] [address] ([facility] daily before breakfast and dinner. metFORMIN 2022-0 Yes [id number] 1000mg Take 1 Univers 1,000 mg 8-29 tablet by ity of tablet 00:00: mouth in [place] [address] the [facility] morning [place] and 1 tablet in the evening. Take with meals. glipiZIDE 2022-0 Yes [id number] 10mg Take 1 U nivers 10 mg 8-29 tablet by ity of tablet 00:00: mouth 2 [place] [address] ([facility] daily before breakfast and dinner. metFORMIN 2022-0 Yes [id number] 1000mg Take 1 Univers 1,000 mg 8-29 tablet by ity of tablet 00:00: mouth in [address] morning [place] and 1 tablet in the evening. Take with meals. glipiZIDE 2022-0 Yes [id number] 10mg Take 1 U nivers 10 mg 8-29 tablet by ity of tablet 00:00: mouth 2 [place] [address] ([facility] daily before breakfast and dinner. metFORMIN 2022-0 Yes [id number] 1000mg Take 1 Univers 1,000 mg 8-29 tablet by ity of tablet 00:00: mouth in [place] [address] the [facility] morning [place] and 1 tablet in the evening. Take with meals. glipiZIDE 2022-0 Yes [id number] 10mg Take 1 U nivers 10 mg 8-29 tablet by ity of tablet 00:00: mouth [place] [address] ([facility] daily before breakfast and dinner. metFORMIN 2022-0 Yes [id number] 1000mg Take 1 Univers 1,000 mg 8-29 tablet by ity of tablet 00:00: mouth in [place] [address] the [facility] morning [place] and 1 tablet in the evening. Take with meals. glipiZIDE 2022-0 Yes [id number] 10mg Take 1 U nivers 10 mg 8-29 tablet by ity of tablet 00:00: mouth 2 [place] [address] (two) Medical times Branch daily before breakfast and dinner. metFORMIN Yes [id number] 1000mg Take 1 Univers 1,000 mg 06-03 tablet by ity of tablet 00:00: mouth in [place] [address] the Medical morning Branch and 1 tablet in the evening. Take with meals. semaglutide 2- No [id number] 3mg Take 3 mg [facility] ([facility]) 06-03 by mouth ity of 3 mg Tab 00:00: 00:00 daily. [place] 00 :00 [facility] Branch semaglutide 2021- No [id number] 3mg Take 3 mg Univers ([facility]) 06-03 by mouth ity of 3 mg Tab 00:00: 00:00 daily. [place] 00 :[address] [facility] semaglutide 2021- No [id number] 3mg Take 3 mg Univers ([facility]) 06-03 by mouth ity of 3 mg Tab 00:00: 00:00 daily. [place] 00 :[address] [facility] semaglutide 2021- No [id number] 3mg Take 3 mg Univers ([facility]) 06-03 by mouth ity of 3 mg Tab 00:00: 00:00 daily. [place] 00 :[address] [facility] semaglutide 2- No [id number] 3mg Take 3 mg Univers ([facility]) 06-03 by mouth ity of 3 mg Tab 00:00: 00:00 daily. [place] 00 :[address] [facility] semaglutide 2021- No [id number] 3mg Take 3 mg Univers ([facility]) 06-03 by mouth ity of 3 mg Tab 00:00: 00:00 daily. [place] 00 :[address] [facility] semaglutide 2021- No [id number] 3mg Take 3 mg Univers ([facility]) 06-03 by mouth ity of 3 mg Tab 00:00: 00:00 daily. [place] 00 :[address] [facility] Aricept 5 Yes 5 mg = 1 Karan katy mg oral 7-26 tab, PO, l tablet 16:57: Bedtime, # Aura nn 00 30 tab, 3 Refill(s), Pharmacy: [facility] [id number], 154.94, cm, 04/30/22 11:41:00 CDT, Height, 86.42, kg, 04/30/22 11:41:00 CDT, Weight Mitchuwolf Max Yes SUB-Q, Memor ia SoloStar 6-21 Daily, 0 l 300 14:10: Refill(s) [place] units/mL 00 subcutaneou s solution Benadryl Yes 0 Memoria 6-21 Refill(s) l 14:08: [place] 00 Tylenol Yes PO, 0 Memoria 6-21 Refill(s) l 14:08: Isael 00 cloNIDine Yes 0.1 mg = 1 Me moria 0.1 mg oral 6-21 tab, PO, l tablet 14:07: BID, # 180 Aura nn 00 tab, 1 Refill(s) furosemide Yes 20 mg = 1 Me moria 20 mg oral 6-21 tab, PO, l tablet 14:07: Daily, # [place] 00 30 tab, 0 Refill(s) aspirin 81 [...] tab, PO, l tablet 14:06: Daily, # [place] 00 90 tab, 0 Refill(s) losartan Yes [...] PO, l oral tablet 14:04: Bedtime, # [place] 00 90 tab, 3 Refill(s) potassium Yes [...] ity o f XR tablet 15:08: bedtime. [facility] 29 Medical Branch acetaminoph Yes Take by [...] ity o f XR tablet 15:08: bedtime. [facility] 29 Medical Branch acetaminoph Yes Take by [...] ity o f XR tablet 15:08: [facility]. [facility] acetaminoph Yes Take [...] daily. Branch triamcinolo Yes Apply to Un rahsida ne 5-19 area(s) 2 ity of acetonide [...] ity o f XR tablet 15:08: bedtime. [facility] s 29 Medical Branch acetaminoph Yes Take [...] ity o f XR tablet 15:08: bedtime. [facility] s 29 Medical Branch acetaminoph Yes Take [...] ity o f XR tablet 15:08: bedtime. [facility] s 29 Medical Branch acetaminoph Yes Take [...] ity o f XR tablet 15:08: bedtime. [facility] s 29 Medical Branch acetaminoph Yes Take [...] ity o f XR tablet 15:08: bedtime. [facility] s 29 Medical Branch acetaminoph Yes Take [...] ity o f XR tablet 15:08: bedtime. [facility] s 29 Medical Branch acetaminoph Yes Take [...] ity o f XR tablet 15:08: bedtime. [facility] s 29 Medical Branch acetaminoph Yes Take [...] ity o f XR tablet 15:08: bedtime. [facility] s 29 Medical Branch acetaminoph Yes Take [...] ity o f XR tablet 15:08: bedtime. [facility] s 29 Medical Branch acetaminoph Yes Take [...] ity o f XR tablet 15:08: bedtime. [facility] s 29 Medical Branch acetaminoph Yes Take [...] ity o f XR tablet 15:08: bedtime. [facility] s 29 Medical Branch acetaminoph Yes Take [...] ity o f XR tablet 15:08: bedtime. [facility] s 29 Medical Branch acetaminoph Yes Take [...] XR tablet 15:08: [place]time. [place] [facility] acetaminoph Yes Take by Uni vers [...] 5-19 by mouth ity of 15:04: daily. [address] losartan 50 Yes 50mg Take 50 mg Univers mg tablet 5-19 by mouth ity of 15:04: daily. [address] losartan 50 Yes 50mg Take 50 mg Univers mg tablet 5-19 by mouth ity of 15:04: daily. [address] losartan 50 0 Yes 50mg Take 50 mg Univers mg tablet 5-19 by mouth ity of 15:04: daily. [address] losartan 50 0 Yes 50mg Take 50 mg Univers mg tablet 5-19 by mouth ity of 15:04: daily. [address] losartan 50 0 Yes 50mg Take 50 mg Univers mg tablet 5-19 by mouth ity of 15:04: daily. [address] losartan 50 0 Yes 50mg Take 50 mg Univers mg tablet 5-19 by mouth ity of 15:04: daily. [address] losartan 50 0 Yes 50mg Take 50 mg Univers mg tablet 5-19 by mouth ity of 15:04: daily. [address] losartan 50 0 Yes 50mg Take 50 mg Univers mg tablet 5-19 by mouth ity of 15:04: daily. [address] losartan 50 0 Yes 50mg Take 50 mg Univers mg tablet 5-19 by mouth ity of 15:04: daily. [address] losartan 50 0 Yes 50mg Take 50 mg Univers mg tablet 5-19 by mouth ity of 15:04: daily. [address] losartan 50 0 Yes 50mg Take 50 mg Univers mg tablet 5-19 by mouth ity of 15:04: daily. [address] losartan 50 0 Yes 50mg Take 50 mg Univers mg tablet 5-19 by mouth ity of 15:04: daily. [address] losartan 50 0 Yes 50mg Take 50 mg Univers mg tablet 5-19 by mouth ity of 15:04: daily. [address] losartan 50 0 Yes 50mg Take 50 mg Univers mg tablet 5-19 by mouth ity of 15:04: daily. [address] losartan 50 0 Yes 50mg Take 50 mg Univers mg tablet 5-19 by mouth ity of 15:04: daily. [address] losartan 50 0 Yes 50mg Take 50 mg Univers mg tablet 5-19 by mouth ity of 15:04: daily. [address] losartan 50 0 Yes 50mg Take 50 mg Univers mg tablet 5-19 by mouth ity of 15:04: daily. [address] losartan 50 0 Yes 50mg Take 50 mg [facility] mg tablet 5-19 by mouth ity of 15:04: daily. [address] losartan 50 0 Yes 50mg Take 50 mg [facility] mg tablet 5-19 by mouth ity of 15:04: daily. [address] losartan 50 0 Yes 50mg Take 50 mg [facility] mg tablet 5-19 by mouth ity of 15:04: daily. [address] losartan 50 0 Yes 50mg Take 50 mg [facility] mg tablet 5-19 by mouth ity of 15:04: daily. [place] [id number] [facility] losartan 50 2-0 Yes 50mg [...] by ity of tablet 11:06: mouth 2 [place] [address] (two) Medical times Branch daily with meals. citalopram 0 Yes 20mg Take 20 mg U nivers 20 mg 5-19 by mouth ity of tablet 11:06: daily. [facility] atorvastati 0 Yes 40mg Take 40 mg [facility] n 40 mg 5-19 by mouth ity of tablet 11:06: at [place] [address] bedtime. Medical Branch tamsulosin 0 Yes Take by [facility] ers 0.4 mg 24 5-19 mouth ity of hr capsule 11:06: daily. [place] [address] [facility] aspirin 325 2021-0 Yes 325mg Take 325 U nivers mg Cap 5-19 mg by ity of 11:06: mouth [place] [address] daily. [facility] Branch carvediloL 0 Yes 6.25mg Take 6.25 [facility] 6.25 mg 5-19 mg by ity of tablet 11:06: mouth 2 [place] [address] (two) Medical times Branch daily with meals. citalopram 0 Yes 20mg Take 20 mg U nivers 20 mg 5-19 by mouth ity of tablet 11:06: daily. [place] [address] [facility] atorvastati 0 Yes 40mg Take 40 mg [facility] n 40 mg 5-19 by mouth ity of tablet 11:06: at [place] [address] bedtime. [facility] Branch tamsulosin Yes Take by [facility] ers 0.4 mg 24 5-19 mouth ity of hr capsule 11:06: daily. [place] [address] [facility] aspirin 325 0 Yes 325mg Take 325 U nivers mg Cap 5-19 mg by ity of 11:06: mouth [place] [address] daily. [facility] carvediloL 0 Yes 6.25mg Take 6.25 [facility] 6.25 mg 5-19 mg by ity of tablet 11:06: mouth 2 [place] [address] (two) Medical times [place] daily with meals. citalopram 0 Yes 20mg Take 20 mg U nivers 20 mg 5-19 by mouth ity of tablet 11:06: daily. [place] [address] [facility] atorvastati 0 Yes 40mg Take 40 mg [facility] n 40 mg 5-19 by mouth ity of tablet 11:06: at [place] [address] bedtime. [facility] tamsulosin 0 Yes Take by [facility] ers 0.4 mg 24 5-19 mouth ity of hr capsule 11:06: daily. [place] [address] [facility] aspirin 325 2021-0 Yes 325mg Take 325 U nivers mg Cap 5-19 mg by ity of 11:06: mouth [place] [address] daily. [facility] carvediloL 0 Yes 6.25mg Take 6.25 [facility] 6.25 mg 5-19 mg by ity of tablet 11:06: mouth 2 [place] [address] (two) Medical times Branch daily with meals. citalopram 2021-0 Yes 20mg Take 20 mg U nivers 20 mg 5-19 by mouth ity of tablet 11:06: daily. [place] [address] [facility] atorvastati 0 Yes 40mg Take 40 mg [facility] n 40 mg 5-19 by mouth ity of tablet 11:06: at [place] [address] bedtime. [facility] tamsulosin 0 Yes Take by [facility] vers 0.4 mg 24 5-19 mouth ity of hr capsule 11:06: daily. [place] [address] [facility] aspirin 325 0 Yes 325mg Take 325 U nivers mg Cap 5-19 mg by ity of 11:06: mouth [place] [address] daily. [facility] carvediloL 0 Yes 6.25mg Take 6.25 [facility] 6.25 mg 5-19 mg by ity of tablet 11:06: mouth 2 [place] [address] (two) Medical times [place] daily with meals. citalopram 0 Yes 20mg Take 20 mg U nivers 20 mg 5-19 by mouth ity of tablet 11:06: daily. [place] [address] [facility] atorvastati Yes 40mg Take 40 mg [facility] n 40 mg 5-19 by mouth ity of tablet 11:06: at [place] [address] bedtime. [facility] tamsulosin Yes Take by [facility] ers 0.4 mg 24 5-19 mouth ity of hr capsule 11:06: daily. [place] [address] [facility] aspirin 325 0 Yes 325mg Take 325 U nivers mg Cap 5-19 mg by ity of 11:06: mouth [place] [address] daily. [facility] carvediloL 0 Yes 6.25mg Take 6.25 [facility] 6.25 mg 5-19 mg by ity of tablet 11:06: mouth 2 [place] [address] (two) Medical times Branch daily with meals. citalopram 0 Yes 20mg Take 20 mg U nivers 20 mg 5-19 by mouth ity of tablet 11:06: daily. [place] [address] [facility] atorvastati 0 Yes 40mg Take 40 mg [facility] n 40 mg 5-19 by mouth ity of tablet 11:06: at [place] [address] bedtime. [facility] tamsulosin Yes Take by [facility] ers 0.4 mg 24 5-19 mouth ity of hr capsule 11:06: daily. [place] [address] [facility] aspirin 325 2022-0 Yes 325mg Take 325 U nivers mg Cap 5-19 mg by ity of 11:06: mouth [place] [address] daily. [facility] carvediloL 2021-0 Yes 6.25mg Take 6.25 [facility] 6.25 mg 5-19 mg by ity of tablet 11:06: mouth 2 [place] [address] (two) Medical times Branch daily with meals. citalopram 2021-0 Yes 20mg Take 20 mg U nivers 20 mg 5-19 by mouth ity of tablet 11:06: daily. [place] [address] [facility] atorvastati 2021-0 Yes 40mg Take 40 mg [facility] n 40 mg 5-19 by mouth ity of tablet 11:06: at [place] [address] bedtime. [facility] tamsulosin 0 Yes Take by [facility] ers 0.4 mg 24 5-19 mouth ity of hr capsule 11:06: daily. [place] [address] [facility] aspirin 325 2021-0 Yes 325mg Take 325 U nivers mg Cap 5-19 mg by ity of 11:06: mouth [place] [address] daily. Medical [facility] carvediloL 2021-0 Yes 6.25mg Take 6.25 [facility] 6.25 mg 5-19 mg by ity of tablet 11:06: mouth 2 [place] [address] (two) Medical times [place] daily with meals. citalopram 2021-0 Yes 20mg Take 20 mg [facility] nivers 20 mg 5-19 by mouth ity of tablet 11:06: daily. [place] [address] [facility] atorvastati 0 Yes 40mg Take 40 mg [facility] n 40 mg 5-19 by mouth ity of tablet 11:06: at [place] [address] bedtime. [facility] tamsulosin 2021-0 Yes Take by [facility] ers 0.4 mg 24 5-19 mouth ity of hr capsule 11:06: daily. [place] [address] [facility] aspirin 325 2021-0 Yes 325mg Take 325 U nivers mg Cap 5-19 mg by ity of 11:06: mouth [place] [address] daily. [facility] Branch carvediloL 2021-0 Yes 6.25mg Take 6.25 [facility] 6.25 mg 5-19 mg by ity of tablet 11:06: mouth 2 [place] [address] (two) Medical times [place] daily with meals. citalopram 2021-0 Yes 20mg Take 20 mg [facility] nivers 20 mg 5-19 by mouth ity of tablet 11:06: daily. [place] [address] [facility] atorvastati 2021-0 Yes 40mg Take 40 mg [facility] n 40 mg 5-19 by mouth ity of tablet 11:06: at [place] [address] bedtime. [facility] tamsulosin 0 Yes Take by [facility] ers 0.4 mg 24 5-19 mouth ity of hr capsule 11:06: daily. [place] [address] [facility] aspirin 325 2021-0 Yes 325mg Take 325 U nivers mg Cap 5-19 mg by ity of 11:06: mouth [place] [address] daily. [facility] carvediloL 0 Yes 6.25mg Take 6.25 [facility] 6.25 mg 5-19 mg by ity of tablet 11:06: mouth 2 [place] [address] (two) Medical times [place] daily with meals. citalopram 2021-0 Yes 20mg Take 20 mg [facility] nivers 20 mg 5-19 by mouth ity of tablet 11:06: daily. [place] [address] [facility] atorvastati 0 Yes 40mg Take 40 mg [facility] n 40 mg 5-19 by mouth ity of tablet 11:06: at [place] [address] bedtime. [facility] tamsulosin 0 Yes Take by [facility] ers 0.4 mg 24 5-19 mouth ity of hr capsule 11:06: daily. [place] [address] [facility] aspirin 325 2021-0 Yes 325mg Take 325 U nivers mg Cap 5-19 mg by ity of 11:06: mouth [place] [address] daily. [facility] Branch carvediloL 2021-0 Yes 6.25mg Take 6.25 [facility] 6.25 mg 5-19 mg by ity of tablet 11:06: mouth 2 [place] [address] (two) Medical times [place] daily with meals. citalopram 2021-0 Yes 20mg Take 20 mg [facility] nivers 20 mg 5-19 by mouth ity of tablet 11:06: daily. [place] [address] [facility] atorvastati 2021-0 Yes 40mg Take 40 mg [facility] n 40 mg 5-19 by mouth ity of tablet 11:06: at [place] [address] bedtime. [facility] tamsulosin 2021-0 Yes Take by [facility] ers 0.4 mg 24 5-19 mouth ity of hr capsule 11:06: daily. [place] [address] [facility] aspirin 325 2021-0 Yes 325mg Take 325 U nivers mg Cap 5-19 mg by ity of 11:06: mouth [place] [address] daily. [facility] carvediloL 2021-0 Yes 6.25mg Take 6.25 [facility] 6.25 mg 5-19 mg by ity of tablet 11:06: mouth 2 [place] [address] (two) Medical times [place] daily with meals. citalopram 2021-0 Yes 20mg Take 20 mg [facility] nivers 20 mg 5-19 by mouth ity of tablet 11:06: daily. [place] [address] [facility] atorvastati 2021-0 Yes 40mg Take 40 mg [facility] n 40 mg 5-19 by mouth ity of tablet 11:06: at [place] [address] bedtime. [facility] tamsulosin 0 Yes Take by [facility] ers 0.4 mg 24 5-19 mouth ity of hr capsule 11:06: daily. [place] [address] [facility] aspirin 325 2021-0 Yes 325mg Take 325 U nivers mg Cap 5-19 mg by ity of 11:06: mouth [place] [address] daily. [facility] carvediloL 2021-0 Yes 6.25mg Take 6.25 [facility] 6.25 mg 5-19 mg by ity of tablet 11:06: mouth 2 [place] [address] (two) Medical times [place] daily with meals. citalopram 2021-0 Yes 20mg Take 20 mg [facility] nivers 20 mg 5-19 by mouth ity of tablet 11:06: daily. [place] [address] [facility] atorvastati 2021-0 Yes 40mg Take 40 mg [facility] n 40 mg 5-19 by mouth ity of tablet 11:06: at [place] [address] bedtime. [facility] tamsulosin 2021-0 Yes Take by [facility] ers 0.4 mg 24 5-19 mouth ity of hr capsule 11:06: daily. [place] [address] [facility] aspirin 325 2021-0 Yes 325mg Take 325 U nivers mg Cap 5-19 mg by ity of 11:06: mouth [place] [address] daily. [facility] carvediloL 2021-0 Yes 6.25mg Take 6.25 [facility] 6.25 mg 5-19 mg by ity of tablet 11:06: mouth 2 [place] [address] (two) Medical times Branch daily with meals. citalopram 2021-0 Yes 20mg Take 20 mg [facility] nivers 20 mg 5-19 by mouth ity of tablet 11:06: daily. [place] [address] [facility] atorvastati 2022-0 Yes 40mg Take 40 mg [facility] n 40 mg 5-19 by mouth ity of tablet 11:06: at [place] [address] bedtime. [facility] tamsulosin 0 Yes Take by [facility] vers 0.4 mg 24 5-19 mouth ity of hr capsule 11:06: daily. [place] [address] [facility] aspirin 325 0 Yes 325mg Take 325 U nivers mg Cap 5-19 mg by ity of 11:06: mouth [place] [address] daily. [facility] carvediloL Yes 6.25mg Take 6.25 [facility] 6.25 mg 5-19 mg by ity of tablet 11:06: mouth 2 [place] [address] (two) Medical times Branch daily with meals. citalopram 0 Yes 20mg Take 20 mg [facility] nivers 20 mg 5-19 by mouth ity of tablet 11:06: daily. [place] [address] [facility] atorvastati Yes 40mg Take 40 mg [facility] n 40 mg 5-19 by mouth ity of tablet 11:06: at [place] [address] bedtime. [facility] tamsulosin Yes Take by [facility] ers 0.4 mg 24 5-19 mouth ity of hr capsule 11:06: daily. [place] [address] [facility] aspirin 325 0 Yes 325mg Take 325 U nivers mg Cap 5-19 mg by ity of 11:06: mouth [place] [address] daily. [facility] Branch carvediloL Yes 6.25mg Take 6.25 [facility] 6.25 mg 5-19 mg by ity of tablet 11:06: mouth 2 [place] [address] (two) Medical times [place] daily with meals. citalopram 0 Yes 20mg Take 20 mg [facility] nivers 20 mg 5-19 by mouth ity of tablet 11:06: daily. [place] [address] [facility] atorvastati 0 Yes 40mg Take 40 mg [facility] n 40 mg 5-19 by mouth ity of tablet 11:06: at [place] [address] bedtime. [facility] tamsulosin 0 Yes Take by [facility] ers 0.4 mg 24 5-19 mouth ity of hr capsule 11:06: daily. [place] [address] [facility] aspirin 325 0 Yes 325mg Take 325 U nivers mg Cap 5-19 mg by ity of 11:06: mouth [place] [address] daily. Medical Branch carvediloL 2022-0 Yes 6.25mg Take 6.25 [facility] 6.25 mg 5-19 mg by ity of tablet 11:06: mouth 2 [place] [address] (two) Medical times Branch daily with meals. citalopram 0 Yes 20mg Take 20 mg [facility] nivers 20 mg 5-19 by mouth ity of tablet 11:06: daily. [place] [address] [facility] atorvastati 0 Yes 40mg Take 40 mg [facility] n 40 mg 5-19 by mouth ity of tablet 11:06: at [place] [address] bedtime. [facility] tamsulosin 0 Yes Take by [facility] ers 0.4 mg 24 5-19 mouth ity of hr capsule 11:06: daily. [place] [address] [facility] aspirin 325 0 Yes 325mg Take 325 U nivers mg Cap 5-19 mg by ity of 11:06: mouth [place] [address] daily. [facility] Branch carvediloL Yes 6.25mg Take 6.25 [facility] 6.25 mg 5-19 mg by ity of tablet 11:06: mouth 2 [place] [address] (two) Medical times [place] daily with meals. citalopram 0 Yes 20mg Take 20 mg [facility] nivers 20 mg 5-19 by mouth ity of tablet 11:06: daily. [place] [address] [facility] atorvastati 0 Yes 40mg Take 40 mg [facility] n 40 mg 5-19 by mouth ity of tablet 11:06: at [place] [address] bedtime. [facility] tamsulosin 0 Yes Take by [facility] ers 0.4 mg 24 5-19 mouth ity of hr capsule 11:06: daily. [place] [address] [facility] aspirin 325 2021-0 Yes 325mg Take 325 U nivers mg Cap 5-19 mg by ity of 11:06: mouth [place] [address] daily. Medical Branch carvediloL 0 Yes 6.25mg Take 6.25 [facility] 6.25 mg 5-19 mg by ity of tablet 11:06: mouth 2 [place] [address] (two) Medical times Branch daily with meals. citalopram 0 Yes 20mg Take 20 mg [facility] nivers 20 mg 5-19 by mouth ity of tablet 11:06: daily. [place] [address] [facility] atorvastati 2021-0 Yes 40mg Take 40 mg [facility] n 40 mg 5-19 by mouth ity of tablet 11:06: at [place] [address] bedtime. [facility] Branch tamsulosin 0 Yes Take by [facility] ers 0.4 mg 24 5-19 mouth ity of hr capsule 11:06: daily. [place] [address] [facility] aspirin 325 2021-0 Yes 325mg Take 325 U nivers mg Cap 5-19 mg by ity of 11:06: mouth [place] [address] daily. Medical Branch carvediloL 0 Yes 6.25mg Take 6.25 [facility] 6.25 mg 5-19 mg by ity of tablet 11:06: mouth 2 [place] [address] (two) Medical times Branch daily with meals. citalopram 0 Yes 20mg Take 20 mg [facility] nivers 20 mg 5-19 by mouth ity of tablet 11:06: daily. [place] [address] [facility] atorvastati 0 Yes 40mg Take 40 mg [facility] n 40 mg 5-19 by mouth ity of tablet 11:06: at [place] [address] bedtime. [facility] Branch tamsulosin Yes Take by [facility] ers 0.4 mg 24 5-19 mouth ity of hr capsule 11:06: daily. [place] [address] [facility] aspirin 325 2021-0 Yes 325mg Take 325 U nivers mg Cap 5-19 mg by ity of 11:06: mouth [place] [address] daily. [facility] Branch carvediloL 0 Yes 6.25mg Take 6.25 [facility] 6.25 mg 5-19 mg by ity of tablet 11:06: mouth 2 [place] [address] (two) Medical times [place] daily with meals. citalopram 0 Yes 20mg Take 20 mg [facility] nivers 20 mg 5-19 by mouth ity of tablet 11:06: daily. [place] [address] [facility] atorvastati 0 Yes 40mg Take 40 mg [facility] n 40 mg 5-19 by mouth ity of tablet 11:06: at [place] [address] bedtime. [facility] tamsulosin 0 Yes Take by [facility] ers 0.4 mg 24 5-19 mouth ity of hr capsule 11:06: daily. [place] [address] [facility] aspirin 325 2021-0 Yes 325mg Take 325 [facility] nivers mg Cap 5-19 mg by ity of 11:06: mouth [place] [address] daily. [facility] carvediloL 2021-0 Yes 6.25mg Take 6.25 [facility] 6.25 mg 5-19 mg by ity of tablet 11:06: mouth 2 [place] [address] (two) Medical times Branch daily with meals. citalopram 0 Yes 20mg Take 20 mg [facility] nivers 20 mg 5-19 by mouth ity of tablet 11:06: daily. [place] [address] [facility] atorvastati 0 Yes 40mg Take 40 mg [facility] n 40 mg 5-19 by mouth ity of tablet 11:06: at [place] [address] bedtime. [facility] tamsulosin Yes Take by [facility] ers 0.4 mg 24 5-19 mouth ity of hr capsule 11:06: daily. [place] [address] [facility] aspirin 325 0 Yes 325mg Take 325 [facility] n[facility] mg Cap 5-19 mg by ity of 11:06: mouth [place] [address] daily. [facility] carvediloL Yes 6.25mg Take 6.25 [facility] 6.25 mg 5-19 mg by ity of tablet 11:06: mouth 2 [place] [address] (two) Medical times Branch daily with meals. citalopram Yes 20mg Take 20 mg [facility] nivers 20 mg 5-19 by mouth ity of tablet 11:06: daily. [place] [address] [facility] atorvastati 0 Yes 40mg Take 40 mg [facility] n 40 mg 5-19 by mouth ity of tablet 11:06: at [place] [address] bedtime. [facility] tamsulosin Yes Take by [facility] ers 0.4 mg 24 5-19 mouth ity of hr capsule 11:06: daily. [place] [address] [facility] aspirin 325 2021-0 Yes 325mg Take 325 U nivers mg Cap 5-19 mg by ity of 11:06: mouth [place] daily. [facility] chlorthalid 2021-0 Yes [id number] 15mg Take 1 [facility] one 15 mg 5-19 tablet by ity o f tablet 00:00: mouth [place] 00 daily. [facility] furosemide 2021-0 Yes [id number] 40mg Take 2 U nivers 20 mg 5-19 tablets by ity of tablet 00:00: mouth [place] 00 daily. [facility] chlorthalid 2021-0 Yes [id number] 15mg Take 1 [facility] one 15 mg 5-19 tablet by ity o f tablet 00:00: mouth [place] 00 daily. [facility] furosemide 2021-0 Yes [id number] 40mg Take 2 U nivers 20 mg 5-19 tablets by ity of tablet 00:00: mouth [place] 00 daily. [facility] chlorthalid 2021-0 Yes [id number] 15mg Take 1 [facility] one 15 mg 5-19 tablet by ity o f tablet 00:00: mouth [place] 00 daily. [facility] furosemide 2021-0 Yes [id number] 40mg Take 2 U nivers 20 mg 5-19 tablets by ity of tablet 00:00: mouth [place] 00 daily. [facility] chlorthalid 2021-0 Yes [id number] 15mg Take 1 [facility] one 15 mg 5-19 tablet by ity o f tablet 00:00: mouth [place] 00 daily. [facility] furosemide 2021-0 Yes [id number] 40mg Take 2 U nivers 20 mg 5-19 tablets by ity of tablet 00:00: mouth [place] 00 daily. [facility] chlorthalid 2021-0 Yes [id number] 15mg Take 1 [facility] one 15 mg 5-19 tablet by ity o f tablet 00:00: mouth [place] 00 daily. [facility] furosemide 2021-0 Yes [id number] 40mg Take 2 U nivers 20 mg 5-19 tablets by ity of tablet 00:00: mouth [place] 00 daily. [facility] chlorthalid 2021-0 Yes [id number] 15mg Take 1 [facility] one 15 mg 5-19 tablet by ity o f tablet 00:00: mouth [place] 00 daily. [facility] furosemide 2021-0 Yes [id number] 40mg Take 2 U nivers 20 mg 5-19 tablets by ity of tablet 00:00: mouth [place] 00 daily. [facility] chlorthalid 2021-0 Yes [id number] 15mg Take 1 [facility] one 15 mg 5-19 tablet by ity o f tablet 00:00: mouth [place] 00 daily. [facility] furosemide 2021-0 Yes [id number] 40mg Take 2 [facility] nivers 20 mg 5-19 tablets by ity of tablet 00:00: mouth [place] 00 daily. [facility] chlorthalid 2021-0 Yes [id number] 15mg Take 1 [facility] one 15 mg 5-19 tablet by ity o f tablet 00:00: mouth [place] 00 daily. [facility] furosemide 2-0 Yes [id number] 40mg Take 2 [facility] nivers 20 mg 5-19 tablets by ity of tablet 00:00: mouth [place] 00 daily. [facility] chlorthalid 2022-0 Yes [id number] 15mg Take 1 [facility] one 15 mg 5-19 tablet by ity o f tablet 00:00: mouth [place] 00 daily. [facility] furosemide 2021-0 Yes [id number] 40mg Take 2 [facility] nivers 20 mg 5-19 tablets by ity of tablet 00:00: mouth [place] 00 daily. [facility] chlorthalid 2021-0 Yes [id number] 15mg Take 1 [facility] one 15 mg 5-19 tablet by ity o f tablet 00:00: mouth [place] 00 daily. [facility] furosemide 2021-0 Yes [id number] 40mg Take 2 [facility] n[facility] 20 mg 5-19 tablets by ity of tablet 00:00: mouth [place] 00 daily. [facility] chlorthalid 2021-0 Yes [id number] 15mg Take 1 [facility] one 15 mg 5-19 tablet by ity o f tablet 00:00: mouth [place] 00 daily. [facility] furosemide 2021-0 Yes [id number] 40mg Take 2 [facility] n[facility] 20 mg 5-19 tablets by ity of tablet 00:00: mouth [place] 00 daily. [facility] chlorthalid 2021-0 Yes [id number] 15mg Take 1 [facility] one 15 mg 5-19 tablet by ity o f tablet 00:00: mouth [place] 00 daily. [facility] furosemide 2021-0 Yes [id number] 40mg Take 2 [facility] n[facility] 20 mg 5-19 tablets by ity of tablet 00:00: mouth [place] 00 daily. [facility] chlorthalid 2021-0 Yes [id number] 15mg Take 1 [facility] one 15 mg 5-19 tablet by ity o f tablet 00:00: mouth [place] 00 daily. [facility] furosemide 2-0 Yes [id number] 40mg Take 2 [facility] n[facility] 20 mg 5-19 tablets by ity of tablet 00:00: mouth [place] 00 daily. [facility] chlorthalid 2-0 Yes [id number] 15mg Take 1 [facility] one 15 mg 5-19 tablet by ity o f tablet 00:00: mouth [place] 00 daily. [facility] furosemide 2-0 Yes [id number] 40mg Take 2 [facility] n[facility] 20 mg 5-19 tablets by ity of tablet 00:00: mouth [place] 00 daily. [facility] chlorthalid 2021-0 Yes [id number] 15mg Take 1 [facility] one 15 mg 5-19 tablet by ity o f tablet 00:00: mouth [place] 00 daily. [facility] furosemide 2-0 Yes [id number] 40mg Take 2 [facility] n[facility] 20 mg 5-19 tablets by ity of tablet 00:00: mouth [place] 00 daily. [facility] chlorthalid 2-0 Yes [id number] 15mg Take 1 [facility] one 15 mg 5-19 tablet by ity o f tablet 00:00: mouth [place] 00 daily. [facility] furosemide 2-0 Yes [id number] 40mg Take 2 U nivers 20 mg 5-19 tablets by ity of tablet 00:00: mouth [place] 00 daily. [facility] chlorthalid 2-0 Yes [id number] 15mg Take 1 [facility] one 15 mg 5-19 tablet by ity o f tablet 00:00: mouth [place] 00 daily. [facility] furosemide 2-0 Yes [id number] 40mg Take 2 U nivers 20 mg 5-19 tablets by ity of tablet 00:00: mouth [place] 00 daily. [facility] chlorthalid 2-0 Yes [id number] 15mg Take 1 [facility] one 15 mg 5-19 tablet by ity o f tablet 00:00: mouth [place] 00 daily. [facility] furosemide 2-0 Yes [id number] 40mg Take 2 [facility] n[facility] 20 mg 5-19 tablets by ity of tablet 00:00: mouth [place] 00 daily. [facility] chlorthalid 2-0 Yes [id number] 15mg Take 1 [facility] one 15 mg 5-19 tablet by ity o f tablet 00:00: mouth [place] 00 daily. [facility] furosemide 2-0 Yes [id number] 40mg Take 2 [facility] n[facility] 20 mg 5-19 tablets by ity of tablet 00:00: mouth [place] 00 daily. [facility] chlorthalid 2-0 Yes [id number] 15mg Take 1 [facility] one 15 mg 5-19 tablet by ity o f tablet 00:00: mouth [place] 00 daily. [facility] furosemide 2022-0 Yes [id number] 40mg Take 2 [facility] nivers 20 mg 5-19 tablets by ity of tablet 00:00: mouth [place] 00 daily. [facility] chlorthalid 2-0 Yes [id number] 15mg Take 1 [facility] one 15 mg 5-19 tablet by ity o f tablet 00:00: mouth [place] 00 daily. [facility] furosemide 2-0 Yes [id number] 40mg Take 2 [facility] n[facility] 20 mg 5-19 tablets by ity of tablet 00:00: mouth [place] 00 daily. [facility] chlorthalid 0 Yes [id number] 15mg Take 1 [facility] one 15 mg 5-19 tablet by ity o f tablet 00:00: mouth [place] 00 daily. [facility] furosemide 0 Yes [id number] 40mg Take 2 [facility] n[facility] 20 mg 5-19 tablets by ity of tablet 00:00: mouth [place] 00 daily. [facility] chlorthalid 0 Yes [id number] 15mg Take 1 [facility] one 15 mg 5-19 tablet by ity o f tablet 00:00: mouth [place] 00 daily. [facility] furosemide 0 Yes [id number] 40mg Take 2 [facility] n[facility] 20 mg 5-19 tablets by ity of tablet 00:00: mouth [place] 00 daily. [facility] Branch midazolam 2012-[address] 1 mg, 1 M [place] 0-16 Jessi mL, Route: l 13:59: IV, Drug form: INJ, ONCE, Dosing Weight 83.636, kg, Start date: 07/21/13 8:59:00, Stop date: 07/21/13 8:59:00([facility] as: Versed) lidocaine 2012-[address] 10 mL, Me moria 1% 0-16 Jessi Route: IV, l 13:58: Drug Form: Isael 00 INJ, Dosing Weight 83.636, kg, ONCE, Start date: 07/21/13 8:58:00, Stop date: 07/21/13 8:58:00([facility] as: Xylocaine) fentanyl 2012-[address] 100 Memor ia 0-16 Jessi microgram, l 13:58: 2 mL, Isael 00 Route: IV, Drug form: INJ, ONCE, Dosing Weight 83.636, kg, Start date: 07/21/13 8:58:00, Stop date: 07/21/13 8:58:00([facility] as: Sublimaze) Preservati ve free. Omnipaque 2012-[address] 140 mL, M emoria 300 0-16 Jessi Route: l 13:58: INTRAARTER Isael 00 IAL, Drug Form: SOLN, Dosing Weight 83.636, kg, ONCE, Start date: 07/21/13 8:58:00, Stop date: 07/21/13 8:58:00([facility] as:Omnipaq ue 350). normal 2012-10 No Dustin [...] Start date: 07/21/13 6:53:00, Stop date: 07/21/13 6:53:00([facility] as: Zofran) Tylenol 2012-[address] [...] Completed Unive rsity of PFIZER VACCINE 00:00:00 [facility] SARS-COV-2 COVID-19 2021-01-11 Completed Unive rsity of PFIZER VACCINE 00:00:00 [facility] SARS-COV-2 COVID-19 2021-01-11 Completed Unive rsity of PFIZER VACCINE 00:00:00 [facility] SARS-COV-2 COVID-19 2021-01-11 Completed Unive rsity of PFIZER VACCINE 00:00:00 [facility] SARS-COV-2 COVID-19 2021-01-11 Completed Unive rsity of PFIZER VACCINE 00:00:00 [facility] Branch SARS-COV-2 COVID-19 2021-01-11 Completed Unive rsity of PFIZER VACCINE 00:00:00 [facility] SARS-COV-2 COVID-19 2021-01-11 Completed Unive rsity of PFIZER VACCINE 00:00:00 [facility] Branch SARS-COV-2 COVID-19 2021-01-11 Completed Unive rsity of PFIZER VACCINE 00:00:00 [facility] SARS-COV-2 COVID-19 2021-01-11 Completed Unive rsity of PFIZER VACCINE 00:00:00 [facility] SARS-COV-2 COVID-19 2021-01-11 Completed Unive rsity of PFIZER VACCINE 00:00:00 [facility] SARS-COV-2 COVID-19 2021-01-11 Completed Unive rsity of PFIZER VACCINE 00:00:00 [facility] SARS-COV-2 COVID-19 2021-01-11 Completed Unive rsity of PFIZER VACCINE 00:00:00 [facility] SARS-COV-2 COVID-19 2021-01-11 Completed Unive rsity of PFIZER VACCINE 00:00:00 [facility] SARS-COV-2 COVID-19 2021-01-11 Completed Unive rsity of PFIZER VACCINE 00:00:00 [facility] SARS-COV-2 COVID-19 2021-01-11 Completed Unive rsity of PFIZER VACCINE 00:00:00 [facility] SARS-COV-2 COVID-19 2021-01-11 Completed Unive rsity of PFIZER VACCINE 00:00:00 [facility] SARS-COV-2 COVID-19 2021-01-11 Completed Unive rsity of PFIZER VACCINE 00:00:00 [facility] SARS-COV-2 COVID-19 2021-01-11 Completed Unive rsity of PFIZER VACCINE 00:00:00 [facility] SARS-COV-2 COVID-19 2021-01-11 Completed Unive rsity of PFIZER VACCINE 00:00:00 [facility] SARS-COV-2 COVID-19 2021-01-11 Completed Unive rsity of PFIZER VACCINE 00:00:00 [facility] SARS-COV-2 COVID-19 2021-01-11 Completed Unive rsity of PFIZER VACCINE 00:00:00 [facility] SARS-COV-2 COVID-19 2020-12-20 Completed Unive rsity of PFIZER VACCINE 00:00:00 [facility] SARS-COV-2 COVID-19 2020-12-20 Completed Unive rsity of PFIZER VACCINE 00:00:00 [facility] SARS-COV-2 COVID-19 2020-12-20 Completed Unive rsity of PFIZER VACCINE 00:00:00 [facility] SARS-COV-2 COVID-19 2020-12-20 Completed Unive rsity of PFIZER VACCINE 00:00:00 [facility] SARS-COV-2 COVID-19 2020-12-20 Completed Unive rsity of PFIZER VACCINE 00:00:00 [facility] SARS-COV-2 COVID-19 2020-12-20 Completed Unive rsity of PFIZER VACCINE 00:00:00 [facility] SARS-COV-2 COVID-19 2020-12-20 Completed Unive rsity of PFIZER VACCINE 00:00:00 [facility] SARS-COV-2 COVID-19 2020-12-20 Completed Unive rsity of PFIZER VACCINE 00:00:00 [facility] SARS-COV-2 COVID-19 2020-12-20 Completed Unive rsity of PFIZER VACCINE 00:00:00 [facility] SARS-COV-2 COVID-19 2020-12-20 Completed Unive rsity of PFIZER VACCINE 00:00:00 [facility] SARS-COV-2 COVID-19 2020-12-20 Completed Unive rsity of PFIZER VACCINE 00:00:00 [facility] SARS-COV-2 COVID-19 2020-12-20 Completed [facility]ive rsity of PFIZER VACCINE 00:00:00 [facility] SARS-COV-2 COVID-19 2020-12-20 Completed Unive rsity of PFIZER VACCINE 00:00:00 [facility] SARS-COV-2 COVID-19 2020-12-20 Completed Unive rsity of PFIZER VACCINE 00:00:00 [facility] SARS-COV-2 COVID-19 2020-12-20 Completed Unive rsity of PFIZER VACCINE 00:00:00 [facility] SARS-COV-2 COVID-19 2020-12-20 Completed Unive rsity of PFIZER VACCINE 00:00:00 [facility] SARS-COV-2 COVID-19 2020-12-20 Completed Unive rsity of PFIZER VACCINE 00:00:00 [facility] SARS-COV-2 COVID-19 2020-12-20 Completed Unive rsity of PFIZER VACCINE 00:00:00 [facility] SARS-COV-2 COVID-19 2020-12-20 Completed Unive rsity of PFIZER VACCINE 00:00:00 [facility] SARS-COV-2 COVID-19 2020-12-20 Completed Unive rsity of PFIZER VACCINE 00:00:00 [facility] SARS-COV-2 COVID-19 2020-12-20 Completed Unive rsity of PFIZER VACCINE 00:00:00 [facility] SARS-COV-2 COVID-19 Unknown Completed Unive rsity of PFIZER VACCINE [facility] SARS-COV-2 COVID-19 Unknown Completed Unive rsity of PFIZER VACCINE [facility] SARS-COV-2 COVID-19 Unknown Completed Unive rsity of PFIZER VACCINE [facility] SARS-COV-2 COVID-19 Unknown Completed Unive rsity of PFIZER VACCINE [facility] pneumococcal Unknown Completed [facility] 23-valent vaccine Vital Signs Vital Name Observation Time Observation Value Comments Source Systolic blood 2022-07-15 21:00:00 164 mm[Hg] Univer sity of pressure [facility] Diastolic blood 2022-07-15 21:00:00 65 mm[Hg] Unive rsity of pressure [facility] Heart rate 2022-07-15 21:00:00 68 /min [facility] Body height 2022-07-15 21:00:00 161.3 cm [facility] Body weight 2022-07-15 21:00:00 83.915 kg [facility] BMI 2022-07-15 21:00:00 32.26 kg/m2 [facility] Oxygen saturation in 2022-07-15 21:00:00 95 /min [facility] Arterial blood by [facility] blanca Pulse oximetry Branch Systolic blood 2022-06-17 18:06:00 160 mm[Hg] Univer sity of pressure [facility] Diastolic blood 2022-06-17 18:06:00 72 mm[Hg] Unive rsity of pressure [facility] Heart rate 2022-06-17 18:06:00 58 /min [facility] Body temperature 2022-06-17 18:04:00 36.44 Mariah [facility] Body height 2022-06-17 18:04:00 161.3 cm [facility] Body weight 2022-06-17 18:04:00 85.458 kg [facility] BMI 2022-06-17 18:04:00 32.85 kg/m2 [facility] Oxygen saturation in 2022-06-17 18:04:00 96 /min University of Arterial blood by [facility] Pulse oximetry Branch Systolic blood 2022-06-03 19:24:00 160 mm[Hg] Univer sity of pressure [facility] Diastolic blood 2022-06-03 19:24:00 63 mm[Hg] Unive rsity of pressure [facility] Heart rate 2022-06-03 19:24:00 78 /min [facility] Body height 2022-06-03 19:24:00 161.3 cm [facility] Body weight 2022-06-03 19:24:00 86.183 kg [facility] BMI 2022-06-03 19:24:00 33.13 kg/m2 [facility] Oxygen saturation in 2022-06-03 19:24:00 94 /min [facility] of Arterial blood by [facility] Pulse oximetry Branch Systolic (mm Hg) 2023-05-16 20:33:00 Karan rial Isael Diastolic (mm Hg) 2023-05-16 20:33:00 Mem [facility] Heart Rate 2023-05-16 20:33:00 [facility] Height 2023-05-16 20:33:00 5 [ft_i] [facility] Weight 2023-05-16 20:33:00 [facility] BMI Calculated 2023-05-16 20:33:00 [facility] Systolic (mm Hg) 2023-01-09 19:59:00 [facility] Diastolic (mm Hg) 2023-01-09 19:59:00 Mem o[facility] Heart Rate 2023-01-09 19:59:00 [facility] Height 2023-01-09 19:59:00 5 [ft_i] [facility] Weight 2023-01-09 19:59:00 [facility] BMI Calculated 2023-01-09 19:59:00 Memori [facility] Systolic (mm Hg) 2022-09-11 17:29:00 [facility]an [facility] Diastolic (mm Hg) 2022-09-11 17:29:00 [facility] Heart Rate 2022-09-11 17:29:00 [facility] Height 2022-09-11 17:29:00 5 [ft_i] [facility] Weight 2022-09-11 17:29:00 [facility] BMI Calculated 2022-09-11 17:29:00 Memori al [facility] Systolic (mm Hg) 2022-06-12 16:38:00 Karan rial Isael Diastolic (mm Hg) 2022-06-12 16:38:00 Mem o[facility] Heart Rate 2022-06-12 16:38:00 [facility] Respitory Rate 2022-06-12 16:38:00 [facility] [place] Height 2022-06-12 16:38:00 157.48 cm [facility] Weight 2022-06-12 16:38:00 [facility] BMI Calculated 2022-06-12 16:38:00 [facility] Systolic (mm Hg) 2022-04-30 16:30:00 Karan rial Isael Diastolic (mm Hg) 2022-04-30 16:30:00 [facility] Heart Rate 2022-04-30 16:30:00 [facility] Respitory Rate 2022-04-30 16:30:00 Memori [facility] Height 2022-04-30 16:30:00 154.94 cm [facility] Weight 2022-04-30 16:30:00 [facility] BMI Calculated 2022-04-30 16:30:00 Memori al [facility] Systolic (mm Hg) 2022-03-26 13:48:00 [facility]an [facility] Diastolic (mm Hg) 2022-03-26 13:48:00 [facility] Heart Rate 2022-03-26 13:48:00 [facility] Respitory Rate 2022-03-26 13:48:00 Memori al [facility] Height 2022-03-26 13:48:00 157.48 cm [facility] Weight 2022-03-26 13:48:00 [facility] BMI Calculated 2022-03-26 13:48:00 Memori al [facility] Diastolic (mm Hg) 2013-07-21 13:50:00 Mem [facility] Systolic (mm Hg) 2013-07-21 13:50:00 Karan [facility] Heart Rate 2013-07-21 13:50:00 [facility] Respitory Rate 2013-07-21 13:50:00 Memori al Isael Diastolic (mm Hg) 2013-07-21 13:45:00 [facility] Heart Rate 2013-07-21 13:45:00 [facility] Respitory Rate 2013-07-21 13:45:00 [facility] Systolic (mm Hg) 2013-07-21 13:45:00 Karan rial Isael Systolic (mm Hg) 2013-07-21 13:40:00 Karan rial Isael Respitory Rate 2013-07-21 13:40:00 Memori al Isael Diastolic (mm Hg) 2013-07-21 13:40:00 Mem orial [facility] Heart Rate 2013-07-21 13:40:00 [facility] Height 2013-07-21 11:28:00 162.56 cm [facility] Weight 2013-07-21 11:28:00 [facility] Procedures Procedure Date / Time Performing Clinician Source Performed FREE T4 2022-07-15 21:38:[address] [facility] TRIIODOTHYRONINE 2022-07-15 21:38:00 Taylor Gomez [facility] THYROID STIMULATING 2022-07-15 21:38:00 Taylor Gomez [facility] HORMONE Medical Branch GLYCOSYLATED HEMOGLOBIN 2022-07-15 21:38:00 Taylor Gomez [facility] (A1C) Medical Branch AUTHORIZATION FOR RELEASE 2022-07-15 05:01:00 Doctor Unassigned, [facility] PATIENT CORRESPONDENCE 2022-06-19 05:01:00 Doctor Unassigned, [facility] (LETTERS, USPS [place] DOCUMENTATION) POCT HEMOGLOBIN A1C TEST 2022-06-03 19:29:00 Taylor Gomez [facility] Encounters Start End Encounter Admission Attending Care Care Encounter Source Date/Time Date/Time Type Type Clinicians Facility Department ID 2023-08-08 2023-08-08 Outpatient MHIE MHIE [id number] Memoria 15:00:00 15:00:00 08 cody Isael 2023-08-08 2023-08-08 Outpatient SFA SHAHEEN [id number] Jb 10:46:03 10:46:03 [id number] F Wm 2023-08-05 2023-08-05 Ambulatory MHIE MNA [id number] Memoria 20:15:00 20:15:00 Pre-Reg Neurology 07 cody Jerad Kirkland 2023-08-05 2023-08-05 Outpatient MHIE MHIE [id number] Memoria 15:15:00 15:15:00 07 cody Isael 2023-08-05 2023-08-05 Outpatient ETHEL SpearsSCHJUAN MHMISCHER [id number] 15:15:00 15:15:00 Brandon 07 Tj 2023-07-29 2023-07-29 Outpatient R KORINAENTI [facility] [id number] Univers 13:30:00 13:30:[address] [facility] 2023-07-17 2023-07-17 Ambulatory MHIE MNA [id number] Memoria 20:30:00 20:30:00 Pre-Reg Neurology 06 cody Jerad Kirkland 2023-07-17 2023-07-17 Outpatient MHIE MHIE [id number] Memoria 15:30:00 15:30:00 06 cody Kirkland 2023-07-172023-07-17 Outpatient ETHEL SpearsSCHER MHMISCHER [id number] 15:30:00 15:30:00 Brandon Armond Spencer 2023-07-14 2023-07-14 Outpatient R АЛЕКСАНДР [facility] [id number] [facility] 08:00:00 08:00:00 , KATELIN [facility] 2023-06-25 2023-06-25 [facility] 1.2.840.114 [id number] Univers 00:00:00 00:00:00 , Katelin [facility] 350.1.13.10 [facility] 4.2.7.2.686 [facility] [id number] [address] DIABETES CLINIC 2023-06-03 2023-06-03 Outpatient SFA [facility] Jb 16:08:48 16:08:48 [id number] Wm 2023-05-16 2023-05-17 Outpatient MHIE MNA [id number] Memoria 20:45:00 04:59:59 Neurology 05 l Jerad Kirkland 2023-05-16 2023-05-16 Outpatient ETHEL SpearsSCHER MHMISCHER [id number] 15:45:00 23:59:59 Brandon Gale Spencer 2023-05-16 2023-05-16 Outpatient MHIE MHIE [id number] Memoria 15:45:00 15:45:00 05 cody Kirkland 2023-05-02 2023-05-02 Outpatient SFA SHAHEEN [id number] Jb 08:18:30 08:18:30 [id number] Wm 2023-04-18 2023-04-18 Outpatient SFA [facility] [id number] Jb 10:05:41 10:05:41 [id number] F Wm 2023-02-24 2023-02-24 Outpatient Luis FOUNTAIN [facility] [id number] [facility] 16:30:00 16:30:00 , KATELIN [facility] 2023-01-09 2023-01-10 Outpatient MHIE MNA [id number] Memoria 20:15:00 04:59:59 Neurology 04 l Jerad Kirkland 2023-01-09 2023-01-09 Outpatient ETHEL SpearsSCHER MHMISCHER [id number] 15:15:00 23:59:59 Brandon 04 Tj 2023-01-09 2023-01-09 Outpatient MHIE MHIE [id number] Memoria 15:15:00 15:15:00 04 cody Kirkland 2022-10-14 2022-10-14 Outpatient R АЛЕКСАНДР [facility] [id number] Univers 15:00:00 15:00:00 , KATELIN [facility] 2022-10-11 2022-10-11 [facility] 1.2.840.114 [id number] [facility] 00:00:00 00:00:00 , Katelin [facility] 350.1.13.10 ity [place] 4.2.7.2.686 [facility] [id number] [address] DIABETES CLINIC 2022-10-09 2022-10-09 Outpatient R TAYLOR GOMEZ [facility] [id number] Univers 16:30:00 16:30:[address] [facility] 2022-10-08 2022-10-08 Outpatient R АЛЕКСАНДР [facility] [id number] Univers 13:30:00 13:30:00 , KATELIN [facility] 2022-09-11 2022-09-12 Outpatient MHIE MNA [id number] Memoria 17:30:00 05:59:59 Neurology 03 cody [place] Isael 2022-09-11 2022-09-11 Outpatient ALCIDES Spears MHABHISHEKSCHER [id number] 11:30:00 23:59:59 Brandon 03 Tj 2022-09-11 2022-09-11 Outpatient MHIE MHIE [id number] Memoria 11:30:00 11:30:00 03 cody Isael 2022-08-07 2022-08-07 Telephone Rachel Vazquez [facility] 1.2.204.179 [id number] Univers 00:00:00 00:00:00 HEALTH 350.1.13.10 it y of [place] 4.2.7.2.686 Pierre as JUNE?BLEA [id number] [address] MEDICAL OFFICE BUILDING 2022-08-06 2022-08-06 Refill RachelTaylor zuniga [facility] 1.2.840.114 [id number] Univers 00:00:00 00:00:00 HEALTH 350.1.13.10 it y of [place] 4.2.7.2.686 Pierre as JUNE?BLEA [id number] [facility] [address] [facility] OFFICE [facility] 2022-07-21 2022-07-21 Patient RachelTaylor zuniga [facility] 1.2.840.114 [id number] Univers 00:00:00 00:00:00 Secure Msg HEALTH 350.1.13.10 ity of [place] 4.2.7.2.686 Pierre as JUNE?BLEA [id number] [address] OFFICE [facility] 2022-07-15 2022-07-15 Metal Furrer Lab, [facility] 1.2.840.1 [id number] Univers 16:30:00 16:45:00 Visit Rachel Taylor HEALTH 350.1.13.10 it y of [place] 4.2.7.2.686 Pierre as JUNE?BLEA [id number] [facility] [address] [facility] OFFICE [facility] 2022-07-15 2022-07-15 Outpatient R TAYLOR GOMEZ [facility] [id number] Univers 16:00:00 16:27:[address] [facility] 2022-07-15 2022-07-15 Office Rachel Vazquez [facility] 1.2.840.114 [id number] Univers 16:00:00 16:27:53 Visit HEALTH 350.1.13.10 it y of [place] 4.2.7.2.686 Pierre as JUNE?BLEA [id number] [address] OFFICE [facility] 2022-07-15 2022-07-15 Orders Doctor KATELIN 1.2.840.114 [id number] Univers 00:00:00 00:00:00 Only Unassigned, LILLY 350.1.13.10 [facility] 4.2.7.2.686 Pierre as [id number] [address] 2022-07-12 2022-07-12 Telephone Taylor Gomez [facility] 1.2.745.213 [id number] Univers 00:00:00 00:00:00 HEALTH 350.1.13.10 it y of [place] 4.2.7.2.686 Pierre as JUNE?BLEA [id number] [place] [address] MEDICAL OFFICE BUILDING 2022-06-24 2022-06-24 Outpatient R АЛЕКСАНДР [facility] [id number] Univers 08:00:00 08:00:00 , KATELIN de [facility]z [facility] 2022-06-24 2022-06-24 Outpatient R [facility] [id number] Univers 08:00:00 08:00:00 , KATELIN de [facility] 2022-06-19 2022-06-19 Orders Doctor KATELIN 1.2.840.114 [id number] Univers 00:00:00 00:00:00 Only Unassigned, LILLY 350.1.13.10 [place]y of [place] [facility] 4.2.7.2.686 Pierre as [id number] [place] [address] Branch 2022-06-17 2022-06-17 Metal Furrer Vtc-Lab [facility] 1.2.840.114 [id number] Univers 14:15:00 14:30:00 Visit Katelin [place] 350.1.13.1 0 ity of [place] 4.2.7.2.686 [facility] [place] [id number] [facility] [address] [place] [facility] 2022-06-17 2022-06-17 [facility] [id number] Univers 13:00:00 13:49:14 , KATELIN de la [facility]z [facility] 2022-06-17 2022-06-17 [facility] 1.2.840.114 [id number] Univers 13:00:00 13:49:14 Visit , Katelin MARIO 350.1.13.10 ity of [place] 4.2.7.2.686 [place] [id number] [facility] [address] [place] [facility]IC 2022-06-17 2022-06-17 Patient Александр [facility] 1.2.840.114 [id number] Univers 00:00:00 00:00:00 Secure Msg , Katelin DIVINEPEC 350.1.13.10 ity of [place] 4.2.7.2.686 [place] [id number] [address] DIABETES [facility] 2022-06-17 2022-06-17 Patient [facility] 1.2.840.114 [id number] Univers 00:00:00 00:00:00 Secure Katelin Neumann MULTISPEC 350.1.13.10 ity of [place] 4.2.7.2.686 [place] [id number] [address] DIABETES [facility] 2022-06-12 2022-06-13 Outpatient nullFlavo MNA [id number] Memoria 16:45:00 04:59:59 r Neurology 02 cody Kirkland 2022-06-13 2022-06-13 Telephone [facility] 1.2.840.114 [id number] Univers 00:00:00 00:00:00 , Katelin MARIO 350.1.13.10 ity of [place] 4.2.7.2.686 [facility] [place] [id number] [address] DIABETES CLINIC 2022-06-12 2022-06-12 Outpatient ALCIDES Spears MISCHER [id number] 11:45:00 23:59:59 Brandon Luciano Tj 2022-06-12 2022-06-12 Outpatient RAYRAY SEO [id number] [facility] 11:45:00 11:45:00 02 cody Kirkland 2022-06-03 2022-06-03 Outpatient R TAYLOR GOMEZ [facility] [id number] Univers 14:30:00 15:41:29 TAYLOR GOMEZ of [facility] 2022-06-03 2022-06-03 Office Taylor Gomez [facility] 1.2.840.114 [id number] Univers 14:30:00 15:41:29 Visit HEALTH 350.1.13.10 it y of [place] 4.2.7.2.686 Pierre as JUNE?BLEA [id number] [place] [address] MEDICAL OFFICE BUILDING 2022-05-13 2022-05-13 Outpatient R АЛЕКСАНДР [facility] [id number] Univers 11:30:00 11:30:00 , KATELIN itsamia of [facility] 2022-05-13 2022-05-13 Orders Doctor KATELIN 1.2.840.114 [id number] Univers 00:00:00 00:00:00 Only Unassigned, LILLY 350.1.13.10 [place]y of [place] [facility] 4.2.7.2.686 Pierre as [id number] [facility] [address] Branch 2022-05-10 2022-05-10 Telephone Александр [facility] 1.2.840.114 [id number] Univers 00:00:00 00:00:00 , Katelin MULTISPEC 350.1.13.10 ity of [facility] 4.2.7.2.686 [place] [facility] [id number] [address] DIABETES CLINIC 2022-04-30 2022-05-01 Outpatient nullFlavo MNA [id number] Memoria 16:45:00 04:59:59 r Neurology 01 l Jerad Kirkland 2022-04-30 2022-04-30 Outpatient ETHEL SpearsSCHJUAN MHMISCHER [id number] 11:45:00 23:59:59 Brandon Tj 2022-04-30 2022-04-30 Outpatient MHIE MHIE [id number] Memoria 11:45:00 11:45:00 01 cody Kirkland 2022-04-25 2022-04-25 Orders Doctor KATELIN 1.2.840.114 [id number] Univers 00:00:00 00:00:00 Only Unassigned, LILLY 350.1.13.10 [place] [facility] 4.2.7.2.686 Pierre as [id number] [place] [address] Branch 2022-03-26 2022-03-27 Outpatient nullFlavo MNA [id number] Memoria 14:00:00 04:59:59 r Neurology 00 l Jerad Kirkland 2022-03-26 2022-03-26 Outpatient JANETT SpearsMISCHER MHMISCHER [id number] 09:00:00 23:59:59 Brandon 00 Tj 2022-03-26 2022-03-26 Outpatient MHIE MHIE [id number] Memoria 09:00:00 09:00:00 00 l Isael 2022-03-13 2022-03-13 Telephone [facility] 1.2.840.114 [id number] Univers 00:00:00 00:00:00 , Katelin MARIO 350.1.13.10 [facility] 4.2.7.2.686 [facility] [place] [id number] [address] DIABETES CLINIC 2022-03-01 2022-03-01 Telephone [facility] 1.2.840.114 [id number] Univers 00:00:00 00:00:00 , Katelin MARIO 350.1.13.10 [facility] 4.2.7.2.686 [facility] [id number] [address] DIABETES [facility] 2022-03-01 2022-03-01 Orders Doctor KATELIN 1.2.840.114 [id number] Univers 00:00:00 00:00:00 Only Unassigned, LILLY 350.1.13.10 [place] of [place] [facility] 4.2.7.2.686 Pierre as [id number] [facility] 009 Branch 2022-02-28 2022-02-28 Outpatient R [facility] [id number] Univers 09:56:32 23:59:00 , KATELIN de [facility]z [facility] 2022-02-28 2022-02-28 [facility] 1.2.840.114 [id number] Univers 09:45:00 23:59:00 Encounter , Katelin MILLER 350.1.13.10 ity of [place] 4.2.7.2.686 [facility] [id number] [facility] 806 Branch 2022-02-28 2022-02-28 Emergency X [facility] ERT [id number] Univers 09:29:00 10:13:00 , KATELIN de [facility]z [facility] 2022-02-28 2022-02-28 Emergency [facility] 1.2.354.637 [id number] Univers 09:29:00 10:13:00 PAUL 350.1.13.10 i ty of [place] 4.2.7.2.686 [facility] [id number] [facility] 084 Branch 2022-02-21 2022-02-21 Metal Furrer Vtc-Lab [facility] 1.2.840.114 [id number] Univers 13:15:00 13:30:00 Visit Александр Katelin MARIO 350.1.13.1 0 ity of [place] 4.2.7.2.686 [facility] [phone] [address] [facility] 2022-02-21 2022-02-21 Outpatient R [facility] [id number] Univers 13:15:00 13:15:00 , KATELIN de la [facility]z [facility] 2022-02-21 2022-02-21 Office [facility] 1.2.840.114 [id number] Univers 11:00:00 12:22:13 Visit , Katelin MARIO 350.1.13.10 ity of IALTY 4.2.7.2.686 [facility] [id number] [address] [facility] 2022-02-21 2022-02-21 Outpatient R [facility] [id number] Univers 11:00:00 12:22:13 , KATELIN dilansamia [facility] 2022-02-18 2022-02-18 Outpatient R [facility] [id number] Univers 08:00:00 08:00:00 , KATELIN de [facility]z [facility] 2022-01-31 2022-01-31 Orders Doctor KATELIN 1.2.840.114 [id number] Univers 00:00:00 00:00:00 Only Unassigned, LILLY 350.1.13.10 ity of [place] [facility] 4.2.7.2.686 [facility] [phone] [facility] [address] 2013-07-21 2013-07-21 Outpatient 2.16.840. 2.16.840.1. 3 [id number] [facility] 06:17:00 12:30:00 1.505688. [id number] 01 l 3.615.0.1 5.0.101 [facility] 2013-07-21 2013-07-21 Outpatient 2.16.840. 2.16.840.1. 3 [id number] [facility] 06:17:00 12:30:00 1.983791. 853640.3.61 01 l 3.615.0.1 5.0.101 Kane n 01 [facility] 2013-07-21 2013-07-21 Outpatient 2.16.840. 2.16.840.1. 3 [id number] Memoria 06:17:00 12:30:00 1.183199. 199474.3.61 01 l 3.615.0.1 5.0.101 Kane n 01 [facility] 2013-07-21 2013-07-21 Outpatient 2.16.840. 2.16.840.1. 3 [id number] Mem[facility] 06:17:00 12:30:00 1.240744. 016731.3.61 01 l 3.615.0.1 5.0.101 Kane n 01 [facility] 2013-07-21 2013-07-21 Outpatient 2.16.840. 2.16.840.1. 3 [id number] [facility] 06:17:00 12:30:00 1.562363. 917058.3.61 01 l 3.615.0.1 5.0.101 [place] n 01 [facility] 2013-07-21 2013-07-21 [facility] [id number] Memoria 06:17:00 12:30:[address] Results Test Description Test Time Test Comments Results Result Comments Source TRIIODOTHYRONINE 2022-07-16 07:02:50 Test Item Value Reference Range Interpretation Comme nts T3 (test code = 3224249752) 112.0 ng/dL 97-170 Lab Interpretation (test code = 40078-2) Normal [facility] [id number] 05:11:00 Test Item Value Reference Range Interpretation Comments TSH (test code = See_Comment [Automated message] [id number]) The system [employer] generated this result transmitted ref erence range: 0.45 - 4 .70 mIU/L. The refe rence range was not u sed to interpret this result as normal/abnor mal. Lab Interpretation (test Normal code = 51407-3) [facility] [id number] 04:57:19 Test Item Value Reference Range Interpretation Comments FREE T4 (test code = See_Comment [Autom ated message] [id number]) The system [employer] generated this result transmitted ref erence range: 0.78 - 2 .20 ng/dL:. The ref erence range was not u sed to interpret this result as normal/abnor mal. Lab Interpretation (test Normal code = 77754-6) [facility] HospitalGLYCOSYL[facility] HEMOGLOBIN (A1C)2022-07-16 03:33:21 Test Item Value Reference Range Interpretation Comments HGB A1C (test code = 9.2 % 4-5.7 H 4548-4) TRAV (test code = TRAV) Reference RangesNormal: <5.7%Prediabetes: 5.7 - 6.4%Diabetes: > 6.5% Lab Interpretation (test Abnormal code = 17842-5) [facility] HospitalPO[facility] HEMOGLOBIN A1C [id number] 19:29:00 Test Item Value Reference Range Interpretation Comments POCT HBA1C (test code = 4548-4) 9.0 % 4-6 A Lab Interpretation (test code = Abnormal 81697-6) [facility]2022-06-22 12:54:00 Test Item Value Reference Range Interpretation Comments Basophils # (test code = Basophils #) 50 <=200 [facility] CenterLobtdjzARGAGSENFR3374-22-22 12:54:00 Test Item Value Reference Range Interpretation Comments Segs (test code = Segs) 64.[address] [facility] HospitalKpjvjdeONSLJXOWOI8620-05-91 12:54:00 Test Item Value Reference Range Interpretation Comments Lymphocytes (test code = Lymphocytes) 21.[address] [facility] HospitalSvwaafjTTNJGRCMRC6482-67-98 12:54:00 Test Item Value Reference Range Interpretation Comments Monocytes (test code = Monocytes) 11.[address] [facility] HospitalDzsmfiyNFDFLDHBCC1787-01-81 12:54:00 Test Item Value Reference Range Interpretation Comments Eosinophils (test code = Eosinophils) 2.[address] [facility] HospitalWpjruocVDBTXCMNOG7912-94-67 12:54:00 Test Item Value Reference Range Interpretation Comments Basophils (test code = Basophils) 0.7 [facility] CenterRlvkyuhBAOAXBASJS0441-67-80 12:54:00 Test Item Value Reference Range Interpretation Comments Sed Rate (test code = Sed Rate) 9 [facility]TR[facility] H[facility]ITALTDBDO1134-92-05 12:54:00 Test Item Value Reference Range Interpretation Comments Vitamin B12 Lvl (test code = Vitamin 038 027-5133 B12 Lvl) [facility]2022-06-22 12:54:00 Test Item Value Reference Range Interpretation Comments Glucose Lvl (test code = Glucose Lvl) 70 65-99 [facility]2022-06-22 12:54:00 Test Item Value Reference Range Interpretation Comments BUN (test code = BUN) 34 7-25 [facility]2022-06-22 12:54:00 Test Item Value Reference Range Interpretation Comments Creatinine Lvl (test code = Creatinine 1.50 0.70-1.18 Lvl) [facility]2022-06-22 12:54:00 Test Item Value Reference Range Interpretation Comments eGFR NON-AFR. ARMENIAN (test code = 44 eGFR NON-AFR. ARMENIAN) [facility]2022-06-22 12:54:00 Test Item Value Reference Range Interpretation Comments eGFR (test code = eGFR 51 ) [facility]2022-06-22 12:54:00 Test Item Value Reference Range Interpretation Comments B/C Ratio (test code = B/C Ratio) 23 6-22 [facility]2022-06-22 12:54:00 Test Item Value Reference Range Interpretation Comments Sodium Lvl (test code = Sodium Lvl) 140 135-146 [facility]2022-06-22 12:54:00 Test Item Value Reference Range Interpretation Comments Potassium Lvl (test code = Potassium 4.4 3.5-5.3 Lvl) [facility]2022-06-22 12:54:00 Test Item Value Reference Range Interpretation Comments Chloride Lvl (test code = Chloride Lvl) 104 98-110 [facility]2022-06-22 12:54:00 Test Item Value Reference Range Interpretation Comments CO2 (test code = CO2) 29 20-32 [facility]2022-06-22 12:54:00 Test Item Value Reference Range Interpretation Comments Calcium Lvl (test code = Calcium Lvl) 8.8 8.6-10.3 [place] 383362-06-22 12:54:00 Test Item Value Reference Range Interpretation Comments Total Protein (test code = Total 6.4 6.1-8.1 Protein) [place] 383362-06-22 12:54:00 Test Item Value Reference Range Interpretation Comments Albumin Lvl (test code = Albumin Lvl) 4.0 3.6-5.1 [place] 383362-06-22 12:54:00 Test Item Value Reference Range Interpretation Comments Globulin (test code = Globulin) 2.4 1.9-3.7 [place] 383362-06-22 12:54:00 Test Item Value Reference Range Interpretation Comments A/G Ratio (test code = A/G Ratio) 1.7 1.0-2.5 [place] 383362-06-22 12:54:00 Test Item Value Reference Range Interpretation Comments Bili Total (test code = Bili Total) 0.4 0.2-1.2 [place] 383362-06-22 12:54:00 Test Item Value Reference Range Interpretation Comments Alk Phos (test code = Alk Phos) 63 35-144 [place] 383362-06-22 12:54:00 Test Item Value Reference Range Interpretation Comments ASPARTATE TRANSAMINASE (test code = 10 10-35 ASPARTATE TRANSAMINASE) [place] 383362-06-22 12:54:00 Test Item Value Reference Range Interpretation Comments ALANINE AMINOTRANSFERASE (test code = 12 9-46 ALANINE AMINOTRANSFERASE) [place] 330102-06-22 12:54:00 Test Item Value Reference Range Interpretation Comments WBC X 10x3 (test code = WBC X 10x3) 7.2 3.8-10.8 [place] 330102-06-22 12:54:00 Test Item Value Reference Range Interpretation Comments RBC X 10x6 (test code = RBC X 10x6) 3.68 4.20-5.80 [place] 330102-06-22 12:54:00 Test Item Value Reference Range Interpretation Comments Hgb (test code = Hgb) 11.3 13.2-17.1 [place] 330102-06-22 12:54:00 Test Item Value Reference Range Interpretation Comments Hct (test code = Hct) 34.9 38.5-50.[address]06-22 12:54:00 Test Item Value Reference Range Interpretation Comments MCV (test code = MCV) 94.8 80.0-100.0 [facility] CenterAsjglvzHKLYEHXSWW2076-96-48 12:54:00 Test Item Value Reference Range Interpretation Comments MCH (test code = MCH) 30.7 pg 27.0-33.0 [facility] CenterMufkugxVKCNSEAOMK0617-37-67 12:54:00 Test Item Value Reference Range Interpretation Comments MCHC (test code = MCHC) 32.4 32.0-36.0 [facility] CenterBszpgzgFXQGVHYHVE3934-15-96 12:54:00 Test Item Value Reference Range Interpretation Comments RDW (test code = RDW) 12.5 11.0-15.0 [facility] CenterIpfjjinRWQQCOQZXC9218-22-13 12:54:00 Test Item Value Reference Range Interpretation Comments Platelet (test code = Platelet) 242 140-400 [facility] CenterYpcobrlMIKHUALXVQ8405-62-94 12:54:00 Test Item Value Reference Range Interpretation Comments MPV (test code = MPV) 10.5 7.5-12.5 [facility] CenterPfskzcmDDDQICBEJN8829-43-77 12:54:00 Test Item Value Reference Range Interpretation Comments Neutrophils # (test code = Neutrophils 4615 4624-8534 #) [facility] CenterHxxfpweRAFDSHZMKH8134-91-97 12:54:00 Test Item Value Reference Range Interpretation Comments Lymphocytes # (test code = Lymphocytes 6489 165-8779 #) [facility] CenterMtnemlyHDHGOHCERO5663-60-07 12:54:00 Test Item Value Reference Range Interpretation Comments Monocytes # (test code = Monocytes #) 799 200-950 [facility] CenterZbliwlmUUENCFCQAS1704-30-19 12:54:00 Test Item Value Reference Range Interpretation Comments Eosinophils # (test code = Eosinophils 180 15-500 #) [facility] GLUCOSE [id number] 11:43:00 Test Item Value Reference Range Interpretation Comments Gluc POC Comment 1 (test code = Notify RN/MD Gluc POC Comment 1) [facility] GLUCOSE [id number] 11:43:00 Test Item Value Reference Range Interpretation Comments Glucose POC (test code = Glucose POC) 139 70-99 [facility]
[2023-08-11 19:42] LABS: Absolute Lymphocytes (CBC) 1.2 K/uL (0.7-4.9); Hematocrit 30.9 % (39.6-49.0); Lymphocytes % 14.8 % (15.3-44.8); MCV 88.5 fL (80-100); MPV 9.4 fL (7.6-11.3); Platelets 244 thou/uL (152-406); RBC Red Blood Cell Count 3.49 M/uL (4.33-5.43)
[2023-08-11 20:05] LABS: Potassium 4.6 mEq/L (3.5-5.1)
--- NOTE | 2023-08-11 20:06 | RAD REPORT ---
EXAM DESCRIPTION: RADChest Single View08/11/2023 7:14 pm CLINICAL HISTORY: COUGH COMPARISON: Chest Single View dated 08/04/2023; Chest Pa And Lat (2 Views) dated 04/19/2022; Chest Si ngle View dated 07/18/2021; Chest Single View dated 12/25/2017 TECHNIQUE: Portable AP view of the chest. FINDINGS: The lungs are clear. No pneumothorax or effusion. Mild cardiomegaly. Mediastinal contours are unchanged, with stable retrocardiac density which may represent a hiatal hernia versus tortuosit y or ectasia of the distal descending thoracic aorta. IMPRESSION: No acute cardiopulmonary process. Stable findings as above.
--- NOTE | 2023-08-11 20:09 | EDPHYS ---
Physician Documentation [facility] Name: Arturo Saldana Sr Age: 78 yrs Sex: Male : 1945 Arrival Date: 08/11/2023 Time: 18:48 Bed 13 Private MD: ED Physician Jeramy Garcia HPI: 08/11 19:06 This 78 yrs old Male presents to ER via Wheelchair with complaints of Swelling ec2 of Lower Extremity - all over. 19:06 Patient arrives today due to concern for lower extremity edema. Patient reports that he ec2 was diagnosed with heart failure recently, was initially discharged on Lasix twice daily and transition to Lasix daily several days ago and has noted worsening swelling since decreased. Patient reports no significant difficulty breathing however does report an occasional cough. States that his lower extremity edema as well primarily prompted his evaluation. Patient denies any chest pain, denies other concerns.. Historical: - Allergies: 19:02 No Known Allergies; iw - PMHx: 19:02 Congestive heart failure; Diabetes - IDDM; depressive disorder; CVA; iw Hypercholesterolemia; Hypertensive disorder; ROS: 19:06 Constitutional: as per hpi ec2 Exam: 19:06 Constitutional: GEN: NAD Head: atraumatic Eyes: EOMI Ears: External ears are ec2 normal. CV: regular rate, lower extremity edema bilaterally 2+ LUNGS: no respiratory distress ABD: non-distended SKIN: no evidence of rashes MSK: no evidence of trauma NEURO: moves all extremities equally Vital Signs: 19:01 BP 129 / 67; Pulse 89; Resp 18; Pulse Ox 96% on R/A; iw MDM: 18:51 Patient medically screened. ec2 19:06 Data reviewed: vital signs. ED course: Patient arrives today due to concern for lower ec2 extremity edema. Examination remarkable for cardiovascular findings as noted above. Will obtain basic lab work, chest x-ray and further suspicion complaint. I suspect the decrease in frequency of his Lasix from twice daily to daily is causing the patient's volume accumulation. I have a low suspicion of the patient will require inpatient admission given the patient's lack of tachypnea or hypoxia. I have a low suspicion for ACS or PE. . 20:08 ED course: \E\Metabolic profile shows GFR 51 with creatinine 1.41, CBC is reassuring, ec2 chest x-ray shows no acute intrathoracic process. BNP elevated at 261. Ultimately patient with no respiratory distress, no hypoxia, no marked pulmonary edema to warrant inpatient admission. Will discharge home and have him follow-up with his primary care doctor and [employer] [employer] maker hand. Return precautions given . 08/11 19:06 Order name: Basic Metabolic Panel; Complete Time: 20:07 ec2 08/11 19:06 Order name: CBC with Diff; Complete Time: 20:07 ec2 08/11 19:06 Order name: BNP; Complete Time: 20:07 ec2 08/11 19:06 Order name: XRAY Chest (1 view); Complete Time: 20:08 ec2 08/11 19:06 Order name: Cardiac monitoring; Complete Time: :22 ec2 08/11 19: Order name: IV Saline Lock; Complete Time: :22 ec2 08/11 19:06 Order name: Labs collected and sent; Complete Time: :22 ec2 08/11 19:06 Order name: O2 Per Protocol; Complete Time: :22 ec2 08/11 19:06 Order name: O2 Sat Monitoring; Complete Time: 19:22 ec2 Administered Medications: No medications were administered Disposition Summary: 08/11/23 20:08 Discharge Ordered Notes: Location: Home ec2 Condition: Stable ec2 Diagnosis - Edema, unspecified ec2 Discharge Instructions: - Discharge Summary Sheet ec2 - Heart Failure Exacerbation ec2 Forms: - Medication Reconciliation Form ec2 - Thank You Letter ec2 - Antibiotic Education ec2 - Prescription Opioid Use ec2 - Patient Portal Instructions ec2 - Leadership Thank You Letter ec2 Signatures: Dispatcher [employer] Magda Arauz, Jeramy Fields RN, MD MD ec2
--- NOTE | 2023-08-11 20:09 | ER ---
Nurse's Notes [facility] Name: Arturo Saldana Sr Age: 78 yrs Sex: Male : 1945 Arrival Date: 08/11/2023 Time: 18:48 Bed 13 Private MD: Diagnosis: Edema, unspecified Presentation: 08/11 19:01 Chief complaint: Patient states: swelling to legs and hands, is on a water pill, has iw CHF , denies SOB. Coronavirus screen: At this time, the client does not indicate any symptoms associated with coronavirus-19. Ebola Screen: Patient negative for fever greater than or equal to 101.5 degrees Fahrenheit, and additional compatible Ebola Virus Disease symptoms Patient denies exposure to infectious person. Patient denies travel to an Ebola-affected area in the 21 days before illness onset. No symptoms or risks identified at this time. Initial Sepsis Screen: Does the patient meet any 2 criteria? No. Patient's initial sepsis screen is negative. Does the patient have a suspected source of infection? No. Patient's initial sepsis screen is negative. Risk Assessment: Do you want to hurt yourself or someone else? Patient reports no desire to harm self or others. Onset of symptoms was August 11, 2023. 19:01 Method Of Arrival: Wheelchair iw 19:01 Acuity: MADELYN 3 iw Historical: - Allergies: 19:02 No Known Allergies; iw - PMHx: 19:02 Congestive heart failure; Diabetes - IDDM; depressive disorder; CVA; iw Hypercholesterolemia; Hypertensive disorder; Vital Signs: 19:01 BP 129 / 67; Pulse 89; Resp 18; Pulse Ox 96% on R/A; iw ED Course: 18:51 Patient arrived in ED. im 18:51 Jeramy Garcia MD is Attending Physician. ec2 19:02 Triage completed. iw 19:02 Arm band placed on. iw 19:15 Missed attempt(s): 20 gauge in right wrist. bc6 19:16 XRAY Chest (1 view) In Process Unspecified. EDMS 19:22 BNP Sent. bc6 19:22 Basic Metabolic Panel Sent. bc6 19:22 CBC with Diff Sent. bc6 19:22 Inserted saline lock: 20 gauge in right antecubital area, using aseptic technique. bc6 19:45 Arpita Rodas, RN is Primary Nurse. [email or web address] Administered Medications: No medications were administered Outcome: 20:08 Discharge ordered by MD. salazar 20:48 Patient left the ED. mb9 Signatures: Dispatcher [employer] Magda Arauz RN RN iw Breneman, Saray France RN RN mb9 Mera Walker [facility] Darline Sandoval Edwin, MD MD ec2 Arpita Rodas RN RN [email or web address] Corrections: (The following items were deleted from the chart) 19:03 19:01 Chief complaint: Patient states: swelling to legs and hands, is on a water pill, iw has CHF iw
[2023-08-11 20:55] VITALS: BP 129/67; O2SAT 96
== END 2023-08-11 20:48 | disposition home or self-care (01) ==
LOC: ER 18:48
DX: R60.9 Edema, unspecified (principal); I50.9 Heart failure, unspecified; I10 Essential (primary) hypertension; E11.9 Type 2 diabetes mellitus without complications; Z86.73 Personal history of transient ischemic attack (TIA), and cerebral infarction without residual deficits
CPT/HCPCS: 36415; 71045; 80048; 83880; 85025; 99283

== ENCOUNTER → 2023-12-16 | Emergency (ER) | payer OTHER ==
[~2023-12-16] MED LIST: INSULIN REGULAR (HUMAN) 100 UNIT/ML ONE
[2023-12-16 19:43] LABS: Absolute Basophils 0.1 K/uL (0-0.5); Absolute Eosinophils 0.1 K/uL (0-0.5); Absolute Lymphocytes (CBC) 0.8 K/uL (0.7-4.9); Eosinophils % 1.3 % (0-4.4); Hematocrit 33.3 % (39.6-49.0); Hemoglobin 11.5 g/dL (13.6-17.9); Lymphocytes % 8.8 % (15.3-44.8); MCV 90.5 fL (80-100); MPV 8.2 fL (7.6-11.3); Platelets 231 thou/uL (152-406); RBC Red Blood Cell Count 3.68 M/uL (4.33-5.43)
--- NOTE | 2023-12-16 19:57 | RAD REPORT ---
EXAM DESCRIPTION: RAD - Chest Single View - 12/16/2023 7:51 pm CLINICAL HISTORY: hyperglycemia Chest pain. COMPARISON: Chest Single View dated 08/11/2023; Chest Single View dated 08/04/2023; Chest Pa And Lat (2 Views) dated 04/19/2022; Chest Single View dated 07/18/2021 FINDINGS: Portable technique limits examination quality. The lungs are grossly clear. The heart is normal in size. No displaced fractures. IMPRESSION: No acute intrathoracic process suspected.
[2023-12-16 20:03] LABS: Albumin 2.7 g/dL (3.4-5.0); Albumin/Globulin Ratio 0.7 (1.1-1.8); Anion Gap 9.2 mEq/L (5.0-15.0); Bilirubin Direct 0.1 mg/dL (0-0.2); Bilirubin Indirect, Calculated 0.2 mg/dL (0.2-0.8); Bilirubin Total 0.3 mg/dL (0.2-1.0); Globulin 3.8 g/dL (2.3-3.5); Magnesium 2.2 mg/dL (1.6-2.4); Potassium 4.2 mEq/L (3.5-5.1); Protein, Total 6.5 g/dL (6.4-8.2); Troponin High Sensitivity 7.1 pg/mL (<58.9)
[2023-12-16 20:32] LABS: Specific Gravity 1.027 (1.005-1.030); Urine Bacteria None Seen /HPF (<20); Urine Bilirubin NEGATIVE (Negative); Urine Blood Negative (Negative); Urine Clarity Clear (Clear); Urine Color Colorless (Yellow); Urine Glucose 4+ (Over) (Negative); Urine Protein NEGATIVE (Negative); Urine RBC <5 /HPF (None Seen); Urine Urobilinogen Normal (Normal); Urine pH 6.5 (5.0-7.0)
--- NOTE | 2023-12-16 22:54 | ER ---
Nurse's Notes [facility] Name: Arturo Saldana Age: 78 yrs Sex: Male : 1945 Arrival Date: 12/16/2023 Time: 18:12 Bed 20 Private MD: Diagnosis: Type 2 diabetes mellitus with hyperglycemia;Dehydration Presentation: 12/15 18:28 Chief complaint: Patient states: high blood sugar at home, he normally goes low. iw Coronavirus screen: At this time, the client does not indicate any symptoms associated with coronavirus-19. Ebola Screen: Patient negative for fever greater than or equal to 101.5 degrees Fahrenheit, and additional compatible Ebola Virus Disease symptoms Patient denies exposure to infectious person. Patient denies travel to an Ebola-affected area in the 21 days before illness onset. No symptoms or risks identified at this time. Initial Sepsis Screen: Does the patient meet any 2 criteria? No. Patient's initial sepsis screen is negative. Does the patient have a suspected source of infection? No. Patient's initial sepsis screen is negative. Risk Assessment: Do you want to hurt yourself or someone else? Patient reports no desire to harm self or others. Onset of symptoms was December 16, 2023. Care prior to arrival: Medication(s) given: Normal saline infusion, 500 mL, IV initiated. 20 GA, in the left antecubital area. 18:28 Method Of Arrival: EMS: [facility] 18:28 Acuity: MADELYN 3 iw Triage Assessment: 18:59 General: Appears in no apparent distress. Behavior is calm, cooperative, appropriate ap3 for age. Pain: Denies pain. Neuro: Level of Consciousness is awake, alert, obeys commands, Oriented to person, place, time, situation. Neuro: Reports patients family reports increased weakness. Cardiovascular: Patient's skin is warm and dry. Respiratory: Airway is patent Respiratory effort is even, unlabored, Respiratory pattern is regular, symmetrical. Historical: - Allergies: 18:29 No Known Allergies; iw - PMHx: 18:29 Congestive heart failure; CVA; depressive disorder; Diabetes - IDDM; iw Hypercholesterolemia; Hypertensive disorder; - Immunization history:: Adult Immunizations unknown. - Social history:: Smoking status: unknown. - Family history:: not pertinent. Screenin:45 [facility] ED Fall Risk Assessment (Adult) History of falling in the last 3 months, ap3 including since admission Yes- physiologic fall (2 pts) Confusion or Disorientation Yes (5 pts) Intoxicated or Sedated No (0 pts) Impaired Gait Yes (1 pt) Mobility Assist Device Used No (0 pt) Altered Elimination Yes (1 pt) Score/Fall Risk Level 3 or more points = High Risk Oriented to surroundings, Maintained a safe environment, Educated pt \T\ family on fall prevention, incl call for assistance when getting out of bed, Assessed \T\ reinforced patient's understanding of fall precautions, Provided non-skid footwear, Hourly rounding (assess needs \T\ fall precautionary measures) done, Used ambulatory aids as needed (educated on \T\ assisted with), Used gait belt as appropriate Offered frequent toileting (1:1 observation), Remained with patient while ambulating. Abuse screen: Denies threats or abuse. Nutritional screening: No deficits noted. Tuberculosis screening: No symptoms or risk factors identified. Assessment: 19:10 General: Appears comfortable, Behavior is calm, cooperative. Pain: Denies pain. Neuro: ha1 Level of Consciousness is awake, alert, obeys commands, Oriented to person, place, time, situation, family members report he is forgetful due to early stage of dementia. . 19:10 Cardiovascular: Capillary refill < 3 seconds Patient's skin is warm and dry. ha1 Respiratory: Airway is patent Respiratory effort is even, unlabored, Respiratory pattern is regular, symmetrical. GI: No signs and/or symptoms were reported involving the gastrointestinal system. Abdomen is round non-distended. : No signs and/or symptoms were reported regarding the genitourinary system. Derm: Skin is pink, warm \T\ dry. Musculoskeletal: Circulation, motion, and sensation intact. Range of motion: intact in all extremities. 19:10 Reassessment: Notified Dr. Su of elevated glucose . ha1 20:00 Reassessment: Patient and/or family updated on plan of care and expected duration. Pain ha1 level reassessed. Patient is alert, oriented x 3, equal unlabored respirations, skin warm/dry/pink. 21:00 Reassessment: Patient and/or family updated on plan of care and expected duration. Pain ha1 level reassessed. Patient is alert, oriented x 3, equal unlabored respirations, skin warm/dry/pink. 21:30 Reassessment: notified Dr. Harris. ha1 21:30 Reassessment: Patient and/or family updated on plan of care and expected duration. Pain ha1 level reassessed. Patient is alert, oriented x 3, equal unlabored respirations, skin warm/dry/pink. 21:55 Reassessment: Patient and/or family updated on plan of care and expected duration. Pain ha1 level reassessed. Patient is alert, oriented x 3, equal unlabored respirations, skin warm/dry/pink. 22:25 Reassessment: notified Dr. Harris of new glucose level. ha1 22:46 Reassessment: Patient and/or family updated on plan of care and expected duration. Pain ha1 level reassessed. Patient is alert, oriented x 3, equal unlabored respirations, skin warm/dry/pink. Patient denies pain at this time. 23:19 Reassessment: Patient and/or family updated on plan of care and expected duration. Pain ha1 level reassessed. Patient is alert, oriented x 3, equal unlabored respirations, skin warm/dry/pink. 23:19 Reassessment: provided education of following up with PCP. ha1 Vital Signs: 18:59 BP 128 / 45; Pulse 73; Resp 18; Temp 98.4(O); ap3 19:15 BP 152 / 66; Pulse 75; Resp 17 S; Pulse Ox 96% on R/A; ha1 20:00 BP 114 / 81; Pulse 70; Resp 17; Pulse Ox 95% on R/A; ha1 21:00 BP 150 / 57; Pulse 65; Resp 17 S; Pulse Ox 98% on R/A; ha1 21:55 BP 109 / 90; Pulse 64; Resp 17 S; Pulse Ox 98% on R/A; ha1 22:30 BP 118 / 64; Pulse 61; Resp 18 S; Pulse Ox 98% on R/A; ha1 23:00 BP 127 / 92; Pulse 79; Resp 17 S; Temp 98.4; Pulse Ox 98% on R/A; ha1 ED Course: 18:27 Patient arrived in ED. iw 18:29 Triage completed. iw 18:43 Jerri Larkin, RN is Primary Nurse. ap3 18:45 Maintain EMS IV. Dressing intact. Good blood return noted. Site clean \T\ dry. ap3 18:46 Patient has correct armband on for positive identification. Bed in low position. Call ap3 light in reach. Side rails up X2. 18:46 Arm band placed on right wrist. ap3 18:52 Dustin Su MD is Attending Physician. rt 19:00 Client placed on continuous cardiac and pulse oximetry monitoring. NIBP monitoring ha1 applied. 19:01 patient's brief changed on arrival. ap3 19:11 Report given to MICHAEL Walden. ap3 19:30 Provided Education on: glucose monitoring . ha1 19:38 Basic Metabolic Panel Sent. ha1 19:38 CBC with Diff Sent. ha1 19:38 LFT's Sent. ha1 19:38 Magnesium Sent. ha1 19:38 Troponin HS Sent. ha1 19:45 Door closed. Noise minimized. Lights dimmed. Warm blanket given. Pillow given. ha1 19:45 Assisted with urinal. ha1 19:53 XRAY Chest (1 view) In Process Unspecified. EDMS 20:27 Attending Physician role handed off by Dustin Su MD sp4 20:27 Black Harris MD is Attending Physician. sp4 20:55 Primary Nurse role handed off by Jerri Larkin RN wm 21:21 Iram Padron RN is Primary Nurse. ha1 23:00 Cleaned of incontinence. ha1 23:22 No provider procedures requiring assistance completed. IV discontinued, intact, ha1 bleeding controlled, No redness/swelling at site. Pressure dressing applied. Administered Medications: 19:35 Drug: Insulin Regular Human Sub-Q 10 units Sub-Q once {Co-Signature: ginny (jayla Taylor RN).} Route: Sub-Q; Site: abdomen; 21:10 Follow up: Response: No adverse reaction; Blood sugar is lowered ha1 21:33 Drug: Insulin Regular Human IVP 10 units IVP once {Co-Signature: ginny (jayla Taylor RN).} Route: IVP; Site: left antecubital; 22:30 Follow up: Response: No adverse reaction; Blood sugar is lowered ha1 Medication: 21:56 VIS not applicable for this client. ha1 Outcome: 22:53 Discharge ordered by MD. sp4 23:22 Discharged to home via wheelchair, with family, wheelchair by orthotic and prosthetic technician ha1 23:22 Condition: stable 23:22 Discharge instructions given to patient, family, Instructed on discharge instructions, follow up and referral plans. Demonstrated understanding of instructions, follow-up care, 23:24 Patient left the ED. ha1 Signatures: Dispatcher [employer] Magda Arauz RN RN Jerri Larkin RN RN ap3 Rima Garcia Iram Padron RN RN ha1 Dustin Su MD MD rt Black Harris MD MD sp4 Adriana Taylor RN or1 Corrections: (The following items were deleted from the chart) 22:46 22:27 Reassessment: ha1 ha1
--- NOTE | 2023-12-16 22:54 | EDPHYS ---
Physician Documentation [facility] Name: Arturo Saldana Age: 78 yrs Sex: Male : 1945 Arrival Date: 12/16/2023 Time: 18:12 Bed 20 Private MD: ED Physician Black Harris HPI: 12/15 19:50 This 78 yrs old Male presents to ER via EMS with complaints of High Blood rt Sugar. 19:50 Patient presents to the ED with hyperglycemia. Patient reported a blood sugar of over rt 540. Family states that he was somewhat weak. He denies other acute complaints at this time, symptoms are moderate in severity, no other aggravating elevating factors. Of note, patient did receive 500 cc of fluid by EMS prior to arrival.. Historical: - Allergies: 18:29 No Known Allergies; iw - PMHx: 18:29 Congestive heart failure; CVA; depressive disorder; Diabetes - IDDM; iw Hypercholesterolemia; Hypertensive disorder; - Immunization history:: Adult Immunizations unknown. - Social history:: Smoking status: unknown. - Family history:: not pertinent. ROS: 19:50 Constitutional: Negative for fever, chills, and weight loss, Cardiovascular: Negative rt for chest pain, palpitations, and edema, Respiratory: Negative for shortness of breath, cough, wheezing, and pleuritic chest pain, Abdomen/GI: Negative for abdominal pain, nausea, vomiting, diarrhea, and constipation, MS/Extremity: Negative for injury and deformity, Skin: Negative for injury, rash, and discoloration, Psych: Negative for depression, anxiety, suicide ideation, homicidal ideation, and hallucinations, Exam: 19:50 Constitutional: This is a well developed, well nourished patient who is awake, alert, rt and in no acute distress. Head/Face: Normocephalic, atraumatic. Chest/axilla: Normal chest wall appearance and motion. Nontender with no deformity. No lesions are appreciated. Cardiovascular: Regular rate and rhythm with a normal S1 and S2. No gallops, murmurs, or rubs. Normal PMI, no JVD. No pulse deficits. Respiratory: Lungs have equal breath sounds bilaterally, clear to auscultation and percussion. No rales, rhonchi or wheezes noted. No increased work of breathing, no retractions or nasal flaring. Abdomen/GI: Soft, non-tender, with normal bowel sounds. No distension or tympany. No guarding or rebound. No evidence of tenderness throughout. Skin: Warm, dry with normal turgor. Normal color with no rashes, no lesions, and no evidence of cellulitis. MS/ Extremity: Pulses equal, no cyanosis. Neurovascular intact. Full, normal range of motion. Neuro: Awake and alert, GCS 15, oriented to person, place, time, and situation. Cranial nerves II-XII grossly intact. Motor strength 5/5 in all extremities. Sensory grossly intact. Cerebellar exam normal. Normal gait. 19:50 ECG was reviewed by the Attending Physician. Vital Signs: 18:59 BP 128 / 45; Pulse 73; Resp 18; Temp 98.4(O); ap3 19:15 BP 152 / 66; Pulse 75; Resp 17 S; Pulse Ox 96% on R/A; ha1 20:00 BP 114 / 81; Pulse 70; Resp 17; Pulse Ox 95% on R/A; ha1 21:00 BP 150 / 57; Pulse 65; Resp 17 S; Pulse Ox 98% on R/A; ha1 21:55 BP 109 / 90; Pulse 64; Resp 17 S; Pulse Ox 98% on R/A; ha1 22:30 BP 118 / 64; Pulse 61; Resp 18 S; Pulse Ox 98% on R/A; ha1 23:00 BP 127 / 92; Pulse 79; Resp 17 S; Temp 98.4; Pulse Ox 98% on R/A; ha1 MDM: 18:52 Patient medically screened. rt 23:00 Differential diagnosis: DKA, hyperglycemia, hyperthyroidism, hypothyroidism. Data sp4 reviewed: vital signs, nurses notes, lab test result(s), radiologic studies, plain films. Consideration of Admission/Observation Escalation of care including admission/observation considered. ED course: EXAM DESCRIPTION: RAD - Chest Single View - 12/16/2023 7:51 pm CLINICAL HISTORY: hyperglycemia Chest pain. COMPARISON: Chest Single View dated 08/11/2023; Chest Single View dated 08/04/2023; Chest Pa And Lat (2 Views) dated 04/19/2022; Chest Single View dated 07/18/2021 FINDINGS: Portable technique limits examination quality. The lungs are grossly clear. The heart is normal in size. No displaced fractures. IMPRESSION: No acute intrathoracic process suspected.. 12/15 19:23 Order name: Basic Metabolic Panel; Complete Time: 20:27 rt 12/15 19:23 Order name: CBC with Diff; Complete Time: 19:49 rt 12/15 19:23 Order name: LFT's; Complete Time: 20:27 rt 12/15 19:23 Order name: Magnesium; Complete Time: 20:27 rt 12/15 19:23 Order name: Troponin HS; Complete Time: 20:27 rt 12/15 19:23 Order name: UAM; Complete Time: 22:46 rt 12/15 19:33 Order name: Glucose, Ancillary Testing; Complete Time: 19:49 EDMS 12/15 21:30 Order name: Glucose, Ancillary Testing; Complete Time: 22:46 EDMS 12/15 22:39 Order name: Glucose, Ancillary Testing; Complete Time: 22:46 EDMS 12/15 19:23 Order name: XRAY Chest (1 view); Complete Time: 19:58 rt 12/15 19:23 Order name: EKG; Complete Time: 19:23 rt 12/15 19:23 Order name: Cardiac monitoring; Complete Time: 19:29 rt 12/15 19:23 Order name: EKG - Nurse/Tech; Complete Time: 19:29 rt 12/15 19:23 Order name: IV Saline Lock; Complete Time: 19:29 rt 12/15 19:23 Order name: Labs collected and sent; Complete Time: 19:29 rt 12/15 19:23 Order name: O2 Per Protocol; Complete Time: 19:29 rt 12/15 19:23 Order name: O2 Sat Monitoring; Complete Time: 19:38 rt EC:50 Rate is 72 beats/min. Rhythm is regular, Normal Sinus Rhythm with No ectopy. QRS [place] rt is Normal. OH interval is normal. QRS interval is normal. QT interval is normal. No Q waves. T waves are Normal. No ST changes noted. Interpreted by me. Administered Medications: 19:35 Drug: Insulin Regular Human Sub-Q 10 units Sub-Q once {Co-Signature: me1 (Brandon, ha1 Adriana RODRIGUEZ).} Route: Sub-Q; Site: abdomen; 21:10 Follow up: Response: No adverse reaction; Blood sugar is lowered ha1 21:33 Drug: Insulin Regular Human IVP 10 units IVP once {Co-Signature: me1 (jayla Taylor RN).} Route: IVP; Site: left antecubital; 22:30 Follow up: Response: No adverse reaction; Blood sugar is lowered ha1 Disposition Summary: 12/16/23 22:53 Discharge Ordered Notes: Location: Home sp4 Problem: new sp4 Symptoms: have improved sp4 Condition: Stable sp4 Diagnosis - Type 2 diabetes mellitus with hyperglycemia sp4 - Dehydration sp4 Followup: sp4 - With: Private Physician - When: 7 - 10 days - Reason: Recheck today's complaints Discharge Instructions: - Discharge Summary Sheet sp4 - Diabetes Mellitus and Nutrition, Adult sp4 Forms: - Patient Portal Instructions sp4 Signatures: Dispatcher [employer] Magda Arauz RN MICHAEL Jerri Larkin RN RN ap3 Iram Padron RN RN ha1 Dustin Su MD MD rt Black Harris MD MD sp4 Adriana Taylor RN me1
[2023-12-16 23:46] VITALS: BP 127/92; TEMP 98.4
[2023-12-16 23:47] VITALS: O2SAT 98
== END ==
LOC: ER 18:12
DX: E11.65 Type 2 diabetes mellitus with hyperglycemia (principal); E86.0 Dehydration; I10 Essential (primary) hypertension; I50.9 Heart failure, unspecified
CPT/HCPCS: 85025; 81001; 80048; 36415; 83735; 82947 ×3; 80076; 84484; 71045; J1815 ×2

== ENCOUNTER → 2023-12-17 | Emergency (ER) | payer OTHER ==
[~2023-12-17] MED LIST changes: +CEFTRIAXONE 1000 MG/VIAL ONE; +FLUCONAZOLE 100 MG TAB ONE; +NA CHLORIDE 0.9% 1,000 ML ONE; +NA CHLORIDE 0.9% 50 ML ONE; +SMZ./TMP. 800/160 MG TABLET ONE
[2023-12-17 23:00] LABS: Anion Gap 8.9 mEq/L (5.0-15.0)
[2023-12-17 23:04] LABS: Absolute Basophils 0.1 K/uL (0-0.5); Absolute Eosinophils 0.1 K/uL (0-0.5); Absolute Lymphocytes (CBC) 1.3 K/uL (0.7-4.9); Absolute Monocytes 1.1 K/uL (0.1-1.3); Absolute Neutrophil 6.9 K/uL (1.8-8.0); Basophils % 0.5 % (0-1.3); Eosinophils % 1.5 % (0-4.4); Hematocrit 29.7 % (39.6-49.0); Hemoglobin 10.4 g/dL (13.6-17.9); Lymphocytes % 13.3 % (15.3-44.8); MCH 31.7 pg (27.0-35.0); MCV 90.4 fL (80-100); MPV 8.4 fL (7.6-11.3); Neutrophils % 72.7 % (41.7-73.7); Platelets 209 thou/uL (152-406); Potassium 3.9 mEq/L (3.5-5.1); RBC Red Blood Cell Count 3.29 M/uL (4.33-5.43); Red Cell Distribution Width 13.4 % (12.1-15.2)
[2023-12-17 23:59] LABS: Blood Gas Oxyhemoglobin 89.2 % (94-97); Blood Gas THB 10.8 g/dl (12-18); Blood O2 Saturation 91.5 % (92-98.5)
--- NOTE | 2023-12-18 00:48 | EDPHYS ---
Physician Documentation [facility] Name: Arturo Saldana Age: 78 yrs Sex: Male : 1945 Arrival Date: 12/17/2023 Time: 21:43 Bed 13 Private MD: ED Physician Black Harris HPI: 12/17 00:00 This 78 yrs old Male presents to ER via EMS with complaints of High Blood sp4 Sugar. 01:28 Pleasant 78-year-old male comes in with complaints of oral elevated blood sugar and sp4 penile redness and a rash. Patient arrived with EMS. Last reported blood sugar was elevated at home at 365. Patient on arrival has no specific complaints he is hard of hearing. Patient takes Lantus insulin 60 units daily. . Historical: - Allergies: 12/16 22:10 No Known Allergies; tl4 - Home Meds: 12/17 00:06 aspirin 81 mg oral tablet,chewable 1 tab daily [Active]; atorvastatin 40 mg Oral tab 1 tl4 tab every evening [Active]; carvedilol 6.25 mg Oral tab 1 tab every 12 hours [Active]; losartan 100 mg Oral tab 1 tab once daily [Active]; tamsulosin 0.4 mg Oral cap 1 cap once daily [Active]; divalproex 250 mg oral Tablet, Extended Release 24 hr 1 tab 2 times per day [Active]; donepezil 10 mg oral tablet 1 tab every day at bedtime [Active]; gabapentin 100 mg oral capsule 1 cap every day at bedtime [Active]; Lantus U-100 Insulin 100 unit/mL Sub-Q solution 60 units every evening [Active]; - PMHx: 12/16 22:10 Congestive heart failure; CVA; Hypertensive disorder; Hypercholesterolemia; Diabetes - tl4 IDDM; depressive disorder; - Immunization history:: Adult Immunizations unknown. - Social history:: Smoking status: Patient denies any tobacco usage or history of. Patient/guardian denies using alcohol, street drugs. - Family history:: not pertinent. ROS: 12/17 01:28 Constitutional: Negative for fever, chills, and weight loss, positive elevated blood sp4 sugar, positive rash of penis All other systems are negative, Exam: 01:28 Constitutional: This is a well developed, well nourished patient who is awake, alert, sp4 and in no acute distress. Head/Face: Normocephalic, atraumatic. Eyes: Pupils equal round and reactive to light, extra-ocular motions intact. Lids and lashes normal. Conjunctiva and sclera are not injected. Cornea within normal limits. Periorbital areas with no swelling, redness, or edema. ENT: Nares patent. No nasal discharge, no septal abnormalities noted. Tympanic membranes are normal and external auditory canals are clear. Oropharynx with no redness, swelling, or masses, exudates, or evidence of obstruction, uvula midline. Mucous membranes moist. Neck: Trachea midline, no thyromegaly or masses palpated, and no cervical lymphadenopathy. Supple, full range of motion without nuchal rigidity, or vertebral point tenderness. Chest/axilla: Normal chest wall appearance and motion. Nontender with no deformity. No lesions are appreciated. Cardiovascular: Regular rate and rhythm with a normal S1 and S2. No gallops, murmurs, or rubs. Normal PMI, no JVD. No pulse deficits. Respiratory: Lungs have equal breath sounds bilaterally, clear to auscultation and percussion. No rales, rhonchi or wheezes noted. No increased work of breathing, no retractions or nasal flaring. Abdomen/GI: Soft, with normal bowel sounds. No distension or tympany. No guarding or rebound. No evidence of tenderness throughout. Back: No spinal tenderness. No costovertebral tenderness. Male : Normal genitalia, uncircumcised male, there is foreskin swelling or redness and tenderness. 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 Normal color with no rashes, no lesions, and no evidence of cellulitis. MS/ Extremity: Pulses equal, no cyanosis. Neurovascular intact. Full, normal range of motion. Neuro: Awake and alert, GCS 15, oriented to person, place, time, and situation. Cranial nerves II-XII grossly intact. Motor strength 5/5 in all extremities. Sensory grossly intact. Psych: Awake, alert, with orientation to person, place and time. Behavior, mood, and affect are within normal limits Vital Signs: 12/16 21:55 BP 141 / 58; Pulse 54; Resp 16; Temp 98.1(O); Pulse Ox 96% on R/A; Weight 77.56 kg; tl4 Height 5 ft. 4 in. ; Pain 0/10; 22:00 BP 126 / 57; Pulse 53; Resp 18; Pulse Ox 98% on R/A; Pain 0/10; tl4 22:30 BP 125 / 57; Pulse 52; Resp 17; Pulse Ox 98% on R/A; Pain 0/10; tl4 23:00 BP 110 / 56; Pulse 49; Resp 16; Pulse Ox 97% on R/A; Pain 0/10; tl4 12/17 00:10 BP 131 / 58; Pulse 55; Resp 16; Pulse Ox 98% on R/A; Pain 0/10; tl4 12/16 21:55 Body Mass Index 29.35 (77.56 kg, 162.56 cm) 4 12/16 21:55 Pain Scale: Adult tl4 22:00 Pain Scale: Adult tl4 22:30 Pain Scale: Adult tl4 23:00 Pain Scale: Adult tl4 12/17 00:10 Pain Scale: Adult tl4 MDM: 12/16 21:51 Patient medically screened. sp4 12/17 00:00 ED course: CLINICAL HISTORY: DYSPNEA. COMPARISON: None. TECHNIQUE: Single viewAP chest sp4 radiograph(s). FINDINGS: Slightly low lung volumes. No pulmonary infiltrate or edema identified. No pleural effusion. No pneumothorax. Nonenlarged cardiomediastinal silhouette. No significant osseous abnormality. IMPRESSION: No acute cardiopulmonary abnormality identified by radiograph.. 01:30 Differential diagnosis: DKA, hyperglycemia, hyperthyroidism, hypothyroidism. Data sp4 reviewed: vital signs, nurses notes, EMS record, old medical records, lab test result(s), radiologic studies, plain films. Consideration of Admission/Observation Escalation of care including admission/observation considered. ED course: Patient's blood sugar has improved after IV insulin and IV hydration. Patient is stable for discharge home. 12/16 21:48 Order name: Basic Metabolic Panel; Complete Time: 23:12 sp4 12/16 21:48 Order name: CBC with Diff; Complete Time: 23:12 sp4 12/16 22:29 Order name: ABG sp4 12/16 23:29 Order name: Glucose, Ancillary Testing; Complete Time: 00:00 EDMS 12/16 22:29 Order name: Chest Single View XRAY sp4 12/16 21:48 Order name: IV Saline Lock; Complete Time: 22:26 sp4 12/16 21:48 Order name: Labs collected and sent; Complete Time: 22:26 sp4 Administered Medications: 12/16 22:26 Drug: NS 0.9% IV 1000 ml IV at 125 ml/hr continuous Route: IV; Rate: 125 ml/hr; Site: tl4 left wrist; Delivery: Dial-a-flow; 22:35 Drug: Insulin Regular Human IVP 5 units IVP once {Co-Signature: jon (Magda Aguayo tl4 RN).} Route: IVP; Site: left wrist; 12/17 00:06 Follow up: Response: No adverse reaction tl4 00:05 Drug: Rocephin - Rocephin (cefTRIAXone) IVPB 1 grams IVPB once over 30 mins; (mix in 50 tl4 mL NS) Route: IVPB; Infused Over: 30 mins; Site: left wrist; Delivery: Dial-a-flow; 00:06 Drug: Fluconazole PO 200 mg PO once Route: PO; tl4 00:06 Drug: Trimethoprim-Sulfamethoxazole PO (160 mg-800 mg (DS) 1 tablet PO once Route: PO; tl4 Disposition Summary: 12/18/23 00:47 Discharge Ordered Problem: new sp4 Symptoms: have improved sp4 Condition: Stable sp4 Diagnosis - Balanoposthitis 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 - Type 2 diabetes mellitus with hyperglycemia sp4 Followup: sp4 - With: Private Physician - When: 2 - 3 days - Reason: Recheck today's complaints Followup: sp4 - With: Phillip Abbott MD - When: 7 - 10 days - Reason: Recheck today's complaints Discharge Instructions: - Discharge Summary Sheet sp4 - Balanitis sp4 Forms: - Patient Portal Instructions sp4 Prescriptions: - Cephalexin 500 mg Oral capsule - take 1 capsule ORAL route every 8 hours for 10 days; 30 capsule; Refills: 0, sp4 Product Selection Permitted - Fluconazole 200 mg Oral tablet - take 2 tablet ORAL route once daily; 10 tablet; Refills: 0, Product Selection sp4 Permitted - Bactrim DS 800-160 mg Oral Tablet - take 1 tablet ORAL route every 12 hours for 10 days; 20 tablet; Refills: 0, sp4 Product Selection Permitted Signatures: Dispatcher [employer] Black Vigil MD MD sp4 Chandler Lugo, RN RN tl4 Magda Aguayo RN iw
--- NOTE | 2023-12-18 00:48 | ER ---
Nurse's Notes [facility] Name: Arturo Saldana Age: 78 yrs Sex: Male : 1945 Arrival Date: 12/17/2023 Time: 21:43 Bed 13 Private MD: Diagnosis: Balanoposthitis;Type 2 diabetes mellitus with hyperglycemia Presentation: 12/16 21:55 Chief complaint: EMS states: EMS reports patient's blood glucose was 365 mg/dL tonight. tl4 Pt was not given any additional insulin. Family reports pt "wasn't waking up". Family also reports pt has a rash on his penis. Coronavirus screen: At this time, the client does not indicate any symptoms associated with coronavirus-19. Ebola Screen: No symptoms or risks identified at this time. Initial Sepsis Screen: Does the patient meet any 2 criteria? No. Patient's initial sepsis screen is negative. Does the patient have a suspected source of infection? No. Patient's initial sepsis screen is negative. Risk Assessment: Do you want to hurt yourself or someone else? Patient reports no desire to harm self or others. Onset of symptoms was December 17, 2023 at 20:30. 21:55 Method Of Arrival: EMS: [facility] tl4 21:55 Acuity: MADELYN 3 tl4 Triage Assessment: 22:00 General: Appears in no apparent distress. Behavior is calm, cooperative. Pain: Denies tl4 pain. EENT: No deficits noted. No signs and/or symptoms were reported regarding the EENT system. Neuro: No deficits noted. Cardiovascular: No deficits noted. Respiratory: No deficits noted. Airway is patent Respiratory effort is even, unlabored, Respiratory pattern is regular, symmetrical, Breath sounds are clear bilaterally. GI: No deficits noted. No signs and/or symptoms were reported involving the gastrointestinal system. Patient currently denies diarrhea, nausea, vomiting. : No deficits noted. No signs and/or symptoms were reported regarding the genitourinary system. Derm: Parent/caregiver reports the patient having rash on penis. Musculoskeletal: No deficits noted. No signs and/or symptoms reported regarding the musculoskeletal system. Historical: - Allergies: 22:10 No Known Allergies; tl4 - Home Meds: 12/17 00:06 aspirin 81 mg oral tablet,chewable 1 tab daily [Active]; atorvastatin 40 mg Oral tab 1 tl4 tab every evening [Active]; carvedilol 6.25 mg Oral tab 1 tab every 12 hours [Active]; losartan 100 mg Oral tab 1 tab once daily [Active]; tamsulosin 0.4 mg Oral cap 1 cap once daily [Active]; divalproex 250 mg oral Tablet, Extended Release 24 hr 1 tab 2 times per day [Active]; donepezil 10 mg oral tablet 1 tab every day at bedtime [Active]; gabapentin 100 mg oral capsule 1 cap every day at bedtime [Active]; Lantus U-100 Insulin 100 unit/mL Sub-Q solution 60 units every evening [Active]; - PMHx: 12/16 22:10 Congestive heart failure; CVA; Hypertensive disorder; Hypercholesterolemia; Diabetes - tl4 IDDM; depressive disorder; - Immunization history:: Adult Immunizations unknown. - Social history:: Smoking status: Patient denies any tobacco usage or history of. Patient/guardian denies using alcohol, street drugs. - Family history:: not pertinent. Screenin:22 [facility] ED Fall Risk Assessment (Adult) History of falling in the last 3 months, tl4 including since admission No falls in past 3 months (0 pts) Confusion or Disorientation Yes (5 pts) Intoxicated or Sedated No (0 pts) Impaired Gait No (0 pts) Mobility Assist Device Used No (0 pt) Altered Elimination No (0 pt) Score/Fall Risk Level 3 or more points = High Risk Oriented to surroundings, Maintained a safe environment, Educated pt \\T\\ family on fall prevention, incl call for assistance when getting out of bed, Assessed \\T\\ reinforced patient's understanding of fall precautions, Hourly rounding (assess needs \\T\\ fall precautionary measures) done, Used ambulatory aids as needed (educated on \\T\\ assisted with), Used gait belt as appropriate. Abuse screen: Denies threats or abuse. Denies injuries from another. Nutritional screening: No deficits noted. Tuberculosis screening: No symptoms or risk factors identified. Assessment: 23:19 Reassessment: No changes from previously documented assessment. Patient and/or family tl4 updated on plan of care and expected duration. Pain level reassessed. Patient is alert, oriented x 3, equal unlabored respirations, skin warm/dry/pink. Patient denies pain at this time. 12/17 01:34 Reassessment: Patient appears in no apparent distress at this time. Patient and/or jb4 family updated on plan of care and expected duration. Pain level reassessed. Patient is alert, oriented x 3, equal unlabored respirations, skin warm/dry/pink. Vital Signs: 12/16 21:55 BP 141 / 58; Pulse 54; Resp 16; Temp 98.1(O); Pulse Ox 96% on R/A; Weight 77.56 kg; tl4 Height 5 ft. 4 in. ; Pain 0/10; 22:00 BP 126 / 57; Pulse 53; Resp 18; Pulse Ox 98% on R/A; Pain 0/10; tl4 22:30 BP 125 / 57; Pulse 52; Resp 17; Pulse Ox 98% on R/A; Pain 0/10; tl4 23:00 BP 110 / 56; Pulse 49; Resp 16; Pulse Ox 97% on R/A; Pain 0/10; tl4 12/17 00:10 BP 131 / 58; Pulse 55; Resp 16; Pulse Ox 98% on R/A; Pain 0/10; tl4 12/16 21:55 Body Mass Index 29.35 (77.56 kg, 162.56 cm) tl4 12/16 21:55 Pain Scale: Adult tl4 22:00 Pain Scale: Adult tl4 22:30 Pain Scale: Adult tl4 23:00 Pain Scale: Adult tl4 12/17 00:10 Pain Scale: Adult tl4 ED Course: 12/16 21:45 Patient arrived in ED. tl4 21:48 Black Harris MD is Attending Physician. sp4 22:07 Chandler Lugo, MICHAEL is Primary Nurse. tl4 22:10 Triage completed. tl4 22:11 Arm band placed on right wrist. tl4 22:26 Basic Metabolic Panel Sent. tl4 22:26 CBC with Diff Sent. tl4 23:00 Chest Single View XRAY In Process Unspecified. EDMS 23:23 Patient has correct armband on for positive identification. Placed in gown. Bed in low tl4 position. Call light in reach. Side rails up X2. Adult w/ patient. Provided Education on: ed process. Client placed on continuous cardiac and pulse oximetry monitoring. NIBP monitoring applied. Door closed. Noise minimized. Lights dimmed. Moved to private room. Warm blanket given. 23:23 No provider procedures requiring assistance completed. tl4 23:23 Maintain EMS IV. Dressing intact. Good blood return noted. Site clean \\T\\ dry. Gauge \\T\\ tl 4 site: 20g left wrist. 12/17 00:45 Report given to MICHAEL Newsome. tl4 00:49 Phillip Abbott MD is Referral Physician. sp4 01:34 IV discontinued, intact, bleeding controlled, No redness/swelling at site. Pressure jb4 dressing applied. Administered Medications: 12/16 22:26 Drug: NS 0.9% IV 1000 ml IV at 125 ml/hr continuous Route: IV; Rate: 125 ml/hr; Site: tl4 left wrist; Delivery: Dial-a-flow; 22:35 Drug: Insulin Regular Human IVP 5 units IVP once {Co-Signature: iw (Magda Aguayo4 RN).} Route: IVP; Site: left wrist; 12/17 00:06 Follow up: Response: No adverse reaction tl4 00:05 Drug: Rocephin - Rocephin (cefTRIAXone) IVPB 1 grams IVPB once over 30 mins; (mix in 50 tl4 mL NS) Route: IVPB; Infused Over: 30 mins; Site: left wrist; Delivery: Dial-a-flow; 00:06 Drug: Fluconazole PO 200 mg PO once Route: PO; tl4 00:06 Drug: Trimethoprim-Sulfamethoxazole PO (160 mg-800 mg (DS) 1 tablet PO once Route: PO; tl4 Medication: 12/16 23:24 VIS not applicable for this client. tl4 Outcome: 12/17 00:47 Discharge ordered by . sp4 01:34 Discharged to home via wheelchair, with family, jb4 01:34 Condition: stable 01:34 Discharge instructions given to patient, Instructed on discharge instructions, follow up and referral plans. medication usage, Demonstrated understanding of instructions, follow-up care, medications, Prescriptions given X 3, 01:37 Patient left the ED. jb4 Signatures: Dispatcher [employer] Domo Velasquez, RN RN jb4 Black Harris MD MD sp4 Chandler Lugo RN RN tl4 Magda Augayo RN iw
[2023-12-18 02:02] VITALS: BP 131/58; TEMP 98.1; O2SAT 98
--- NOTE | 2023-12-18 11:36 | RAD REPORT ---
EXAM DESCRIPTION: RAD - Chest Single View - 12/17/2023 10:58 pm CLINICAL HISTORY: DYSPNEA. COMPARISON: None. TECHNIQUE: Single view AP chest radiograph(s). FINDINGS: Slightly low lung volumes. No pulmonary infiltrate or edema identified. No pleural effus ion. No pneumothorax. Nonenlarged cardiomediastinal silhouette. No significant osseous abnormality. IMPRESSION: No acute cardiopulmonary abnormality identified by radiograph. Electronically signed by: Yumiko Bower MD 12/17/2023 11:36 PM CDT
== END ==
LOC: ER 21:43
DX: E11.65 Type 2 diabetes mellitus with hyperglycemia (principal); N47.6 Balanoposthitis; Z79.4 Long term (current) use of insulin; I10 Essential (primary) hypertension; I50.9 Heart failure, unspecified; Z79.82 Long term (current) use of aspirin; Z86.73 Personal history of transient ischemic attack (TIA), and cerebral infarction without residual deficits
CPT/HCPCS: 85025; 80048; 36415; 82947; 71045; 82805; J1815; J7030; J0696; 36600

== ENCOUNTER 2024-03-31 15:15 | Observation (INO) | payer OTHER ==
[2024-03-31] MEDS ORDERED: ACETAMINOPHEN 500 MG TAB PO PRN (16:40)
[2024-03-31] MEDS ORDERED: ONDANSETRON 4 MG/2 ML VIAL IV PRN (16:40)
[2024-03-31] MEDS ORDERED: MORPHINE 2 MG/ML SYR IV PRN (16:40)
[2024-03-31] MEDS: NA CHLORIDE 0.9% 500 ML IV ONE (16:43)
--- NOTE | 2024-03-31 16:46 | P.HP ---
Certification for Inpatient Patient admitted to: Observation With expected LOS: >2 Midnights Patient will require the following post-hospital care: None Practitioner: I am a practitioner with admitting privileges, knowledge of patient current condition, hospital course, and medical plan of care. Services: Services provided to patient in accordance with Admission requirements found in Title 42 Section 412.3 of the Code of Federal Regulations Patient History Date of Service: 03/31/24 Reason for admission: Right upper extremity edema with urinary tract infection History of Present Illness: Patient 79-year-old gentleman with a history of chronic kidney disease who comes into the nephrology clinic with swelling of the right upper extremity. Patient was also found to have a UTI. Patient was sent to the hospital for admission for observation. Allergies No Known Allergies Allergy (Verified 11/17/12 09:30) Home Medications: Acetaminophen [Tylenol Extra Strength] 500 mg PO BID 05/28/14 Aspirin Tab [Princess Aspirin*] 1 tab PO DAILY 05/28/14 Diphenhydramine HCl [Allergy] 1 tab PO DAILY 05/28/14 Pravastatin [Pravachol*] 40 mg PO DAILY 05/28/14 - Past Medical/Surgical History Has patient received pneumonia vaccine in the past: No Diabetic: Yes -: Hypertension -: Diabetes -: Stroke - Family History Father Family History: Reviewed- Non-Contributory - Social History Smoking Status: Never smoker Alcohol use: No CD- Drugs: No Caffeine use: Yes Place of Residence: Home Review of Systems 10-point ROS is otherwise unremarkable Physical Examination - Physical Exam General: Alert, In no apparent distress, Oriented x3 HEENT: Atraumatic, PERRLA, Mucous membr. moist/pink, EOMI, Sclerae nonicteric Neck: Supple, 2+ carotid pulse no bruit, No LAD, Without JVD or thyroid abnormality Respiratory: Clear to auscultation bilaterally, Normal air movement Cardiovascular: Regular rate/rhythm, Normal S1 S2 Gastrointestinal: Normal bowel sounds, No tenderness Musculoskeletal: No tenderness Integumentary: No rashes Neurological: Normal gait, Normal speech, Normal strength at 5/5 x4 extr, Normal tone, Normal affect Lymphatics: No axilla or inguinal lymphadenopathy Assessment & Plan - Problems (Diagnosis) (1) Edema of right upper extremity Current Visit: Yes Status: Acute (2) CKD (chronic kidney disease) Current Visit: Yes Status: Acute (3) Diabetes mellitus Current Visit: No Status: Acute (4) Hyperlipidemia Current Visit: No Status: Acute (5) Hypertension Current Visit: No Status: Acute - Plan Plan: 1. Venous Doppler of the right upper extremity 2. IV fluids and IV antibiotics 3. D-dimer 4. Strict blood pressure and blood sugar control 5. - Advance Directives Does patient have a Living Will: No Does patient have a Durable POA for Healthcare: No
[2024-03-31 16:50] VITALS: BMI 30.8
[2024-03-31] MEDS ORDERED: PNEUMOCOCCAL VACCINE 0.5 ML IMVAC ONE (18:00)
[2024-03-31 18:07] LABS: Absolute Basophils 0.1 K/uL (0-0.5); Absolute Eosinophils 0.3 K/uL (0-0.5); Absolute Lymphocytes (CBC) 1.3 K/uL (0.7-4.9); Absolute Monocytes 1.1 K/uL (0.1-1.3); Basophils % 0.8 % (0-1.3); Eosinophils % 4.4 % (0-4.4); Hematocrit 31.1 % (39.6-49.0); Hemoglobin 10.5 g/dL (13.6-17.9); MCH 30.9 pg (27.0-35.0); MCHC 33.7 g/dL (32.0-36.0); MCV 91.6 fL (80-100); MPV 8.2 fL (7.6-11.3); Monocytes % 13.9 % (3.3-12.3); Neutrophils % 63.9 % (41.7-73.7); Platelets 326 thou/uL (152-406); RBC Red Blood Cell Count 3.39 M/uL (4.33-5.43); Red Cell Distribution Width 14.6 % (12.1-15.2)
--- NOTE | 2024-03-31 18:10 | RAD REPORT ---
EXAM DESCRIPTION: US - UPPER EXTREMITY VENOUS UNILATE - 03/31/2024 5:45 pm CLINICAL HISTORY: Upper extremity edema COMPARISON: None. TECHNIQUE: Real-time sonographic evaluation of the right upper extremity deep venous system was perf ormed. FINDINGS: Normal compressibility, flow augmentation, phasic flow and spontaneous flow is identified in the right upper extremity deep venous system. No intraluminal filling defects seen. IMPRESSION: No DVT in the right upper extremity.
[2024-03-31 18:13] LABS: PT Prothrombin Time 10.7 SECONDS (9.4-12.5); Protime INR 0.97
[2024-03-31 18:30] LABS: ALT/SGPT 17 U/L (16-61); Albumin 2.9 g/dL (3.4-5.0); Albumin/Globulin Ratio 0.7 (1.1-1.8); Alkaline Phosphatase 111 U/L (45-117); BUN Blood Urea Nitrogen 54 mg/dL (7-18); Bicarbonate 32 mEq/L (21-32); Bilirubin Total 0.2 mg/dL (0.2-1.0); Globulin 3.9 g/dL (2.3-3.5); Glomerular Filtration Rate 30 ml/min (=/>90); Protein, Total 6.8 g/dL (6.4-8.2); Sodium Level 132 mEq/L (136-145)
[2024-03-31 18:33] LABS: AST/SGOT < 10 U/L (15-37)
[2024-03-31 18:38] LABS: Glucose Level 419 mg/dL (74-106)
[2024-03-31] MEDS: INSULIN 70/30 100 UNITS/ML SQ ONE ×2 (18:41→19:15)
[2024-03-31] MEDS ORDERED: D50W 25 GM/50 ML SYRINGE IV PRN (18:41)
[2024-03-31] MEDS ORDERED: GLUCAGON 1 MG/VIAL IM PRN (18:41)
[2024-03-31] MEDS: NA CHLORIDE 0.9% 1,000 ML IV SCH (19:19)
[2024-03-31 19:22] LABS: Specific Gravity 1.011 (1.005-1.030); Sqamous Epithelial <5 /HPF (None Seen); Urine Bacteria <20 /HPF (<20); Urine Bilirubin NEGATIVE (Negative); Urine Blood 1+ (Negative); Urine Clarity Extremely Turbid (Clear); Urine Color Light-Orange (Yellow); Urine Culture Reflex Order REFLEXED; Urine Glucose 4+ (Over) (Negative); Urine Ketones NEGATIVE (Negative); Urine Microscopic Reflex YN ORDER UMIC; Urine Mucus Slight /HPF (None Seen); Urine Nitrite 1+ (Negative); Urine Protein 1+ (Negative); Urine Urobilinogen Normal (Normal); Urine WBC >50 /HPF (<5); Urine WBC Clump Many /HPF (None Seen); Urine pH 5.5 (5.0-7.0)
[2024-03-31] MEDS: carvediloL 6.25 MG TAB PO SCH (22:22)
[2024-03-31] MEDS: cloNIDine HCL 0.1 MG TAB PO SCH (22:23)
[2024-03-31] MEDS: TAMSULOSIN 0.4 MG SR CAP PO SCH (22:23)
[2024-03-31] MEDS: DIVALPROEX ER 250 MG TAB PO SCH (22:23)
[2024-03-31] MEDS: INSULIN GLARGINE 100 UNIT/ML SQ SCH (22:23)
[2024-03-31] MEDS: CEFTRIAXONE 1000 MG/VIAL ONE (22:32)
[2024-03-31] MEDS: NA CHLORIDE 0.9% 50 ML ONE (22:32)
[2024-03-31] MEDS: CEFTRIAXONE 1,000 MG in NA CHLORIDE 0.9% 50 ML IVPB ONE (22:41)
--- NOTE | 2024-04-01 06:55 | P.PN ---
Date of Service: 04/01/24 Subjective presented with UE swelling, IMPRESSION: No DVT in the right upper extremity Review of Systems 10-point ROS is otherwise unremarkable Physical Examination - Physical Exam General: Alert, In no apparent distress, Oriented x3 HEENT: Atraumatic, PERRLA, Mucous membr. moist/pink, EOMI, Sclerae nonicteric Neck: Supple, 2+ carotid pulse no bruit, No LAD, Without JVD or thyroid abnormality Respiratory: Clear to auscultation bilaterally, Normal air movement Cardiovascular: Regular rate/rhythm, Normal S1 S2 Gastrointestinal: Normal bowel sounds, No tenderness Musculoskeletal: No tenderness Integumentary: No rashes Neurological: Normal gait, Normal speech, Normal strength at 5/5 x4 extr, Normal tone, Normal affect Lymphatics: No axilla or inguinal lymphadenopathy Assessment & Plan - Problems (Diagnosis) (1) Edema of right upper extremity Current Visit: Yes Status: Acute (2) CKD (chronic kidney disease) Current Visit: Yes Status: Acute (3) Diabetes mellitus Current Visit: No Status: Acute (4) Hyperlipidemia Current Visit: No Status: Acute (5) Hypertension Current Visit: No Status: Acute - Plan Plan: 1. Venous Doppler of the right upper extremity 2. IV fluids and IV antibiotics 3. D-dimer 4. Strict blood pressure and blood sugar control 5. - Advance Directives Does patient have a Living Will: No Does patient have a Durable POA for Healthcare: No
[2024-04-01] MEDS: ALBUMIN HUMAN 25% 12.5 GM, FUROSEMIDE 100 MG in NA CHLORIDE 0.9% 40 ML IV SCH (08:34)
[2024-04-01] MEDS: CEFTRIAXONE 1,000 MG in NA CHLORIDE 0.9% 50 ML IVPB SCH (08:36)
[2024-04-01] MEDS ORDERED: MORPHINE 4 MG/ML SYR IV PRN (09:27)
[2024-04-01 11:00] VITALS: O2SAT 96
--- NOTE | 2024-04-01 13:01 | P.CNS ---
Date of Consult: 04/01/24 Reason for Consult: Acute kidney injury Requesting Physician: Shahnaz Connell Chief Complaint: Right upper extremity edema with urinary tract infection History of Present Illness: 79-year-old gentleman with significant past medical history of CVA, dementia, hyperlipidemia, hypertension since 2009, type 2 diabetes since 1989 complicated with neuropathy and retinopathy and nephropathy, chronic kidney disease stage IIIb normal size kidney 08/16 minimal proteinuria secondary to diabetes nephropathy hypertension nephrosclerosis baseline creatinine 1.61.8 GFR 4238 And came to the office yesterday complaining of from swelling in his right arm patient visit cardiology cleared from any congestive heart failure patient visit PCP diuresis was resumed but did not improve the arm swelling And also found elevation in BUN/creatinine above his baseline creatinine 1.8 GFR 38 with UTI secondary to Klebsiella pneumonia for that reason patient was sent for direct admission to the hospital over the night patient was a started on hydration patient also started on antibiotic and feeling better swelling has been resolved Allergies No Known Allergies Allergy (Verified 11/17/12 09:30) Home Medications: Acetaminophen [Tylenol Extra Strength] 500 mg PO BID 05/28/14 Aspirin Tab [Princess Aspirin*] 1 tab PO DAILY 05/28/14 Diphenhydramine HCl [Allergy] 1 tab PO DAILY 05/28/14 Pravastatin [Pravachol*] 40 mg PO DAILY 05/28/14 Allopurinol PO DAILY 04/01/24 Atorvastatin Calcium PO DAILY 04/01/24 Citalopram [Celexa*] PO DAILY 04/01/24 Cyclobenzaprine [Flexeril*] PO BEDTIME 04/01/24 Diclofenac Sodium [Voltaren] PO BID 04/01/24 Divalproex Sodium [Divalproex Sodium ER] PO DAILY 04/01/24 Donepezil HCl PO DAILY 04/01/24 Fluconazole [Diflucan] PO DAILY 04/01/24 Furosemide PO DAILY 04/01/24 Levofloxacin [Levaquin] PO DAILY 04/01/24 Losartan Potassium PO DAILY 04/01/24 Mupirocin Oint [Bactroban 2% Ointment*] .ROUTE BID PRN 04/01/24 Potassium Chloride [Klor-Con M20] 20 PO DAILY 04/01/24 Quetiapine Fumarate [Seroquel] 50 PO BEDTIME 04/01/24 Tamsulosin HCl 0.4 PO DAILY 04/01/24 carvediloL [Carvedilol] 6.25 PO BID 04/01/24 cloNIDine HCL [Clonidine HCl] 0.1 PO BEDTIME 04/01/24 - Past Medical/Surgical History Diabetic: Yes -: Hypertension -: Diabetes -: Stroke - Family History Father Family History: Reviewed- Non-Contributory - Social History Smoking Status: Unknown if ever smoked Alcohol use: No CD- Drugs: No Caffeine use: Yes Place of Residence: Home Review of Systems 10-point ROS is otherwise unremarkable General: Unremarkable Eyes: Unremarkable ENT: Unremarkable Respiratory: Unremarkable Cardiovascular: Other (Swelling on the right upper arm) Gastrointestinal: Unremarkable Genitourinary: Unremarkable Musculoskeletal: Unremarkable Neurological: Weakness, Confusion, Other (Patient has dementia) Lymphatics: Unremarkable Physical Examination Temp Pulse Resp BP Pulse Ox 97.3 F 65 16 128/68 96 04/01/24 08:00 04/01/24 08:35 04/01/24 08:00 04/01/24 08:35 04/01/24 08:00 General: Alert, Confused HEENT: Atraumatic Neck: Supple, 2+ carotid pulse no bruit, JVD not distended Respiratory: Clear to auscultation bilaterally Cardiovascular: No edema, Other (Swelling on the right upper extremity), S ystolic murmur Gastrointestinal: Soft and benign, Non-distended, No ascites Musculoskeletal: No clubbing Neurological: Cranial nerves 3-12 intact, Normal affect Lymphatics: No axilla or inguinal lymphadenopathy Laboratory Data (last 24 hrs) 03/31/24 03/31/24 03/31/24 17:54 17:54 17:54 WBC 7.80 Hgb 10.5 L Hct 31.1 L Plt Count 326 PT 10.7 INR 0.97 APTT 30.0 Sodium 132 L Potassium 5.0 BUN 54 H Creatinine 2.17 H Glucose 419 H* Total Bilirubin 0.2 AST < 10 L ALT 17 Alkaline Phosphatase 111 Conclusions/Impression: Acute kidney injury on chronic kidney disease secondary to prerenal overdiuresis superimposed with the glucose diuresis: Continue gentle hydration If kidney function in the afternoon back to baseline patient cleared from the renal standpoint for DC planning Hypertension controlled optimal with the present of acute kidney injury Diuresis Right upper arm swelling DVT has been ruled out Resolved Reassured the patient will monitor Chronic kidney disease stage IIIb secondary to hypertension nephrosclerosis diabetes nephropathy with acute kidney injury as above UTI secondary to Klebsiella pneumonia No current antibiotic follow-up sensitivity Diabetes has by primary Time spent examining the patient [id number] reviewing data lab and the radiology placing orders or discussing the case with the patient daughter by bedside discussing the case with the steam flattener including nursing staff and hospitalist more than 75 minutes
--- NOTE | 2024-04-01 15:29 | RAD REPORT ---
EXAM DESCRIPTION: CT - Thorax Wo Con - 04/01/2024 2:45 pm CLINICAL HISTORY: Lung mass COMPARISON: none TECHNIQUE: Computed axial tomography of the chest was obtained. Contrast was not requested. All CT scans are performed using dose optimization technique as appropriate and may include automated exposure control or mA/KV adjustment according to patient size. FINDINGS: The evaluation of mediastinum, nereyda and vessels is limited secondary to lack of IV contras t administration. The lungs are clear. No mediastinal or hilar lymphadenopathy is seen. A pleural effusion is not present. No pericardial effusion. Coronary arterial calcifications IMPRESSION: No acute abnormality displayed
[2024-04-01] MEDS ORDERED: GLUCAGON 1 MG/VIAL IM PRN (16:23)
[2024-04-01] MEDS ORDERED: D50W 25 GM/50 ML SYRINGE IV PRN (16:23)
[2024-04-01] MEDS ORDERED: D10W 125 ML IV PRN (16:51)
[2024-04-01] MEDS: INSULIN 70/30 100 UNITS/ML SQ ONE (16:59)
[2024-04-01 17:05] VITALS: BP 151/91; TEMP 97.6
--- NOTE | 2024-04-02 09:17 | P.DS ---
Admission Date: 03/31/24 Discharge Date: 04/01/24 Disposition: ROUTINE DISCHARGE Discharge Condition: GOOD Reason for Admission: Right upper extremity edema with urinary tract infection Brief History of Present Illness: 79-year-old gentleman with a history of chronic kidney disease who comes into the nephrology clinic with swelling of the right upper extremity. Patient was also found to have a UTI. Patient was sent to the hospital for admission for observation. - Physical Exam General: Alert, In no apparent distress, Oriented x3 HEENT: Atraumatic, PERRLA, Mucous membr. moist/pink, EOMI, Sclerae nonicteric Neck: Supple, 2+ carotid pulse no bruit, No LAD, Without JVD or thyroid abnormality Respiratory: Clear to auscultation bilaterally, Normal air movement Cardiovascular: Regular rate/rhythm, Normal S1 S2 Gastrointestinal: Normal bowel sounds, No tenderness Musculoskeletal: No tenderness Integumentary: No rashes Neurological: Normal gait, Normal speech, Normal strength at 5/5 x4 extr, Normal tone, Normal affect Lymphatics: No axilla or inguinal lymphadenopathy Hospital Course: 79-year-old gentleman with a history of chronic kidney disease who comes into the nephrology clinic with swelling of the right upper extremity. Patient was also found to have a UTI. Condition improved with IV fluids, IV antibiotics while inpatient,, Doppler right upper extremity negative for DVT, instructed on blood glucose control. Patient tolerating diet, stable for discharge to home with follow-up appointment with primary care physician., Follow-up with nephrology after discharge PROBLEM: Right upper extremity swelling, negative for DVT Discharged home on Flomax, UTI patient is on Levaquin daily CKD, will need to follow-up with nephrology after discharge Diabetes with hyperglycemia, educated on blood glucose control Continue home medicines as previously prescribed GOAL: Clear understanding of disease process INSTRUCTIONS: Physician Discharge Instructions: -Follow-up with PCP in 1 to 2 weeks -Please call Dr. Connell at [phone] if any questions regarding hospital stay -Please call nursing station at [phone] if any nursing or medication questions -Return to the emergency room if symptoms worsen Diet: ADA, low sodium Activity: Fall precautions Vital Signs/Physical Exam: Temp Pulse Resp BP Pulse Ox 97.6 F 68 16 151/91 H 96 04/01/24 16:00 04/01/24 16:00 04/01/24 16:00 04/01/24 16:00 04/01/24 16:00 Laboratory Data at Discharge: WBC 7.80 thou/uL (4.3-10.9) 03/31/24 17:54 Hgb 10.5 g/dL (13.6-17.9) L 03/31/24 17:54 Hct 31.1 % (39.6-49.0) L 03/31/24 17:54 Plt Count 326 thou/uL (152-406) 03/31/24 17:54 PT 10.7 SECONDS (9.4-12.5) 03/31/24 17:54 INR 0.97 03/31/24 17:54 APTT 30.0 SECONDS (24.3-36.9) 03/31/24 17:54 Sodium 132 mEq/L (136-145) L 03/31/24 17:54 Potassium 5.0 mEq/L (3.5-5.1) 03/31/24 17:54 BUN 54 mg/dL (7-18) H 03/31/24 17:54 Creatinine 2.17 mg/dL (0.70-1.30) H 03/31/24 17:54 Glucose 419 mg/dL (74-106) H* 03/31/24 17:54 Total Bilirubin 0.2 mg/dL (0.2-1.0) 03/31/24 17:54 AST < 10 U/L (15-37) L 03/31/24 17:54 ALT 17 U/L (16-61) 03/31/24 17:54 Alkaline Phosphatase 111 U/L (45-117) 03/31/24 17:54 Home Medications: RX: Acetaminophen [Tylenol Extra Strength] 500 mg PO BID 05/28/14 RX: Aspirin Tab [Princess Aspirin*] 1 tab PO DAILY 05/28/14 RX: Diphenhydramine HCl [Allergy] 1 tab PO DAILY 05/28/14 RX: Pravastatin [Pravachol*] 40 mg PO DAILY 05/28/14 RX: Allopurinol PO DAILY 04/01/24 RX: Atorvastatin Calcium PO DAILY 04/01/24 RX: Citalopram [Celexa*] PO DAILY 04/01/24 RX: Cyclobenzaprine [Flexeril*] PO BEDTIME 04/01/24 RX: Diclofenac Sodium [Voltaren] PO BID 04/01/24 RX: Divalproex Sodium [Divalproex Sodium ER] PO DAILY 04/01/24 RX: Donepezil HCl PO DAILY 04/01/24 RX: Fluconazole [Diflucan] PO DAILY 04/01/24 RX: Furosemide PO DAILY 04/01/24 RX: Levofloxacin [Levaquin] PO DAILY 04/01/24 RX: Losartan Potassium PO DAILY 04/01/24 RX: Mupirocin Oint [Bactroban 2% Ointment*] .ROUTE BID PRN 04/01/24 RX: Potassium Chloride [Klor-Con M20] 20 PO DAILY 04/01/24 RX: Quetiapine Fumarate [Seroquel] 50 PO BEDTIME 04/01/24 RX: Tamsulosin [Flomax*] 0.8 mg PO BEDTIME #60 cap 04/01/24 RX: carvediloL [Carvedilol] 6.25 PO BID 04/01/24 RX: cloNIDine HCL [Clonidine HCl] 0.1 PO BEDTIME 04/01/24 New Medications: RX: Tamsulosin [Flomax*] 0.8 mg PO BEDTIME #60 cap Physician Discharge Instructions: -DC IV and DC home -Follow-up with PCP in 1 to 2 weeks -Follow-up with Urology & Nephrology in 1 to 2 weeks -Please call Dr. Connell at [phone] if any questions regarding hospital stay -Please call nursing station at [phone] if any nursing or medication questions -Return to the emergency room if symptoms worsen Diet: Renal Activity: Fall precautions Followup: Kit Dover MD [ACTIVE - CAN ADMIT] - 1-2 Weeks (call to schedule an appointment) Phillip Abbott [ACTIVE - CAN ADMIT] - 1-2 Weeks (call to schedule an appointment) KHUSHBOO HORTON [Primary Care Provider] - 1-2 Weeks (call to schedule an appointment) Time spent managing pt's care (in minutes): 55
== END 2024-04-01 17:50 | disposition home or self-care (01) ==
LOC: 4TH 16:09
PROVIDERS: ADMIT Hospitalist; ATTEND Hospitalist
DX: I12.9 Hypertensive chronic kidney disease with stage 1 through stage 4 chronic kidney disease, or unspecified chronic kidney disease (principal); N17.9 Acute kidney failure, unspecified; E11.22 Type 2 diabetes mellitus with diabetic chronic kidney disease; N18.32 Chronic kidney disease, stage 3b; E78.5 Hyperlipidemia, unspecified; I10 Essential (primary) hypertension; N39.0 Urinary tract infection, site not specified; E11.21 Type 2 diabetes mellitus with diabetic nephropathy; F03.90 Unspecified dementia, unspecified severity, without behavioral disturbance, psychotic disturbance, mood disturbance, and anxiety; E11.319 Type 2 diabetes mellitus with unspecified diabetic retinopathy without macular edema
CPT/HCPCS: 36415; 71250; 80053; 81001; 82947; 85025; 85379; 85610; 85730; 87077; 87086; 87088; 87186; 93971; G0378; G0379; J0696; J1815; J7030; P9047

== ENCOUNTER 2024-07-21 11:39 | Emergency (ER) | payer OTHER ==
--- NOTE | 2024-07-21 13:00 | RAD REPORT ---
EXAMINATION: US RIGHT UPPER EXTREMITY VENOUS DOPPLER CLINICAL INDICATION: [facility] [[email or web address]] MAIN PAIN Bed Name: [id number] TECHNIQUE: Complete bilateral duplex sonography of the RIGHT upper extremity veins was performed. The examination included compression for vein patency, color Doppler imaging and flow augmentation in response to distal compression of the internal jugular, brachiocephalic, subclavian, axillary, brachi al, radial, ulnar, cephalic and basilic veins. COMPARISON: No prior exam. FINDINGS: Duplex sonography testing of the veins of the RIGHT upper extremity was performed. Color flow imaging shows all veins to be compressible with [id number] color filling. Pulsatile and phasic flow is present within all upper extremity deep and superficial veins examined. IMPRESSION: There is no deep vein or superficial vein thrombosis.
[2024-07-21 13:12] LABS: Absolute Basophils 0.1 K/uL (0-0.5); Absolute Eosinophils 0.5 K/uL (0-0.5); Absolute Lymphocytes (CBC) 1.5 K/uL (0.7-4.9); Absolute Monocytes 0.9 K/uL (0.1-1.3); Absolute Neutrophil 4.4 K/uL (1.8-8.0); Basophils % 0.8 % (0-1.3); Hematocrit 29.8 % (39.6-49.0); Lymphocytes % 20.5 % (15.3-44.8); MCH 31.4 pg (27.0-35.0); MCHC 33.5 g/dL (32.0-36.0); MCV 93.6 fL (80-100); MPV 8.1 fL (7.6-11.3); Monocytes % 12.7 % (3.3-12.3); Platelets 196 thou/uL (152-406); RBC Red Blood Cell Count 3.19 M/uL (4.33-5.43); Red Cell Distribution Width 17.4 % (12.1-15.2)
[2024-07-21 13:27] LABS: Albumin/Globulin Ratio 0.8 (1.1-1.8); Alkaline Phosphatase 59 U/L (45-117); Anion Gap 9.5 mEq/L (5.0-15.0); BUN Blood Urea Nitrogen 29 mg/dL (7-18); Bicarbonate 27 mEq/L (21-32); Bilirubin Total 0.3 mg/dL (0.2-1.0); Globulin 3.7 g/dL (2.3-3.5); Glomerular Filtration Rate 32 ml/min (=/>90); Glucose Level 91 mg/dL (74-106); Potassium 4.5 mEq/L (3.5-5.1); Protein, Total 6.7 g/dL (6.4-8.2); Sodium Level 141 mEq/L (136-145)
[2024-07-21 13:30] LABS: ALT/SGPT < 14 U/L (16-61); AST/SGOT < 10 U/L (15-37)
--- NOTE | 2024-07-21 14:11 | ER ---
Nurse's Notes [facility] Name: Arturo Saldana Age: 79 yrs Sex: Male : 1945 Arrival Date: 07/21/2024 Time: 11:39 Bed 7 Private MD: Diagnosis: Lymphedema of the right upper extremity Presentation: 07/21 11:47 Chief complaint: EMS states: RUE SWELLING x5 MONTHS, SEEN FOR SAME PREVIOUSLY. bp Coronavirus screen: At this time, the client does not indicate any symptoms associated with coronavirus-19. Ebola Screen: No symptoms or risks identified at this time. Initial Sepsis Screen: Does the patient meet any 2 criteria? No. Patient's initial sepsis screen is negative. Does the patient have a suspected source of infection? No. Patient's initial sepsis screen is negative. Risk Assessment: Do you want to hurt yourself or someone else? Patient reports no desire to harm self or others. Onset of symptoms is unknown. 11:47 Method Of Arrival: EMS: [facility] bp 11:47 Acuity: MADELNY 3 bp Triage Assessment: 11:48 General: Appears in no apparent distress. Behavior is calm, cooperative, appropriate bp for age. Pain: Complains of pain in right arm. Musculoskeletal: Swelling present in right arm. Historical: - Allergies: 11:48 No Known Allergies; bp - PMHx: 11:48 Congestive heart failure; CVA; depressive disorder; Diabetes - IDDM; bp Hypercholesterolemia; Hypertensive disorder; - Immunization history:: Adult Immunizations up to date. - Infectious Disease History:: Denies. - Social history:: Smoking status: Patient denies any tobacco usage or history of. - Family history:: not pertinent. Screenin:49 [facility] ED Fall Risk Assessment (Adult) History of falling in the last 3 months, bp including since admission No falls in past 3 months (0 pts) Confusion or Disorientation No (0 pts) Intoxicated or Sedated No (0 pts) Impaired Gait No (0 pts) Mobility Assist Device Used No (0 pt) Altered Elimination No (0 pt) Score/Fall Risk Level 0 - 2 = Low Risk. Abuse screen: Denies threats or abuse. Denies injuries from another. Nutritional screening: No deficits noted. Tuberculosis screening: No symptoms or risk factors identified. Assessment: 13:15 General: Appears in no apparent distress. Behavior is calm, cooperative, Denies fever. ph Pain: Complains of pain in right arm. Neuro: Level of Consciousness is awake, alert, obeys commands, Oriented to person, place, time, situation. Cardiovascular: Capillary refill < 3 seconds in bilateral fingers Patient's skin is warm and dry. Edema is 3+ to right arm. Respiratory: Airway is patent Respiratory effort is even, unlabored. Derm: Skin is pink, warm \T\ dry. Vital Signs: 11:47 BP 104 / 68; Pulse 64; Resp 16; Temp 98; Pulse Ox 97% ; bp 11:57 BP 96 / 59; Pulse 74; Resp 18; Temp 97.3; Pulse Ox 94% ; Weight 88.9 kg; Height 5 ft. 4 ll1 in. ; Pain 0/10; 13:00 BP 102 / 59; Pulse 71; Resp 18; Pulse Ox 96% on R/A; ph 14:34 BP 108 / 62; Pulse 72; Resp 18; Temp 98.2; Pulse Ox 95% on R/A; ph 11:57 Body Mass Index 33.64 (88.90 kg, 162.56 cm) ll1 11:57 Pain Scale: Adult ll1 ED Course: 11:44 Patient arrived in ED. ra3 11:48 Triage completed. bp 11:48 Arm band placed on. bp 11:49 Patient has correct armband on for positive identification. bp 11:54 Dustin Su MD is Attending Physician. rt 12:18 Patient placed in an exam room, on a stretcher. ll1 12:30 UPPER EXTREMITY VENOUS UNILATE In Process Unspecified. EDMS 13:00 Initial lab(s) drawn, by me, sent to lab. Inserted saline lock: 22 gauge in left wrist, ph using aseptic technique. Blood collected. Flushed with 10 mL NS. 13:14 Doreen Gardiner, RN is Primary Nurse. ph 14:35 No provider procedures requiring assistance completed. IV discontinued, intact, ph bleeding controlled, No redness/swelling at site. Pressure dressing applied. Administered Medications: No medications were administered Medication: 12:21 VIS not applicable for this client. ph Outcome: 14:10 Discharge ordered by . rt 14:35 Discharged to home via wheelchair, with family, ph 14:35 Condition: good 14:35 Discharge instructions given to patient, family, Instructed on discharge instructions, follow up and referral plans. Demonstrated understanding of instructions, follow-up care, 14:36 Patient left the ED. ph Signatures: Dispatcher [employer] Doreen Clark RN RN ph Peltier, Brian, RN RN bp Lewis, Lynsay, RN RN ll1 Dustin Su MD MD rt Norma Alvarado 3
--- NOTE | 2024-07-21 14:11 | EDPHYS ---
Physician Documentation [facility] Name: Arturo Saldana Age: 79 yrs Sex: Male : 1945 Arrival Date: 07/21/2024 Time: 11:39 Bed 7 Private MD: ED Physician Dustin Su HPI: 07/21 16:42 This 79 yrs old Male presents to ER via EMS with complaints of Right arm rt swelling. 16:42 Patient presents to the ED with chronic right arm swelling which the son states that is rt worsening. The patient denies any pain, skin changes. Denies other acute complaints, symptoms are moderate severity, no other aggravating or alleviating factors.. Historical: - Allergies: 11:48 No Known Allergies; bp - PMHx: 11:48 Congestive heart failure; CVA; depressive disorder; Diabetes - IDDM; bp Hypercholesterolemia; Hypertensive disorder; - Immunization history:: Adult Immunizations up to date. - Infectious Disease History:: Denies. - Social history:: Smoking status: Patient denies any tobacco usage or history of. - Family history:: not pertinent. ROS: 16:42 Constitutional: Negative for fever, chills, and weight loss, Cardiovascular: Negative rt for chest pain, palpitations, and edema, Respiratory: Negative for shortness of breath, cough, wheezing, and pleuritic chest pain, Abdomen/GI: Negative for abdominal pain, nausea, vomiting, diarrhea, and constipation, Skin: Negative for injury, rash, and discoloration, Neuro: Negative for headache, weakness, numbness, tingling, and seizure, 16:42 MS/extremity: Positive for swelling, Negative for injury or acute deformity, Exam: 16:42 Constitutional: This is a well developed, well nourished patient who is awake, alert, rt and in no acute distress. Head/Face: Normocephalic, atraumatic. Chest/axilla: Normal chest wall appearance and motion. Nontender with no deformity. No lesions are appreciated. Cardiovascular: Regular rate and rhythm with a normal S1 and S2. No gallops, murmurs, or rubs. Normal PMI, no JVD. No pulse deficits. Respiratory: Lungs have equal breath sounds bilaterally, clear to auscultation and percussion. No rales, rhonchi or wheezes noted. No increased work of breathing, no retractions or nasal flaring. Abdomen/GI: Soft, non-tender, with normal bowel sounds. No distension or tympany. No guarding or rebound. No evidence of tenderness throughout. Skin: Warm, dry with normal turgor. Normal color with no rashes, no lesions, and no evidence of cellulitis. Neuro: Awake and alert, GCS 15, oriented to person, place, time, and situation. Cranial nerves II-XII grossly intact. Motor strength 5/5 in all extremities. Sensory grossly intact. Cerebellar exam normal. Normal gait. 16:42 Musculoskeletal/extremity: Edema without erythema, tenderness to the right upper extremity, pulses, motor, sensation intact. Vital Signs: 11:47 BP 104 / 68; Pulse 64; Resp 16; Temp 98; Pulse Ox 97% ; bp 11:57 BP 96 / 59; Pulse 74; Resp 18; Temp 97.3; Pulse Ox 94% ; Weight 88.9 kg; Height 5 ft. 4 ll1 in. ; Pain 0/10; 13:00 BP 102 / 59; Pulse 71; Resp 18; Pulse Ox 96% on R/A; ph 14:34 BP 108 / 62; Pulse 72; Resp 18; Temp 98.2; Pulse Ox 95% on R/A; ph 11:57 Body Mass Index 33.64 (88.90 kg, 162.56 cm) ll1 11:57 Pain Scale: Adult ll1 MDM: 11:55 Medical Screening Exam initiated rt 16:42 Differential Diagnosis DVT, cellulitis, lymphedema, renal insufficiency. Data reviewed: rt vital signs, nurses notes, lab test result(s), radiologic studies. Consideration of Admission/Observation Escalation of care including admission/observation considered. Test considered but Not performed: CT: Patient has no clinical signs of cellulitis, abscess, do not believe that CT scan is indicated.. Care significantly affected by the following chronic conditions: Chronic Kidney Disease. Counseling: I had a detailed discussion with the patient and/or guardian regarding the historical points, exam findings, and any diagnostic results supporting the discharge/admit diagnosis, lab results, radiology results, the need for outpatient follow up, to return to the emergency department if symptoms worsen or persist or if there are any questions or concerns that arise at home, The creatinine seems to be at baseline, discussed this with the family, will follow-up as an outpatient.. Response to treatment: There is no appreciated change of the patient's symptoms at this time. 07/21 12:03 Order name: CBC with Diff; Complete Time: 13:13 rt 07/21 12:03 Order name: CMP; Complete Time: 13:34 rt 07/21 12:08 Order name: UPPER EXTREMITY VENOUS UNILATE; Complete Time: 13:13 EDMS Administered Medications: No medications were administered Disposition Summary: 07/21/24 14:10 Discharge Ordered Notes: Location: Home rt Problem: new rt Symptoms: are unchanged rt Condition: Stable rt Diagnosis - Lymphedema of the right upper extremity rt Followup: rt - With: Private Physician - When: 2 - 3 days - Reason: Discharge Instructions: - Discharge Summary Sheet rt - Lymphedema rt Forms: - Medication Reconciliation Form rt - Antibiotic Education rt - Prescription Opioid Use rt - Patient Portal Instructions rt - Leadership Thank You Letter rt Signatures: Dispatcher [employer] Rubén Wilson RN RN Dustin Frey MD MD rt Corrections: (The following items were deleted from the chart) 12: 12:03 Extremity Venous [email or web address] ordered. EDMS EDMS
[2024-07-21 15:35] VITALS: BP 108/62; TEMP 98.2; O2SAT 95
== END 2024-07-21 14:36 | disposition home or self-care (01) ==
LOC: ER 11:39
DX: I89.0 Lymphedema, not elsewhere classified (principal); I50.9 Heart failure, unspecified; I10 Essential (primary) hypertension; E11.9 Type 2 diabetes mellitus without complications
CPT/HCPCS: 36415; 80053; 85025; 93971; 99284

== ENCOUNTER 2024-07-22 03:01 | Inpatient (IN) | payer OTHER ==
[2024-07-22] MEDS ORDERED: NA CHLORIDE 0.9% 500 ML ONE (03:27)
[2024-07-22] MEDS ORDERED: ACETAMINOPHEN 500 MG TAB ONE (03:27)
[2024-07-22] MEDS ORDERED: IBUPROFEN 400 MG TAB ONE (03:27)
[2024-07-22] MEDS ORDERED: VANCOMYCIN 1 GM/VIAL ONE (03:27)
[2024-07-22] MEDS ORDERED: NA CHLORIDE 0.9% 100 ML ONE ×2 (03:28→08:30)
[2024-07-22] MEDS ORDERED: PIPERACIL/TAZO 3.375 GM VIAL IV ONE (03:28)
[2024-07-22] MEDS ORDERED: ALBUMIN HUMAN 25% 100 ML IV ONE ×2 (03:28→04:52)
[2024-07-22 03:35] LABS: Absolute Basophils 0.1 K/uL (0-0.5); Absolute Eosinophils 0.4 K/uL (0-0.5); Absolute Lymphocytes (CBC) 0.9 K/uL (0.7-4.9); Absolute Neutrophil 9.6 K/uL (1.8-8.0); Basophils % 0.6 % (0-1.3); Hematocrit 29.6 % (39.6-49.0); Hemoglobin 9.9 g/dL (13.6-17.9); Lymphocytes % 7.6 % (15.3-44.8); MCH 31.1 pg (27.0-35.0); MCHC 33.4 g/dL (32.0-36.0); MPV 8.1 fL (7.6-11.3); Monocytes % 8.2 % (3.3-12.3); Neutrophils % 80.6 % (41.7-73.7); Platelets 198 thou/uL (152-406); RBC Red Blood Cell Count 3.18 M/uL (4.33-5.43); Red Cell Distribution Width 17.7 % (12.1-15.2)
[2024-07-22 03:44] LABS: PT Prothrombin Time 12.5 SECONDS (9.4-12.5); PTT, Activated Partial Thromb 29.6 SECONDS (24.3-36.9); Protime INR 1.12
[2024-07-22 03:52] LABS: Albumin 3.1 g/dL (3.4-5.0); Albumin/Globulin Ratio 0.8 (1.1-1.8); Alkaline Phosphatase 62 U/L (45-117); Anion Gap 10.7 mEq/L (5.0-15.0); BUN Blood Urea Nitrogen 28 mg/dL (7-18); Bicarbonate 27 mEq/L (21-32); Bilirubin Total 0.3 mg/dL (0.2-1.0); C-Reactive Protein 5.01 mg/L (<3.00); Globulin 3.8 g/dL (2.3-3.5); Glomerular Filtration Rate 34 ml/min (=/>90); Glucose Level 128 mg/dL (74-106); NT PRO-BNP 141 pg/mL (<450); Potassium 4.7 mEq/L (3.5-5.1); Protein, Total 6.9 g/dL (6.4-8.2); Sodium Level 139 mEq/L (136-145)
[2024-07-22] MEDS ORDERED: ACETAMINOPHEN 650MG/RECT SUPP PR ONE (04:02)
[2024-07-22] MEDS ORDERED: ACETAMINOPHEN 325 MG/SUPP PR ONE (04:02)
[2024-07-22] MEDS ORDERED: KETOROLAC 30 MG/ML INJ ONE (04:02)
[2024-07-22 04:04] LABS: ALT/SGPT < 14 U/L (16-61); AST/SGOT < 10 U/L (15-37)
[2024-07-22 04:36] LABS: SARS-CoV-2 Antigen CONTROL BLUE LINE VIS/BG OK; SARS-CoV-2 Antigen Rapid Res Negative (Negative)
[2024-07-22 04:42] LABS: Specific Gravity 1.011 (1.005-1.030); Sqamous Epithelial <5 /HPF (None Seen); Urine Bacteria <20 /HPF (<20); Urine Bilirubin NEGATIVE (Negative); Urine Blood 2+ (Negative); Urine Clarity Turbid (Clear); Urine Color Colorless (Yellow); Urine Crystals Unidentified Few /HPF (None Seen); Urine Culture Reflex Order REFLEXED; Urine Glucose NEGATIVE (Negative); Urine Ketones NEGATIVE (Negative); Urine Microscopic Reflex YN ORDER UMIC; Urine Nitrite NEGATIVE (Negative); Urine Protein 1+ (Negative); Urine RBC 21-50 /HPF (None Seen); Urine Urobilinogen Normal (Normal); Urine WBC 20-50 /HPF (<5)
[2024-07-22] MEDS ORDERED: ALBUTEROL 2.5 MG/3 ML NEB SOL ONE (04:51)
[2024-07-22] MEDS ORDERED: METHYLPREDNISOLONE 125 MG INJ ONE (04:52)
[2024-07-22 05:35] LABS: Blood O2 Saturation 99.5 % (92-98.5)
[2024-07-22 05:36] LABS: Blood Gas THB 8.9 g/dl (12-18)
--- NOTE | 2024-07-22 05:52 | RAD REPORT ---
EXAM: US Duplex Right Upper Extremity Veins CLINICAL HISTORY: The patient is 79 years old and is Male; right upper extremity swelling TECHNIQUE: Real-time duplex ultrasound scan of the right upper extremity veins integrating B-mode t wo-dimensional vascular structure, Doppler spectral analysis, color flow Doppler imaging and Impression. COMPARISON: No relevant prior studies available. FINDINGS: Deep veins: Unremarkable. No DVT in the internal jugular, subclavian, axillary, or brachial vei ns. The veins demonstrate normal color flow, are normally compressible, with normal phasic flow and/or augmentation response. Superficial veins: Unremarkable. No thrombus in the visualized basilic and cephalic veins. Soft tissues: No acute findings. IMPRESSION: No evidence of DVT in the right upper extremity veins. Electronically signed by: Alek Soto MD 07/22/2024 05:48 AM CDT 8 Due to temporary technical issues with the PACS/[employer] scribe reporting system, reports are being signed by the in-house radiologist without review as a courtesy to ensure prompt reporting the interpreting radiologist is fully responsible for the content of the report. Transcribed Date/Time: 07/22/2024 5:52 AM
--- NOTE | 2024-07-22 06:09 | RAD REPORT ---
EXAM: XR Chest, 1 View CLINICAL HISTORY: The patient is 79 years old and is Male; CHEST PAIN TECHNIQUE: Frontal view of the chest. COMPARISON: No relevant prior studies available. FINDINGS: Lungs: Unremarkable. No consolidation. Pleural space: Unremarkable. No pneumothorax. Heart: Unremarkable. Mediastinum: Unremarkable. Normal mediastinal contour. Bones/joints: No acute findings. IMPRESSION: No acute findings in the chest. Electronically signed by: Alek Soto MD 07/22/2024 04:47 AM CDT RP 8 Due to temporary technical issues with the PACS/[employer] reporting system, reports are being sarath d by the in-house radiologist without review as a courtesy to ensure prompt reporting the interpreting radiologist is fully responsible for the content of the report. Transcribed Date/Time: 07/22/2024 6:08 AM
[2024-07-22] MEDS ORDERED: IBUPROFEN 100 MG/5 ML UCUP ONE (06:12)
--- NOTE | 2024-07-22 06:18 | RAD REPORT ---
PROCEDURE: CT Chest, Abdomen and Pelvis Without Intravenous Contrast CLINICAL INDICATION: The patient is 79 years old and is Male; Abdominal distention. TECHNIQUE: Axial computed tomography images of the chest, abdomen and pelvis without intravenous contrast. Sag ittal and coronal reformatted images were created and reviewed. This CT exam was performed using one or more of the following dose reduction techniques: automated exposure control, adjustment of t he mA and/or kV according to patient size, and/or use of iterative reconstruction technique. COMPARISON: XR Chest 07/22/2024, CT Chest 04/01/2024 FINDINGS: CHEST: LUNGS: Patchy consolidative and groundglass opacities demonstrated in the right infrahilar lung and medial right lower lobe, with partial opacification of right lower lobe bronchi. Relatively expiratory lung volumes bilaterally. Remainder of the bilateral lungs appear relatively well-aerated and clear. PLEURAL SPACE: Unremarkable No significant effusion. No pneumothorax. HEART: No cardiomegaly. No significant pericardial effusion. ABDOMEN: LIVER: Unremarkable GALLBLADDER AND BILE DUCTS: Unremarkable No calcified stones. No ductal dilation. PANCREAS: Diffusely atrophic appearance of the pancreas with no ductal dilatation or solid or cysti c mass appreciated. SPLEEN: Unremarkable No splenomegaly. ADRENALS: Unremarkable No mass. KIDNEYS AND URETERS: Mild bilateral perinephric fat stranding, nonspecific. No hydronephrosis or obstructive intrarenal or intraureteral stones. STOMACH AND BOWEL: Unremarkable No obstruction. No mucosal thickening. PELVIS: APPENDIX: No findings to suggest acute appendicitis. BLADDER: Bladder wall thickening which may be due to the decompressed state of the bladder or due t o cystitis. Urinary bladder is decompressed around the indwelling Becerra catheter and bulb. No stones. REPRODUCTIVE: Unremarkable as visualized. CHEST, ABDOMEN and PELVIS: INTRAPERITONEAL SPACE: Unremarkable No significant fluid collection. No free air. BONES/JOINTS: Multilevel interspinous ligament calcification. Multilevel spondylosis. No dislocation. No displaced or depressed rib fractures. No appreciable sternal or vertebral fractures. SOFT TISSUES: Unremarkable VASCULATURE: Severe multivessel coronary artery calcifications, with suspected superimposed stents. Mild calcified atherosclerosis of the abdominal aorta without aneurysmal dilatation. LYMPH NODES: Unremarkable No enlarged lymph nodes. IMPRESSION: 1. Patchy consolidative and groundglass opacities demonstrated in the right infrahilar lung and med ial right lower lobe, with partial opacification of right lower lobe bronchi. Findings are suspicious for aspiration pneumonia, versus atelectasis secondary to mucous plugging. Recommend follo w-up imaging 8-10 weeks post appropriate clinical therapy to ensure resolution. 2. An indwelling Becerra catheter within bladder wall thickening which may be due to the decompressed state of the bladder or due to cystitis. Nonspecific bilateral perinephric fat stranding. Correlation with urinalysis recommended. 3. Otherwise, allowing for lack of intravenous contrast, no acute abnormality of the chest, abdomen , or pelvis. 4. Severe multivessel coronary artery calcifications, with suspected superimposed stents. 5. Additional nonacute findings as above. Electronically signed by: Bridger Parish MD 07/22/2024 06:09 AM CDT RP Due to temporary technical issues with the PACS/[employer] reporting system, reports are being sarath d by the in-house radiologist without review as a courtesy to ensure prompt reporting the interpreting radiologist is fully responsible for the content of the report. Transcribed Date/Time: 07/22/2024 6:18 AM
--- NOTE | 2024-07-22 06:18 | RAD REPORT ---
EXAM: CT Head Without Intravenous Contrast CLINICAL HISTORY: The patient is 79 years old and is Male; Confused. TECHNIQUE: Axial computed tomography images of the head/brain without intravenous contrast. Sagit norman and coronal reformatted images were created and reviewed. This CT exam was performed using one or more of the following dose reduction techniques: automated exposure control, adjustment of t he mA and/or kV according to patient size, and/or use of iterative reconstruction technique. COMPARISON: No relevant prior studies available. FINDINGS: Brain: Mild age related periventricular white matter microangiopathic changes. No hemorrhage. Ventricles: Unremarkable. No ventriculomegaly. Bones/joints: Unremarkable. No acute skull fracture. Soft tissues: Unremarkable. Sinuses: Unremarkable as visualized. No acute sinusitis. Mastoid air cells: Mild bilateral mastoid fluid. IMPRESSION: 1. No acute intracranial findings. No hemorrhage. 2. Mild bilateral mastoid fluid. Electronically signed by: Naida Jonas MD 07/22/2024 05:33 AM CDT RP ND Due to temporary technical issues with the PACS/[employer] reporting system, reports are being sarath d by the in-house radiologist without review as a courtesy to ensure prompt reporting the interpreting radiologist is fully responsible for the content of the report. Transcribed Date/Time: 07/22/2024 6:18 AM
--- NOTE | 2024-07-22 07:19 | EDPHYS ---
Physician Documentation [facility] Name: Arturo Saldana Age: 79 yrs Sex: Male : 1945 Arrival Date: 07/22/2024 Time: 03:01 Bed 19 Private MD: ED Physician Black Harris HPI: 07/22 03:17 This 79 yrs old Male presents to ER via Unassigned with complaints of fever, . sp4 07:20 79-year-old male presents with complaint of fever and confusion. EMS reports sp4 presentation at home and patient developed worsening confusion and fever at home. Past medical history includes chronic kidney disease, persistent swelling of right arm, dementia, hypertension, hyperlipidemia, diabetes mellitus type 2. Patient's medications include acetaminophen, aspirin, diphenhydramine, pravastatin, allopurinol, citalopram, cyclobenzaprine, Depakote, donepezil, fluconazole, furosemide, levofloxacin, losartan, potassium, quetiapine, tamsulosin, carvedilol, clonidine. . Historical: - Allergies: 07:19 No Known Allergies; ph - PMHx: 03:20 Congestive heart failure; CVA; depressive disorder; Diabetes - IDDM; kd3 Hypercholesterolemia; Hypertensive disorder; - Immunization history:: Adult Immunizations up to date. - Infectious Disease History:: Denies. - Social history:: Smoking status: unknown. - Family history:: not pertinent. ROS: 07:20 Constitutional: Positive for fever, positive for worsening confusion sp4 07:20 All other systems are negative, Exam: 07:20 Constitutional: This is a well developed, heavily demented male, moderate physical sp4 deconditioning, acute fever mentation, hypoxemic on presentation Head/Face: Normocephalic, atraumatic. Eyes: Pupils equal round and reactive to light, extra-ocular motions intact. Lids and lashes normal. Conjunctiva and sclera are not injected. Cornea within normal limits. Periorbital areas with no swelling, redness, or edema. ENT: Nares patent. No nasal discharge, no septal abnormalities noted. Tympanic membranes are normal and external auditory canals are clear. Oropharynx with no redness, swelling, or masses, exudates, or evidence of obstruction, uvula midline. Mucous membranes moist. Neck: Trachea midline, no thyromegaly or masses palpated, and no cervical lymphadenopathy. Supple, full range of motion without nuchal rigidity, or vertebral point tenderness. Chest/axilla: Normal chest wall appearance and motion. Nontender with no deformity. No lesions are appreciated. Cardiovascular: Regular rate and rhythm with a normal S1 and S2. No gallops, murmurs, or rubs. Normal PMI, no JVD. No pulse deficits. Respiratory: Lungs have equal breath sounds bilaterally, clear to auscultation and percussion. No rales, rhonchi or wheezes noted. No increased work of breathing, no retractions or nasal flaring. Abdomen/GI: Soft, with normal bowel sounds. No distension or tympany. No guarding or rebound. No evidence of tenderness throughout. Back: No spinal tenderness. No costovertebral tenderness. Skin: Warm, dry with normal turgor. Normal color with no rashes, no lesions, and no evidence of cellulitis. MS/ Extremity: Pulses equal, no cyanosis. Neurovascular intact. Full, normal range of motion. Bilateral generalized edema present, appears to have chronic right upper extremity swelling and pitting edema. Neuro: Awake and alert, GCS 15, oriented to person, place, time, and situation. Cranial nerves II-XII grossly intact. Motor strength 5/5 in all extremities. Sensory grossly intact. Psych: Awake, alert, with orientation to person, place and time. Behavior, mood, and affect are within normal limits 07:20 ECG was reviewed by the Attending Physician. EKG 0 415 EKG reveals sinus tachycardia rate 112 otherwise normal Vital Signs: 03:18 BP 179 / 99; Pulse 109; Resp 24; Temp 101.9(R); Pulse Ox 95% on 2 lpm NC; kd3 04:30 BP 149 / 89; Pulse 110; Resp 26 S; Pulse Ox 96% on 2 lpm NC; kd3 05:28 BP 125 / 61; Pulse 105; Resp 22; Pulse Ox 99% on 4 lpm NC; kd3 05:53 Weight 75.3 kg; kd3 06:18 BP 141 / 78; Pulse 99; Resp 22; Temp 101.6(O); Pulse Ox 96% on 2 lpm NC; kd3 07:19 BP 129 / 64; Pulse 90; Resp 22; Temp 98.9(O); Pulse Ox 95% on 2 lpm NC; ph 19:16 BP 144 / 70; Pulse 78; Resp 14; Pulse Ox 100% ; kj2 20:15 BP 142 / 72; Pulse 76; Resp 18; Temp 98; Pulse Ox 99% on 2 lpm NC; kj2 [place] Coma Score: 07:20 Eye Response: spontaneous(4). Motor Response: obeys commands(6). Verbal Response: sp4 oriented(5). Total: 15. MDM: 03:23 Medical Screening Exam initiated sp4 05:17 ED course: EXAM: XR Chest, 1 View CLINICAL HISTORY: The patient is 79 years old and is sp4 Male; CHEST PAIN TECHNIQUE: Frontal view of the chest. COMPARISON: No relevant prior studies available. FINDINGS: Lungs: Unremarkable. No consolidation. Pleural space: Unremarkable. No pneumothorax. Heart: Unremarkable. Mediastinum: Unremarkable. Normal mediastinal contour. Bones/joints: No acute findings. IMPRESSION: No acute findings in the chest. 05:17 ED course: EXAMINATION: US RIGHT UPPER EXTREMITYVENOUS DOPPLER CLINICAL INDICATION: sp4 [facility] MAIN PAIN Bed Name: [facility] TECHNIQUE: Complete bilateral duplex sonography of the RIGHT upper extremity veins was performed. The examination included compression for vein patency, color Doppler imaging and flow augmentation in response to distal compression of the internal jugular, brachiocephalic, subclavian, axillary, brachial, radial, ulnar, cephalic and basilic veins. COMPARISON: No prior exam. FINDINGS: Duplex sonography testing of the veins of the RIGHT upper extremity was performed. Color flow imaging shows all veins to be compressible with [id number] color filling. Pulsatile and phasic flow is present within all upper extremity deep and superficial veins examined. IMPRESSION: There is no deep vein or superficial vein thrombosis. . 07:15 ED course: IMPRESSION: 1. Patchy consolidative and groundglass opacities demonstrated sp4 in the right infrahilar lung and medial right lower lobe, with partial opacification of right lower lobe bronchi. Findings are suspicious for aspiration pneumonia, versus atelectasis secondary to mucous plugging. Recommend follow-up imaging 8-10 weeks post appropriate clinical therapy to ensure resolution. 2. An indwelling Becerra catheter within bladder wall thickening which may be due to the decompressed state of the bladder or due to cystitis. Nonspecific bilateral perinephric fat stranding. Correlation with urinalysis recommended. 3. Otherwise, allowing for lack of intravenous contrast, no acute abnormality of the chest, abdomen, or pelvis. 4. Severe multivessel coronary artery calcifications, with suspected superimposed stents. 5. Additional nonacute findings as above. Electronically signed by: Bridger Parish MD 07/22/2024 06:09 AM. 07:20 ED course: CT head - EXAM: CT Head Without Intravenous Contrast CLINICAL HISTORY: The sp4 patient is 79 years old and is Male; Confused. TECHNIQUE: Axial computed tomography images of the head/brain without intravenous contrast. Sagittal and coronal reformatted images were created and reviewed. This CT exam was performed using one or more of the following dose reduction techniques: automated exposure control, adjustment of the mA and/or kV according to patient size, and/or use of iterative reconstruction technique. COMPARISON: No relevant prior studies available. FINDINGS: Brain: Mild age related periventricular white matter microangiopathic changes. No hemorrhage. Ventricles: Unremarkable. No ventriculomegaly. Bones/joints: Unremarkable. No acute skull fracture. Soft tissues: Unremarkable. Sinuses: Unremarkable as visualized. No acute sinusitis. Mastoid air cells: Mild bilateral mastoid fluid. IMPRESSION: 1. No acute intracranial findings. No hemorrhage. 2. Mild bilateral mastoid fluid. . 07:20 Differential Diagnosis altered mental status, sepsis, flu, Pneumonia . Data reviewed: sp4 vital signs, nurses notes, EMS record, old medical records, lab test result(s), EKG, radiologic studies, CT scan, plain films. Consideration of Admission/Observation Patient was admitted/placed on observation. Escalation of care including admission/observation considered. Management of patient was discussed with the following: Hospitalist: Raman LOPEZ . ED course: EXAM: US Duplex Right Upper Extremity Veins CLINICAL HISTORY: The patient is 79 years old and is Male; right upper extremity swelling TECHNIQUE: Real-time duplex ultrasound scan of the right upper extremity veins integrating B-mode two-dimensional vascular structure, Doppler spectral analysis, color flow Doppler imaging and Impression. COMPARISON: No relevant prior studies available. FINDINGS: Deep veins: Unremarkable. No DVT in the internal jugular, subclavian, axillary, or brachial veins. The veins demonstrate normal color flow, are normally compressible, with normal phasic flow and/or augmentation response. Superficial veins: Unremarkable. No thrombus in the visualized basilic and cephalic veins. Soft tissues: No acute findings. IMPRESSION: No evidence of DVT in the right upper extremity veins. . ED course: Abscess reevaluation completed, septic fluid bolus cannot be given secondary to generalized edema. Concern for volume overload. Thus patient was given IV albumin without septic fluid bolus. Blood pressure remains stable ,. 07/22 03:18 Order name: Blood Culture Adult (2) [facility] 07/22 03:18 Order name: CBC with Diff; Complete Time: 04:09 [facility] 07/22 03:18 Order name: CMP; Complete Time: 04:09 [facility] 07/22 03:18 Order name: Lactate w/ 2H reflex if indic.; Complete Time: 04:09 [facility] 07/22 03:18 Order name: Protime (+inr); Complete Time: 04:09 [facility] 07/22 03:18 Order name: Ptt, Activated; Complete Time: 04:09 [facility] 07/22 03:18 Order name: Urinalysis w/ reflexes; Complete Time: 05:14 [facility] 07/22 03:18 Order name: ABG; Complete Time: 07:16 [facility] 07/22 03:18 Order name: BNP; Complete Time: 04:09 [facility] 07/22 03:18 Order name: CRP; Complete Time: 04:09 [facility] 07/22 03:18 Order name: SARS RAPID; Complete Time: 05:14 [facility] 07/22 03:18 Order name: Influenza Screen (a \T\ B); Complete Time: 05:14 [facility] 07/22 04:45 Order name: Urine Culture [facility] 07/22 06:04 Order name: Ghost Lactate-NO COLLECT Timer; Complete Time: 07:16 [facility] 07/22 07:00 Order name: Lactate Sepsis 2 HR Follow-up; Complete Time: 07:16 [facility] 07/22 07:40 Order name: T4 Free; Complete Time: 08:58 [facility] 07/22 07:40 Order name: Thyroid Stimulating Hormone; Complete Time: 08:58 [facility] 07/22 07:40 Order name: Basic Metabolic Panel [facility] 07/22 07:40 Order name: Basic Metabolic Panel [facility] 07/22 07:40 Order name: Basic Metabolic Panel [facility] 07/22 07:40 Order name: Basic Metabolic Panel [facility] 07/22 07:40 Order name: Basic Metabolic Panel [facility] 07/22 07:40 Order name: Basic Metabolic Panel [facility] 07/22 07:40 Order name: Basic Metabolic Panel [facility] 07/22 07:40 Order name: Basic Metabolic Panel [facility] 07/22 07:40 Order name: CBC with Automated Diff [facility] 07/22 07:40 Order name: CBC with Automated Diff [facility] 07/22 07:40 Order name: CBC with Automated Diff [facility] 07/22 07:40 Order name: CBC with Automated Diff [facility] 07/22 07:40 Order name: CBC with Automated Diff [facility] 07/22 07:41 Order name: CBC with Automated Diff [facility] 07/22 07:41 Order name: CBC with Automated Diff [facility] 07/22 07:41 Order name: CBC with Automated Diff [facility] 07/22 07:41 Order name: Lipid Profile [facility] 07/22 07:41 Order name: Lipid Profile [facility] 07/22 07:41 Order name: Magnesium [facility] 07/22 07:41 Order name: Magnesium EDMS 07/22 07:41 Order name: Magnesium EDMS 07/22 07:41 Order name: Magnesium EDMS 07/22 07:41 Order name: Magnesium EDMS 07/22 07:41 Order name: Magnesium EDMS 07/22 07:41 Order name: Magnesium EDMS 07/22 07:41 Order name: Magnesium EDMS 07/22 07:41 Order name: Phosphorus EDMS 07/22 07:41 Order name: Phosphorus EDMS 07/22 07:41 Order name: Phosphorus EDMS 07/22 07:41 Order name: Phosphorus EDMS 07/22 07:41 Order name: Phosphorus EDMS 07/22 07:41 Order name: Phosphorus EDMS 07/22 07:41 Order name: Phosphorus EDMS 07/22 07:41 Order name: Phosphorus EDMS 07/22 11:10 Order name: QUANTIFERON TB GOLD PLUS [facility] 07/22 11:11 Order name: Lactic Dehydrogenase [facility] 07/22 13:06 Order name: Acute Hepatitis Panel [facility] 07/22 03:18 Order name: Chest Single View XRAY; Complete Time: 07:16 sp4 07/22 03:19 Order name: CT Chest Abdomen Pelvis W/O Contrast; Complete Time: 07:16 sp4 07/22 03:22 Order name: CT Head Brain wo Cont; Complete Time: 07:16 sp4 07/22 03:36 Order name: UPPER EXTREMITY VENOUS UNILATE; Complete Time: 07:16 [facility] 07/22 03:18 Order name: Accucheck; Complete Time: 04: sp4 07/22 03:18 Order name: Cardiac monitoring; Complete Time: 04: sp4 07/22 03:18 Order name: Cath; Complete Time: 04: sp4 07/22 03:18 Order name: EKG - Nurse/Tech; Complete Time: 04: sp4 07/22 03:18 Order name: IV Saline Lock - Large Bore; Complete Time: 04: sp4 07/22 03:18 Order name: Labs collected and sent; Complete Time: : sp4 07/22 03:18 Order name: O2 Per Protocol; Complete Time: : sp4 07/22 03:18 Order name: O2 Sat Monitoring; Complete Time: : sp4 07/22 03:18 Order name: Vital Signs; Complete Time: : sp4 07/22 03:19 Order name: Becerra; Complete Time: 04: sp4 07/22 04:00 Order name: NPO; Complete Time: : sp4 EC:20 Rate is 112 beats/min. Rhythm is regular, Sinus tachycardia. QRS Gunpowder is Normal. [place] sp4 interval is normal. QRS interval is normal. QT interval is normal. No Q waves. T waves are Normal. No ST changes noted. Clinical impression: No evidence of ischemia. Interpreted by me. Reviewed by me. Administered Medications: 04:03 Not Given (NPO): [id number] mg PO once kd3 04:03 Not Given (NPO): [id number] mg PO once kd3 04:03 Drug: Piperacillin-Tazobactam IVPB 3.375 grams IVPB once over 60 mins; (mix in NS 100 kd3 mL) Route: IVPB; Infused Over: 60 mins; Site: left antecubital; 04:32 Follow up: IV Status: Completed infusion kd3 04:03 Drug: Albumin IVPB 25 grams 100 ml IVPB once; (Note: Albumin 25% concentration) Volume: kd3 100 ml; Route: IVPB; Site: left hand; 04:30 Follow up: Response: No adverse reaction; IV Status: Completed infusion ph 04:27 Drug: Acetaminophen IL Suppository 325 mg IL once Route: IL; kd3 07:43 Follow up: Response: No adverse reaction ph 04:27 Drug: Acetaminophen IL Suppository 650 mg IL once Route: IL; kd3 07:43 Follow up: Response: No adverse reaction ph 04:27 Drug: Ketorolac IVP 15 mg IVP once Route: IVP; Site: left antecubital; kd3 07:43 Follow up: Response: No adverse reaction ph 05:10 Drug: vancoMYCIN IVPB 2 grams IVPB at calculated rate once Route: IVPB; Rate: kd3 calculated rate; Site: left antecubital; 07:15 Follow up: Response: No adverse reaction; IV Status: Completed infusion; IV Intake: ph 250ml 05:10 Drug: MethylPrednisoLONE IVP 125 mg IVP once Route: IVP; Site: left antecubital; kd3 07:43 Follow up: Response: No adverse reaction ph 05:27 Drug: Albuterol Inhalation 2.5 mg Inhalation once Route: Inhalation; kd3 07:43 Follow up: Response: No adverse reaction ph 05:37 Drug: Albumin IVPB 25 grams 100 ml IVPB once; (Note: Albumin 25% concentration) Volume: kd3 100 ml; Route: IVPB; Site: left hand; 06:10 Follow up: Response: No adverse reaction; IV Status: Completed infusion ph 06:17 Drug: Ibuprofen PO 400 mg PO once Route: PO; kd3 07:42 Follow up: Response: No adverse reaction; Temperature is decreased ph Disposition Summary: 07/22/24 07:19 Hospitalization Ordered Notes: Hospitalization Status: Inpatient Admission sp4 Provider: Cirilo Camargo sp4 Condition: Stable sp4 Problem: new sp4 Symptoms: have improved sp4 Bed/Room Type: Standard sp4 Location: Telemetry/MedSurg (observation)(07/22/24 18:54) [facility] Room Assignment: [facility](07/22/24 18:54) [facility] Diagnosis - Severe sepsis without septic shock sp4 - Right lower lung pneumonia, acute febrile illness, UTI sp4 Forms: - Medication Reconciliation Form sp4 - SBAR form sp4 - Leadership Thank You Letter sp4 Signatures: Dispatcher [employer] Luzmaria Martinez RN RN ss Doreen Gardiner RN RN Tootie Ledesma RN RN kd3 Dustin Su MD MD Mera Walker [facility] Black Harris MD MD sp4 Corrections: (The following items were deleted from the chart) 03:18 03:18 BLOOD CULTURE*+BA.LAB.BRZ ordered. EDMS EDMS 03:18 03:18 CBC+H.LAB.BRZ ordered. EDMS EDMS 03:18 03:18 COMPREHENSIVE METABOLIC PANEL+C.LAB.BRZ ordered. EDMS EDMS 03:18 03:18 LACTATE+C.LAB.BRZ ordered. EDMS EDMS 03:18 03:18 PROTIME (+INR)+COAG.LAB.BRZ ordered. EDMS EDMS 03:18 03:18 PTT, ACTIVATED+COAG.LAB.BRZ ordered. EDMS EDMS 03:18 03:18 Urinalysis+U.LAB.BRZ ordered. EDMS EDMS 03:19 03:19 Chest Single View+RAD.RAD.BRZ ordered. EDMS EDMS 03:19 03:19 Arterial Blood Gas+RC.LAB.BRZ ordered. EDMS EDMS 03:19 03:19 PROBNP+C.LAB.BRZ ordered. EDMS EDMS 03:36 03:20 Extremity Venous Uni Ltd+US.RAD.BRZ ordered. EDMS EDMS 10:20 07:19 Telemetry/MedSurg (Inpatient) sp4 ss 10:20 07:19 sp4 ss 18:54 10:20 [facility] ER HOLD ss bc6 18:54 10:20 ERHOLD- ss bc6
--- NOTE | 2024-07-22 07:19 | ER ---
Nurse's Notes [facility] Name: Arturo Saldana Age: 79 yrs Sex: Male : 1945 Arrival Date: 07/22/2024 Time: 03:01 Bed 19 Private MD: Diagnosis: Severe sepsis without septic shock;Right lower lung pneumonia, acute febrile illness, UTI Presentation: 07/22 03:18 Chief complaint: EMS states: Patient is from home. Patient reportedly started having kd3 some hallucinations at home according to the . Patient had a 104 axillary temperature with EMS. Patient has a history of dementia but seems more altered according to the . Patient has also been shivering. Coronavirus screen: Vaccine status: unknown. Ebola Screen: No symptoms or risks identified at this time. Initial Sepsis Screen: Does the patient meet any 2 criteria? Temp <36.0*C (96.8*F)) or > 38.3*C (100.9*F). Altered Mental Status. HR > 90 bpm. Yes Does the patient have a suspected source of infection?. Risk Assessment: Do you want to hurt yourself or someone else? Patient reports no desire to harm self or others. Onset of symptoms was July 22, 2024. 03:18 Method Of Arrival: EMS: [facility] kd3 03:18 Acuity: MADELYN 3 kd3 Triage Assessment: 03:20 General: Appears uncomfortable, ill, Behavior is cooperative. Pain: Unable to use pain kd3 scale. Patient is disoriented. Historical: - Allergies: 07:19 No Known Allergies; ph - PMHx: 03:20 Congestive heart failure; CVA; depressive disorder; Diabetes - IDDM; kd3 Hypercholesterolemia; Hypertensive disorder; - Immunization history:: Adult Immunizations up to date. - Infectious Disease History:: Denies. - Social history:: Smoking status: unknown. - Family history:: not pertinent. Screenin:[facility] ED Fall Risk Assessment (Adult) History of falling in the last 3 months, kd3 including since admission No falls in past 3 months (0 pts) Confusion or Disorientation Yes (5 pts) Intoxicated or Sedated No (0 pts) Impaired Gait Yes (1 pt) Mobility Assist Device Used No (0 pt) Altered Elimination Yes (1 pt) Score/Fall Risk Level 3 or more points = High Risk Oriented to surroundings, Maintained a safe environment, Educated pt \T\ family on fall prevention, incl call for assistance when getting out of bed, Assessed \T\ reinforced patient's understanding of fall precautions, Provided non-skid footwear, Hourly rounding (assess needs \T\ fall precautionary measures) done, Used ambulatory aids as needed (educated on \T\ assisted with), Used gait belt as appropriate Implemented a Fall Risk Plan of Care. Abuse screen: Denies threats or abuse. Denies injuries from another. Nutritional screening: No deficits noted. Tuberculosis screening: No symptoms or risk factors identified. Assessment: 04:20 General: Patient is altered and is unable to answer questions. Patient appears pale and kd3 is trembling. Secondary IV access obtained in the left A/C, blood work collected. 16 japanese Becerra placed, urine collected. Patient administered albumin, Zosyn, Toradol IV. Patient is not able to take medications PO at this time. Patient administered rectal Tylenol for temperature. EKG performed. Patient had large bowl movement. Patient cleaned of incontinence. . 04:47 General: Patient had an ultrasound done and patient has been taken to CT via stretcher. kd3 . 05:38 General: Provider spoke with daughter and at the bedside. Patient ABG collected kd3 and resulted. Patient's vital signs remain stable. Patient administered breathing treatment and albumin. Minimal urinary output is noted in the Becerra bag. Daughter left her contact for calls. Azeb Hdz- [phone]. Neuro: Level of Consciousness is lethargic, Oriented to person. Cardiovascular: Patient's skin is warm and dry. Respiratory: Airway is patent Respiratory effort is even, unlabored, Respiratory pattern is tachypnea. 06:00 General: Patient did not receive sepsis fluids due to swelling . kd3 06:08 General: Patient noted to have pinpoint pupils. Provider notified. Repeat temperature kd3 in 101.6 oral. . 19:16 Reassessment: Patient appears in no apparent distress at this time. Patient and/or kj2 family updated on plan of care and expected duration. Pain level reassessed. Patient is alert, oriented x 3, equal unlabored respirations, skin warm/dry/pink. 20:15 Reassessment: Patient appears in no apparent distress at this time. Patient and/or kj2 family updated on plan of care and expected duration. Pain level reassessed. Patient is alert, oriented x 3, equal unlabored respirations, skin warm/dry/pink. Vital Signs: 03:18 BP 179 / 99; Pulse 109; Resp 24; Temp 101.9(R); Pulse Ox 95% on 2 lpm NC; kd3 04:30 BP 149 / 89; Pulse 110; Resp 26 S; Pulse Ox 96% on 2 lpm NC; kd3 05:28 BP 125 / 61; Pulse 105; Resp 22; Pulse Ox 99% on 4 lpm NC; kd3 05:53 Weight 75.3 kg; kd3 06:18 BP 141 / 78; Pulse 99; Resp 22; Temp 101.6(O); Pulse Ox 96% on 2 lpm NC; kd3 07:19 BP 129 / 64; Pulse 90; Resp 22; Temp 98.9(O); Pulse Ox 95% on 2 lpm NC; ph 19:16 BP 144 / 70; Pulse 78; Resp 14; Pulse Ox 100% ; kj2 20:15 BP 142 / 72; Pulse 76; Resp 18; Temp 98; Pulse Ox 99% on 2 lpm NC; kj2 Alexei Coma Score: 07:20 Eye Response: spontaneous(4). Motor Response: obeys commands(6). Verbal Response: sp4 oriented(5). Total: 15. ED Course: 03:09 Patient arrived in ED. lg3 03:10 Becerra cath inserted, using sterile technique, 16 Fr., by ar, balloon inflated, to kd3 gravity drainage, urine specimen collected. 03:10 Inserted saline lock: 20 gauge in left antecubital area, using aseptic technique. Blood kd3 collected. Flushed with 10 mL NS Maintain EMS IV. Dressing intact. Good blood return noted. Site clean \T\ dry. Gauge \T\ site: 20 g left hand . 03:12 Black Harris MD is Attending Physician. sp4 03:18 Tootie Ledesma RN is Primary Nurse. kd3 03:20 Triage completed. kd3 03:20 Arm band placed on right wrist. kd3 04:11 Chest Single View XRAY In Process Unspecified. EDMS 04:25 Patient has correct armband on for positive identification. Provided Education on: kd3 medications, fever . 04:32 Urinalysis w/ reflexes Sent. kd3 04:32 Blood Culture Adult (2) Sent. kd3 04:36 Urinalysis w/ reflexes Sent. kd3 05:05 CT Chest Abdomen Pelvis W/O Contrast In Process Unspecified. EDMS 05:05 CT Head Brain wo Cont In Process Unspecified. EDMS 05:10 Urine Culture Sent. kd3 05:20 UPPER EXTREMITY VENOUS UNILATE In Process Unspecified. EDMS 07:17 Cirilo Camargo is Hospitalizing Provider. sp4 07:44 No provider procedures requiring assistance completed. Patient admitted, IV remains in ph place. 14:10 1410 Patient lying in bed with eyes closed, respirations even and unlabored. 1745 CM ane spoke with patient's daughter Azeb Hdz via telephone, at [phone]. Patient identified by name and . Demographic sheet confirmed by Azeb. Patient's PCP is ALEX Mercado and his neurologist is . lives with his Bernarda in a single story home. Bernarda is the primary caregiver and has support from their granddaughter who bathes and assists with ADLs. Prior to admission, uses a walker and wheelchair to ambulate and move about. Other DME includes shower seat and bathroom equipped with fur remodeler bars. No home oxygen or HH at this time, however, patient has had HH through [facility] in the past and Azeb states they were happy with the care. She also states it would be nice to have HH again if deemed appropriate. No MPOA in place at this time. Azeb also mentioned that is [place] and that he can hear better out of his right ear. The preferred plan is for patient to return home and either Azeb or her brother Joshua will transport Mr. Saldana home upon discharge .CM team will continue to follow and coordinate care during this hospital stay. 19:17 Report received from MICHAEL Siddiqui. kj2 Administered Medications: 04:03 Not Given (NPO): [id number] mg PO once kd3 04:03 Not Given (NPO): [id number] mg PO once kd3 04:03 Drug: Piperacillin-Tazobactam IVPB 3.375 grams IVPB once over 60 mins; (mix in NS 100 kd3 mL) Route: IVPB; Infused Over: 60 mins; Site: left antecubital; 04:32 Follow up: IV Status: Completed infusion kd3 04:03 Drug: Albumin IVPB 25 grams 100 ml IVPB once; (Note: Albumin 25% concentration) Volume: kd3 100 ml; Route: IVPB; Site: left hand; 04:30 Follow up: Response: No adverse reaction; IV Status: Completed infusion ph 04:27 Drug: Acetaminophen TX Suppository 325 mg TX once Route: TX; kd3 07:43 Follow up: Response: No adverse reaction ph 04:27 Drug: Acetaminophen TX Suppository 650 mg TX once Route: TX; kd3 07:43 Follow up: Response: No adverse reaction ph 04:27 Drug: Ketorolac IVP 15 mg IVP once Route: IVP; Site: left antecubital; kd3 07:43 Follow up: Response: No adverse reaction ph 05:10 Drug: vancoMYCIN IVPB 2 grams IVPB at calculated rate once Route: IVPB; Rate: kd3 calculated rate; Site: left antecubital; 07:15 Follow up: Response: No adverse reaction; IV Status: Completed infusion; IV Intake: ph 250ml 05:10 Drug: MethylPrednisoLONE IVP 125 mg IVP once Route: IVP; Site: left antecubital; kd3 07:43 Follow up: Response: No adverse reaction ph 05:27 Drug: Albuterol Inhalation 2.5 mg Inhalation once Route: Inhalation; kd3 07:43 Follow up: Response: No adverse reaction ph 05:37 Drug: Albumin IVPB 25 grams 100 ml IVPB once; (Note: Albumin 25% concentration) Volume: kd3 100 ml; Route: IVPB; Site: left hand; 06:10 Follow up: Response: No adverse reaction; IV Status: Completed infusion ph 06:17 Drug: Ibuprofen PO 400 mg PO once Route: PO; kd3 07:42 Follow up: Response: No adverse reaction; Temperature is decreased ph Medication: 04:20 VIS not applicable for this client. kd3 Intake: 07:15 IV: 250ml; Total: 250ml. ph Output: 05:48 Urine: 300ml (Becerra); Total: 300ml. kd3 Outcome: 07:19 Decision to Hospitalize by Provider. sp4 07:44 Admitted to ER Hold. Please see [facility] for further documentation. ph 07:44 Condition: stable 07:44 Instructed on the need for admit, 20:51 Patient left the ED. kj2 Signatures: Dispatcher [employer] EDDoreen Kaur, RN MICHAEL fournier Able, Jennifer RN RN lg3 Tootie Ledesma RN RN kd3 Black Harris MD MD sp4 Kerry Talbot RN RN kj2 Lorena Crockett RN MICHAEL antunez
[2024-07-22] MEDS ORDERED: ACETAMINOPHEN 325 MG TABLET PO PRN (07:33)
[2024-07-22] MEDS ORDERED: ACETAMINOPHEN 650MG/RECT SUPP PR PRN (07:33)
--- NOTE | 2024-07-22 07:48 | P.HP ---
Certification for Inpatient Patient admitted to: Inpatient With expected LOS: >2 Midnights Practitioner: I am a practitioner with admitting privileges, knowledge of patient current condition, hospital course, and medical plan of care. Services: Services provided to patient in accordance with Admission requirements found in Title 42 Section 412.3 of the Code of Federal Regulations Patient History Date of Service: 07/22/24 Reason for admission: Severe sepsis 2/2 PNA/UTI History of Present Illness: Arturo Saldana is a 79 year old male with Pmhx CVA, CHF, depressive disorder, Di abetes mellitus -IDDM, hypercholesterolemia, HTN disorder, and dementia who presents to the ED with fever. He presented to the ED earlier yesterday with normal lab values and was discharged home. He has returned with a fever and now with abnormal lab values, rectal temp of 101.9, lactic acid 3.4, RR 24, HR 109. Of note, Arturo takes aspirin daily and last dose was yesterday (07/21) in the morning. Initial vitals BP 104 / 68; Pulse 64; Resp 16; Temp 98; Pulse Ox 97% Chest xray reports "No acute findings in the chest. " CT CAP reports "1. Patchy consolidative and groundglass opacities demonstrated in the right infrahilar lung and medial right lower lobe, with partial opacification of right lower lobe bronchi. Findings are suspicious for aspiration pneumonia, versus atelectasis secondary to mucous plugging. Recommend follow-up imaging 8-10 weeks post appropriate clinical therapy to ensure resolution. 2. An indwelling Becerra catheter within bladder wall thickening which may be due to the decompressed state of the bladder or due to cystitis. Nonspecific bilateral perinephric fat stranding. Correlation with urinalysis recommended. 3. Otherwise, allowing for lack of intravenous contrast, no acute abnormality of the chest, abdomen, or pelvis. 4. Severe multivessel coronary artery calcifications, with suspected superimposed stents. 5. Additional nonacute findings as above." CT head w/o contrast reports " 1. No acute intracranial findings. No hemorrhage. 2. Mild bilateral mastoid fluid. " Venous ultrasound Right upper extremity reports " No evidence of DVT in the right upper extremity veins. " Arturo will be admitted to hospitalist service for further treatment of Severe sepsis 2/2 Pneumonia and UTI. Allergies No Known Allergies Allergy (Verified 11/17/12 09:30) Home Medications: Acetaminophen [Tylenol Extra Strength] 500 mg PO BID 05/28/14 Aspirin Tab [Princess Aspirin*] 1 tab PO DAILY 05/28/14 Diphenhydramine HCl [Allergy] 1 tab PO DAILY 05/28/14 Pravastatin [Pravachol*] 40 mg PO DAILY 05/28/14 Allopurinol PO DAILY 04/01/24 Atorvastatin Calcium PO DAILY 04/01/24 Citalopram [Celexa*] PO DAILY 04/01/24 Cyclobenzaprine [Flexeril*] PO BEDTIME 04/01/24 Diclofenac Sodium [Voltaren] PO BID 04/01/24 Divalproex Sodium [Divalproex Sodium ER] PO DAILY 04/01/24 Donepezil HCl PO DAILY 04/01/24 Fluconazole [Diflucan] PO DAILY 04/01/24 Furosemide PO DAILY 04/01/24 Levofloxacin [Levaquin] PO DAILY 04/01/24 Losartan Potassium PO DAILY 04/01/24 Mupirocin Oint [Bactroban 2% Ointment*] .ROUTE BID PRN 04/01/24 Potassium Chloride [Klor-Con M20] 20 PO DAILY 04/01/24 Quetiapine Fumarate [Seroquel] 50 PO BEDTIME 04/01/24 Tamsulosin [Flomax*] 0.8 mg PO BEDTIME #60 cap 04/01/24 carvediloL [Carvedilol] 6.25 PO BID 04/01/24 cloNIDine HCL [Clonidine HCl] 0.1 PO BEDTIME 04/01/24 - Past Medical/Surgical History Diabetic: Yes -: Hypertension -: Diabetes -: Stroke Past Surgical History: Unable to obtain - Family History Family History: Reviewed- Non-Contributory - Social History Smoking Status: Never smoker Alcohol use: No CD- Drugs: No Caffeine use: Yes Review of Systems is unable to be obtained Physical Examination - Physical Exam General: Other (lethargic) HEENT: Atraumatic, Normocephalic Neck: Supple, 2+ carotid pulse no bruit, JVD not distended Respiratory: Clear to auscultation bilaterally, Normal air movement Cardiovascular: No edema, Normal pulses, Irregular heart rate/rhythm (Tachycardic) Gastrointestinal: Normal bowel sounds, Soft and benign, Distended (Obese) Musculoskeletal: No clubbing Integumentary: No rashes Urinary: Becerra catheter - Studies Laboratory Data (last 24 hrs) 07/22/24 07/22/24 07/22/24 03:23 03:23 03:23 WBC 11.90 H Hgb 9.9 L Hct 29.6 L Plt Count 198 PT 12.5 INR 1.12 APTT 29.6 Sodium 139 Potassium 4.7 BUN 28 H Creatinine 1.95 H Glucose 128 H Total Bilirubin 0.3 AST < 10 L ALT < 14 L Alkaline Phosphatase 62 Microbiology Data (last 24 hrs): 07/22/24 04:08 Nasopharnyx Influenza Type A Antigen Screen - Final 07/22/24 04:08 Nasopharnyx Influenza Type B Antigen Screen - Final Assessment and Plan - Plan Assessment and Plan Severe sepsis 2/2 right sided pneumonia and UTI Febrile -Severe sepsis criteria Lactic 3.4, HR 109, RR 24, Temp 101.9, Pneumonia/UTI -UA suggestive of infectious process - vanc/zosyn given in the ED -cefepime/levaquin on the floor - oxygen protocol -Gentle IVF -Albumin given in the ED -Follow blood and urine cultures -Lumbar puncture ordered, will hold heparin and aspirin, last dose of aspirin was yesterday morning at 07/21 -Ordered full viral panel -Oxygen protocol as needed JOSÉ ANTONIO -Gentle IVF, will monitor closely with congestive heart failure -BUN/creatinine 28/1.95, GFR 34 Right upper extremity swelling, likely chronic -Venous ultrasound Right upper extremity reports " No evidence of DVT in the right upper extremity veins. " Hypertension Hypercholesterolemia CHF Depressive disorder cerebrovascular Accident Dementia -Continue home medication DVT ppx heparin on hold Full code LOS 2 days Discharge Plan: Home Plan to discharge in: 48 Hours - Advance Directives Does patient have a Living Will: No Does patient have a Durable POA for Healthcare: No
[2024-07-22] MEDS: NA CHLORIDE 0.9% 1,000 ML IV SCH (08:00)
[2024-07-22] MEDS ORDERED: Levofloxacin 750mg IV 750 MG/150 ML BAG IV ONE (08:30)
[2024-07-22] MEDS ORDERED: HEPARIN 5000 UNIT/ML 1 ML VIAL ONE (08:30)
[2024-07-22] MEDS ORDERED: CEFEPIME 1 GM/VIAL ONE (08:30)
[2024-07-22] MEDS ORDERED: NA CHLORIDE 0.9% 1,000 ML ONE (08:31)
[2024-07-22 08:42] LABS: Thyroid Stimulating Hormone 4.02 uIU/mL (0.358-3.740)
[2024-07-22] MEDS: HEPARIN 5000 UNIT/ML 1 ML VIAL SQ SCH (09:00)
[2024-07-22] MEDS: CEFEPIME 1 GM in NA CHLORIDE 0.9% 100 ML IV SCH (09:00)
[2024-07-22] MEDS: Levofloxacin 750mg IV 750 MG/150 ML BAG IV SCH (09:56)
[2024-07-22 11:22] VITALS: BMI 28.5
--- NOTE | 2024-07-22 11:48 | EKG ---
Test Date: 2024-07-22 Test Time: 04:15:36 Chief Lifestyle Officer: HAYDEE MEASUREMENT RESULTS: Intervals: Rate: 112 HI: 182 QRSD: 86 QT: 308 QTc: 420 [place]: P: 119 HI: 182 QRS: 62 T: 37 INTERPRETIVE STATEMENTS: Sinus tachycardia Otherwise normal ECG Compared to ECG 12/16/2023 19:22:52 Sinus rhythm no longer present Electronically Signed On 07-22-24 11:47:05 CDT by Kyrie Kuhn
[2024-07-22 13:06] LABS: HBsAG Nonreactive Report Report; Hepatitis B Core IgM Nonreactive (Nonreactive); Hepatitis B surface AG Interp. Nonreactive (Nonreactive); Hepatitis C Virus Ab Nonreactive (Nonreactive)
[2024-07-23 04:58] LABS: Absolute Lymphocytes (CBC) 0.9 K/uL (0.7-4.9); Absolute Monocytes 1.7 K/uL (0.1-1.3); Absolute Neutrophil 18.4 K/uL (1.8-8.0); Basophils % 0.2 % (0-1.3); Hematocrit 27.1 % (39.6-49.0); Hemoglobin 9.1 g/dL (13.6-17.9); Lymphocytes % 4.4 % (15.3-44.8); MCH 31.3 pg (27.0-35.0); MCHC 33.6 g/dL (32.0-36.0); MCV 93.1 fL (80-100); MPV 8.4 fL (7.6-11.3); Monocytes % 7.9 % (3.3-12.3); Neutrophils % 87.5 % (41.7-73.7); Platelets 179 thou/uL (152-406); RBC Red Blood Cell Count 2.91 M/uL (4.33-5.43); Red Cell Distribution Width 17.1 % (12.1-15.2)
[2024-07-23 05:19] LABS: Anion Gap 7.6 mEq/L (5.0-15.0); Magnesium 2.2 mg/dL (1.6-2.4); Phosphorus 3.6 mg/dL (2.5-4.9); Potassium 4.6 mEq/L (3.5-5.1)
--- NOTE | 2024-07-23 10:51 | P.PN ---
Date of Service: 07/23/24 Subjective Awake and conversing this morning Much improved Will DC hogan and attempt to wean oxygen need ROS 10 point ROS as noted above, otherwise negative Physical Exam General: Awake, alert, and oriented x1, confused, NAD HEENT: Atraumatic, Normocephalic Neck: Supple, 2+ carotid pulse no bruit, JVD not distended Respiratory: Clear to auscultation bilaterally, Normal air movement, 2 LNC Cardiovascular: No edema, Normal pulses, NSR Gastrointestinal: Normal bowel sounds, Soft on palpation, Distended (Obese) Musculoskeletal: No clubbing Integumentary: No rashes Urinary: Hogan catheter Vitals Reviewed Problem list Severe sepsis 2/2 right sided pneumonia and UTI Metabolic Encephalopathy Febrile JOSÉ ANTONIO Right upper extremity swelling, likely chronic Hypertension Hypercholesterolemia CHF Depressive disorder cerebrovascular Accident Dementia Assessment and Plan Severe sepsis 2/2 right sided pneumonia and UTI Metabolic Encephalopathy Febrile -Severe sepsis criteria Lactic 3.4, HR 109, RR 24, Temp 101.9, Pneumonia/UTI -UA suggestive of infectious process -vanc/zosyn given in the ED -continue cefepime/levaquin on the floor -oxygen protocol, attempt to wean -Stop IVF, started diet -Albumin given in the ED -Follow blood and urine cultures- NGTD -Lumbar puncture ordered, will hold heparin and aspirin, last dose of aspirin was yesterday morning at 07/21 -Lumbar puncture on hold til Friday -Ordered full viral panel -Oxygen protocol as needed -DC hogan today JOSÉ ANTONIO -Stop IVF -BUN/creatinine 32/1.84, GFR 37- slow improvement -Consult Nephrology Right upper extremity swelling, likely chronic -Venous ultrasound Right upper extremity reports " No evidence of DVT in the right upper extremity veins. " Hypertension Hypercholesterolemia CHF Depressive disorder cerebrovascular Accident Dementia -Continue home medication DVT ppx heparin on hold Full code LOS 2 days Discharge Plan: Home Plan to discharge in: 48 Hours
[2024-07-23] MEDS ORDERED: VANCOMYCIN 2 GM in NA CHLORIDE 0.9% 500 ML IVPB ONE (18:00)
[2024-07-23] MEDS: VANCOMYCIN 1.5 GM in NA CHLORIDE 0.9% 500 ML IVPB SCH (18:21)
[2024-07-24] MEDS: LOSARTAN POTASSIUM 50 MG TABLET ONE (05:06)
[2024-07-24] MEDS: LOSARTAN POTASSIUM 50 MG TABLET PO SCH (05:13)
[2024-07-24 06:48] LABS: Absolute Basophils 0.1 K/uL (0-0.5); Absolute Lymphocytes (CBC) 1.4 K/uL (0.7-4.9); Absolute Monocytes 1.8 K/uL (0.1-1.3); Absolute Neutrophil 15.5 K/uL (1.8-8.0); Basophils % 0.5 % (0-1.3); Eosinophils % 0.1 % (0-4.4); Hematocrit 28.6 % (39.6-49.0); Hemoglobin 9.3 g/dL (13.6-17.9); Lymphocytes % 7.3 % (15.3-44.8); MCH 30.3 pg (27.0-35.0); MCHC 32.6 g/dL (32.0-36.0); MCV 93.1 fL (80-100); MPV 8.8 fL (7.6-11.3); Monocytes % 9.4 % (3.3-12.3); Neutrophils % 82.7 % (41.7-73.7); Nucleated Red Blood Cells % 0.1 % (0-0); Platelets 195 thou/uL (152-406); RBC Red Blood Cell Count 3.07 M/uL (4.33-5.43); Red Cell Distribution Width 17.5 % (12.1-15.2)
[2024-07-24 06:53] LABS: Anion Gap 9.1 mEq/L (5.0-15.0); Magnesium 2.4 mg/dL (1.6-2.4); Phosphorus 2.7 mg/dL (2.5-4.9); Potassium 4.1 mEq/L (3.5-5.1)
[2024-07-24] MEDS: INSULIN REGULAR (HUMAN) 100 UNIT/ML SQ SCH (07:30)
[2024-07-24] MEDS: carvediloL 6.25 MG TAB PO SCH (08:21)
[2024-07-24 09:30] LABS: Blood Morphology Comment NOTED (NOT SEEN); Platelet Estimate ADEQ; Platelets Clumped FEW; White Blood Cell Scan OK (OK)
[2024-07-24 09:31] LABS: Anisocytosis SLIGHT; Burr Cells 1+; Ovalocytes 1+
--- NOTE | 2024-07-24 11:26 | P.PN ---
Date of Service: 07/24/24 Subjective Awake and oriented x3 this morning no new complaints ROS 10 point ROS as noted above, otherwise negative Physical Exam General: Awake, alert, and oriented x3, NAD, conversing well HEENT: Atraumatic, Normocephalic Neck: Supple, 2+ carotid pulse no bruit, JVD not distended Respiratory: Clear to auscultation bilaterally, Normal air movement, 2 LNC Cardiovascular: No edema, Normal pulses, NSR Gastrointestinal: Normal active bowel sounds, Soft and benign on palpation, Distended (Obese) Musculoskeletal: No clubbing Integumentary: No rashes Urinary: Becerra catheter Vitals Reviewed Problem list Severe sepsis 2/2 right sided pneumonia and UTI Metabolic Encephalopathy Febrile JOSÉ ANTONIO Right upper extremity swelling, likely chronic Diabetes Mellitus-IDDM Hypertension Hypercholesterolemia CHF Depressive disorder cerebrovascular Accident Dementia Assessment and Plan Severe sepsis 2/2 right sided pneumonia and UTI Metabolic Encephalopathy Febrile -Severe sepsis criteria Lactic 3.4, HR 109, RR 24, Temp 101.9, Pneumonia/UTI -UA suggestive of infectious process -vanc/zosyn given in the ED -continue cefepime/levaquin on the floor -oxygen protocol, attempt to wean -Stop IVF, started diet -Albumin given in the ED -Blood culture NGTD -urine cultures- Klebsiella Pneumoniae -Lumbar puncture ordered, will hold heparin and aspirin, last dose of aspirin was yesterday morning at 07/21 -Lumbar puncture on hold til Friday -Ordered full viral panel- reporting negative, pending a few send out tests -Oxygen protocol as needed- attempt to wean JOSÉ ANTONIO -Stop IVF -BUN/creatinine 33/1.43, GFR 50- slow improvement -Consult Nephrology Right upper extremity swelling, likely chronic -Venous ultrasound Right upper extremity reports " No evidence of DVT in the right upper extremity veins. " Diabetes Mellitus-IDDM -Accu-Chek with sliding scale insulin -A1c pending Hypertension Hypercholesterolemia CHF Depressive disorder cerebrovascular Accident Dementia -Continue home medication DVT ppx heparin on hold Full code LOS 2 days Discharge Plan: Home Plan to discharge in: 48 Hours
[2024-07-25] MEDS ORDERED: VANCOMYCIN 1.5 GM in NA CHLORIDE 0.9% 500 ML IVPB SCH (06:00)
[2024-07-25 06:44] LABS: Absolute Basophils 0.1 K/uL (0-0.5); Absolute Eosinophils 0.1 K/uL (0-0.5); Absolute Lymphocytes (CBC) 1.7 K/uL (0.7-4.9); Absolute Monocytes 1.2 K/uL (0.1-1.3); Absolute Neutrophil 8.6 K/uL (1.8-8.0); Basophils % 0.5 % (0-1.3); Eosinophils % 1.2 % (0-4.4); Hematocrit 30.2 % (39.6-49.0); Hemoglobin 9.9 g/dL (13.6-17.9); Lymphocytes % 14.7 % (15.3-44.8); MCH 30.7 pg (27.0-35.0); MPV 7.6 fL (7.6-11.3); Monocytes % 10.4 % (3.3-12.3); Neutrophils % 73.2 % (41.7-73.7); Nucleated Red Blood Cells % 0.1 % (0-0); Platelets 210 thou/uL (152-406); RBC Red Blood Cell Count 3.24 M/uL (4.33-5.43); Red Cell Distribution Width 17.2 % (12.1-15.2)
[2024-07-25 07:04] LABS: Magnesium 2.5 mg/dL (1.6-2.4); Phosphorus 2.9 mg/dL (2.5-4.9)
[2024-07-25] MEDS ORDERED: carvediloL 6.25 MG TAB PO SCH (09:00)
[2024-07-25] MEDS: FUROSEMIDE 40 MG TABLET PO SCH (09:22)
[2024-07-25] MEDS: allopurinoL 300 MG TAB PO SCH (09:22)
[2024-07-25] MEDS: CITALOPRAM 10 MG TABLET PO SCH (09:23)
[2024-07-25] MEDS: DIVALPROEX ER 250 MG TAB PO SCH (09:23)
--- NOTE | 2024-07-25 11:57 | P.PN ---
Date of Service: 07/25/24 Subjective Awake and answering questions no new complaints ROS 10 point ROS as noted above, otherwise negative Physical Exam General: Awake, alert, and oriented x3, NAD, conversing well HEENT: Atraumatic, Normocephalic Neck: Supple, 2+ carotid pulse no bruit, JVD not distended Respiratory: Clear BBS, symmetrical chest wall movement, on RA Cardiovascular: No edema, Normal pulses, RRR, S1 S2 present Gastrointestinal: Normal active bowel sounds, Soft on palpation, Distended (Obese) Musculoskeletal: No clubbing Integumentary: No rashes Vitals Reviewed Problem list Severe sepsis 2/2 right sided pneumonia and UTI Metabolic Encephalopathy Febrile-resolved JOSÉ ANTONIO Right upper extremity swelling, likely chronic Diabetes Mellitus-IDDM Hypertension Hypercholesterolemia CHF Depressive disorder cerebrovascular Accident Dementia Assessment and Plan Severe sepsis 2/2 right sided pneumonia and UTI Metabolic Encephalopathy Febrile- resolved -Severe sepsis criteria Lactic 3.4, HR 109, RR 24, Temp 101.9, Pneumonia/UTI -UA suggestive of infectious process -vanc/zosyn given in the ED -continue cefepime/vancomycin on the floor -oxygen protocol, attempt to wean -Stop IVF, started diet -Albumin given in the ED -Blood culture NGTD -urine cultures- Klebsiella Pneumoniae -Lumbar puncture ordered, will hold heparin and aspirin, last dose of aspirin was yesterday morning at 07/21 -Lumbar puncture on hold til Friday -Ordered full viral panel- reporting negative, pending a few send out tests -Oxygen protocol as needed- attempt to wean JOSÉ ANTONIO -Stop IVF -BUN/creatinine 28/1.34, GFR 54- slow improvement Right upper extremity swelling, likely chronic -Venous ultrasound Right upper extremity reports " No evidence of DVT in the right upper extremity veins." Diabetes Mellitus-IDDM -Accu-Chek with sliding scale insulin -A1c remains pending Hypertension Hypercholesterolemia CHF Depressive disorder cerebrovascular Accident Dementia -Continue home medication DVT ppx SCD Full code LOS 2 days Discharge Plan: Home Plan to discharge in: 48 Hours <Gayle Cavazos - Last Filed: 07/25/24 11:31> Patient seen and examined, plan of care discussed with Ms. Cavazos. Sepsis resolved. Urine culture grew Klebsiella Blood cultures: No growth. AMS resolved. Meningitis is unlikely. CSF studies will offer benefit at this time. Lumbar puncture canceled. IV fluid discontinued. Monitor renal function. <wagner drew Last Filed: 07/25/24 16:20>
[2024-07-25] MEDS: QUETIAPINE 25 MG TAB PO SCH (21:21)
[2024-07-25] MEDS: TAMSULOSIN 0.4 MG SR CAP PO SCH (21:21)
[2024-07-25] MEDS: ATORVASTATIN 40 MG TAB PO SCH (21:22)
[2024-07-26 07:20] LABS: Absolute Basophils 0.1 K/uL (0-0.5); Absolute Eosinophils 0.3 K/uL (0-0.5); Absolute Lymphocytes (CBC) 1.8 K/uL (0.7-4.9); Absolute Monocytes 1.2 K/uL (0.1-1.3); Absolute Neutrophil 7.1 K/uL (1.8-8.0); Basophils % 0.7 % (0-1.3); Eosinophils % 2.5 % (0-4.4); Hematocrit 29.7 % (39.6-49.0); Hemoglobin 10.2 g/dL (13.6-17.9); MCH 31.6 pg (27.0-35.0); MCHC 34.4 g/dL (32.0-36.0); MPV 7.7 fL (7.6-11.3); Monocytes % 11.7 % (3.3-12.3); Neutrophils % 68.1 % (41.7-73.7); Platelets 236 thou/uL (152-406); RBC Red Blood Cell Count 3.23 M/uL (4.33-5.43); Red Cell Distribution Width 17.2 % (12.1-15.2)
[2024-07-26 07:25] LABS: Anion Gap 9.7 mEq/L (5.0-15.0); Magnesium 2.4 mg/dL (1.6-2.4); Potassium 3.7 mEq/L (3.5-5.1)
[2024-07-26] MEDS ORDERED: VANCOMYCIN 1.25 GM in NA CHLORIDE 0.9% 250 ML IVPB SCH (09:00)
[2024-07-26] MEDS: CIPROFLOXACIN HCL 500 MG TAB PO SCH (09:03)
[2024-07-26] MEDS: DONEPEZIL HCL 5 MG TAB PO SCH (09:03)
[2024-07-26 12:05] VITALS: O2SAT 94
--- NOTE | 2024-07-26 12:19 | RAD REPORT ---
EXAMINATION: ONE VIEW CHEST XR CLINICAL INDICATION: Male, 79 years old.,SOB TECHNIQUE: Frontal chest projection is submitted. Examination is limited by patient positioning and t echnique. COMPARISON: 07/22/2024 FINDINGS: The lungs are well inflated and clear. No pneumothorax or sizable effusion. The heart is normal in s ize. IMPRESSION: No acute intrathoracic abnormalities.
--- NOTE | 2024-07-26 15:57 | P.DS ---
Admission Date: 07/22/24 Discharge Date: 07/26/24 Disposition: DC HOME/HOME HEALTH CARE Discharge Condition: GOOD Reason for Admission: Severe sepsis 2/2 PNA/UTI Brief History of Present Illness: Diagnosis Severe sepsis 2/2 UTI Metabolic Encephalopathy Febrile-resolved JOSÉ ANTONIO Right upper extremity swelling, likely chronic Diabetes Mellitus-IDDM Hypertension Hypercholesterolemia CHF Depressive disorder cerebrovascular Accident Dementia HPI 07/22/2024 Arturo Saldana is a 79 year old male with Pmhx CVA, CHF, depressive disorder, Diabetes mellitus -IDDM, hypercholesterolemia, HTN disorder, and dementia who presents to the ED with fever. He presented to the ED earlier yesterday with normal lab values and was discharged home. He has returned with a fever and now with abnormal lab values, rectal temp of 101.9, lactic acid 3.4, RR 24, HR 109. Of note, Arturo takes aspirin daily and last dose was yesterday (07/21) in the morning. Initial vitals BP 104 / 68; Pulse 64; Resp 16; Temp 98; Pulse Ox 97% Chest xray reports "No acute findings in the chest. " CT CAP reports "1. Patchy consolidative and groundglass opacities demonstrated in the right infrahilar lung and medial right lower lobe, with partial opacification of right lower lobe bronchi. Findings are suspicious for aspiration pneumonia, versus atelectasis secondary to mucous plugging. Recommend follow-up imaging 8-10 weeks post appropriate clinical therapy to ensure resolution. 2. An indwelling Becerra catheter within bladder wall thickening which may be due to the decompressed state of the bladder or due to cystitis. Nonspecific bilateral perinephric fat stranding. Correlation with urinalysis recommended. 3. Otherwise, allowing for lack of intravenous contrast, no acute abnormality of the chest, abdomen, or pelvis. 4. Severe multivessel coronary artery calcifications, with suspected superimposed stents. 5. Additional nonacute findings as above." CT head w/o contrast reports " 1. No acute intracranial findings. No hemorrhage. 2. Mild bilateral mastoid fluid. " Venous ultrasound Right upper extremity reports " No evidence of DVT in the right upper extremity veins. " Arturo will be admitted to hospitalist service for further treatment of Severe sepsis 2/2 Pneumonia and UTI. Hospital Course: Arturo Hector is a pleasant 07/22/2024 with a past medical history significant for CVA, CHF, depressive disorder, Diabetes mellitus -IDDM, hypercholesterolemia, HTN disorder, and dementia who was admitted to the [facility] on 07/22/2024 for metabolic encephalopathy and fever of unknown source. They presented to the ED febrile, lactic acid elevation, and mild white blood cell elevation. He is found to have a urinary tract infection and suspected pneumonia. Pneumonia was ruled out based on x-ray 07/26. He was admitted with 2 L nasal cannula and was successfully weaned off with appropriate oxygenation noted. He has tolerated rated IV antibiotics, urine culture resulted with Klebsiella pneumoniae sensitive to ciprofloxacin. Orientation has returned with slight dementia noted. Physical therapy evaluated him and found him to need minimal assistance and continued PT at home. [facility] Home health with physical therapy pending at this time, and can be set up outpatient. He has been afebrile since 07/22, white count has trended down, tolerating p.o. diet, urinating without difficulty. Blood pressure medications have been adjusted and prescribed. Plan follow-up with PCP to continue monitoring urinary tract infection resolution. On 07/26/2024, Arturo was seen on morning rounds and deemed medically stable for discharge. Arturo was discharged with instructions to schedule follow-up appo intments with PCP. Arturo was provided prescriptions for ciprofloxacin, carvedilol, losartan. Physical Exam General: AAO x3, NAD, conversing well HEENT: Atraumatic, Normocephalic Neck: Supple, 2+ carotid pulse no bruit, JVD not distended Respiratory: Clear BBS, nonlabored breathing, on RA Cardiovascular: Normal pulses, RRR, S1 S2 present Gastrointestinal: Normal active bowel sounds, Soft on palpation, Distended (Obese) Musculoskeletal: No clubbing Integumentary: No rashes Vital Signs/Physical Exam: Temp Pulse Resp BP Pulse Ox 97.6 F 78 18 115/63 94 07/26/24 11:49 07/26/24 11:49 07/26/24 11:49 07/26/24 11:49 07/26/24 11:49 Laboratory Data at Discharge: WBC 10.40 thou/uL (4.3-10.9) 07/26/24 06:58 Hgb 10.2 g/dL (13.6-17.9) L 07/26/24 06:58 Hct 29.7 % (39.6-49.0) L 07/26/24 06:58 Plt Count 236 thou/uL (152-406) 07/26/24 06:58 PT 12.5 SECONDS (9.4-12.5) 07/22/24 03:23 INR 1.12 07/22/24 03:23 APTT 29.6 SECONDS (24.3-36.9) 07/22/24 03:23 Sodium 139 mEq/L (136-145) 07/26/24 06:58 Potassium 3.7 mEq/L (3.5-5.1) 07/26/24 06:58 BUN 32 mg/dL (7-18) H 07/26/24 06:58 Creatinine 1.42 mg/dL (0.70-1.30) H 07/26/24 06:58 Glucose 154 mg/dL (74-106) H 07/26/24 06:58 Phosphorus 4.0 mg/dL (2.5-4.9) 07/26/24 06:58 Magnesium 2.4 mg/dL (1.6-2.4) 07/26/24 06:58 Total Bilirubin 0.3 mg/dL (0.2-1.0) 07/22/24 03:23 AST < 10 U/L (15-37) L 07/22/24 03:23 ALT < 14 U/L (16-61) L 07/22/24 03:23 Alkaline Phosphatase 62 U/L (45-117) 07/22/24 03:23 Triglycerides 66 mg/dL (<150) 07/23/24 04:25 Cholesterol 79 mg/dL (<200) 07/23/24 04:25 HDL Cholesterol 37 mg/dL (40-60) L 07/23/24 04:25 Cholesterol/HDL Ratio 2.14 07/23/24 04:25 Home Medications: Aspirin Tab [Princess Aspirin*] 1 tab PO DAILY 05/28/14 Allopurinol 300 mg PO DAILY 04/01/24 Atorvastatin Calcium 40 mg PO DAILY 04/01/24 Citalopram [Celexa*] 10 mg PO DAILY 04/01/24 Divalproex Sodium [Divalproex Sodium ER] 250 mg PO BID 04/01/24 Donepezil HCl 10 mg PO DAILY 04/01/24 Furosemide 40 mg PO DAILY 04/01/24 Potassium Chloride [Klor-Con M20] 20 meq PO DAILY 04/01/24 Quetiapine Fumarate [Seroquel] 50 mg PO BEDTIME 04/01/24 Tamsulosin [Flomax*] 0.8 mg PO BEDTIME #60 cap 04/01/24 carvediloL [Carvedilol] 6.25 mg PO BID 04/01/24 Ciprofloxacin HCl [Cipro 500 MG Tablet] 500 mg PO BID 10 Days #20 tab 07/26/24 Losartan Potassium [Cozaar*] 100 mg PO DAILY 30 Days #30 tab 07/26/24 carvediloL [Coreg*] 6.25 mg PO BID 30 Days #60 tab 07/26/24 New Medications: Ciprofloxacin HCl [Cipro 500 MG Tablet] 500 mg PO BID 10 Days #20 tab carvediloL [Coreg*] 6.25 mg PO BID 30 Days #60 tab Losartan Potassium [Cozaar*] 100 mg PO DAILY 30 Days #30 tab Physician Discharge Instructions: 1. Please call and schedule a follow-up appointment with your PCP in 3-5 days - Please follow-up with your PCP for medication refills/adjustments 2. Continue diabetic diet 3. activity restrictions fall precaution 4. Return to the ED if symptoms worsen New medications Losartan 50 mg p.o. dailychanged medication Coreg 6.25 twice daily Ciprofloxacin 500 mg by mouth twice daily x 10 days Diet: ADA Activity: Fall precautions Followup: KHUSHBOO HORTON [Primary Care Provider] -
[2024-07-26 16:03] VITALS: BP 148/64; TEMP 97.5
== END 2024-07-26 17:10 | disposition home health service (06) | DRG 871 ==
LOC: ER 03:01 → ERHOLD 07:33 → 2ND 18:56
PROVIDERS: ADMIT Internal Medicine; ATTEND Internal Medicine
PROC: 4A033R1 Measurement of Arterial Saturation, Peripheral, Percutaneous Approach (ICD-10-PCS; principal; 2024-07-22)
PROC: 0T9B70Z Drainage of Bladder with Drainage Device, Via Natural or Artificial Opening (ICD-10-PCS; 2024-07-23)
DX: A41.9 Sepsis, unspecified organism (principal); G93.41 Metabolic encephalopathy; N39.0 Urinary tract infection, site not specified; N17.9 Acute kidney failure, unspecified; I13.0 Hypertensive heart and chronic kidney disease with heart failure and stage 1 through stage 4 chronic kidney disease, or unspecified chronic kidney disease; F03.93 Unspecified dementia, unspecified severity, with mood disturbance; R65.20 Severe sepsis without septic shock; I50.9 Heart failure, unspecified; N18.9 Chronic kidney disease, unspecified; E11.22 Type 2 diabetes mellitus with diabetic chronic kidney disease; E78.00 Pure hypercholesterolemia, unspecified; B96.1 Klebsiella pneumoniae [K. pneumoniae] as the cause of diseases classified elsewhere; Z79.82 Long term (current) use of aspirin; Z11.52 Encounter for screening for COVID-19; Z79.02 Long term (current) use of antithrombotics/antiplatelets; Z86.73 Personal history of transient ischemic attack (TIA), and cerebral infarction without residual deficits; Z79.899 Other long term (current) drug therapy
CPT/HCPCS: 36415; 36600; 51702; 70450; 71045; 71250; 74176; 80048; 80053; 80061; 80074; 80202; 81001; 82805; 82945; 82947; 83036; 83605; 83615; 83735; 83880; 84100; 84157; 84439; 84443; 85025; 85610; 85730; 86140; 86480; 86664; 86665; 87040; 87077; 87086; 87088; 87186; 87804; 87811; 93005; 93971; 97116; 97161; 99285; J0692; J1644; J2543; J2919; J7030; J7040; J7050; J7613; P9047

== ENCOUNTER 2024-12-29 04:05 | Inpatient (IN) | payer OTHER ==
--- OUTSIDE RECORDS SUMMARY | 2024-12-29 04:10 | XMS REPORT | Continuity of Care Document ---
Author Name Unknown Address [address] [place] [address] Organization [facility] [place] Address [address] [place] [address] Care Team Providers Care [employer] Name Role Phone Naida Acharya MD Primary Care Physician Sonya Pyle MA Attending Clinician UnavailRosa Youssef MD Attending Clinician ROSA TAYLOR Attending Clinician Unavail able KATELIN FOUNTAIN Attending Clinician UnavailKatelin Munoz MD Attending Clinician [phone] TAYLOR GOMEZ Attending Clinician Unavailable TAYLOR GOMEZ Attending Clinician Unavailable Lab, Ang - Db Attending Clinician Unavailable Doctor Unassigned, [place] Attending Clinician U navailable Vtc-Lab Attending Clinician Unavailable KATELIN FOUNTAIN Admitting Clinician Unavailkirti e Payers Payer Name Policy Type Policy Number Effective Date Expirati on Date Source [facility] MEDICARE ADVANTAGE Medicare [id number] 2023 00:00:00 BOB/[employer]ARP MEDICARE ADVANTAGE [id number] 2020 00:00:00 Problems Condition Name Condition Details Condition Category Status Onset Date Resolution Date Last Treatment Date Treating Clinician Comments Source Memory loss Memory loss Disease Active 2023-10 00:00: 00 Rikki Elmore Dementia Dementia Disease Active 2023-10 00:00: 00 Rikki Elmore Impaired cognition Impaired cognition Disease Active 2023-10 00:00: 00 Rikki Elmore Depressive disorder Depressive disorder Disease Active 2023-10 00:00: 00 Rikki Elmore Diabetes mellitus Diabetes mellitus Disease Active 2023-10 0- 00:00: 00 Rikki Elmore Edema of right upper extremity Edema of right upper extremity Disease Active 2023-10 0 00:00: 00 Rikki Elmore Facet arthropath y, cervical Facet arthropath y, cervical Disease Active 2023-10 0 00:00: 00 Rikki Elmore Hallucinat ions Hallucinat ions Disease Active 2023-10 0 00:00: 00 Rikki Elmore Hyperlipid emia Hyperlipid emia Disease Active 2023-10 0 00:00: 00 Rikki Elmore Hypertensi on Hypertensi on Disease Active 2023-10 0 00:00: 00 Rikki Elmore CKD (chronic kidney disease) CKD (chronic kidney disease) Disease Active 2023-10 0 00:00: 00 Rikki Elmore Renal insufficie ncy Renal insufficie ncy Disease Active 2023-10 00:00: 00 Rikki Elmore Type 2 diabetes mellitus without complicati on, without long-term current use of insulin (CMS/HCC) Type 2 diabetes mellitus without complicati on, without long-term current use of insulin (CMS/HCC) Disease Active 06-09 00:00: 00 Rikki Elmore MORGAN CAROTID STENOSIS ICD-9# 733.11 MORGAN CAROTID STENOSIS ICD-9# 733.11 Active 07/09/2013 [facility] Diagnosis Active 2012-10 0 00:00: 00 2013-07-21 06:27:00 Rikki Kirkland PATHOLOGIC AL FX HUMEROUS PATHOLOGIC AL FX HUMEROUS Active [facility] Diagnosis Active 2013-07-21 06:27:00 Rikki Kirkland Hyperchole sterolemia (disorder) Hyperchole sterolemia (disorder) Resolved Problem 07/27/2013 [facility] Problem Resolve d 2013-07-27 23:19:47 Rikki Kirkland Diabetes mellitus type 1 (disorder) Diabetes mellitus type 1 (disorder) Resolved Problem 07/27/2013 [facility] Problem Resolve d 2013-07-27 23:19:47 Rikki Kirkland 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) Resolved Problem 07/27/2013 <sup>1</rivera p>carotid [facility] Problem Resolve d 2013-07-27 23:19:47 Rikki Kirkland Allergies, Adverse Reactions, Alerts Allergy Name Allergy Type Status Severity Reaction(s) Onset Date Inactive Date Treating Clinician Comments Source NO KNOWN ALLERGIE S Drug Class Active [facility] Social History Social Habit Start Date Stop Date Quantity Comments Source Gender identity 2023-12-27 01:33:41 Identifies as male gender (finding) [facility] Tobacco use and exposure 2024-07-14 00:00:00 2024-07-14 00:00:00 Smokeless tobacco non-user [facility] Alcoholic beverage intake 2024-07-14 00:00:00 2024-07-14 00:00:00 Ex-drinker (finding) [facility] History of Social function 2024-07-14 00:00:00 2024-07-14 00:00:00 [facility] Exposure to SARS-CoV-2 (event) 2022-07-05 00:00:00 2022-07-15 15:49:00 Not sure [facility] Sex Ass[birth year] At 1945 00:00:00 1945 00:00:00 [facility] Smoking Status Start Date Stop Date Source Tobacco smoking consumption unknown [facility] Never smoked tobacco Rikki Kirkland [facility] Medications Ordered Medication Name Filled Medication Name Start Date Stop Date Current Medication? Ordering Clinician Indication Dosage Frequency Signature (SIG) Comments Components Source QUEtiapine (SEROquel) 50 MG tablet QUEtiapine (SEROquel) 50 MG tablet 2023-10 00:00: 00 Yes 100mg Take 2 tablets by mouth at bedtime. Rikki Kirkland [facility] losartan (Cozaar) 50 MG tablet losartan (Cozaar) 50 MG tablet 2023-10 16:19: 31 Yes 100mg QD Take 100 mg by mouth 1 time each day. Rikki Elmore divalproex (Depakote ER) 250 MG 24 hr tablet divalproex (Depakote ER) 250 MG 24 hr tablet 2023-10 00:00: 00 Yes 250mg Q.5D Take 1 tablet by mouth in the morning and 1 tablet in the evening. Rikki Elmore donepezil (Aricept) 10 MG tablet donepezil (Aricept) 10 MG tablet 2023-10 0 00:00: 00 01-10 23:59 :00 No 10mg Take 1 tablet by mouth at bedtime. Rikki Elmore QUEtiapine (SEROquel) 50 MG tablet QUEtiapine (SEROquel) 50 MG tablet 2023-10 00:00: 00 08-06 00:00 :00 No 50mg Take 1 tablet by mouth at bedtime. Rikki Elmore allopurinol (Zyloprim) 300 MG tablet allopurinol (Zyloprim) 300 MG tablet 06-12 00:00: 00 Yes 300mg QD Take 300 mg by mouth 1 time each day. Rikki Elmore insulin lispro (HumaLOG) 100 UNIT/ML injection insulin lispro (HumaLOG) 100 UNIT/ML injection 06-01 00:00: 00 Yes Inject under the skin. Rikki Elmore QUEtiapine (SEROquel) 50 MG tablet QUEtiapine (SEROquel) 50 MG tablet 05-31 00:00: 00 07-14 00:00 :00 No 50mg TAKE 1 TABLET BY MOUTH AT BEDTIME Rikki Elmore divalproex (Depakote ER) 250 MG 24 hr tablet divalproex (Depakote ER) 250 MG 24 hr tablet 05-31 00:00: 00 07-14 00:00 :00 No 250mg Q.5D TAKE 1 TABLET BY MOUTH TWICE A DAY Rikki Elmore Lantus SoloStar 100 UNIT/ML pen Lantus SoloStar 100 UNIT/ML pen 05-04 00:00: 00 Yes Inject under the skin. Rikki Elmore QUEtiapine (SEROquel) 50 MG tablet QUEtiapine (SEROquel) 50 MG tablet 7- 00:00: 00 05-31 00:00 :00 No 50mg TAKE 1 TABLET BY MOUTH AT BEDTIME Rikki Elmore citalopram (CeleXA) 10 MG tablet citalopram (CeleXA) 10 MG tablet 04-02 00:00: 00 Yes 10mg QD TAKE 1 TABLET BY MOUTH DAILY Memoria cody Kirkland Epic QUEtiapine 50 mg oral tablet 01-04 14:53: 00 Yes = 1 tab, PO, Bedtime, # 30 tab, 3 Refill(s), Pharmacy: [facility] [id number], 154.94, cm, 10/01/23 15:59:00 BUDGET RECORD CLERK, Height, 83.636, kg, 10/01/23 15:59:00 BUDGET RECORD CLERK, Weight Memchino Kirkland SEROquel 50 mg oral tablet 2022-10 20:34: 00 Yes 50 mg = 1 tab, PO, Bedtime, # 30 tab, 3 Refill(s), Pharmacy: [facility] [id number], 154.94, cm, 09/10/23 11:50:00 BUDGET RECORD CLERK, Height, 88.693, kg, 09/10/23 11:50:00 BUDGET RECORD CLERK, Weight Memchino Kirkland divalproex sodium 250 mg oral tablet, extended release (Depakote ER) 2022-10 19:18: 00 Yes = 1 tab, PO, BID, # 60 tab, 3 Refill(s), Pharmacy: [facility] [id number], 154.94, cm, 09/10/23 11:50:00 BUDGET RECORD CLERK, Height, 88.693, kg, 09/10/23 11:50:00 BUDGET RECORD CLERK, Weight Memchino Kirkland citalopram 10 mg oral tablet 2022-10 19:18: 00 Yes = 1 tab, PO, Daily, # 30 tab, 3 Refill(s), Pharmacy: [facility] [id number], 154.94, cm, 09/10/23 11:50:00 BUDGET RECORD CLERK, Height, 88.693, kg, 09/10/23 11:50:00 BUDGET RECORD CLERK, Weight Memchino Kirkland Aricept 10 mg oral tablet 2022-10 18:06: 00 Yes 10 mg = 1 tab, PO, Bedtime, # 30 tab, 3 Refill(s), Pharmacy: [facility] [id number], 154.94, cm, 09/10/23 11:50:00 BUDGET RECORD CLERK, Height, 88.693, kg, 09/10/23 11:50:00 BUDGET RECORD CLERK, Weight Rikki Kirkland Aricept 10 mg oral tablet 05-16 21:09: 00 Yes 10 mg = 1 tab, PO, Bedtime, # 30 tab, 3 Refill(s), Pharmacy: [facility] [id number], 157.48, cm, 05/16/23 15:43:00 CDT, Height, 86.364, kg, 05/16/23 15:43:00 CDT, Weight Memoria cody Kirkland citalopram 10 mg oral tablet 05-16 21:08: 00 Yes 10 mg = 1 tab, PO, Daily, # 30 tab, 3 Refill(s), Pharmacy: [facility] [id number], 157.48, cm, 05/16/23 15:43:00 CDT, Height, 86.364, kg, 05/16/23 15:43:00 CDT, Weight Memoria cody Kirkland divalproex sodium 250 mg oral tablet, extended release (Depakote ER) 05-16 21:07: 00 Yes = 1 tab, PO, BID, # 60 tab, 3 Refill(s), Pharmacy: [facility] [id number], 157.48, cm, 05/16/23 15:43:00 CDT, Height, 86.364, kg, 05/16/23 15:43:00 CDT, Weight Memchino Kirkland Aricept 10 mg oral tablet 01-09 20:49: 00 Yes 10 mg = 1 tab, PO, Bedtime, # 30 tab, 3 Refill(s), Pharmacy: [facility] [id number], 154.94, cm, 01/09/23 15:23:00 CDT, Height, 85.909, kg, 01/09/23 15:23:00 CDT, Weight Memoria cody Kirkland divalproex sodium 250 mg oral tablet, extended release (Depakote ER) 01-06 16:17: 00 Yes = 1 tab, PO, Daily, # 30 tab, 3 Refill(s), Pharmacy: [facility] [id number], 154.94, cm, 09/11/22 11:47:00 BUDGET RECORD CLERK, Height, 86.364, kg, 09/11/22 11:47:00 BUDGET RECORD CLERK, Weight Rikki Kirkland Depakote ER 250 mg oral tablet, extended release 2021-10 18:03: 00 Yes 250 mg = 1 tab, PO, Daily, # 30 tab, 3 Refill(s), Pharmacy: [facility] [id number], 154.94, cm, 09/11/22 11:47:00 BUDGET RECORD CLERK, Height, 86.364, kg, 09/11/22 11:47:00 BUDGET RECORD CLERK, Weight Rikki Kirkland semaglutide (RYBELSUS) 3 mg Tab 2021-10 00:00: 00 Yes [id number] 6mg Take 6 mg by mouth daily. [facility] semaglutide (RYBELSUS) 3 mg Tab 2021-10 00:00: 00 Yes [id number] 3mg Take 3 mg by mouth daily. [facility] magnesium oxide 400 mg magnesium Tab 06-17 00:00: 00 Yes 400mg Take 400 mg by mouth daily. [facility] Aricept 10 mg oral tablet 06-12 16:52: 00 Yes 10 mg = 1 tab, PO, Bedtime, # 30 tab, 3 Refill(s), Pharmacy: [facility] [id number], 157.48, cm, 06/12/22 11:44:00 CDT, Height, 88.239, kg, 06/12/22 11:44:00 CDT, Weight Rikki Kirkland Rybelsus 3 mg oral tablet 06-12 16:46: 00 Yes 3 mg, PO, Daily, Take on an empty stomach with up to 4oz plain water. Wait at least 30 minutes before the first food, beverage, or other oral medication s of the day. Swallow whole. Do not cut, crush, or chew., 0 Refill(s) Eamonchino cody Kirkland donepezil (Aricept) 10 MG tablet donepezil (Aricept) 10 MG tablet 06-12 00:00: 00 07-14 00:00 :00 No 10mg Take 10 mg by mouth at bedtime. Rikki Kirkland Epic metFORMIN 500 mg tablet 06-03 15:29: 04 06-03 00:00 :00 No 500mg Take 500 mg by mouth 3 (three) times daily. [facility] glipiZIDE 10 mg tablet 06-03 00:00: 00 Yes [id number] 10mg Take 1 tablet by mouth 2 (two) times daily before breakfast and dinner. [facility] metFORMIN 1,000 mg tablet 06-03 00:00: 00 Yes [id number] 1000mg Take 1 tablet by mouth in the morning and 1 tablet in the evening. Take with meals. [facility] semaglutide (RYBELSUS) 3 mg Tab 06-03 00:00: 00 08-06 00:00 :00 No [id number] 3mg Take 3 mg by mouth daily. [facility] Aricept 5 mg oral tablet 04-30 16:57: 00 Yes 5 mg = 1 tab, PO, Bedtime, # 30 tab, 3 Refill(s), Pharmacy: [facility] [id number], 154.94, cm, 04/30/22 11:41:00 CDT, Height, 86.42, kg, 04/30/22 11:41:00 CDT, Weight Rikki Kirkland Toujeo Max SoloStar 300 units/mL subcutaneou s solution 03-26 14:10: 00 Yes SUB-Q, Daily, 0 Refill(s) Rikki Kirkland Benadryl 03-26 14:08: 00 Yes 0 Refill(s) Rikki Kirkland Tylenol 03-26 14:08: 00 Yes PO, 0 Refill(s) Rikki Kirkland cloNIDine 0.1 mg oral tablet 03-26 14:07: 00 Yes 0.1 mg = 1 tab, PO, BID, # 180 tab, 1 Refill(s) Rikki Kirkland furosemide 20 mg oral tablet 03-26 14:07: 00 Yes 20 mg = 1 tab, PO, Daily, # 30 tab, 0 Refill(s) [place]amonchino [place] aspirin 81 mg oral capsule 03-26 14:07: 00 Yes 81 mg = 1 cap, PO, Daily, 0 Refill(s) Eamonchino cody Isael citalopram 20 mg oral tablet 03-26 14:06: 00 Yes 20 mg = 1 tab, PO, Daily, # 90 tab, 0 Refill(s) Eamonchino cody Kirkland carvedilol 6.25 mg oral tablet 03-26 14:06: 00 Yes 6.25 mg = 1 tab, PO, BID, # 180 tab, 3 Refill(s) [place]amonchino c[place] losartan 100 mg oral tablet 03-26 14:04: 00 Yes 100 mg = 1 tab, PO, Daily, 0 Refill(s) Eamonchino cody Kirkland tamsulosin 0.4 mg oral capsule 03-26 14:04: 00 Yes 0.4 mg = 1 cap, PO, Daily, # 30 cap, 0 Refill(s) Rikki Kirkland atorvastati n 40 mg oral tablet 03-26 14:04: 00 Yes 40 mg = 1 tab, PO, Bedtime, # 90 tab, 3 Refill(s) Rikki Kirkland potassium chloride 10 mEq oral tablet, extended release (KCL) 03-26 14:02: 00 Yes 10 mEq = 1 tab, PO, Daily, # 90 tab, 3 Refill(s) Rikik Kirkland metFORMIN 500 mg oral tablet 03-26 14:01: 00 Yes 500 mg = 1 tab, PO, TID, 0 Refill(s) Rikki Kirkland aspirin (Vazalore) 81 MG capsule aspirin (Vazalore) 81 MG capsule 03-26 00:00: 00 Yes 81mg Take 81 mg by mouth daily. Rikki Kirkland Epic atorvastati n (Lipitor) 40 MG tablet atorvastati n (Lipitor) 40 MG tablet 03-26 00:00: 00 Yes 40mg QD Take 40 mg by mouth 1 time each day. Rikki Kirkland Epic carvedilol (Coreg) 6.25 MG tablet carvedilol (Coreg) 6.25 MG tablet 03-26 00:00: 00 Yes 6.25mg Take 6.25 mg by mouth in the morning and 6.25 mg in the evening. Take with meals. Rikki Elmore furosemide (Lasix) 20 MG tablet furosemide (Lasix) 20 MG tablet 03-26 00:00: 00 Yes 40mg QD Take 40 mg by mouth 1 time each day. Rkiki Elmore tamsulosin (Flomax) 0.4 MG 24 hr capsule tamsulosin (Flomax) 0.4 MG 24 hr capsule 03-26 00:00: 00 Yes .4mg Take 0.4 mg by mouth at bedtime. Rikki Elmore cloNIDine HCL 0.1 mg XR tablet 02-21 15:08: 29 Yes Take by mouth at bedtime. [facility] acetaminoph en (TYLENOL EXTRA STRENGTH) 500 mg PwPk 02-21 15:08: 29 Yes Take by mouth 2 (two) times daily. [facility] triamcinolo ne acetonide 0.1 % cream 02-21 15:08: 29 Yes Apply to area(s) 2 (two) times daily. [facility] insulin glargine U-300 conc (TOUJEO MAX U-300 SOLOSTAR) 300 unit/mL (3 mL) InPn 02-21 15:08: 29 Yes 60U/mL inject 60 Units/mL under the skin. [facility] losartan 50 mg tablet 02-21 15:04: 10 Yes 50mg Take 50 mg by mouth daily. [facility] KCL 10 mEq tablet 02-21 15:01: 21 Yes 10meq Take 10 mEq by mouth daily. [facility] carvediloL 6.25 mg tablet 02-21 11:06: 28 Yes 6.25mg Take 6.25 mg by mouth 2 (two) times daily with meals. [facility] citalopram 20 mg tablet 02-21 11:06: 28 Yes 20mg Take 20 mg by mouth daily. [facility] atorvastati n 40 mg tablet 02-21 11:06: 28 Yes 40mg Take 40 mg by mouth at bedtime. [facility] tamsulosin 0.4 mg 24 hr capsule 02-21 11:06: 28 Yes Take by mouth daily. [facility] aspirin 325 mg Cap 02-21 11:06: 28 Yes 325mg Take 325 mg by mouth daily. [facility] chlorthalid one 15 mg tablet 02-21 00:00: 00 Yes [id number] 15mg Take 1 tablet by mouth daily. [facility] furosemide 20 mg tablet 02-21 00:00: 00 Yes [id number] 40mg Take 2 tablets by mouth daily. [facility] midazolam 2012-10 13:59: 00 No Dustin Bowen 1 mg, 1 mL, Route: IV, Drug form: INJ, ONCE, Dosing Weight 83.636, kg, Start date: 07/21/13 8:59:00, Stop date: 07/21/13 8:59:00([facility] as: Versed) Rikki Kirkland lidocaine 1% 2012-10 13:58: 00 No Dustin Bowen 10 mL, Route: IV, Drug Form: INJ, Dosing Weight 83.636, kg, ONCE, Start date: 07/21/13 8:58:00, Stop date: 07/21/13 8:58:00( me as: Xylocaine) Rikki Kirkland fentanyl 2012-10 13:58: 00 No Dustin Bowen 100 microgram, 2 mL, Route: IV, Drug form: INJ, ONCE, Dosing Weight 83.636, kg, Start date: 07/21/13 8:58:00, Stop date: 07/21/13 8:58:00( me as: Sublimaze) Preservati ve free. Rikki Kirkland Omnipaque 300 2012-10 13:58: 00 No Dustin Bowen 140 mL, Route: INTRAARTER IAL, Drug Form: SOLN, Dosing Weight 83.636, kg, ONCE, Start date: 07/21/13 8:58:00, Stop date: 07/21/13 8:58:00([facility] as:Omnipaq ue 350). Rikki Kirkland normal saline 0.9% IV 1,000 mL 2012-10 11:54: 00 No Dustin Sherman Bowen 1,000 mL, Rate: 125 ml/hr, Infuse over: 8 hr, Route: IV, Dosing Weight 83.636 kg, Total Volume: 1,000, Priority: STAT, Start date: 07/21/13 6:54:00, Duration: 30 day, Stop date: 08/20/13 6:53:00 Rikki Kirkland Zofran 2012-10 11:53: 00 Yes Dustin Sherman Bowen 4 mg, 2 mL, Route: IVP, Drug form: INJ, ONCE, Dosing Weight 83.636, kg, Priority: Routine, Start date: 07/21/13 6:53:00, Stop date: 07/21/13 6:53:00([facility] as: Zofran) Rikki Kirkland Tylenol 2012-10 11:53: [address] Bowen 975 mg, 3 tab, Route: PO, Drug form: TAB, Q6H, Dosing Weight 83.636, kg, PRN Fever, Priority: Routine, Start date: 07/21/13 6:53:00, Duration: 30 day, Stop date: 08/20/13 6:52:00Do not exceed 4 gm/day. (Same as: Tylenol) Rikki Kirkland Aspirin Low Dose 81 mg oral tablet 2012-10 11:49: 00 Yes 81 mg, 1 tab, Substituti on Allowed Rikki Kirkland pneumococca l 23-valent vaccine 03-17 14:00: 00 No SYSTEM SYSTEM 0.5 ml, Route: IM, Drug Form: INJ, Start date: 03/17/12 9:00:00, Stop date: 03/17/12 9:00:00 Rikki Kirkland Immunizations Ordered Immunization Name Filled Immunization Name Date Status Comments Source SARS-COV-2 COVID-19 PFIZER VACCINE 2021-01-11 00:00:00 Completed [facility] SARS-COV-2 COVID-19 PFIZER VACCINE 2021-01-11 00:00:00 Completed [facility] SARS-COV-2 COVID-19 PFIZER VACCINE 2021-01-11 00:00:00 Completed [facility] SARS-COV-2 COVID-19 PFIZER VACCINE 2021-01-11 00:00:00 Completed [facility] SARS-COV-2 COVID-19 PFIZER VACCINE 2021-01-11 00:00:00 Completed [facility] SARS-COV-2 COVID-19 PFIZER VACCINE 2021-01-11 00:00:00 Completed [facility] SARS-COV-2 COVID-19 PFIZER VACCINE 2021-01-11 00:00:00 Completed [facility] SARS-COV-2 COVID-19 PFIZER VACCINE 2021-01-11 00:00:00 Completed [facility] SARS-COV-2 COVID-19 PFIZER VACCINE 2021-01-11 00:00:00 Completed [facility] SARS-COV-2 COVID-19 PFIZER VACCINE 2021-01-11 00:00:00 Completed [facility] SARS-COV-2 COVID-19 PFIZER VACCINE 2021-01-11 00:00:00 Completed [facility] SARS-COV-2 COVID-19 PFIZER VACCINE 2021-01-11 00:00:00 Completed [facility] SARS-COV-2 COVID-19 PFIZER VACCINE 2021-01-11 00:00:00 Completed [facility] SARS-COV-2 COVID-19 PFIZER VACCINE 2021-01-11 00:00:00 Completed [facility] SARS-COV-2 COVID-19 PFIZER VACCINE 2020-12-20 00:00:00 Completed [facility] SARS-COV-2 COVID-19 PFIZER VACCINE 2020-12-20 00:00:00 Completed [facility] SARS-COV-2 COVID-19 PFIZER VACCINE 2020-12-20 00:00:00 Completed [facility] SARS-COV-2 COVID-19 PFIZER VACCINE 2020-12-20 00:00:00 Completed [facility] SARS-COV-2 COVID-19 PFIZER VACCINE 2020-12-20 00:00:00 Completed [facility] SARS-COV-2 COVID-19 PFIZER VACCINE 2020-12-20 00:00:00 Completed [facility] SARS-COV-2 COVID-19 PFIZER VACCINE 2020-12-20 00:00:00 Completed [facility] SARS-COV-2 COVID-19 PFIZER VACCINE 2020-12-20 00:00:00 Completed [facility] SARS-COV-2 COVID-19 PFIZER VACCINE 2020-12-20 00:00:00 Completed [facility] SARS-COV-2 COVID-19 PFIZER VACCINE 2020-12-20 00:00:00 Completed [facility] SARS-COV-2 COVID-19 PFIZER VACCINE 2020-12-20 00:00:00 Completed [facility] SARS-COV-2 COVID-19 PFIZER VACCINE 2020-12-20 00:00:00 Completed [facility] SARS-COV-2 COVID-19 PFIZER VACCINE 2020-12-20 00:00:00 Completed [facility] SARS-COV-2 COVID-19 PFIZER VACCINE 2020-12-20 00:00:00 Completed [facility] pneumococcal 23-valent vaccine Unknown Completed [facility] pneumococcal 23-valent vaccine Unknown Completed [facility] SARS-COV-2 COVID-19 PFIZER VACCINE Unknown Completed [facility] SARS-COV-2 COVID-19 PFIZER VACCINE Unknown Completed [facility] Vital Signs Vital Name Observation Time Observation Value Comments S ource Systolic blood pressure 2024-07-14 16:20:00 120 mm[Hg] [facility] Diastolic blood pressure 2024-07-14 16:20:00 69 mm[Hg] [facility] Heart rate 2024-07-14 16:20:00 78 [facility] Body temperature 2024-07-14 16:20:00 36.39 Mariah [facility] Respiratory rate 2024-07-14 16:20:00 16 /min [facility] Body height 2024-07-14 16:20:00 157.5 cm Karan remy [place] [facility] Body weight 2024-07-14 16:20:00 89.359 kg Karan remy [facility] BMI 2024-07-14 16:20:00 36.03 kg/m2 [facility] Oxygen saturation in Arterial blood by Pulse oximetry 2024-07-14 16:20:00 95 /min Jimi davila Epic Systolic blood pressure 2024-07-14 16:20:00 120 mm[Hg] Jimi davila Epic Diastolic blood pressure 2024-07-14 16:20:00 69 mm[Hg] Jimi davila Epic Heart rate 2024-07-14 16:20:00 78 /min Cali Kirkland Epic Body temperature 2024-07-14 16:20:00 36.39 Mariah [facility] Isael [facility] Respiratory rate 2024-07-14 16:20:00 16 /min Jimi Kirkland [facility] Body height 2024-07-14 16:20:00 157.5 cm Karanjeremy Kirkland Epic Body weight 2024-07-14 16:20:00 89.359 kg Karanjeremy Kirkland Epic BMI 2024-07-14 16:20:00 36.03 kg/m2 Karanjeremy alberto [facility] Oxygen saturation in Arterial blood by Pulse oximetry 2024-07-14 16:20:00 95 /min Jimi davila [facility] Systolic blood pressure 2022-07-15 21:00:00 164 mm[Hg] [facility] Diastolic blood pressure 2022-07-15 21:00:00 65 mm[Hg] [facility] Heart rate 2022-07-15 21:00:00 68 /min Unive [facility] Body height 2022-07-15 21:00:00 161.3 cm [facility] Body weight 2022-07-15 21:00:00 83.915 kg [facility] BMI 2022-07-15 21:00:00 32.26 kg/m2 [facility] Oxygen saturation in Arterial blood by Pulse oximetry 2022-07-15 21:00:00 95 /min [facility] Systolic blood pressure 2022-06-17 18:06:00 160 mm[Hg] [facility] Diastolic blood pressure 2022-06-17 18:06:00 72 mm[Hg] [facility] Heart rate 2022-06-17 18:06:00 58 /min Unive [facility] Body temperature 2022-06-17 18:04:00 36.44 Mariah [facility] Body height 2022-06-17 18:04:00 161.3 cm [facility] Body weight 2022-06-17 18:04:00 85.458 kg [facility] BMI 2022-06-17 18:04:00 32.85 kg/m2 [facility] Oxygen saturation in Arterial blood by Pulse oximetry 2022-06-17 18:04:00 96 /min [facility] Systolic blood pressure 2022-06-03 19:24:00 160 mm[Hg] [facility] Diastolic blood pressure 2022-06-03 19:24:00 63 mm[Hg] [facility] Heart rate 2022-06-03 19:24:00 78 /min [facility] [facility] Body height 2022-06-03 19:24:00 161.3 cm [facility] Body weight 2022-06-03 19:24:00 86.183 kg [facility] BMI 2022-06-03 19:24:00 33.13 kg/m2 [facility] Oxygen saturation in Arterial blood by Pulse oximetry 2022-06-03 19:24:00 94 /min [facility] Height 2023-10-01 21:58:00 5 [ft_i] [facility] Weight 2023-10-01 21:58:00 [facility] BMI Calculated 2023-10-01 21:58:00 [facility] Systolic (mm Hg) 2023-10-01 21:58:00 [facility] Diastolic (mm Hg) 2023-10-01 21:58:00 [facility] Heart Rate 2023-10-01 21:58:00 [facility] Systolic (mm Hg) 2023-09-10 17:38:00 [facility] Diastolic (mm Hg) 2023-09-10 17:38:00 [facility] Heart Rate 2023-09-10 17:38:00 [facility] Height 2023-09-10 17:38:00 5 [ft_i] [facility] Weight 2023-09-10 17:38:00 [facility] BMI Calculated 2023-09-10 17:38:00 [facility] Systolic (mm Hg) 2023-05-16 20:33:00 [facility] Diastolic (mm Hg) 2023-05-16 20:33:00 [facility] Heart Rate 2023-05-16 20:33:00 [facility] Height 2023-05-16 20:33:00 5 [ft_i] [facility] Weight 2023-05-16 20:33:00 [facility] BMI Calculated 2023-05-16 20:33:00 [facility] Systolic (mm Hg) 2023-01-09 19:59:00 [facility] Diastolic (mm Hg) 2023-01-09 19:59:00 [facility] Heart Rate 2023-01-09 19:59:00 [facility] Height 2023-01-09 19:59:00 5 [ft_i] [facility] Weight 2023-01-09 19:59:00 [facility] BMI Calculated 2023-01-09 19:59:00 [facility] Systolic (mm Hg) 2022-09-11 17:29:00 [facility] Diastolic (mm Hg) 2022-09-11 17:29:00 [facility] Heart Rate 2022-09-11 17:29:00 [facility] Height 2022-09-11 17:29:00 5 [ft_i] [facility] Weight 2022-09-11 17:29:00 [facility] BMI Calculated 2022-09-11 17:29:00 [facility] Systolic (mm Hg) 2022-06-12 16:38:00 [facility] Diastolic (mm Hg) 2022-06-12 16:38:00 [facility] Heart Rate 2022-06-12 16:38:00 [facility] Respitory Rate 2022-06-12 16:38:00 [facility] Height 2022-06-12 16:38:00 157.48 cm [facility] Weight 2022-06-12 16:38:00 [facility] BMI Calculated 2022-06-12 16:38:00 [facility] Diastolic (mm Hg) 2022-04-30 16:30:00 [facility] Heart Rate 2022-04-30 16:30:00 [facility] Respitory Rate 2022-04-30 16:30:00 [facility] Height 2022-04-30 16:30:00 154.94 cm [facility] Weight 2022-04-30 16:30:00 [facility] BMI Calculated 2022-04-30 16:30:00 [facility] Systolic (mm Hg) 2022-04-30 16:30:00 [facility] Systolic (mm Hg) 2022-03-26 13:48:00 [facility] Diastolic (mm Hg) 2022-03-26 13:48:00 [facility] Heart Rate 2022-03-26 13:48:00 [facility] Respitory Rate 2022-03-26 13:48:00 [facility] Height 2022-03-26 13:48:00 157.48 cm [facility] Weight 2022-03-26 13:48:00 [facility] BMI Calculated 2022-03-26 13:48:00 [facility] Diastolic (mm Hg) 2013-07-21 13:50:00 [facility] Systolic (mm Hg) 2013-07-21 13:50:00 [facility] Heart Rate 2013-07-21 13:50:00 [facility] Respitory Rate 2013-07-21 13:50:00 [facility] Diastolic (mm Hg) 2013-07-21 13:45:00 [facility] Heart Rate 2013-07-21 13:45:00 [facility] Respitory Rate 2013-07-21 13:45:00 [facility] Systolic (mm Hg) 2013-07-21 13:45:00 [facility] Systolic (mm Hg) 2013-07-21 13:40:00 [facility] Respitory Rate 2013-07-21 13:40:00 [facility] Diastolic (mm Hg) 2013-07-21 13:40:00 [facility] Heart Rate 2013-07-21 13:40:00 [facility] Height 2013-07-21 11:28:00 162.56 cm [facility] Weight 2013-07-21 11:28:00 [facility] Procedures Procedure Date / Time Performed Performing Clinician Source FREE T4 2022-07-15 21:38:00 Taylor Gomez [facility] TRIIODOTHYRONINE 2022-07-15 21:38:00 Taylor Gomez [facility] THYROID STIMULATING HORMONE 2022-07-15 21:38:00 Taylor Gomez [facility] GLYCOSYLATED HEMOGLOBIN (A1C) 2022-07-15 21:38:00 Taylor Gomez [facility] AUTHORIZATION FOR RELEASE OF PHI 2022-07-15 05:01:00 Doctor Unassigned, [place] [facility] PATIENT CORRESPONDENCE (LETTERS, USPS DOCUMENTATION) 2022-06-19 05:01:00 Doctor Unassigned, [place] [facility] POCT HEMOGLOBIN A1C TEST 2022-06-03 19:29:00 Taylor Gomez [facility] Encounters Start Date/Time End Date/Time Encounter Type Admission Type Attending [facility] Care Facility Care Department Encounter ID Source 2024-08-03 00:00:00 2024-08-06 18:03:33 Telephone [place], Sonya Almaguer 1.2.840.114 350.1.13.70 8.2.7.2.686 [id number] Rikki Kirkland [facility] 2024-08-04 16:09:35 2024-08-04 16:09:35 Outpatient [facility] [id number] Jb Burk 2024-06-28 00:00:00 2024-08-03 15:46:20 Refill Rosa Taylor 1.2.840.114 350.1.13.70 8.2.7.2.686 [id number] Rikki Kirkland [facility] 2024-07-30 13:56:12 2024-07-30 13:56:12 Outpatient [facility] [id number] Jb Burk 2024-07-14 16:00:00 2024-07-14 16:48:08 Office Visit Rosa Taylor 1.2.840.114 350.1.13.70 8.2.7.2.686 [id number] Rikki ross [facility] 2024-07-14 15:30:04 2024-07-14 16:48:08 Outpatient Elective ROSA TAYLOR EOUT EOUT [id number] [facility]OUT 2024-05-31 00:00:00 2024-05-31 11:18:14 RefRosa Goldman 1.2.840.114 350.1.13.70 8.2.7.2.686 [id number] Rikki ross [facility] 2024-05-05 16:10:17 2024-05-05 16:10:17 Outpatient SFA SFA [id number] Jb Yan Wm 2024-05-03 00:00:00 2024-05-04 12:14:28 Rosa Moreno 1.2.840.114 350.1.13.70 8.2.7.2.686 [id number] Rikki ross [facility] 2024-03-22 16:21:33 2024-03-22 16:21:33 Outpatient SFA SFA [id number] Jb Yan Wm 2024-02-16 15:39:44 2024-02-16 15:39:44 Outpatient SFA SFA [id number] Jb Yan Gilmore 2024-02-04 14:31:36 2024-02-04 14:31:36 Outpatient SFA SFA [id number] Jb Yan Gilmore 2023-12-19 08:43:32 2023-12-19 08:43:32 Outpatient SFA SFA [id number] Jb Yan Wm 2023-09-12 11:39:57 2023-09-12 11:39:57 Outpatient SFA SFA [id number] Jb Yan Wm 2023-09-10 15:17:15 2023-09-10 15:17:15 Outpatient SFA SFA [id number] Jb Yan Wm 2023-08-27 11:12:2023-08-27 11:12:03 Outpatient SFA SFA [id number] Jb Burk 2023-08-08 15:00:00 2023-08-08 15:00:00 Outpatient MHIE MHIE [id number] Rikki Kirkland 2023-08-08 10:46:03 2023-08-08 10:46:03 Outpatient SFA SFA [id number] Jb Burk 2023-08-05 20:15:00 2023-08-05 20:15:00 Ambulatory Pre-Reg [facility]IE [facility] [id number] Rikki Kirkland 2023-07-29 13:30:00 2023-07-29 13:30:00 Outpatient KATELIN ALVES [facility] [id number] [facility] 2023-07-17 20:30:00 2023-07-17 20:30:00 Ambulatory Pre-Reg MHIE [facility] [id number] Rikki Kirkland 2023-07-14 08:00:00 2023-07-14 08:00:00 Outpatient KATELIN ALVES [facility] [id number] [facility] 2023-06-25 00:00:00 2023-06-25 00:00:00 Telephone Katelin Fountain [facility] 1.2.840.114 350.1.13.10 4.2.7.2.686 [id number] [facility] 2023-06-03 16:08:48 2023-06-03 16:08:48 Outpatient SFA SFA [id number] Jb Burk 2023-05-16 20:45:00 2023-05-17 04:59:59 Outpatient [facility] [id number] Rikki Kirkland 2023-05-02 08:18:30 2023-05-02 08:18:30 Outpatient SFA SFA [id number] Jb Burk 2023-04-18 10:05:41 2023-04-18 10:05:41 Outpatient SFA SFA [id number] Jb Burk 2023-02-24 16:30:00 2023-02-24 16:30:00 Outpatient KATELIN ALVES [facility] [id number] [facility] 2023-01-09 20:15:00 2023-01-10 04:59:59 Outpatient [facility] [id number] Rikki ross [facility] 2022-10-14 15:00:00 2022-10-14 15:00:00 Outpatient KATELIN ALVES [facility] [id number] [facility] 2022-10-11 00:00:00 2022-10-11 00:00:00 Katelin Jaramillo [facility] 1.114 350.1.13.10 4.2.7.2.686 [id number] [facility] 2022-10-09 16:30:00 2022-10-09 16:30:00 Outpatient TAYLOR OSBORNE [facility] [id number] [facility] 2022-10-08 13:30:00 2022-10-08 13:30:00 Outpatient KATELIN ALVES [facility] [id number] [facility] 2022-09-11 17:30:00 2022-09-12 05:59:59 Outpatient [facility] [id number] Eamonchino ross [facility] 2022-08-07 00:00:00 2022-08-07 00:00:00 Telephone [facility] 1.84.114 350.1.13.10 4.2.7.2.686 [id number] [facility] 2022-08-06 00:00:00 2022-08-06 00:00:00 Refill Rachel Taylor [facility] JUNE?[facility] 1.84.114 350.1.13.10 4.2.7.2.686 [id number] [facility] 2022-07-21 00:00:00 2022-07-21 00:00:00 Patient Secure Msg Gomez [facility] JUNE?[facility] 1.2.840.114 350.1.13.10 4.2.7.2.686 [id number] [facility] 2022-07-15 16:30:00 2022-07-15 16:45:00 Deicer Repairer Pneumatic Visit Lab, Ronald - Brennon Rachel [facility] JUNE?[facility] 1.840.114 350.1.13.10 4.2.7.2.686 [id number] [facility] 2022-07-15 16:00:00 2022-07-15 16:27:53 Outpatient R TAYLOR GOMEZ, [facility] [id number] [facility] 2022-07-15 16:00:00 2022-07-15 16:27:53 [facility] 1.840.114 350.1.13.10 4.2.7.2.686 [id number] [facility] 2022-07-15 00:00:00 2022-07-15 00:00:00 Orders Only Doctor Unassigned, [place] [facility] 1.284.114 350.1.13.10 4.2.7.2.686 [id number] [facility] 2022-07-12 00:00:00 2022-07-12 00:00:00 [facility]phone [facility] 1.2.840.114 350.1.13.10 4.2.7.2.686 [id number] [facility] 2022-06-24 08:00:00 2022-06-24 08:00:00 Outpatient R KATELIN [facility] [id number] [facility] 2022-06-24 08:00:00 2022-06-24 08:00:00 Outpatient KATELIN ALVES [facility] [id number] [facility] 2022-06-19 00:00:00 2022-06-19 00:00:00 Orders Only Doctor Unassigned, [place] [facility] 1..114 350.1.13.10 4.2.7.2.686 [id number] [facility] 2022-06-17 14:15:00 2022-06-17 14:30:00 Deicer Repairer Pneumatic Visit Vtc-Lab Adriansusan [facility] 1..114 350.1.13.10 4.2.7.2.686 [id number] [facility] 2022-06-17 13:00:00 2022-06-17 13:49:14 Outpatient R АЛЕКСАНДР [facility] [id number] [facility] 2022-06-17 13:00:00 2022-06-17 13:49:14 [facility] [place] [facility] 1..114 350.1.13.10 4.2.7.2.686 [id number] [facility] 2022-06-17 00:00:00 2022-06-17 00:00:00 Patient Secure Msg [facility] 1..114 350.1.13.10 4.2.7.2.686 [id number] [facility] 2022-06-17 00:00:00 2022-06-17 00:00:00 Patient Secure Msg Александр [facility] 1..114 350.1.13.10 4.2.7.2.686 [id number] [facility] 2022-06-12 16:45:00 2022-06-13 04:59:59 Outpatient nullFlavo r [facility] [id number] Rikki Kirkland 2022-06-13 00:00:00 2022-06-13 00:00:00 Telephone Александр [facility] AND [facility] 1.114 350.1.13.10 4.2.7.2.686 [id number] [facility] 2022-06-03 14:30:00 2022-06-03 15:41:29 Outpatient R TAYLOR GOMEZ YU [facility] [id number] [facility] 2022-06-03 14:30:00 2022-06-03 15:41:29 Office Visit Taylor Gomez [facility] 1.84.114 350.1.13.10 4.2.7.2.686 [id number] [facility] 2022-05-13 11:30:00 2022-05-13 11:30:00 Outpatient R АЛЕКСАНДР [facility] [id number] [facility] 2022-05-13 00:00:00 2022-05-13 00:00:00 Orders Only Doctor Unassigned, [place] [facility] 1.114 350.1.13.10 4.2.7.2.686 [id number] [facility] 2022-05-10 00:00:00 2022-05-10 00:00:00 Telephone Александр [facility] 1.114 350.1.13.10 4.2.7.2.686 [id number] [facility] 2022-04-30 16:45:00 2022-05-01 04:59:59 Outpatient nullFlavo r [facility] [id number] Rikki Kirkland 2022-04-25 00:00:00 2022-04-25 00:00:00 Orders Only Doctor Unassigned, [place] [facility] 1.840.114 350.1.13.10 4.2.7.2.686 [id number] [facility] 2022-03-26 14:00:00 2022-03-27 04:59:59 Outpatient nullFlavo r [facility] [id number] Rikki Kirkland 2022-03-13 00:00:00 2022-03-13 00:00:00 Telephone Александр [facility] IALTY CENTER AND [facility] 1.840.114 350.1.13.10 4.2.7.2.686 [id number] [facility] 2022-03-01 00:00:00 2022-03-01 00:00:00 [facility] 1..114 350.1.13.10 4.2.7.2.686 [id number] [facility] 2022-03-01 00:00:00 2022-03-01 00:00:00 Orders Only Doctor Unassigned, [place] [facility] 1.20.114 350.1.13.10 4.2.7.2.686 [id number] [facility] 2022-02-28 09:56:32 2022-02-28 23:59:00 Outpatient R АЛЕКСАНДР [facility] [id number] [facility] 2022-02-28 09:45:00 2022-02-28 23:59:00 Hospital Encounter Александр [facility] 1.0.114 350.1.13.10 4.2.7.2.686 [id number] [facility] 2022-02-28 09:29:00 2022-02-28 10:13:00 Emergency X ADRIANKATELIN MCGUIRE [facility] [id number] [facility] 2022-02-28 09:29:00 2022-02-28 10:13:00 Emergency [facility] 1.0.114 350.1.13.10 4.2.7.2.686 [id number] [facility] 2022-02-21 13:15:00 2022-02-21 13:30:00 Deicer Repairer Pneumatic Visit Vtc-Lab Александр [facility] 1.114 350.1.13.10 4.2.7.2.686 [id number] [facility] 2022-02-21 13:15:00 2022-02-21 13:15:00 Outpatient R АЛЕКСАНДР [facility] [id number] [facility] 2022-02-21 11:00:00 2022-02-21 12:22:13 Office Visit Александр [facility] 1.114 350.1.13.10 4.2.7.2.686 [id number] [facility] 2022-02-21 11:00:00 2022-02-21 12:22:13 Outpatient R АЛЕКСАНДР [facility] [id number] [facility] 2022-02-18 08:00:00 2022-02-18 08:00:00 Outpatient R АЛЕКСАНДР [facility] [id number] [facility] 2022-01-31 00:00:00 2022-01-31 00:00:00 Orders Only Doctor Unassigned, [place] [facility] 1.114 350.1.13.10 4.2.7.2.686 [id number] [facility] 2013-07-21 06:17:00 2013-07-21 12:30:00 MARCIAL Valdezo r [facility] [id number] Rikki Kirkland Results Test Description Test Time Test Comments Results Result Co mments Source [facility] [id number] 05:11:00 * Test Item Value Reference Range Interpretation Comme nts TSH (test code = 5153684041) See_Comment [Automated messa ge] The system which generated this result transmitted reference range: 0.45 - 4.70 mIU/L. The reference range was not used to interpret this result as normal/abnormal. Lab Interpretation (test code = 42994-6) Normal [facility] [id number] 04:57:19* Test Item Value Reference Range Interpretation Comme nts FREE T4 (test code = 3992570148) See_Comment [Automated messa ge] The system which generated this result transmitted reference range: 0.78 - 2.20 ng/dL:. The reference range was not used to interpret this result as normal/abnormal. Lab Interpretation (test code = 81648-2) Normal [facility] HospitalGLYCOSYLATED HEMOGLOBIN (A1C)2022-07-16 03:33:21* Test Item Value Reference Range Interpretation Comme [facility] HGB A1C (test code = 4548-4) 9.2 % 4-5.7 H TRAV (test code = TRAV) Reference RangesNormal: <5.7%Prediabetes: 5.7 - 6.4%Diabetes: > 6.5% Lab Interpretation (test code = 36092-3) Abnormal [facility] HEMOGLOBIN A1C [id number] 19:29:00* Test Item Value Reference Range Interpretation Comme [facility] POCT HBA1C (test code = 4548-4) 9.0 % 4-6 A Lab Interpretation (test cod e = 10900-0) Abnormal [facility] HospitalANEMIA [id number] 12:54:00* Test Item Value Reference Range Interpretation Comme nts Vitamin B12 Lvl (test code = Vitamin B12 Lvl) [phone] [facility] [id number] 12:54:00* Test Item Value Reference Range Interpretation Comme nts Glucose Lvl (test code = Glucose Lvl) 70 65-99 BUN (test code = BUN) 34 7-25 Creatinine Lvl (test code = Creatinine Lvl) 1.50 0.70-1.18 eGFR NON-AFR. NIUEAN (test code = eGFR NON-AFR. NIUEAN) 44 eGFR (test code = eGFR ) 51 B/C Ratio (test code = B/C Ratio) 23 6-22 Sodium Lvl (test code = Sodium Lvl) 140 135-146 Potassium Lvl (test code = P otassium Lvl) 4.4 3.5-5.3 Chloride Lvl (test code = Chloride Lvl) 104 98-110 CO2 (test code = CO2) 29 20-32 Calcium Lvl (test code = Calcium Lvl) 8.8 8.6-10.3 Total Protein (test code = T otal Protein) 6.4 6.1-8.1 Albumin Lvl (test code = Albumin Lvl) 4.0 3.6-5.1 Globulin (test code = Globulin) 2.4 1.9-3.7 A/G Ratio (test code = A/G Ratio) 1.7 1.0-2.5 Bili Total (test code = Bili Total) 0.4 0.2-1.2 Alk Phos (test code = Alk Phos) 63 35-144 ASPARTATE TRANSAMINASE (test code = ASPARTATE TRANSAMINASE) 10 10-35 ALANINE AMINOTRANSFERASE (te st code = ALANINE AMINOTRANSFERASE) 12 9-46 [id number] 12:54:00* Test Item Value Reference Range Interpretation Comme nts WBC X 10x3 (test code = WBC X 10x3) 7.2 3.8-10.8 RBC X 10x6 (test code = RBC X 10x6) 3.68 4.20-5.80 Hgb (test code = Hgb) 11.3 13.2-17.1 Hct (test code = Hct) 34.9 38.5-50.0 MCV (test code = MCV) 94.8 80.0-100.0 MCH (test code = MCH) 30.7 pg 27.0-33.0 MCHC (test code = MCHC) 32.4 32.0-36.0 RDW (test code = RDW) 12.5 11.0-15.0 Platelet (test code = Platelet) 242 140-400 MPV (test code = MPV) 10.5 7.5-12.5 Neutrophils # (test code = Neutrophils #) 4615 6010-1228 Lymphocytes # (test code = Lymphocytes #) 1640 996-3057 Monocytes # (test code = Monocytes #) 799 200-950 Eosinophils # (test code = Eosinophils #) 180 15-500 Basophils # (test code = Basophils #) 50 <=200 Segs (test code = Segs) 64.1 Lymphocytes (test code = Lymphocytes) 21.6 Monocytes (test code = Monocytes) 11.1 Eosinophils (test code = Eosinophils) 2.5 Basophils (test code = Basophils) 0.7 Sed Rate (test code = Sed Rate) 9 [facility] GLUCOSE [id number] 11:43:00* Test Item Value Reference Range Interpretation Comme nts Gluc POC Comment 1 (test cod e = Gluc POC Comment 1) Notify RN/MD Glucose POC (test code = Glu cose POC) 139 70-99 [facility] Notes Upcoming Encounters Date/Time Note Provider Source Health Maintenance Due Date Last Done Comments Lipid Panel 1945 Medicare Annual Wellness (AWV) 1945 Annual Physical 01/31/1948 Pneumococcal Vaccine: 65+ Years (1 of 2 - PCV) 1951 Diabetes: Foot Exam 1955 Diabetes: Retinopathy Screening 1955 DTaP/Tdap/Td Vaccines (1 - Tdap) 01/31/1964 Zoster Vaccines (1 of 2) 1995 Respiratory Syncytial Virus (RSV) or >=60 (1 - 1-dose 60+ series) 2005 Diabetes: Hemoglobin A1C 10/15/2022 022, 06/03/2022 Diabetes: Urine Protein Screening 02/21/2023 02/21/2022 Influenza Vaccine (#1) 2024 HIB Vaccines Aged Out No longer eligi ble based on patient's age to complete this topic HPV Vaccines Aged Out No longer eligi ble based on patient's age to complete this topic Hepatitis A Vaccines Aged Out No long er eligible based on patient's age to complete this topic Hepatitis B Vaccines Aged Out No long er eligible based on patient's age to complete this topic IPV Vaccines Aged Out No longer eligi ble based on patient's age to complete this topic Meningococcal Vaccine Aged Out No josué chon eligible based on patient's age to complete this topic Rotavirus Vaccines Aged Out No longer eligible based on patient's age to complete this topic [id number] 18:03:42 [facility] CenterXhpvuyu0440-59-26 15:46:31* [facility] [id number] 15:46:31Upcoming Encounters Health Maintenance Due Date Last Done Comments Lipid Panel 1945 Medicare Annual Wellness (AWV) 1945 Pneumococcal Vaccine: 65+ Years (1 of 2 - PCV) 1951 Diabetes: Foot Exam 1955 Diabetes: Retinopathy Screening 1955 DTaP/Tdap/Td Vaccines (1 - Tdap) 01/31/1964 Zoster Vaccines (1 of 2) 1995 Respiratory Syncytial Virus (RSV) or >=60 (1 - 1-dose 60+ series) 2005 Diabetes: Hemoglobin A1C 10/15/2022 022, 06/03/2022 Diabetes: Urine Protein Screening 02/21/2023 02/21/2022 Influenza Vaccine (#1) 2024 HIB Vaccines Aged Out No longer eligi ble based on patient's age to complete this topic HPV Vaccines Aged Out No longer eligi ble based on patient's age to complete this topic Hepatitis A Vaccines Aged Out No long er eligible based on patient's age to complete this topic Hepatitis B Vaccines Aged Out No long er eligible based on patient's age to complete this topic IPV Vaccines Aged Out No longer eligi ble based on patient's age to complete this topic Meningococcal Vaccine Aged Out No josué chon eligible based on patient's age to complete this topic Rotavirus Vaccines Aged Out No longer eligible based on patient's age to complete this topic [id number] 15:46:31 [facility] [id number] 14:37:13 Patients daughter called and stated that the patient has not been sleeping and the hallucinations are worsening. She stated they are unsure of the next step to take in regards to his health condition. She asked if there is any medication that can help the sleeping and hallucinations. She requested a phone call to speak with you about these concerns. [facility]2024-10-09 17:07:33* [facility] [id number] 17:07:33* Rosa Taylor MD - 07/14/2024 4:00 PM CDT History of Present Illness HPI Patient returns for reevaluation. Here with his son and his . Follow-up, dementia with behavioral disturbance. Problem continues to slowly worsen compounded by worsening renal failure as well. Did have labs a few months ago, reviewed, liver function tests were normal, mild anemia, creatinine elevated has some prominent asymmetric swelling to the arms right arm greater than the left but he was actually in the hospital a few months ago and had an ultrasound and no DVT Allergies as of 07/14/2024 (No Known Allergies) has a current medication list which includes the following prescription(s): allopurinol, aspirin, atorvastatin, carvedilol, citalopram, furosemide, insulin lispro, lantus solostar, losartan, tamsulosin, divalproex, donepezil, and quetiapine. Vitals:07/14/24 1620 BP: 120/69 Pulse: 78 Resp: 16 Temp: 36.4 ?C (97.5 ?F) SpO2: 95% Neurological Exam He is awake, tangential, oriented to person. Ocular motion full. Hall full. Bilateral interphalangeal weakness. Ambulates with a rolling walker. Results for orders placed or performed in visit on 09/10/23 Complete Blood Count w/Diff and Platelet Collection Time: 09/25/23 7:50 AM Result Value Ref Range WBC 8.1 3.8 - 10.8 K/ul Basos % 0.7 % Monocytes 11.7 % Eos % 3.4 % Lymphocytes # 1,264 850 - 3,900 Cells/uL Monocytes # 948 200 - 950 Cells/uL MPV 11.4 7.5 - 12.5 fL Segs # 5,557 1,500 - 7,800 Cells/uL Segs % 68.6 % Lymphs % 15.6 % Eosinophils # 275 15 - 500 Cells/uL Basophils # 57 0 - 200 Cells/uL Hct 37.1 (L) 38.5 - 50.0 % MCV 93.2 80.0 - 100.0 fL RBC 3.98 (L) 4.20 - 5.80 M/CMM Hgb 11.9 (L) 13.2 - 17.1 g/dL RDW 14.3 11.0 - 15.0 % Plt Count 302 140 - 400 K/ul MCH 29.9 27.0 - 33.0 pg MCHC 32.1 32.0 - 36.0 g/dL Comprehensive Metabolic Panel Collection Time: 09/25/23 7:50 AM Result Value Ref Range BUN 50 (H) 7 - 25 mg/dL AST 9 (L) 10 - 35 unit/L Alkaline Phosphatase 63 35 - 144 unit/L ALT 11 9 - 46 unit/L Albumin Lvl 4.3 3.6 - 5.1 g/dL Total Protein 6.9 6.1 - 8.1 g/dL Albumin/Globulin Ratio 1.7 1.0 - 2.5 (CALC) Bilirubin Total 0.4 0.2 - 1.2 mg/dL Globulin 2.6 1.9 - 3.7 g/dL Potassium Lvl 4.2 3.5 - 5.3 mMol/L B/C Ratio 25 (H) 6 - 22 (CALC) Sodium Lvl 137 135 - 146 mMol/L CO2 Lvl 35 (H) 20 - 32 mMol/L Calcium Lvl 9.1 8.6 - 10.3 mg/dL Chloride Lvl 94 (L) 98 - 110 mMol/L Creatinine Lvl 2.04 (H) 0.70 - 1.28 mg/dL eGFR 33 (L) > OR = 60 mL/min/1.73m2 Glucose Lvl 237 (H) 65 - 99 mg/dL Valproic Acid Level Collection Time: 09/25/23 7:50 AM Result Value Ref Range Valproic Acid Lvl 16.6 (L) 50.0 - 100.0 mg/L No MRI head results found for the past 12 months Assessment & PlanDiagnoses and all orders for this visit: 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 - divalproex (Depakote ER) 250 MG 24 hr tablet; Take 1 tablet by mouth in the morning and 1 tablet in the evening. - donepezil (Aricept) 10 MG tablet; Take 1 tablet by mouth at bedtime. Refill medications, [id number] 17:07:33Upcoming Encounters Health Maintenance Due Date Last Done Comments Lipid Panel 1945 Medicare Annual Wellness (AWV) 1945 Pneumococcal Vaccine: 65+ Years (1 of 2 - PCV) 1951 Diabetes: Foot Exam 1955 Diabetes: Retinopathy Screening 1955 DTaP/Tdap/Td Vaccines (1 - Tdap) 01/31/1964 Zoster Vaccines (1 of 2) 1995 Respiratory Syncytial Virus (RSV) or >=60 (1 - 1-dose 60+ series) 2005 Diabetes: Hemoglobin A1C 10/15/2022 022, 06/03/2022 Diabetes: Urine Protein Screening 02/21/2023 02/21/2022 Influenza Vaccine (#1) 2024 HIB Vaccines Aged Out No longer eligi ble based on patient's age to complete this topic HPV Vaccines Aged Out No longer eligi ble based on patient's age to complete this topic Hepatitis A Vaccines Aged Out No long er eligible based on patient's age to complete this topic Hepatitis B Vaccines Aged Out No long er eligible based on patient's age to complete this topic IPV Vaccines Aged Out No longer eligi ble based on patient's age to complete this topic Meningococcal Vaccine Aged Out No josué chon eligible based on patient's age to complete this topic Rotavirus Vaccines Aged Out No longer eligible based on patient's age to complete this topic [id number] 17:07:33 Diagnosis Moderate late onset Alzheime r's dementia with agitation (HCC) - [id number] 17:07:33 [id number] 10:27:30 Patient was notified and scheduled an appointment on 07/14. [id number] 08:33:53 Medication on hold, patient needs to follow up in office. [facility]:18:21* [id number] 11:18:21Upcoming Encounters Health Maintenance Due Date Last Done Comments Diabetes: Hemoglobin A1C 1945 Lipid Panel 1945 Medicare Annual Wellness (AWV) 1945 Diabetes: Foot Exam 1955 Diabetes: Retinopathy Screening 1955 DTaP/Tdap/Td Vaccines (1 - Tdap) 01/31/1964 Diabetes: Urine Protein Screening 01/31/1964 Zoster Vaccines (1 of 2) 1995 Respiratory Syncytial Virus (RSV) or >=60 (1 - 1-dose 60+ series) 2005 Pneumococcal Vaccine: 65+ Ye ars (1 of 1 - PCV) 2010 Influenza Vaccine (#1) 2024 HIB Vaccines Aged Out No longer eligi ble based on patient's age to complete this topic HPV Vaccines Aged Out No longer eligi ble based on patient's age to complete this topic Hepatitis A Vaccines Aged Out No long er eligible based on patient's age to complete this topic Hepatitis B Vaccines Aged Out No long er eligible based on patient's age to complete this topic IPV Vaccines Aged Out No longer eligi ble based on patient's age to complete this topic Meningococcal Vaccine Aged Out No josué chon eligible based on patient's age to complete this topic Rotavirus Vaccines Aged Out No longer eligible based on patient's age to complete this topic [id number] 12:14:34* [facility]uejyil9900[facility]09-08 12:14:34 [id number] 12:14:25 Medication filled, please call patient and have them schedule a follow up. [facility] [id number] 07:49:00DIAGNOSTIC CEREBRAL ANGIOGRAM DIRECTOR OF HEMOPHILIA: Seng Bowen MD HEATING AND BLENDING SUPERVISOR: Adolfo Lynch MD HISTORY: The patient is a 60-year-old gentleman who presents for evaluation of carotid stenosis CLINICAL INDICATION: Carotid stenosis PROCEDURE: 4 vessel cerebral angiogram. CONSENT: The indication, risks and benefits of the procedure were discussed with the patient and their family. Risks include but are not limited to bleeding, infection, femoral artery injury, femoralartery occlusion, vessel injury, kidney damage, stroke, coma, . ANESTHESIA: Local in the right groin with bupivacaine. Conscious sedation with Versed and Fentanyl was given by the nurse under the supervision of the attending interventional neuroradiologist. Pre-,intra-, and post-conscious sedation monitoring records are available in the chart. MEDICATIONS: 0.5% Bupivacaine SQ 10 cc Versed 1 mg IV Fentanyl 100 mcg IV Procedure in detail: The patient was brought to the neuro-interventional suite and placed on the angio table in the supine position. Conscious sedation medications were administered by the nurse. Theright femoral artery was accessed using a single wall micropuncture technique and a 5 Anguillan sheathwas placed and secured. A 5 Anguillan Vert catheter was advanced with a 0.035 Terumo Glidewire into the aortic arch to select the following arteries by roadmap technique: Right internal carotid artery, right external carotid artery, right vertebral artery, left internal carotid artery, left external carotid artery, left vertebral artery. 2D cerebral angiogram runs were performed respectively. After review of the angiographic images, the catheter was withdrawn. A right femoral artery angiogram was performed. The sheath was removed and hemostasis was obtained with an Angio-Seal 6 Anguillan closure device. The patient was transferred to the recovery room in stable condition. Contrast: Omnipaque 300, total 130cc. Radiation Dose: 583 mGy AP 390 mg Lat Fluoro time: 7.8 min Tasks: 1. Right femoral artery catheterization. 2. Right internal carotid artery selective catheterization with cervical and cerebral 2D angiogram runs. 3D ROTATIONAL ANGIOGRAPHY OF THE RIGHT INTERNAL CAROTID ARTERY: Rotational angiography was performed from the guiding catheter. Images were processed on an independent workstation, and volume-rendered three-dimensional images were produced. 3. Right vertebral artery selective catheterization with cervical and cerebral 2D angiogram runs. 3D ROTATIONAL ANGIOGRAPHY OF THE LEFT INTERNAL CAROTID ARTERY: Rotational angiography was performedfrom the guiding catheter. Images were processed on an independent workstation, and [id number] images were produced. 4. Left internal carotid artery selective catheterization with cervical and cerebral 2D angiogram runs. 5. Left vertebral artery selective catheterization with cervical and cerebral 2D angiogram runs. FINDINGS: RIGHT COMMON CAROTID ARTERY: The injection demonstrates stenosis at the carotid bifurcation at the proximal internal carotid artery takeoff. The stenosis measures 35% by NASCET criteria. The flow stenosis is nonflow limiting. RIGHT INTERNAL CAROTID ARTERY, CEREBRAL: The injection demonstrates brisk opacification of the right internal carotid artery, right MCA. There is hypoplastic right A1 segment There is no evidence of aneurysm, focal stenosis, AVM, fistula, dissection, or other abnormality. RIGHT VERTEBRAL ARTERY: The injection demonstrates brisk opacification of the right vertebral artery, PICA, basilar artery, and bilateral SCA and DELI SLICER branches. There is no evidence of aneurysm, focalstenosis, AVM, fistula, dissection, or other abnormality. LEFT COMMON CAROTID ARTERY, CEREBRAL: The injection demonstrates no evidence of carotid artery bifurcation stenosis or dissection. LEFT INTERNAL CAROTID ARTERY, CEREBRAL: The injection demonstrates brisk opacification of the left internal carotid artery, left MCA, and left EITAN with strong cross-filling of the contralateral EITAN. There is no evidence of aneurysm, focal stenosis, AVM, fistula, dissection, or other abnormality. LEFT VERTEBRAL ARTERY: The injection demonstrates brisk opacification of the left vertebral artery,PICA basilar artery, and bilateral SCA and DELI SLICER branches. There is no evidence of aneurysm, focal stenosis, AVM, fistula, dissection, or other abnormality. COMPLICATIONS: None. IMPRESSION: 1. There is nonflow limiting stenosis of the right internal carotid artery and the cervical bifurcation. Stenosis measures 35% by NASCET criteria. 2. There is hypoplastic right A1 segment. Bilateral ACAs fill from the left internal carotid injection. [facility]2013-10-16 07:49:00* DIAGNOSTIC CEREBRAL ANGIOGRAM DIRECTOR OF HEMOPHILIA: Seng Bowen MD HEATING AND BLENDING SUPERVISOR: Adolfo Lynch MD HISTORY: The patient is a 60-year-old gentleman who presents for evaluation of carotid stenosis CLINICAL INDICATION: Carotid stenosis PROCEDURE: 4 vessel cerebral angiogram. CONSENT: The indication, risks and benefits of the procedure were discussed with the patient and their family. Risks include but are not limited to bleeding, infection, femoral artery injury, femoral artery occlusion, vessel injury, kidney damage, stroke, coma, . ANESTHESIA: Local in the right groin with bupivacaine. Conscious sedation with Versed and Fentanyl was given by the nurse under the supervision of the attending interventional neuroradiologist. Pre-, intra-, and post-conscious sedation monitoring records are available in the chart. MEDICATIONS: 0.5% Bupivacaine SQ 10 cc Versed 1 mg IV Fentanyl 100 mcg IV Procedure in detail: The patient was brought to the neuro-interventional suite and placed on the angio table in the supine position. Conscious sedation medications were administered by the nurse. The right femoral artery was accessed using a single wall micropuncture technique and a 5 Anguillan sheath was placed and secured. A 5 Anguillan Vert catheter was advanced with a 0.035 Terumo Glidewire into the aortic arch to select the following arteries by roadmap technique: Right internal carotid artery, right external carotid artery, right vertebral artery, left internal carotid artery, left external carotid artery, left vertebral artery. 2D cerebral angiogram runs were performed respectively. After review of the angiographic images, the catheter was withdrawn. A right femoral artery angiogram was performed. The sheath was removed and hemostasis was obtained with an Angio-Seal 6 Anguillan closure device. The patient was transferred to the recovery room in stable condition. Contrast: Omnipaque 300, total 130cc. Radiation Dose: 583 mGy AP390 mg Lat Fluoro time: 7.8 min Tasks: 1. Right femoral artery catheterization. 2. Right internal carotid artery selective catheterization with cervical and cerebral 2D angiogram runs. 3D ROTATIONAL ANGIOGRAPHY OF THE RIGHT INTERNAL CAROTID ARTERY: Rotational angiography was performed from the guiding catheter. Images were processed on an independent workstation, and volume-rendered three-dimensional images were produced. 3. Right vertebral artery selective catheterization with cervical and [id number] angiogram runs. 3D ROTATIONAL ANGIOGRAPHY OF THE LEFT INTERNAL CAROTID ARTERY: Rotational angiography was performed from the guiding catheter. Images were processed on an independent workstation, and volume-rendered three-dimensional images were produced. 4. Left internal carotid artery selective catheterization with cervical and cerebral 2D angiogram runs. 5. Left vertebral artery selective catheterization with cervical and [id number] angiogram runs. FINDINGS: RIGHT COMMON CAROTID ARTERY: The injection demonstrates stenosis at the carotid bifurcation at the proximal internal carotid artery takeoff. The stenosis measures 35% by NASCET criteria. The flow stenosis is nonflow limiting. RIGHT INTERNAL CAROTID ARTERY, CEREBRAL: The injection demonstrates brisk opacification of the right internal carotid artery, right MCA. There is hypoplastic right A1 segment There is no evidence of aneurysm, focal stenosis, AVM, fistula, dissection, or other abnormality. RIGHT VERTEBRAL ARTERY: The injection demonstrates brisk opacification of the right vertebral artery, PICA, basilar artery, and bilateral SCA and DELI SLICER branches. There is no evidence of aneurysm, focal stenosis, AVM, fistula, dissection, or other abnormality. LEFT COMMON CAROTID ARTERY, CEREBRAL: The injection demonstrates no evidence of carotid artery bifurcation stenosis or dissection. LEFT INTERNAL CAROTID ARTERY, CEREBRAL: The injection demonstrates brisk opacification of the left internal carotid artery, left MCA, and left EITAN with strong cross-filling of the contralateral EITAN. There is no evidence of aneurysm, focal stenosis, AVM, fistula, dissection, or other abnormality. LEFT VERTEBRAL ARTERY: The injection demonstrates brisk opacification of theleft vertebral artery, PICA basilar artery, and bilateral SCA and DELI SLICER branches. There is no evidence of aneurysm, focal stenosis, AVM, fistula, dissection, or other abnormality. COMPLICATIONS: None.
[2024-12-29] MEDS ORDERED: LIDOCAINE 1% 20 ML MDV ONE (05:11)
[2024-12-29] MEDS ORDERED: methocarbamoL 750 MG TAB ONE (05:12)
[2024-12-29] MEDS ORDERED: IBUPROFEN 400 MG TAB ONE (05:12)
[2024-12-29] MEDS ORDERED: ACETAMINOPHEN 500 MG TAB ONE (05:12)
[2024-12-29] MEDS ORDERED: TDAP (DIPHTH,PERTUSS(ACELL),TET VAC) 0.5 ML VIAL IMVAC ONE (05:13)
--- NOTE | 2024-12-29 06:54 | RAD REPORT ---
EXAM: XR Right Hand Complete, 3 or More Views CLINICAL HISTORY: The patient is 79 years old and is Male; Right hand injury. TECHNIQUE: Three views of the right hand. COMPARISON: No relevant prior studies available. FINDINGS: Bones/joints: Multifocal degenerative changes in the interphalangeal joints. No acute fracture. No dislocation. Soft tissues: Unremarkable. No radiopaque foreign body. Vasculature: Moderate atherosclerotic calcification. IMPRESSION: No acute findings in the right hand. Electronically signed by: Naida Jonas MD 12/29/2024 06:47 AM CDT RP V2 Due to temporary technical issues with the [email or web address] reporting system, reports are being sarath d by the in-house radiologist without review as a courtesy to ensure prompt reporting the interpreting radiologist is fully responsible for the content of the report. Transcribed Date/Time: 12/29/2024 6:54 AM
--- NOTE | 2024-12-29 06:55 | RAD REPORT ---
EXAM: XR Left Hand Complete, 3 or More Views CLINICAL HISTORY: The patient is 79 years old and is Male; Left hand injury. TECHNIQUE: Three views of the left hand. COMPARISON: No relevant prior studies available. FINDINGS: Bones/joints: No acute fracture. Interphalangeal joint degenerative changes. No dislocation. Soft tissues: Dense soft tissue calcification in the webspace between the 1st and 2nd digits. No radiopaque foreign body. Vasculature: Atherosclerotic calcification. IMPRESSION: No acute fracture. Electronically signed by: Naida Jonas MD 12/29/2024 06:46 AM CDT RP V2 Due to temporary technical issues with the [employer] reporting system, reports are being sarath d by the in-house radiologist without review as a courtesy to ensure prompt reporting the interpreting radiologist is fully responsible for the content of the report. Transcribed Date/Time: 12/29/2024 6:54 AM
--- NOTE | 2024-12-29 07:53 | RAD REPORT ---
EXAM: CT brain without contrast HISTORY: facial injury COMPARISON: 08/01/2017 TECHNIQUE: Multiple contiguous axial images were obtained and a CT of the brain without contrast. Sag ittal and coronal reformats were performed. One or more of the following dose reduction techniques were used: Automated exposure control, adjust ment of the mA and/or kV according to patient size, and/or iterative reconstruction. FINDINGS: No evidence of hydrocephalus, intracranial hemorrhage, or extra-axial fluid collection. Advanced brain atrophy with advanced periventricular and deep white matter chronic microvascular isc hemic changes present. No evidence of midline shift or areas of brain edema. The calvarium is intact. The visualized paranasal sinuses and mastoid air cells are essentially clear . Small frontal scalp hematoma. IMPRESSION: No evidence of acute intracranial abnormality. EXAM: CT of the cervical spine without contrast HISTORY: Neck pain, injury facial injury TECHNIQUE: Multiple contiguous axial images were obtained in a CT of the cervical spine without contr ast. Sagittal and coronal reformats were performed. FINDINGS: The vertebral bodies demonstrate normal height and alignment. No evidence of acute fracture or subluxation.. Disc thinning with small endplate osteophytes lower cervical levels. No prevertebral soft tissue swelling is seen. The posterior facets are well aligned. Normal alignment of the skull base with the cervical spine is seen. Mild carotid atherosclerosis. The lung apices are unremarkable. IMPRESSION: No evidence of acute osseous abnormality of the cervical spine. [id number] lower cervical degen erative spondylosis.
--- NOTE | 2024-12-29 07:55 | RAD REPORT ---
EXAM: CT CHEST, ABDOMEN AND PELVIS WITHOUT CONTRAST CLINICAL INDICATION: fall TECHNIQUE: CT chest, abdomen and pelvis was performed without contrast, as per department protocol. A xial, sagittal and coronal reconstructions were obtained. One or more of the following dose reduction techniques were used: Automated exposure control, adjustment of the mA and/or kV according to patient size, and/or iterative reconstruction. Unless otherwise specified, incidental findings do not require dedicated imaging follow-up. Examination is limited by the lack of intravenous contrast material. COMPARISON: No prior exam. FINDINGS: LUNGS: No evidence of airspace or interstitial process. No nodules. PLEURA: No pleural effusion. No pneumothorax. MEDIASTINUM AND LYMPH NODES: No mediastinal mass or fluid collection. Normal size mediastinal, hilar, and axillary lymph nodes. OSSEOUS STRUCTURES AND CHEST WALL: Intact. LIVER: Normal in size and contour. No focal lesion or biliary dilatation. Grossly unremarkable gallbl adder. PANCREAS: No mass, ductal dilation, or oz-pancreatic fluid. SPLEEN: Normal size. No focal lesion. ADRENALS: Normal; no mass. KIDNEYS: Normal size and contour. No hydronephrosis. There is notable left renal artery ostial hard p laquing. URINARY BLADDER: Normal contour. GASTROINTESTINAL TRACT: No bowel obstruction, free air, significant free fluid or abscess. APPENDIX: Normal appendix. LYMPH NODES: No lymphadenopathy. MUSCULOSKELETAL: Mild multilevel degenerative spondylosis. OTHER: Small fat-containing left inguinal hernia. IMPRESSION: No acute abnormalities seen in the chest, abdomen or pelvis.
--- NOTE | 2024-12-29 08:00 | RAD REPORT ---
EXAMINATION: CT MAXILLOFACIAL WITHOUT CONTRAST CLINICAL INDICATION: FELL TECHNIQUE: Axial images were obtained through the facial bones and orbits without intravenous contras t. Sagittal and coronal reconstructions were created from the data. One or more of the following dose reduction techniques were used: Automated exposure control, adjustment of the mA and/or kV accor ding to patient size, and/or iterative reconstruction. Unless otherwise specified, incidental findings do not require dedicated imaging follow-up. COMPARISON: No prior exam. FINDINGS: SOFT TISSUE: Soft tissue swelling is seen about the nose. Scalp hematoma is noted anteriorly measurin g 8 mm. BONES: Fracture is seen involving the left nasal bones. No additional facial fracture or dislocation seen. ORBITS: The globes are intact. No intraorbital hemorrhage or mass. SINUSES: The visualized paranasal sinuses and mastoid air cells are essentially clear. IMPRESSION: Nasal bone fracture on the left.
[2024-12-29] MEDS ORDERED: CEFTRIAXONE 1000 MG/VIAL ONE (09:38)
[2024-12-29 09:40] LABS: Absolute Basophils 0.1 K/uL (0-0.5); Absolute Eosinophils 0.2 K/uL (0-0.5); Absolute Lymphocytes (CBC) 1.5 K/uL (0.7-4.9); Absolute Monocytes 0.9 K/uL (0.1-1.3); Absolute Neutrophil 9.1 K/uL (1.8-8.0); Basophils % 1.1 % (0-1.3); Eosinophils % 1.7 % (0-4.4); Hematocrit 33.9 % (39.6-49.0); Hemoglobin 11.3 g/dL (13.6-17.9); Lymphocytes % 12.9 % (15.3-44.8); MCH 30.2 pg (27.0-35.0); MCHC 33.3 g/dL (32.0-36.0); MCV 90.7 fL (80-100); MPV 7.9 fL (7.6-11.3); Monocytes % 7.3 % (3.3-12.3); Platelets 302 thou/uL (152-406); RBC Red Blood Cell Count 3.73 M/uL (4.33-5.43); Red Cell Distribution Width 14.6 % (12.1-15.2)
[2024-12-29 09:50] LABS: PT Prothrombin Time 11.2 SECONDS (10-13.0); Protime INR 0.98
[2024-12-29 09:59] LABS: Albumin 3.1 g/dL (3.4-5.0); Albumin/Globulin Ratio 0.9 (1.1-1.8); Alkaline Phosphatase 91 U/L (45-117); Anion Gap 9.1 mEq/L (5.0-15.0); BUN Blood Urea Nitrogen 22 mg/dL (7-18); Bicarbonate 28 mEq/L (21-32); Bilirubin Total 0.4 mg/dL (0.2-1.0); Globulin 3.3 g/dL (2.3-3.5); Glomerular Filtration Rate 46 ml/min (=/>90); Glucose Level 164 mg/dL (74-106); Magnesium 2.4 mg/dL (1.6-2.4); NT PRO-BNP 320 pg/mL (<450); Potassium 4.1 mEq/L (3.5-5.1); Protein, Total 6.4 g/dL (6.4-8.2); Sodium Level 136 mEq/L (136-145); Troponin High Sensitivity 22.4 pg/mL (<58.9)
[2024-12-29 10:01] LABS: ALT/SGPT < 14 U/L (16-61); AST/SGOT < 10 U/L (15-37); Bilirubin Direct < 0.2 mg/dL (0-0.2); Bilirubin Indirect, Calculated 0.2 mg/dL (0.2-0.8)
--- NOTE | 2024-12-29 10:34 | ER ---
Nurse's Notes [facility] Name: Arturo Saldana Age: 79 yrs Sex: Male : 1945 Arrival Date: 12/29/2024 Time: 04:05 Bed 19 Private MD: Diagnosis: Fall on same level, unspecified;Altered mental status, unspecified;Laceration without foreign body of other part of head-FACIAL;UTI/ Urinary tract infection, site not specified Presentation: 12/29 04:50 Chief complaint: Patient states: had a ground level fall, face down, had laceration to aa10 the face in between both eye brow, had a laceration bruises on both left and right lower hand, patient was cleaned up and placed on monitor technician. Care prior to arrival: None. Mechanism of Injury: Fall from standing position. Trauma event details: Injury occurred in the [facility], Injury occurred: half-way Injury occurred: December 29, 2024. 04:50 Acuity: MADELYN 2 aa10 04:50 Method Of Arrival: EMS: [facility] aa10 05:01 Coronavirus screen: Client denies travel out of the [place] in the last 14 days. At this aa10 time, the client does not indicate any symptoms associated with coronavirus-19. Ebola Screen: Patient negative for fever greater than or equal to 101.5 degrees Fahrenheit, and additional compatible Ebola Virus Disease symptoms Patient denies exposure to infectious person. Patient denies travel to an Ebola-affected area in the 21 days before illness onset. No symptoms or risks identified at this time. Initial Sepsis Screen: Does the patient meet any 2 criteria? No. Patient's initial sepsis screen is negative. Does the patient have a suspected source of infection? No. Patient's initial sepsis screen is negative. Risk Assessment: Do you want to hurt yourself or someone else? Patient reports no desire to harm self or others. Onset of symptoms was December 29, 2024. Triage Assessment: 05:00 General: Appears in no apparent distress. obese, well groomed, well developed, Behavior aa10 is calm, cooperative, appropriate for age. Pain: Complains of pain in face. Trauma Activation: Physician: ED Physician; Name: ja; Notified At: ; Arrived At: Physician: General Surgeon; Name: ; Notified At: ; Arrived At: Physician: Radiology; Name: ; Notified At: ; Arrived At: Physician: Respiratory; Name: ; Notified At: ; Arrived At: Physician: Lab; Name: ; Notified At: ; Arrived At: Historical: - Allergies: 14:21 No Known Allergies; ld1 - Home Meds: 05:03 aspirin 81 mg Oral tablet 1 tab daily [Active]; atorvastatin 40 mg Oral tab 1 tab every aa10 evening [Active]; carvedilol 6.25 mg Oral tab 1 tab every 12 hours [Active]; divalproex 250 mg Oral Tablet 1 tab 2 times per day [Active]; donepezil 10 mg Oral tablet 1 tab every day at bedtime [Active]; gabapentin 100 mg Oral capsule 1 cap every day at bedtime [Active]; Lantus U-100 Insulin 100 unit/mL Sub-Q solution 60 units every evening [Active]; losartan 100 mg Oral tab 1 tab once daily [Active]; tamsulosin 0.4 mg Oral cap 1 cap once daily [Active]; - PMHx: 05:03 Congestive heart failure; CVA; depressive disorder; Diabetes - IDDM; aa10 Hypercholesterolemia; Hypertensive disorder; - Immunization history: Last tetanus immunization: - up to date. - Infectious Disease History:: Denies. - Social history:: Smoking status: unknown. Screenin:59 Abuse screen: Denies threats or abuse. Denies injuries from another. Tuberculosis aa10 screening: No symptoms or risk factors identified. 05:01 [facility] ED Fall Risk Assessment (Adult) History of falling in the last 3 months, aa10 including since admission Yes- single mechanical fall (1 pt) Confusion or Disorientation No (0 pts) Intoxicated or Sedated No (0 pts) Impaired Gait No (0 pts) Mobility Assist Device Used Yes (1 pt) Altered Elimination Score/Fall Risk Level 3 or more points = High Risk Oriented to surroundings, Maintained a safe environment, Educated pt \\T\\ family on fall prevention, incl call for assistance when getting out of bed, Assessed \\T\\ reinforced patient's understanding of fall precautions, Provided non-skid footwear, Hourly rounding (assess needs \\T\\ fall precautionary measures) done, Used ambulatory aids as needed (educated on \\T\\ assisted with). Nutritional screening: No deficits noted. Primary Survey: 04:56 NO uncontrolled hemorrhage observed. A: The client is awake and alert. The airway is aa10 patent. The client is alert. Airway: patent. Breathing/Chest: Spontaneous respiratory effort, equal unlabored respirations, breath sounds clear bilaterally, regular pattern, symmetrical chest rise and fall. Respiratory effort: spontaneous, Breath sounds: clear, bilaterally. Respiratory pattern: regular, Chest inspection: symmetrical rise and fall of the chest. Circulation: Hemorrhage: External hemorrhage noted. laceration above the right eyebrow Pulses: palpable right radial artery, right brachial artery, right femoral artery, right popliteal artery, right posterior tibial artery, left radial artery, left brachial artery, left femoral artery, left popliteal artery, bilateral radial, brachial, femoral, popliteal, posterior tibial, and dorsalis pedis arteries., left carotid pulse and right carotid pulse. Skin color: pink. Disability Pupils are equal, round, reactive to light and accommodation. Client is alert. Exposure/Environment: All clothing and personal items were removed. Forensic evidence collection is not deemed to be indicated at this time. Items placed in patient belonging bag. There is evidence of uncontrolled external hemorrhage. Provider notified immediately. Methods to control bleeding applied. Obvious injury(ies) are noted at this time: bruises and laceration. Reassessment Breathing: Spontaneous respiratory effort, equal unlabored respirations, breath sounds clear bilaterally, regular pattern with symmetrical chest rise and fall. Respiratory effort Spontaneous Breath sounds Clear Respiratory pattern Regular Circulation: No external hemorrhage noted. Regular and strong central pulse, skin warm/dry/normal color. Heart rhythm Sinus rhythm Heart tones Present Pulses Palpable Color Disability: Pupils Pupils are equal, round, reactive to light and accomodation. Alert. Secondary Survey: 04:58 HEENT: Head Other laceration Face Other bruises Nose: bleeding noted to left nare. aa10 Gastrointestinal: No deficits noted. Abdomen is soft, non-distended, Bowel sounds present in all quadrants. Palpation No deficit noted. : No deficits noted. No signs and/or symptoms were reported regarding the genitourinary system. Musculoskeletal: No deficits noted. Circulation, motion, and sensation intact. Capillary refill < 3 seconds. Assessment: 04:53 General: Appears in no apparent distress. comfortable, well groomed, well developed, aa10 Behavior is calm, cooperative, appropriate for age. Pain: Complains of pain in face, right arm and left arm Pain does not radiate. Pain currently is 5 out of 10 on a pain scale. Quality of pain is described as dull, Pain began suddenly, Is continuous, Alleviated by medications, rest, Aggravated by increased activity, Noted to be quiet/stoic. Neuro: No deficits noted. Level of Consciousness is awake, alert, obeys commands, Oriented to person, situation, Automotive Repair Technician are equal bilaterally Moves all extremities. Gait is steady, Speech is normal, Facial symmetry appears normal, Pupils are PERRLA, Intact. EENT: Tympanic membrane reddened on right ear and left ear Ear canal Pinna Eyes Sclera/Cornea Lid(s) Nares. Cardiovascular: No deficits noted. Capillary refill < 3 seconds. Respiratory: No deficits noted. Airway is patent. GI: No deficits noted. Abdomen is non-distended. Musculoskeletal: No deficits noted. Circulation, motion, and sensation intact. Capillary refill < 3 seconds. 07:39 General: Appears in no apparent distress. comfortable, Behavior is calm, cooperative, ld1 appropriate for age. Pain: Denies pain. Neuro: Level of Consciousness is awake, alert, obeys commands, Oriented to person, situation. Cardiovascular: Capillary refill < 3 seconds Patient's skin is warm and dry. Respiratory: Airway is patent Respiratory effort is even, unlabored. GI: Abdomen is round non-distended. 07:39 Reassessment: Family reports hallucinations - states "This is how he was last time and ld1 he had a UTI.". Vital Signs: 04:48 BP 163 / 94; Pulse 86; Resp 20; Temp 98; Pulse Ox 86% ; MAP 114 mmHg; aa10 05:04 BP 156 / 74; Pulse 88; Resp 20; Temp 98.8; Pulse Ox 99% on R/A; aa10 07:39 BP 151 / 84; Pulse 84; Resp 18; Pulse Ox 99% on R/A; ld1 10:53 BP 172 / 89; Pulse 81; Resp 18; Pulse Ox 95% on R/A; ld1 12:21 BP 156 / 76; Pulse 84; Resp 18; Pulse Ox 98% on R/A; ld1 Alexei Coma Score: 04:48 Eye Response: spontaneous(4). Motor Response: obeys commands(6). Verbal Response: aa10 oriented(5). Total: 15. 08:16 Eye Response: spontaneous(4). Motor Response: obeys commands(6). Verbal Response: sp4 oriented(5). Total: 15. Trauma Score (Adult): 04:48 Eye Response: spontaneous(1); Verbal Response: oriented(1); Motor Response: obeys aa10 commands(2); Systolic BP: > 89 mm Hg(4); Respiratory Rate: 10 to 29 per min(4); [place] Score: 15; Trauma Score: 12 ED Course: 04:05 Patient arrived in ED. [email or web address] 04:11 Black Harris MD is Attending Physician. sp4 04:53 Triage completed. aa10 04:59 Patient has correct armband on for positive identification. Allergy band placed. Fall aa10 risk band placed. Placed in gown. Bed in low position. Call light in reach. Side rails up X 1. Side rails up X2. 04:59 Assist provider with laceration repair on head. Patient maintains SpO2 saturation aa10 greater than 95% on room air. 05:01 Thermoregulation: warm blanket given to patient. aa10 05:02 Arm band placed on right wrist. aa10 05:18 Hand Right 3 View XRAY In Process Unspecified. EDMS 05:19 Hand Left 3 View XRAY In Process Unspecified. EDMS 05:47 CT Head C Spine In Process Unspecified. EDMS 05:47 CT Chest Abdomen Pelvis W/O Contrast In Process Unspecified. EDMS 05:47 Facial Bones W/ Mpr In Process Unspecified. EDMS 07:39 Pilar Lao, RN is Primary Nurse. ld1 08:45 Attending Physician role handed off by Black Harris MD patricia 08:45 Calderon South MD is Attending Physician. patricia 09:35 Lactate w/ 2H reflex if indic. Sent. ld1 09:35 Blood Culture Adult (2) Sent. ld1 10:03 Blood Culture Adult (2) Sent. ld1 10:03 Inserted saline lock: 20 gauge in right antecubital area, using aseptic technique. ld1 Blood collected. Flushed with 10 mL NS. 10:30 Straight cath inserted, using sterile technique, 14 Fr. Specimen obtained. Returned ld1 clear yellow urine. Patient tolerated well. 10:32 Colin Hu MD is Hospitalizing Provider. patricia Administered Medications: 05:47 Drug: Lidocaine Infiltration (1 %) 20 ml 20 ml Infiltration once; to bedside {Note: aa10 administer by physician .} Volume: 20 ml; Route: Infiltration; 05:47 Drug: Ibuprofen PO 800 mg PO once Route: PO; aa10 05:47 Drug: Acetaminophen PO 1000 mg PO once Route: PO; aa10 05:47 Drug: Methocarbamol PO 750 mg PO once Route: PO; aa10 05:47 Drug: Boostrix Tdap IM 0.5 ml IM once; as a single dose Route: IM; Site: left deltoid; aa10 10:51 Drug: Rocephin IV 1 grams IV at per protocol once; Given slow IV push per pharmacy ld1 instructions Route: IV; Rate: per protocol; Site: right antecubital; Medication: 05:00 VIS not applicable for this client. aa10 Intake: 04:48 PO: 0ml; IV: 0ml; Tubes: 0ml (); Total: 0ml. aa10 Output: 04:48 Urine: 0ml; Gastric: 0ml; Stool: 0; EBL: 0ml; Drainage: 0ml; Other: 0; Total: 0ml. aa10 Outcome: 05:02 Patient's length of stay was not longer than 2 hours. aa10 10:34 Decision to Hospitalize by Provider. patricia 16:45 Patient left the ED. bc6 Signatures: Dispatcher [employer] EDCalderon Collaoz MD MD cha Sims, Lauren, RN RN ld1 Alexa [id number] Mera Walker 6 Black Harris MD MD sp4 Saqib Puga RN RN aa10
--- NOTE | 2024-12-29 10:34 | EDPHYS ---
Physician Documentation [facility] Name: Arturo Saldana Age: 79 yrs Sex: Male : 1945 Arrival Date: 12/29/2024 Time: 04:05 Bed 19 Private MD: ED Physician Calderon South HPI: 12/29 04:11 This 79 yrs old Male presents to ER via Unassigned with complaints of Fall sp4 Injury. 08:11 Patient presents from [facility] , patient got up in the middle of sp4 the night felt causing bilateral hand abrasions also laceration to the nose and right lateral eyebrow. Family arrived and additionally reports that patient has been hallucinating and has acute mental status changes from baseline. Based on medical record patient is DNR. History of Alzheimer disease, bipolar disorder, dysphagia, hypertension, major depression, muscle weakness, type 2 diabetes, heart failure, BPH, cognitive communication deficit, lumbago with sciatica, mixed hyperlipidemia, protein calorie malnutrition, poor gait and mobility.. Medications include zinc sulfate vitamin C, Lantus Solostar, citalopram, atorvastatin, Humalog sliding scale, allopurinol, Klor-Con, furosemide, tamsulosin, citalopram, donepezil, albuterol, aspirin, losartan, carvedilol. Historical: - Allergies: 14:21 No Known Allergies; ld1 - Home Meds: 05:03 aspirin 81 mg Oral tablet 1 tab daily [Active]; atorvastatin 40 mg Oral tab 1 tab every aa10 evening [Active]; carvedilol 6.25 mg Oral tab 1 tab every 12 hours [Active]; divalproex 250 mg Oral Tablet 1 tab 2 times per day [Active]; donepezil 10 mg Oral tablet 1 tab every day at bedtime [Active]; gabapentin 100 mg Oral capsule 1 cap every day at bedtime [Active]; Lantus U-100 Insulin 100 unit/mL Sub-Q solution 60 units every evening [Active]; losartan 100 mg Oral tab 1 tab once daily [Active]; tamsulosin 0.4 mg Oral cap 1 cap once daily [Active]; - PMHx: 05:03 Congestive heart failure; CVA; depressive disorder; Diabetes - IDDM; aa10 Hypercholesterolemia; Hypertensive disorder; - Immunization history: Last tetanus immunization: - up to date. - Infectious Disease History:: Denies. - Social history:: Smoking status: unknown. ROS: 08:16 Constitutional: Negative for fever, chills, and weight loss, positive hallucinations sp4 positive mental status changes positive acute fall positive bilateral hand abrasion positive forehead contusion positive laceration right lateral eyebrow, positive laceration nasal bridge, positive facial contusion, 08:16 All other systems are negative, Exam: 08:16 Constitutional: Patient is a frail elderly man who several apparent injuries, sp4 bilateral abrasions to hands, bilateral hand contusion hematoma, bridge of the nose laceration and contusion, right lateral eyebrow laceration, facial contusions, signs of physical debility and moderate dementia. Patient is cooperative with exam Head/Face: Normocephalic, bridge of the nose laceration, right lateral eyebrow laceration Eyes: Pupils equal round and reactive to light, extra-ocular motions intact. Lids and lashes normal. Conjunctiva and sclera are not injected. Cornea within normal limits. Periorbital areas with no swelling, redness, or edema. ENT: Nares patent. No nasal discharge, no septal abnormalities noted. Tympanic membranes are normal and external auditory canals are clear. Oropharynx with no redness, swelling, or masses, exudates, or evidence of obstruction, uvula midline. Mucous membranes moist. Neck: Trachea midline, no thyromegaly or masses palpated, and no cervical lymphadenopathy. Supple, full range of motion without nuchal rigidity, or vertebral point tenderness. Chest/axilla: Normal chest wall appearance and motion. Nontender with no deformity. No lesions are appreciated. Cardiovascular: Regular rate and rhythm with a normal S1 and S2. No gallops, murmurs, or rubs. Normal PMI, no JVD. No pulse deficits. Respiratory: Lungs have equal breath sounds bilaterally, clear to auscultation and percussion. No rales, rhonchi or wheezes noted. No increased work of breathing, no retractions or nasal flaring. Abdomen/GI: Soft, with normal bowel sounds. No distension or tympany. No guarding or rebound. No evidence of tenderness throughout. Back: No spinal tenderness. No costovertebral tenderness. Skin: Warm, dry with normal turgor. Normal color with no rashes, no lesions, and no evidence of cellulitis. MS/ Extremity: Pulses equal, no cyanosis. Neurovascular intact. Full, normal range of motion. Neuro: Awake and alert, GCS 15, oriented to person, place, time, and situation. Cranial nerves II-XII grossly intact. Motor strength 5/5 in all extremities. Sensory grossly intact. Psych: Awake, alert, with orientation to person, place and time. Behavior, mood, and affect are within normal limits 11:47 ECG was reviewed by the Attending Physician. [facility] Vital Signs: 04:48 BP 163 / 94; Pulse 86; Resp 20; Temp 98; Pulse Ox 86% ; MAP 114 mmHg; aa10 05:04 BP 156 / 74; Pulse 88; Resp 20; Temp 98.8; Pulse Ox 99% on R/A; aa10 07:39 BP 151 / 84; Pulse 84; Resp 18; Pulse Ox 99% on R/A; ld1 10:53 BP 172 / 89; Pulse 81; Resp 18; Pulse Ox 95% on R/A; ld1 12:21 BP 156 / 76; Pulse 84; Resp 18; Pulse Ox 98% on R/A; ld1 [place] Coma Score: 04:48 Eye Response: spontaneous(4). Motor Response: obeys commands(6). Verbal Response: aa10 oriented(5). Total: 15. 08:16 Eye Response: spontaneous(4). Motor Response: obeys commands(6). Verbal Response: sp4 oriented(5). Total: 15. Trauma Score (Adult): 04:48 Eye Response: spontaneous(1); Verbal Response: oriented(1); Motor Response: obeys aa10 commands(2); Systolic BP: > 89 mm Hg(4); Respiratory Rate: 10 to 29 per min(4); Alexei Score: 15; Trauma Score: 12 Laceration: 08:19 Wound Repair of 1.5cm ( 0.6in ) subcutaneous laceration to outer aspect of right sp4 eyebrow. Irregularly shaped.. Distal neuro/vascular/tendon intact. Anesthesia: Wound infiltrated with 5 mls of 1% lidocaine. Wound prep: Moderate cleansing by me, Copious irrigation. Skin closed with 4 6-0 Prolene using interrupted sutures and sterile technique. Dressed with Neosporin. Patient tolerated well. 08:19 Wound Repair of 1.5cm ( 0.6in ) subcutaneous laceration to bridge of nose. Irregularly sp4 shaped.. Distal neuro/vascular/tendon intact. Anesthesia: Wound infiltrated with 4 mls of 1% lidocaine. Wound prep: Moderate cleansing by me, Copious irrigation. Skin closed with 3 6-0 Prolene using interrupted sutures and sterile technique. Dressed with Neosporin. Patient tolerated well. MDM: 04:35 Medical Screening Exam initiated sp4 07:50 ED course: EXAM: XR Right Hand Complete, 3 or More Views CLINICAL HISTORY: The patient sp4 is 79 years old and is Male; Right hand injury. TECHNIQUE: Three views of the right hand. COMPARISON: No relevant prior studies available. FINDINGS: Bones/joints: Multifocal degenerative changes in the interphalangeal joints. No acute fracture. No dislocation. Soft tissues: Unremarkable. No radiopaque foreign body. Vasculature: Moderate atherosclerotic calcification. IMPRESSION: No acute findings in the right hand. . ED course: EXAM: XR Left Hand Complete, 3 or More Views CLINICAL HISTORY: The patient is 79 years old and is Male; Left hand injury. TECHNIQUE: Three views of the left hand. COMPARISON: No relevant prior studies available. FINDINGS: Bones/joints: No acute fracture. Interphalangeal joint degenerative changes. No dislocation. Soft tissues: Dense soft tissue calcification in the webspace between the 1st and 2nd digits. No radiopaque foreign body. Vasculature: Atherosclerotic calcification. IMPRESSION: No acute fracture.. 08:11 ED course: EXAM: CT brain without contrast HISTORY: facial injury COMPARISON: sp4 08/01/2017 TECHNIQUE: Multiple contiguous axial images were obtained and a CT of the brain without contrast. Sagittal and coronal reformats were performed. One or more of the following dose reduction techniques were used: Automated exposure control, adjustment of the mA and/or kV according to patient size, and/or iterative reconstruction. FINDINGS: No evidence of hydrocephalus, intracranial hemorrhage, or extra-axial fluid collection. Advanced brain atrophy with advanced periventricular and deep white matter chronic microvascular ischemic changes present. No evidence of midline shift or areas of brain edema. The calvarium is intact. The visualized paranasal sinuses and mastoid air cells are essentially clear. Small frontal scalp hematoma. IMPRESSION: No evidence of acute intracranial abnormality. EXAM: CT of the cervical spine without contrast HISTORY: Neck pain, injury facial injury TECHNIQUE: Multiple contiguous axial images were obtained in a CT of the cervical spine without contrast. Sagittal and coronal reformats were performed. FINDINGS: The vertebral bodies demonstrate normal height and alignment. No evidence of acute fracture or subluxation.. Disc thinning with small endplate osteophytes lower cervical levels. No prevertebral soft tissue swelling is seen. The posterior facets are well aligned. Normal alignment of the skull base with the cervical spine is seen. Mild carotid atherosclerosis. The lung apices are unremarkable. IMPRESSION: No evidence of acute osseous abnormality of the cervical spine. [id number] lower cervical degenerative spondylosis. . 08:15 ED course: EXAM: CT CHEST, ABDOMEN AND PELVIS WITHOUT CONTRAST CLINICAL INDICATION: sp4 fall TECHNIQUE: CT chest, abdomen and pelvis was performed without contrast, as per department protocol. Axial, sagittal and coronal reconstructions were obtained. One or more of the following dose reduction techniques were used: Automated exposure control, adjustment of the mA and/or kV according to patient size, and/or iterative reconstruction. Unless otherwise specified, incidental findings do not require dedicated imaging follow-up. Examination is limited by the lack of intravenous contrast material. COMPARISON: No prior exam. FINDINGS: LUNGS: No evidence of airspace or interstitial process. No nodules. PLEURA: No pleural effusion. No pneumothorax. MEDIASTINUM AND LYMPH NODES: No mediastinal mass or fluid collection. Normal size mediastinal, hilar, and axillary lymph nodes. OSSEOUS STRUCTURES AND CHEST WALL: Intact. LIVER: Normal in size and contour. No focal lesion or biliary dilatation. Grossly unremarkable gallbladder. PANCREAS: No mass, ductal dilation, or oz-pancreatic fluid. SPLEEN: Normal size. No focal lesion. ADRENALS: Normal; no mass. KIDNEYS: Normal size and contour. No hydronephrosis. There is notable left renal artery ostial hard plaquing. URINARYBLADDER: Normal contour. GASTROINTESTINAL TRACT: No bowel obstruction, free air, significant free fluid or abscess. APPENDIX: Normal appendix. LYMPH NODES: No lymphadenopathy. MUSCULOSKELETAL: Mild multilevel degenerative spondylosis. OTHER: Small fat-containing left inguinal hernia. IMPRESSION: No acute abnormalities seen in the chest, abdomen or pelvis. . 08:18 Differential diagnosis: abrasion, closed head injury, contusion, fracture, laceration, sp4 multiple trauma, sprain, strain. Data reviewed: vital signs, nurses notes, EMS record, old medical records, lab test result(s), EKG, radiologic studies, CT scan, plain films. Consideration of Admission/Observation Escalation of care including admission/observation considered. Transition of care: After a detail discussion of the patient's case, care is transferred to Calderon South MD. 12/29 08:14 Order name: Basic Metabolic Panel; Complete Time: 10: 12/29 08:14 Order name: CBC with Diff; Complete Time: 10: [facility] 12/29 08:14 Order name: LFT's; Complete Time: 10: 12/29 08:14 Order name: Magnesium; Complete Time: 10: 12/29 08:14 Order name: NT PRO-BNP; Complete Time: 10: 12/29 08:14 Order name: PT-INR; Complete Time: 10: [facility] 12/29 08:14 Order name: Troponin HS; Complete Time: 10: [facility] 12/29 08:14 Order name: Blood Culture Adult (2) [facility] 12/29 08:14 Order name: Lactate w/ 2H reflex if indic.; Complete Time: 10 [facility] 12/29 08:14 Order name: CRP; Complete Time: 10: [facility] 12/29 08:14 Order name: Urinalysis W/Microscopic; Complete Time: 11:37 [facility] 12/29 08:46 Order name: Urine Culture [facility] 12/29 12:07 Order name: CBC with Automated Diff EDMS 12/29 12:07 Order name: CBC with Automated Diff EDMS 12/29 12:07 Order name: CBC with Automated Diff EDMS 12/29 12:07 Order name: CBC with Automated Diff EDMS 12/29 12:07 Order name: CBC with Automated Diff EDMS 12/29 12:07 Order name: Comprehensive Metabolic Panel EDMS 12/29 12:07 Order name: Comprehensive Metabolic Panel EDMS 12/29 12:07 Order name: Comprehensive Metabolic Panel EDMS 12/29 12:07 Order name: Comprehensive Metabolic Panel EDMS 12/29 12:07 Order name: Comprehensive Metabolic Panel EDMS 12/29 12:07 Order name: Procalcitonin EDMS 12/29 12:07 Order name: Procalcitonin EDMS 12/29 12:07 Order name: Troponin High Sensitivity EDMS 12/29 12:07 Order name: Troponin High Sensitivity EDMS 12/29 12:07 Order name: Troponin High Sensitivity EDMS 12/29 16:26 Order name: Glucose, Ancillary Testing [facility] 12/29 04:51 Order name: CT Head C Spine; Complete Time: 09:30 4 12/29 04:52 Order name: CT Chest Abdomen Pelvis W/O Contrast; Complete Time: 09:30 4 12/29 04:52 Order name: Hand Right 3 View XRAY; Complete Time: 09:30 4 12/29 04:53 Order name: Hand Left 3 View XRAY; Complete Time: 09:30 [facility] 12/29 05:30 Order name: Facial Bones W/ Mpr; Complete Time: 09:30 [facility] 12/29 12:08 Order name: Physical Therapy Consult [facility] 12/29 04:52 Order name: Dressing - Wound; Complete Time: 05:48 [facility] 12/29 04:52 Order name: Gloves, Sterile; Complete Time: 05:48 sp4 12/29 04:52 Order name: Setup Suture Tray; Complete Time: 05:48 4 12/29 08:14 Order name: Cardiac monitoring; Complete Time: 10:03 [facility] 12/29 08:14 Order name: EKG - Nurse/Tech; Complete Time: 10:03 4 12/29 08:14 Order name: IV Saline Lock; Complete Time: 09:34 sp4 12/29 08:14 Order name: Labs collected and sent; Complete Time: 09:35 [facility] 12/29 08:14 Order name: O2 Per Protocol; Complete Time: 08:46 4 12/29 08:14 Order name: O2 Sat Monitoring; Complete Time: 08:46 4 EC:47 Rate is 74 beats/min. Rhythm is regular. QRS [place] is Normal. NM interval is normal. QRS patricia interval is normal. QT interval is normal. No Q waves. T waves are Normal. No ST changes noted. Clinical impression: NSR w/ Non-specific ST/T Changes and No evidence of ischemia. Interpreted by me. Reviewed by me. Administered Medications: 05:47 Drug: Lidocaine Infiltration (1 %) 20 ml 20 ml Infiltration once; to bedside {Note: aa10 administer by physician .} Volume: 20 ml; Route: Infiltration; 05:47 Drug: Ibuprofen PO 800 mg PO once Route: PO; aa10 05:47 Drug: Acetaminophen PO 1000 mg PO once Route: PO; aa10 05:47 Drug: Methocarbamol PO 750 mg PO once Route: PO; aa10 05:47 Drug: Boostrix Tdap IM 0.5 ml IM once; as a single dose Route: IM; Site: left deltoid; aa10 10:51 Drug: Rocephin IV 1 grams IV at per protocol once; Given slow IV push per pharmacy ld1 instructions Route: IV; Rate: per protocol; Site: right antecubital; Disposition Summary: 12/29/24 10:34 Hospitalization Ordered Notes: Hospitalization Status: Inpatient Admission patricia Provider: Colin Hu cha Condition: Fair patricia Problem: new patricia Symptoms: have improved patricia Bed/Room Type: Standard patricia Location: Telemetry/MedSurg (Inpatient)(12/29/24 15:18) bd Room Assignment: 232(12/29/24 16:16) Diagnosis - Fall on same level, unspecified patricia - Altered mental status, unspecified patricia - Laceration without foreign body of other part of head - FACIAL patricia - UTI/ Urinary tract infection, site not specified patricia Forms: - Medication Reconciliation Form patricia - SBAR form patricia - Leadership Thank You Letter patricia Signatures: Dispatcher [employer] EDMS Nidhi Crowley Corey, MD MD cha Blanchard, Shelby, MICHAEL RN ss Aung Thomas, ELEVATOR INSPECTOR-C ELEVATOR INSPECTOR-Cla1 Pilar Lao RN RN ld1 Linda Childress, MICHAEL RODRIGUEZ kb3 Black Harris MD MD sp4 Saqib Puga, MICHAEL RN aa10 Corrections: (The following items were deleted from the chart) 04:53 04:53 Hand Left 3 View+RAD.RAD.BRZ ordered. EDMS EDMS 08:15 08:15 BASIC METABOLIC PANEL+C.LAB.BRZ ordered. EDMS EDMS 08:15 08:15 CBC+H.LAB.BRZ ordered. EDMS EDMS 08:15 08:15 HEPATIC FUNCTION+C.LAB.BRZ ordered. EDMS EDMS 08:15 08:15 MAGNESIUM+C.LAB.BRZ ordered. EDMS EDMS 08:15 08:15 PROBNP+C.LAB.BRZ ordered. EDMS EDMS 08:15 08:15 PROTIME (+INR)+COAG.LAB.BRZ ordered. EDMS EDMS 08:15 08:15 Troponin High Sensitivity+C.LAB.BRZ ordered. EDMS EDMS 08:15 08:15 BLOOD CULTURE*+BA.LAB.BRZ ordered. EDMS EDMS 08:15 08:15 LACTATE+C.LAB.BRZ ordered. EDMS EDMS 08:15 08:15 C-REACTIVE PROTEIN+C.LAB.BRZ ordered. EDMS EDMS 08:15 08:15 Urinalysis W/Microscopic+U.LAB.BRZ ordered. EDMS EDMS 12:39 10:34 Telemetry/MedSurg (Inpatient) patricia kb3 12:39 10:34 patricia kb3 15:18 12:39 [facility] ER HOLD kb3 bd 15:18 12:39 ERHOLD- kb3 bd 16:16 15:18 222 bd ss
[2024-12-29 10:52] LABS: Specific Gravity 1.014 (1.005-1.030); Sqamous Epithelial <5 /HPF (None Seen); Transitional Epithelial <5 /HPF (None Seen); Urine Bacteria None Seen /HPF (<20); Urine Bilirubin NEGATIVE (Negative); Urine Blood 3+ (OVER) (Negative); Urine Clarity Turbid (Clear); Urine Color Light-Yellow (Yellow); Urine Culture Reflex Order REFLEXED; Urine Glucose TRACE (Negative); Urine Ketones NEGATIVE (Negative); Urine Micro Reflex YN NO BILL MICROSCOPIC; Urine Mucus Slight /HPF (None Seen); Urine Nitrite NEGATIVE (Negative); Urine Protein NEGATIVE (Negative); Urine RBC 21-50 /HPF (None Seen); Urine Urobilinogen Normal (Normal); Urine WBC 20-50 /HPF (<5)
[2024-12-29] MEDS: NA CHLORIDE 0.9% 1,000 ML IV SCH (12:00)
[2024-12-29] MEDS: INSULIN REGULAR (HUMAN) 100 UNIT/ML SQ SCH (12:30)
[2024-12-29 15:16] VITALS: BMI 26.1
--- NOTE | 2024-12-29 15:55 | P.HP ---
Certification for Inpatient Patient admitted to: Inpatient With expected LOS: >2 Midnights Patient will require the following post-hospital care: None Practitioner: I am a practitioner with admitting privileges, knowledge of patient current condition, hospital course, and medical plan of care. Services: Services provided to patient in accordance with Admission requirements found in Title 42 Section 412.3 of the Code of Federal Regulations Patient History Date of Service: 12/29/24 Reason for admission: AMS, fall History of Present Illness: 79-year-old male with history of Alzheimer's, dementia, BPD, diabetes mellitus type 2insulin-dependent, CHF, BPH, hyperlipidemia presents to the emergency department chief complaint of fall, increasing confusion. He is a resident of [facility] and reportedly had a fall around 1 or 2 AM. His family reports that since yesterday morning he has been more confused than normal similar to how he was last time when he had a urinary tract infection. Patient was evaluated in the emergency department his labs were significant for a mildly elevated white blood cell count of 11.8 creatinine 1.54 GFR 46 glucose 164 CRP 4.1 UA shows 20-50 white blood cells 21-50 red blood cells 3+ blood. This was a cath specimen. CT facial bones showed nasal bone fracture involving the left nasal bones. CT head/C-spine as well as chest abdomen pelvis was negative for acute findings, x-ray of the left hand were also performed which was negative for acute findings. ED provider wishes to admit patient for AMS, fall Allergies No Known Allergies Allergy (Verified 11/17/12 09:30) Home Medications: Aspirin Tab [Princess Aspirin*] 1 tab PO DAILY 05/28/14 Allopurinol 300 mg PO DAILY 04/01/24 Atorvastatin Calcium 40 mg PO DAILY 04/01/24 Citalopram [Celexa*] 10 mg PO DAILY 04/01/24 Divalproex Sodium [Divalproex Sodium ER] 250 mg PO BID 04/01/24 Donepezil HCl 10 mg PO DAILY 04/01/24 Furosemide 40 mg PO DAILY 04/01/24 Potassium Chloride [Klor-Con M20] 20 meq PO DAILY 04/01/24 Quetiapine Fumarate [Seroquel] 50 mg PO BEDTIME 04/01/24 Tamsulosin [Flomax*] 0.8 mg PO BEDTIME #60 cap 04/01/24 carvediloL [Carvedilol] 6.25 mg PO BID 04/01/24 Ciprofloxacin HCl [Cipro 500 MG Tablet] 500 mg PO BID 10 Days #20 tab 07/26/24 Losartan Potassium [Cozaar*] 100 mg PO DAILY 30 Days #30 tab 07/26/24 carvediloL [Coreg*] 6.25 mg PO BID 30 Days #60 tab 07/26/24 - Past Medical/Surgical History Has patient received pneumonia vaccine in the past: Yes Diabetic: Yes -: Hypertension -: Diabetes -: Stroke -: Dementia -: Hyperlipidemia Psychosocial/ Personal History: Currently resident at a shelter - Social History Smoking Status: Never smoker Alcohol use: No CD- Drugs: No Caffeine use: Yes Place of Residence: Group Home Review of Systems is unable to be obtained Physical Examination - Physical Exam General: Alert, In no apparent distress, Confused HEENT: Atraumatic, PERRLA, EOMI Neck: Supple, 2+ carotid pulse no bruit, No LAD Respiratory: Clear to auscultation bilaterally, Normal air movement Cardiovascular: Regular rate/rhythm, Normal S1 S2 Gastrointestinal: Normal bowel sounds, No tenderness Musculoskeletal: No tenderness Integumentary: No rashes Neurological: Normal speech, Normal strength at 5/5 x4 extr, Normal affect - Studies Laboratory Data (last 24 hrs) 12/29/24 12/29/24 12/29/24 09:27 09:27 09:27 WBC 11.80 H Hgb 11.3 L Hct 33.9 L Plt Count 302 PT 11.2 INR 0.98 Sodium 136 Potassium 4.1 BUN 22 H Creatinine 1.54 H Glucose 164 H Magnesium 2.4 Total Bilirubin 0.4 AST < 10 L ALT < 14 L Alkaline Phosphatase 91 Assessment and Plan - Plan Assessment: Metabolic encephalopathy with underlying dementia-rule out UTI Fall injury-left nasal bone fracture Diabetes mellitus type 2insulin-dependent Chronic systolic CHF Hypertension Hyperlipidemia Plan: Metabolic encephalopathy with underlying dementia-rule out UTI Urine obtained via straight cath Await culture Repeat CBC in the morning, obtain procalcitonin Empiric antibiotics with Rocephin for now PT consultation Fall injury-left nasal bone fracture PT consultation Diabetes mellitus type 2insulin-dependent ACHS Accu-Chek, sliding scale insulin Chronic systolic CHF Hypertension Hyperlipidemia Continue home medications DVT PPX: Lovenox Code status: Full Discharge Plan: Group Home Plan to discharge in: 48 Hours - Advance Directives Does patient have a Living Will: No Does patient have a Durable POA for Healthcare: No - Code Status/Comfort Care Code Status Assessed: Yes (DNAR) Critical Care: No Time Spent Managing Pts Care (In Minutes): 67
[2024-12-29] MEDS: carvediloL 6.25 MG TAB PO SCH (18:09)
[2024-12-29] MEDS: DONEPEZIL HCL 5 MG TAB PO SCH (20:38)
[2024-12-29] MEDS: LOSARTAN POTASSIUM 50 MG TABLET PO SCH (20:38)
[2024-12-29] MEDS: TAMSULOSIN 0.4 MG SR CAP PO SCH (20:38)
[2024-12-30 04:46] LABS: Absolute Basophils 0.1 K/uL (0-0.5); Absolute Eosinophils 0.3 K/uL (0-0.5); Absolute Lymphocytes (CBC) 1.3 K/uL (0.7-4.9); Absolute Monocytes 0.9 K/uL (0.1-1.3); Absolute Neutrophil 7.2 K/uL (1.8-8.0); Eosinophils % 3.4 % (0-4.4); Hematocrit 33.4 % (39.6-49.0); Hemoglobin 11.5 g/dL (13.6-17.9); Lymphocytes % 12.8 % (15.3-44.8); MCHC 34.3 g/dL (32.0-36.0); MCV 90.2 fL (80-100); MPV 8.6 fL (7.6-11.3); Monocytes % 9.1 % (3.3-12.3); Neutrophils % 73.7 % (41.7-73.7); Platelets 282 thou/uL (152-406); RBC Red Blood Cell Count 3.71 M/uL (4.33-5.43); Red Cell Distribution Width 14.9 % (12.1-15.2)
[2024-12-30 05:45] LABS: Albumin/Globulin Ratio 0.9 (1.1-1.8); Alkaline Phosphatase 81 U/L (45-117); Anion Gap 9.7 mEq/L (5.0-15.0); BUN Blood Urea Nitrogen 19 mg/dL (7-18); Bicarbonate 27 mEq/L (21-32); Bilirubin Total 0.3 mg/dL (0.2-1.0); Globulin 3.4 g/dL (2.3-3.5); Glomerular Filtration Rate 58 ml/min (=/>90); Glucose Level 82 mg/dL (74-106); Potassium 3.7 mEq/L (3.5-5.1); Protein, Total 6.4 g/dL (6.4-8.2); Sodium Level 142 mEq/L (136-145)
[2024-12-30 05:51] LABS: ALT/SGPT < 14 U/L (16-61); AST/SGOT < 10 U/L (15-37)
--- NOTE | 2024-12-30 08:38 | EKG ---
Test Date: 2024-12-29 Test Time: 09:47:01 Chief Order Dispatcher: BOLIVAR MEASUREMENT RESULTS: Intervals: Rate: 74 ME: 190 QRSD: 90 QT: 424 QTc: 470 [place]: P: ME: 190 QRS: 21 T: 19 INTERPRETIVE STATEMENTS: Normal sinus rhythm Inferior infarct, age undetermined Abnormal ECG Compared to ECG 07/22/2024 04:15:36 Myocardial infarct finding now present Sinus tachycardia no longer present Electronically Signed On 12-30-24 08:35:48 CDT by Kyrie Kuhn
[2024-12-30] MEDS: ENOXAPARIN 40 MG/0.4 ML SQ SCH (09:00)
[2024-12-30] MEDS: allopurinoL 300 MG TAB PO SCH (09:52)
[2024-12-30] MEDS: POTASSIUM CL SA 10 MEQ TAB PO ONE (09:52)
[2024-12-30] MEDS: CEFTRIAXONE 1,000 MG in NA CHLORIDE 0.9% 50 ML IVPB SCH (09:52)
[2024-12-30] MEDS: ASPIRIN EC 81 MG TAB PO SCH (09:55)
[2024-12-30] MEDS ORDERED: LIDOCAINE 1% 20 ML MDV ONE (09:59)
[2024-12-30] MEDS ORDERED: HEPA 1000U/500MLS 2,000 UNIT/1,000 ML BAG IV ONE (09:59)
[2024-12-30] MEDS ORDERED: HEPARIN 10,000 UNIT/10 ML VIAL IV ONE (09:59)
[2024-12-30] MEDS ORDERED: ATROPINE SULF 1 MG/10 ML SYR IV ONE (09:59)
[2024-12-30] MEDS ORDERED: HEPARIN 5000 UNIT/ML 1 ML VIAL ONE (10:00)
[2024-12-30] MEDS ORDERED: CLOPIDOGREL 75 MG TABLET ONE (10:01)
[2024-12-30] MEDS ORDERED: TICAGRELOR 90 MG TABLET PO ONE (10:02)
[2024-12-30] MEDS ORDERED: ASPIRIN 325 MG TAB ONE (10:02)
[2024-12-30] MEDS ORDERED: MIDAZOLAM HCL 2 MG/2 ML INJ ONE (10:06)
[2024-12-30] MEDS ORDERED: FENTANYL CITR 100 MCG/2 ML ONE (10:07)
[2024-12-30] MEDS ORDERED: NA CHLORIDE 0.9% 500 ML ONE (10:21)
--- NOTE | 2024-12-30 11:39 | P.CNS ---
Date of Consult: 12/30/24 Chief Complaint: AMS, fall History of Present Illness: Patient with PMH of dementia, lives in a halfway, HTN, HLD, DM presented with fall, AMS, getting treated for possible UTI, had leak in troponin so cardiology were consulted, denies having chest pain but report syncopal episo bird. Allergies No Known Allergies Allergy (Verified 11/17/12 09:30) Home medications list reviewed: Yes Home Medications: Aspirin Tab [Princess Aspirin*] 1 tab PO DAILY 05/28/14 Allopurinol 300 mg PO DAILY 04/01/24 Atorvastatin Calcium 40 mg PO DAILY 04/01/24 Citalopram [Celexa*] 10 mg PO DAILY 04/01/24 Divalproex Sodium [Divalproex Sodium ER] 250 mg PO BID 04/01/24 Donepezil HCl 10 mg PO DAILY 04/01/24 Furosemide 40 mg PO DAILY 04/01/24 Potassium Chloride [Klor-Con M20] 20 meq PO DAILY 04/01/24 Quetiapine Fumarate [Seroquel] 50 mg PO BEDTIME 04/01/24 Tamsulosin [Flomax*] 0.8 mg PO BEDTIME #60 cap 04/01/24 carvediloL [Carvedilol] 6.25 mg PO BID 04/01/24 Ciprofloxacin HCl [Cipro 500 MG Tablet] 500 mg PO BID 10 Days #20 tab 07/26/24 Losartan Potassium [Cozaar*] 100 mg PO DAILY 30 Days #30 tab 07/26/24 carvediloL [Coreg*] 6.25 mg PO BID 30 Days #60 tab 07/26/24 - Past Medical/Surgical History Diabetic: Yes -: Hypertension -: Diabetes -: Stroke -: Dementia -: Hyperlipidemia Psychosocial/ Personal History: Currently resident at a halfway - Social History Smoking Status: Unknown if ever smoked Alcohol use: No CD- Drugs: No Caffeine use: Yes Place of Residence: [facility] Review of Systems 10-point ROS is otherwise unremarkable Physical Examination Temp Pulse Resp BP Pulse Ox 98.3 F 84 18 153/72 H 98 12/30/24 08:00 12/30/24 09:52 12/30/24 08:00 12/30/24 09:52 12/30/24 08:00 General: Alert, In no apparent distress HEENT: Atraumatic, PERRLA, Mucous membr. moist/pink, EOMI, Sclerae nonicteric Neck: Supple, 2+ carotid pulse no bruit, No LAD, Without JVD or thyroid abnormality Respiratory: Clear to auscultation bilaterally, Normal air movement Cardiovascular: Regular rate/rhythm, Normal S1 S2 Gastrointestinal: Normal bowel sounds, No tenderness Musculoskeletal: No tenderness Integumentary: No rashes Neurological: Normal gait, Normal speech, Normal tone, Normal affect Lymphatics: No axilla or inguinal lymphadenopathy - Problems (1) NSTEMI (non-ST elevated myocardial infarction) Current Visit: Yes Status: Acute Plan: Patient had mild elak in troponin with multiple risk factors. coronary angiogram done and shown significant LCX disease s/p PCI, also moderate heavy calcified mid LAD disease. ASA 81 mg daily for life. Brilinta 90 mg po BID for 12 months Lipitor 40 mg daily outpatient follow up with cardiology for stress test to check if intervention for LAD is needed. (2) Hyperlipidemia Current Visit: No Status: Acute Plan: lipitor 40 mg daily (3) Hypertension Current Visit: No Status: Acute Plan: continue coreg and losartan
--- NOTE | 2024-12-30 13:20 | P.PN ---
Date of Service: 12/30/24 Subjective: Troponin elevated on recheck Cardiology evaluated ROS: 10 point ROS as noted above, otherwise negative Physical exam GEN: Alert, oriented, NAD HEENT: Normal conjunctiva, sclera anicteric CV: Regular rate and rhythm, no edema Pulm: Nonlabored respirations on room air ABD: Soft, nontender, nondistended MSK: No joint tenderness Integumentary: No rashes Neuro: Normal speech, normal affect Vitals reviewed Assessment: NSTEMI/ACS Metabolic encephalopathy with underlying dementia-rule out UTI Fall injury-left nasal bone fracture Diabetes mellitus type 2insulin-dependent Chronic systolic CHF Hypertension Hyperlipidemia Plan: NSTEMI/ACS Troponins elevated overnight cardiology consulted, coronary angiogram performed today Stent placed to left circumflex Moderate disease to LAD, will need outpatient stress test to determine need for intervention Continue aspirin, Brilinta, statin Metabolic encephalopathy with underlying dementia-rule out UTI Urine obtained via straight cath Await culture Repeat CBC in the morning Empiric antibiotics with Rocephin for now PT consultation Fall injury-left nasal bone fracture PT consultation Diabetes mellitus type 2insulin-dependent ACHS Accu-Chek, sliding scale insulin Chronic systolic CHF Hypertension Hyperlipidemia Continue home medications DVT PPX: Lovenox Code status: Full Discharge Plan: Senior Living Plan to discharge in: 48 Hours Time Spent Managing Pts Care (In Minutes): 35
[2024-12-30 14:09] VITALS: O2SAT 98
[2024-12-30] MEDS: ONDANSETRON 4 MG/2 ML VIAL IV PRN (15:54)
[2024-12-30] MEDS: ATORVASTATIN 40 MG TAB PO SCH (20:39)
[2024-12-30] MEDS: TICAGRELOR 90 MG TABLET PO SCH (20:40)
--- NOTE | 2024-12-30 21:15 | OP ---
Date of Procedure: 12/30/2024 Surgeon: Kyrie Kuhn Procedures Performed: 1. Selective angiogram. 2. Percutaneous coronary intervention of the left circumflex with Synergy 3.5 x 16 mm drug-eluting st ent. Indication For Procedures: Non-ST elevation WI. Complications: None. Estimated Blood Loss: Less than 50 cc. Access: Right radial, closed by TR band. Sedation Time: 30 minutes with 2 of Versed and 50 of fentanyl. Description Of Procedure: After risks, benefits, and alternatives were explained to patient, patient agreed to proceed with procedure and signed informed consent. The patient was brought back to the c ath lab prepped and draped in sterile fashion. Time-out was performed. Sedation was administered. Next, [place] 4 catheter was advanced over J-wire to the aortic root. Selective angiogram was done of the left and right coronary systems. That catheter was later exchanged for an EBU 3.5 mm guide. He joseph was administered. ACT was therapeutic. Runthrough wire was passed across the left circ lesion s, pre-dilated the lesion with an NC 3.0 mm balloon. Next, Synergy 3.5 x 16 mm drug-eluting stent wa s placed to close the lesion that is postdilated with an NC 4.0 mm balloon. Final angiogram shows TI WI-3 flow. Wire was removed. Catheter was removed over a J-wire. Sheath was removed. TR band was applied and hemostasis was achieved and the patient was moved back to recovery in stable condition. Findings: 1. Left main: Normal. 2. LAD: Heavy calcified artery with a proximal 30% disease, then mid 50% disease followed by mid to distal mild luminal regularities that gives a small diagonal 1 that got mid 90% disease. 3. Left circ: Large, dominant, heavy calcified with mid 70% to 80% disease, status post PCI with Syn ergy 3.5 x 16 mm drug-eluting stent, distal mild luminal irregularities continue as the left PDA. 4. RCA: Small, nondominant, mid 100% occluded. Assessment: 1. Significant left circ disease, status post PCI with Synergy 3.5 x 16 mm drug-eluting stent. 2. Proximal to mid calcified left anterior descending disease, outpatient stress test to evaluate for need for intervention. Plan: 1. Aspirin 81 mg daily for life. 2. 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 Continue Brilinta 90 mg p.o. b.i.d. for 12 months. LALITA/JED Voice ID: [id number] Report ID: [id number]
[2024-12-31 04:27] LABS: Absolute Basophils 0.1 K/uL (0-0.5); Absolute Eosinophils 0.3 K/uL (0-0.5); Absolute Lymphocytes (CBC) 1.3 K/uL (0.7-4.9); Absolute Monocytes 0.9 K/uL (0.1-1.3); Absolute Neutrophil 7.1 K/uL (1.8-8.0); Eosinophils % 3.5 % (0-4.4); Hematocrit 30.6 % (39.6-49.0); Hemoglobin 10.3 g/dL (13.6-17.9); Lymphocytes % 13.1 % (15.3-44.8); MCH 30.4 pg (27.0-35.0); MCHC 33.5 g/dL (32.0-36.0); MCV 90.5 fL (80-100); MPV 8.3 fL (7.6-11.3); Monocytes % 9.3 % (3.3-12.3); Neutrophils % 73.1 % (41.7-73.7); Nucleated Red Blood Cells % 0.1 % (0-0); Platelets 258 thou/uL (152-406); RBC Red Blood Cell Count 3.38 M/uL (4.33-5.43); Red Cell Distribution Width 14.8 % (12.1-15.2)
[2024-12-31 05:12] LABS: Albumin 2.7 g/dL (3.4-5.0); Albumin/Globulin Ratio 0.8 (1.1-1.8); Alkaline Phosphatase 76 U/L (45-117); Anion Gap 6.9 mEq/L (5.0-15.0); BUN Blood Urea Nitrogen 15 mg/dL (7-18); Bicarbonate 26 mEq/L (21-32); Bilirubin Total 0.3 mg/dL (0.2-1.0); Globulin 3.2 g/dL (2.3-3.5); Glomerular Filtration Rate 60 ml/min (=/>90); Glucose Level 190 mg/dL (74-106); Potassium 3.9 mEq/L (3.5-5.1); Protein, Total 5.9 g/dL (6.4-8.2); Sodium Level 140 mEq/L (136-145)
[2024-12-31 05:15] LABS: ALT/SGPT < 14 U/L (16-61); AST/SGOT < 10 U/L (15-37)
[2024-12-31] MEDS: HYDRALAZINE HCL 20 MG/ML VIAL IV PRN (06:20)
[2024-12-31] MEDS: POTASSIUM CL SA 10 MEQ TAB PO ONE (08:10)
[2024-12-31 12:54] VITALS: BP 137/69; TEMP 98.4
--- NOTE | 2024-12-31 13:24 | ECHO ---
HEIGHT: 5 ft 8 in WEIGHT: 171 lb 15.369 oz DATE OF STUDY: 12/31/[address]: Prince Bety Fish MD 2-DIMENSIONAL: YES M.MODE: YES DOPPLER: YES COLOR FLOW: YES TDS: PORTABLE: YES DEFINITY: BUBBLE STUDY: DIAGNOSIS: NON ST ELEVATION MYOCARDIAL INFARCTION CARDIAC HISTORY: CATHERIZATION: YES SURGERY: PROSTHETIC VALVE: PACEMAKER: MEASUREMENTS (cm) DIASTOLIC (NORMALS) SYSTOLIC (NORMALS) IVSd 1.1 (0.6-1.2) LA Diam 3.7 (1.9-4.0) LVEF 60-65% LVIDd 4.5 (3.5-5.7) LVIDs 2.9 (2.0-3.5) %FS 34% LVPWd 1.2 (0.6-1.2) Ao Diam 3.4 (2.0-3.7) 2 DIMENSIONAL ASSESSMENT: RIGHT ATRIUM: NORMAL LEFT ATRIUM: NORMAL RIGHT VENTRICLE: NORMAL LEFT VENTRICLE: NORMAL TRICUSPID VALVE: NORMAL MITRAL VALVE: MODERATE MITRAL ANNULAR CALCIFICATION WITH MILD MITRAL REGURGITATION PULMONIC VALVE: NOT SEEN AORTIC VALVE: NORMAL PERICARDIAL EFFUSION: TRACE AORTIC ROOT: NORMAL LEFT VENTRICULAR WALL MOTION: NORMAL DOPPLER/COLOR FLOW: SEE BELOW COMMENTS: 1. NORMAL LEFT VENTRICULAR EJECTION FRACTION 60-65% WITH NORMAL WALL MOTION 2. 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 GRADE I DIASTOLIC DYSFUNCTION TECHNOLOGIST: ANN MARTINEZ
--- NOTE | 2024-12-31 15:10 | P.DS ---
Admission Date: 12/29/24 Discharge Date: 12/31/24 Disposition: TRANSFER TO [facility] Discharge Condition: GOOD Reason for Admission: AMS, fall Brief History of Present Illness: 79-year-old male with history of Alzheimer's, dementia, BPD, diabetes mellitus type 2insulin-dependent, CHF, BPH, hyperlipidemia presents to the emergency department chief complaint of fall, increasing confusion. He is a resident of [facility] and reportedly had a fall around 1 or 2 AM. His family reports that since yesterday morning he has been more confused than normal similar to how he was last time when he had a urinary tract infecti on. Patient was evaluated in the emergency department his labs were significant for a mildly elevated white blood cell count of 11.8 creatinine 1.54 GFR 46 glucose 164 CRP 4.1 UA shows 20-50 white blood cells 21-50 red blood cells 3+ blood. This was a cath specimen. CT facial bones showed nasal bone fracture involving the left nasal bones. CT head/C-spine as well as chest abdomen pelvis was ne gative for acute findings, x-ray of the left hand were also performed which was negative for acute findings. ED provider wishes to admit patient for AMS, fall Hospital Course: Assessment: NSTEMI/ACS Metabolic encephalopathy with underlying dementia-rule out UTI Fall injury-left nasal bone fracture Diabetes mellitus type 2insulin-dependent Chronic systolic CHF Hypertension Hyperlipidemia Patient was admitted to the hospital for a fall with subsequent confusion. He was monitored in the hospital overnight and his troponins became elevated. He was seen by cardiology who recommended a coronary angiogram be performed. A stent was placed to the left circumflex, the LAD was noted to have mild disease as well which will be monitored outpatient. Patient has done well after recovery from heart catheterization, his urine was negative for urinary tract infection, urine culture showed no growth. He is stable for discharge back to the long-term. He did sustain a nasal fracture with his fall which appears to be nondisplaced, recommend follow-up with ENT in 1 week He will also need to follow-up with cardiology, they will plan for an outpatient stress test to determine if he would benefit from intervention to the LAD in the future Continue home medications as previously prescribed New medication Brilinta 90 mg by mouth twice daily-it is very important that this medication is taken as scheduled prevent issues with the stent that was placed Patient also continue his aspirin, statin Vital Signs/Physical Exam: Temp Pulse Resp BP Pulse Ox 98.4 F 81 16 137/69 96 12/31/24 12:00 12/31/24 12:00 12/31/24 12:00 12/31/24 12:00 12/31/24 12:00 General: Alert, In no apparent distress, Oriented x2 HEENT: Atraumatic, PERRLA, EOMI Neck: Supple, JVD not distended Respiratory: Clear to auscultation bilaterally, Normal air movement Cardiovascular: Regular rate/rhythm, Normal S1 S2 Gastrointestinal: Normal bowel sounds, No tenderness Musculoskeletal: No tenderness Integumentary: No rashes, Other (facial bruising noted) Neurological: Normal speech Laboratory Data at Discharge: WBC 9.80 thou/uL (4.3-10.9) 12/31/24 04:17 Hgb 10.3 g/dL (13.6-17.9) L D 12/31/24 04:17 Hct 30.6 % (39.6-49.0) L 12/31/24 04:17 Plt Count 258 thou/uL (152-406) 12/31/24 04:17 PT 11.2 SECONDS (10-13.0) 12/29/24 09:27 INR 0.98 12/29/24 09:27 Sodium 140 mEq/L (136-145) 12/31/24 04:17 Potassium 3.9 mEq/L (3.5-5.1) 12/31/24 04:17 BUN 15 mg/dL (7-18) 12/31/24 04:17 Creatinine 1.23 mg/dL (0.70-1.30) 12/31/24 04:17 Glucose 190 mg/dL (74-106) H 12/31/24 04:17 Magnesium 2.4 mg/dL (1.6-2.4) 12/29/24 09:27 Total Bilirubin 0.3 mg/dL (0.2-1.0) 12/31/24 04:17 AST < 10 U/L (15-37) L 12/31/24 04:17 ALT < 14 U/L (16-61) L 12/31/24 04:17 Alkaline Phosphatase 76 U/L (45-117) 12/31/24 04:17 Home Medications: Aspirin Tab [Princess Aspirin*] 1 tab PO DAILY 05/28/14 Allopurinol 300 mg PO DAILY 04/01/24 Atorvastatin Calcium 40 mg PO DAILY 04/01/24 Citalopram [Celexa*] 10 mg PO DAILY 04/01/24 Divalproex Sodium [Divalproex Sodium ER] 250 mg PO BID 04/01/24 Donepezil HCl 10 mg PO DAILY 04/01/24 Furosemide 40 mg PO DAILY 04/01/24 Potassium Chloride [Klor-Con M20] 20 meq PO DAILY 04/01/24 Quetiapine Fumarate [Seroquel] 50 mg PO BEDTIME 04/01/24 Tamsulosin [Flomax*] 0.8 mg PO BEDTIME #60 cap 04/01/24 carvediloL [Carvedilol] 6.25 mg PO BID 04/01/24 Losartan Potassium [Cozaar*] 100 mg PO DAILY 30 Days #30 tab 07/26/24 Ticagrelor [Brilinta*] 90 mg PO BID #60 tab 12/31/24 New Medications: Ticagrelor [Brilinta*] 90 mg PO BID #60 tab Physician Discharge Instructions: Patient was admitted to the hospital for a fall with subsequent confusion. He was monitored in the hospital overnight and his troponins became elevated. He was seen by cardiology who recommended a coronary angiogram be performed. A stent was placed to the left circumflex, the LAD was noted to have mild disease as well which will be monitored outpatient. Patient has done well after recovery from heart catheterization, his urine was negative for urinary tract infection, urine culture showed no growth. He is stable for discharge back to the long-term. He did sustain a nasal fracture with his fall which appears to be nondisplaced, recommend follow-up with ENT in 1 week He will also need to follow-up with cardiology, they will plan for an outpatient stress test to determine if he would benefit from intervention to the LAD in the future Continue home medications as previously prescribed New medication Brilinta 90 mg by mouth twice daily-it is very important that this medication is taken as scheduled prevent issues with the stent that was placed Patient also continue his aspirin, statin Diet: AHA Activity: Fall precautions Followup: Kyrie Kuhn MD [ACTIVE - CAN ADMIT] - 1-2 Weeks Dart,Emily L, DO [ACTIVE - CAN ADMIT] - 1 Week Leti Brooks MD [Primary Care Provider] - 1 Week Time spent managing pt's care (in minutes): 46
--- NOTE | 2025-01-03 11:36 | EKG ---
Test Date: 2024-12-29 Test Time: 18:52:06 Able Bodied Tankerman: [id number] MEASUREMENT RESULTS: Intervals: Rate: 86 MN: 162 QRSD: 84 QT: 388 QTc: 464 Weinert: P: -11 MN: 162 QRS: 27 T: 25 INTERPRETIVE STATEMENTS: Normal sinus rhythm Possible Inferior infarct, age undetermined Abnormal ECG Compared to ECG 12/29/2024 09:47:01 No significant changes Electronically Signed On 01-03-25 11:24:43 CDT by Kyrie Kuhn
== END 2024-12-31 12:41 | DRG 321 ==
LOC: ER 04:05 → ERHOLD 11:57 → 2ND 15:53
PROVIDERS: ADMIT Hospitalist; ATTEND Hospitalist
PROC: 0JQ10ZZ Repair Face Subcutaneous Tissue and Fascia, Open Approach (ICD-10-PCS; 2024-12-29)
PROC: 09QK0ZZ Repair Nasal Mucosa and Soft Tissue, Open Approach (ICD-10-PCS; 2024-12-29)
PROC: 027034Z Dilation of Coronary Artery, One Artery with Drug-eluting Intraluminal Device, Percutaneous Approach (ICD-10-PCS; principal; 2024-12-30)
PROC: 4A023N7 Measurement of Cardiac Sampling and Pressure, Left Heart, Percutaneous Approach (ICD-10-PCS; 2024-12-30)
PROC: B2111ZZ Fluoroscopy of Multiple Coronary Arteries using Low Osmolar Contrast (ICD-10-PCS; 2024-12-30)
DX: I21.4 Non-ST elevation (NSTEMI) myocardial infarction (principal); G93.41 Metabolic encephalopathy; E46 Unspecified protein-calorie malnutrition; R44.3 Hallucinations, unspecified; I50.22 Chronic systolic (congestive) heart failure; I11.0 Hypertensive heart disease with heart failure; S02.2XXA Fracture of nasal bones, initial encounter for closed fracture; G30.9 Alzheimer's disease, unspecified; E11.9 Type 2 diabetes mellitus without complications; E78.2 Mixed hyperlipidemia; S01.21XA Laceration without foreign body of nose, initial encounter; S01.111A Laceration without foreign body of right eyelid and periocular area, initial encounter; N40.0 Benign prostatic hyperplasia without lower urinary tract symptoms; F02.80 Dementia in other diseases classified elsewhere, unspecified severity, without behavioral disturbance, psychotic disturbance, mood disturbance, and anxiety; Z66 Do not resuscitate; Z79.4 Long term (current) use of insulin; Z79.82 Long term (current) use of aspirin; Z68.26 Body mass index [BMI] 26.0-26.9, adult; Z79.02 Long term (current) use of antithrombotics/antiplatelets; Z86.73 Personal history of transient ischemic attack (TIA), and cerebral infarction without residual deficits; Z79.899 Other long term (current) drug therapy; W18.30XA Fall on same level, unspecified, initial encounter; Y93.9 Activity, unspecified; Y92.9 Unspecified place or not applicable; Y99.9 Unspecified external cause status
CPT/HCPCS: 12011; 36415; 51702; 70450; 70486; 71250; 72125; 74176; 76377; 76937; 80048; 80053; 80076; 81001; 82947; 83605; 83735; 83880; 84145; 84484; 85025; 85347; 85610; 86140; 87040; 87086; 87088; 93005; 93306; 93454; 96372; 96374; 97116; 97161; 97530; 99152; 99153; 99285; C1725; C1893; C9600; J0360; J0461; J0696; J1644; J1650; J1815; J2003; J2250; J2405; J3010; J7030; J7040; Q9967